=== PATIENT | female | born 1960 | race Caucasian/White ===

== ENCOUNTER 2018-05-02 07:19 | Emergency (ER) | payer OTHER, MEDICARE ==
--- OUTSIDE RECORDS SUMMARY | ~2018-05-02 | XMS | Encounter Summary ---
Demographics + + + | Address | [address] | | | [place] [address] | + + + | Home Phone | | + + + | Preferred Language | Unknown | + + + | Marital Status | | + + + | Gnosticism Affiliation | Unknown | + + + | Race | Unknown | + + + | Ethnic Group | Unknown | + + + Author + + + | Author | [facility] | | | and [place] | + + + | Organization | [facility] | | | and [place] | + + + | Address | Unknown | + + + | Phone | Unavailable | + + + Support + + + + + | Name | Relationship | Address | Phone | + + + + + | Stephen Stubbs | ECON | [address] | | | | | [place] [address] | | + + + + + Care Team Providers + +------+ + | Care Rn Allergy Name | Role | Phone | + +------+ + | Iain Rosales MD | PCP | | + +------+ + Reason for Visit + + + | Reason | Comments | + + + | Emesis | | + + + | Abdominal Pain | | + + + Encounter Details +--------+ + + + + | Date | Type | Department | Care Team | Description | +--------+ + + + + | 04/30/ | Emergency | [facility] | Gordon Will, | Intractable vomiting | | 2018 - | | [facility] | MD [address] | with nausea, | | | | CENTER [address] | [facility] | unspecified vomiting | | 05/01/ | | [place] | [place] [address] | type (Primary Dx) | | 2018 | | [address] | [phone] | | | | | [phone] | | | +--------+ + + + + Social History + + + +--------+ + | Tobacco Use | Types | Packs/Day | Years | Date | | | | | Used | | + + + +--------+ + | Former Smoker | Cigarettes | 1 | 37 | Quit: 01/08/2013 | + + + +--------+ + + +---+---+---+ | Smokeless Tobacco: | | | | | Never Used | | | | + +---+---+---+ + + +---------+ + | Alcohol Use | Drinks/We | oz/Week | Comments | | | ek | | | + + +---------+ + | No | | | | + + +---------+ + + + + | Sex Assigned at | Date Recorded | | | | + + + | Not on file | | + + + as of this encounter Last Filed Vital Signs + + + + | Vital Sign | Reading | Time Taken | + + + + | Blood Pressure | 173/74 | 04/30/20182129 PDT | + + + + | Pulse | 76 | 04/30/20182144 PDT | + + + + | Temperature | 37.8 C (100 F) | 04/30/20181831 PDT | + + + + | Respiratory Rate | 22 | 04/30/20181831 PDT | + + + + | Oxygen Saturation | 92% | 04/30/20182144 PDT | + + + + | Inhaled Oxygen | - | - | | Concentration | | | + + + + | Weight | 81.6 kg (180 lb) | 04/30/20181831 PDT | + + + + | Height | 162.6 cm (5' 4") | 04/30/20181831 PDT | + + + + | Body Mass Index | 30.9 | 04/30/20181831 PDT | + + + + in this encounter Functional Status + + + + | Functional Status | Response | Date of Assessment | + + + + | Are you deaf or do you have serious | No | 11/17/2017 | | difficulty hearing? | | | + + + + | Are you blind or do you have serious | No | 11/17/2017 | | difficulty seeing, even when wearing | | | | glasses? | | | + + + + | Do you have serious difficulty walking or | No | 11/17/2017 | | climbing stairs? (5 years old or older) | | | + + + + | Do you have difficulty dressing or bathing? | No | 11/17/2017 | | (5 years old or older) | | | + + + + | Because of a physical, mental, or emotional | No | 11/17/2017 | | condition, do you have difficulty doing | | | | errands alone such as visiting a doctor's | | | | office or shopping? [15 years old or | | | | older)] | | | + + + + + + + + | Cognitive Status | Response | Date of Assessment | + + + + | Because of a physical, mental, or emotional | No | 11/17/2017 | | condition, do you have serious difficulty | | | | concentrating, remembering, or making | | | | decisions? (5 years old or older) | | | + + + + as of this encounter Discharge Instructions Gordon Will MD - 04/30/2018Resume your usual medication Follow-up with primary care The following attachments cannot be sent through Care Everywhere.Vomiting (Adult) (Cymraes) in this encounter Medications at Time of Discharge + + + +---------+ + + | Medication | Sig. | Disp. | Refills | Start | End Date | | | | | | Date | | + + + +---------+ + + | Albuterol Sulfate | Inhale 1 puff into | | | | | | (PROAIR HFA IN) | the lungs as needed | | | | | | | (for shortness of | | | | | | | breath). | | | | | + + + +---------+ + + | atorvaSTATin | Take 1 tablet by | 90 | 3 | 03/11/20 | | | (LIPITOR) 40 mg | mouth nightly. | tablet | | 18 | | | tablet | | | | | | + + + +---------+ + + | buPROPion | Take 150 mg by mouth | | | | | | (WELLBUTRIN SR) 150 | Daily. | | | | | | mg 12 hr tablet | | | | | | + + + +---------+ + + | DULoxetine | Take 30 mg by mouth | | | | | | (CYMBALTA) [address] | Daily. | | | | | | capsule | | | | | | + + + +---------+ + + | insulin degludec | Inject 33 Units | | | | | | (TRESIBA FLEXTOUCH) | under the skin every | | | | | | 100 units/mL | morning. | | | | | | injection | | | | | | + + + +---------+ + + | insulin lispro | Inject 1 Units under | | | | | | (HUMALOG) 100 | the skin See Admin | | | | | | units/mL injection | Instructions. Inject | | | | | | (vial) | 1 units under the | | | | | | | skin for every 40 | | | | | | | above 180 blood | | | | | | | glucose 2 hours post | | | | | | | meals | | | | | + + + +---------+ + + | lidocaine | Take 15 mLs by mouth | 150 mL | 0 | 11/11/19 | | | (XYLOCAINE) 2% | every 4 hours as | | | 18 | | | solution | needed for Pain. | | | | | + + + +---------+ + + | lisinopril | Take 10 mg by mouth | | | | | | (PRINIVIL, ZESTRIL) | Daily. | | | | | | 10 mg tablet | | | | | | + + + +---------+ + + | metoclopramide | Take 1 tablet by | 20 | 1 | 11/18/19 | | | (REGLAN) 10 mg | mouth every 6 hours | tablet | | 18 | | | tablet | as needed for | | | | | | | Nausea. | | | | | + + + +---------+ + + | metoprolol | Take 50 mg by mouth | | | | | | succinate | Daily. | | | | | | (TOPROL-XL) 50 mg 24 | | | | | | | hr tablet | | | | | | + + + +---------+ + + | nitroglycerin | Place 0.4 mg under | | | | | | (NITROSTAT) 0.4 mg | the tongue every 5 | | | | | | SL tablet | minutes as needed | | | | | | | for Chest pain. | | | | | + + + +---------+ + + | omeprazole | Take 40 mg by mouth | | | | | | (PRILOSEC) 40 MG | every morning | | | | | | capsule | (before breakfast). | | | | | + + + +---------+ + + | ondansetron | Take 4 mg by mouth | | | | | | (ZOFRAN ODT) 4 mg | every 8 hours as | | | | | | disintegrating | needed for Nausea. | | | | | | tablet | | | | | | + + + +---------+ + + | ondansetron | Take 1 tablet by | 12 | 0 | 02/03/20 | | | (ZOFRAN ODT) 4 mg | mouth every 6 hours | tablet | | 18 | | | disintegrating | as needed for Nausea | | | | | | tablet | or Vomiting. | | | | | + + + +---------+ + + | ONETOUCH VERIO | USE 1 STRIP 5 TIMES | | 1 | 01/16/20 | | | strip | DAILY | | | 18 | | + + + +---------+ + + | polyethylene | Take 17 g by mouth | | | | | | glycol (MIRALAX) | Daily as needed for | | | | | | powder | Constipation. | | | | | + + + +---------+ + + | promethazine | Place 1 suppository | 12 | 0 | 04/30/20 | | | (PHENERGAN) 25 mg | rectally every 4 | supposito | | 18 | | | suppository | hours as needed for | ry | | | | | | Nausea or Vomiting. | | | | | | | Unwrap and insert 1 | | | | | | | suppository rectally | | | | | | | every four hours as | | | | | | | needed | | | | | + + + +---------+ + + | semaglutide | Inject 0.5 mg under | | | | | | (OZEMPIC) 0.25 or | the skin Once a | | | | | | 0.5 mg/dose | week. | | | | | | injection | | | | | | + + + +---------+ + + | senna (SENOKOT) | Take 1 tablet by | | | | | | 8.6 MG TABS | mouth Daily as | | | | | | | needed for | | | | | | | Constipation. | | | | | + + + +---------+ + + | traZODone | Take 150 mg by mouth | | | | | | (DESYREL) 50 mg | nightly. | | | | | | tablet | | | | | | + + + +---------+ + + as of this encounter Plan of Treatment +--------+---------+ + + + | Date | Type | Specialty | Care Team | Description | +--------+---------+ + + + | 08/27/ | Office | Urology | Davon Perry, | | | 2018 | Visit | | MD Jose De Jesus MIKE, | | | | | | [place] | | | | | | [place] [address] | | | | | | [phone] | | | | | | | | +--------+---------+ + + + | 09/11/ | Office | Cardiology | Karthik Cobb, | | | 2018 | Visit | | MD Michelle Milan | | | | | | . [place], | | | | | | [place] [address] | | | | | | [phone] | | | | | | | | +--------+---------+ + + + as of this encounter Procedures + +--------+ + + + | Procedure Name | Priori | Date/Time | Associated Diagnosis | Comments | | | ty | | | | + +--------+ + + + | URINALYSIS WITH | STAT | 04/30/2018 | | Results for this | | MICROSCOPIC WITH | | 1920 PDT | | procedure are in the | | CULTURE IF INDICATED | | | | results section. | + +--------+ + + + | EXTRA LAVENDER TOP | Routin | 04/30/2018 | | Results for this | | TUBE | e | 1920 PDT | | procedure are in the | | | | | | results section. | + +--------+ + + + | EXTRA GREEN TOP TUBE | STAT | 04/30/2018 | | Results for this | | | | 1920 PDT | | procedure are in the | | | | | | results section. | + +--------+ + + + | EXTRA GOLD TOP TUBE | Routin | 04/30/2018 | | Results for this | | | e | 1920 PDT | | procedure are in the | | | | | | results section. | + +--------+ + + + | EXTRA BLUE TOP TUBE | Routin | 04/30/2018 | | Results for this | | | e | 1920 PDT | | procedure are in the | | | | | | results section. | + +--------+ + + + | SLIDE REVIEW, | Routin | 04/30/2018 | | Results for this | | PERIPHERAL SMEAR | e | 1919 PDT | | procedure are in the | | | | | | results section. | + +--------+ + + + | CBC WITH | STAT | 04/30/2018 | | Results for this | | DIFFERENTIAL | | 191 PDT | | procedure are in the | | | | | | results section. | + +--------+ + + + | MAGNESIUM | STAT | 04/30/2018 | | Results for this | | | | 1918 PDT | | procedure are in the | | | | | | results section. | + +--------+ + + + | LIPASE | STAT | 04/30/2018 | | Results for this | | | | 1919 PDT | | procedure are in the | | | | | | results section. | + +--------+ + + + | COMPREHENSIVE | STAT | 04/30/2018 | | Results for this | | METABOLIC PANEL | | 1919 PDT | | procedure are in the | | | | | | results section. | + +--------+ + + + in this encounter Results Extra Gold Top Tube (04/30/20181919) + +-------+ + + | Component | Value | Ref Range | Performed At | + +-------+ + + | EGDT | Done | | [facility] | | | | | [facility] | | | | | [facility] - | | | | | LABORATORY | + +-------+ + + + + | Specimen | + + | Blood | + + + + + + + | Performing | Address | City/State/Zipcode | Phone Number | | Organization | | | | + + + + + | [facility] | [address] | [place] | [phone] | | [facility] | | [address] | | | - LABORATORY | | | | + + + + + | [facility] | [address] | [place], [place] | | | [facility] | | [address] | | | - LABORATORY | | | | + + + + + Extra Blue Top Tube (04/30/20181919) + +-------+ + + | Component | Value | Ref Range | Performed At | + +-------+ + + | Extra Blue Top Tube | Done | | [facility] | | | | | [facility] | | | | | [facility] - | | | | | LABORATORY | + +-------+ + + + + | Specimen | + + | Blood | + + + + + + + | Performing | Address | City/State/Zipcode | Phone Number | | Organization | | | | + + + + + | [facility] | [address] | [place], [place] | [phone] | | [facility] | | [address] | | | - LABORATORY | | | | + + + + + | [facility] | [address] | [place] | | | [facility] | | [address] | | | - LABORATORY | | | | + + + + + Extra Green Top Tube (04/30/20181919) + +-------+ + + | Component | Value | Ref Range | Performed At | + +-------+ + + | Extra Green Top Tube | Done | | [facility] | | | | | [facility] | | | | | [facility] - | | | | | LABORATORY | + +-------+ + + + + | Specimen | + + | Blood | + + + + + + + | Performing | Address | City/State/Zipcode | Phone Number | | Organization | | | | + + + + + | [facility] | [address] | [place] | [phone] | | [facility] | | [address] | | | - LABORATORY | | | | + + + + + | [facility] | [address] | [place] | | | [facility] | | [address] | | | - LABORATORY | | | | + + + + + Extra Lavender Top Tube (04/30/20181919) + +-------+ + + | Component | Value | Ref Range | Performed At | + +-------+ + + | Extra Lavender Top | Done | | [facility] | | Tube | | | [facility] | | | | | [facility] - | | | | | LABORATORY | + +-------+ + + + + | Specimen | + + | Blood | + + + + + + + | Performing | Address | City/State/Zipcode | Phone Number | | Organization | | | | + + + + + | [facility] | [address] | [place], [place] | [phone] | | [facility] | | [address] | | | - LABORATORY | | | | + + + + + | [facility] | [address] | [place], [place] | | | [facility] | | [address] | | | - LABORATORY | | | | + + + + + Urinalysis with Microscopic with Culture if Indicated (04/30/2018 1920) + + + + + | Component | Value | Ref Range | Performed At | + + + + + | COLOR | Yellow | Light Yellow, | [facility] | | | | Yellow, Straw | [facility] | | | | | C[facility] - | | | | | LABORATORY | + + + + + | CLARITY | Hazy (A) | Clear | [facility] | | | | | [facility] | | | | | [facility] - | | | | | LABORATORY | + + + + + | PH UA | 6.0 | 5.0 - 8.0 | [facility] | | | | | [facility] | | | | | [facility] - | | | | | LABORATORY | + + + + + | Specific Virgie | 1.036 (H) | 1.001 - 1.030 | [facility] | | | | | [facility] | | | | | C[facility] - | | | | | LABORATORY | + + + + + | PROTEIN UA | >=500 mg/dL (A) | Negative | [facility] | | | | | [facility] | | | | | C[facility] - | | | | | LABORATORY | + + + + + | BLOOD UA | Negative | Negative | [facility] | | | | | [facility] | | | | | [facility] - | | | | | LABORATORY | + + + + + | GLUCOSE UA | >=500 mg/dL (A) | Negative | [facility] | | | | | [facility] | | | | | [facility] - | | | | | LABORATORY | + + + + + | KETONES UA | 80 mg/dL (A) | Negative | [facility] | | | | | [facility] | | | | | C[facility] - | | | | | LABORATORY | + + + + + | BILIRUBIN UA | Negative | Negative | [facility] | | | | | [facility] | | | | | [facility] - | | | | | LABORATORY | + + + + + | NITRITE UA | Negative | Negative | [facility] | | | | | [facility] | | | | | [facility] - | | | | | LABORATORY | + + + + + | LEUKOCYTES ESTERASE | Negative | Negative | [facility] | | UA | | | [facility] | | [facility] | | [facility] - | | | | | LABORATORY | + + + + + | UROBILINOGEN UA | Negative | 0.2 mg/dL, 1.0 | [facility] | | | | mg/dL, Negative | [facility] | | | | | C[facility] - | | | | | LABORATORY | + + + + + | WBC UA | 0-2 | 0 - 2 /HPF | [facility] | | | | | [facility] | | | | | CENTER - | | | | | LABORATORY | + + + + + | RBC UA | 5-10 (A) | 0 - 2 /HPF | [facility] | | | | | [facility] | | | | | [facility] - | | | | | LABORATORY | + + + + + | SQUAMOUS EPITHELIAL | >100 (A) | 0 - 2 /LPF | [facility] | | UA | | | [facility] | | | | | CENTER - | | | | | LABORATORY | + + + + + | BACTERIA UA | Negative | Negative /HPF | [facility] | | | | | [facility] | | | | | [facility] - | | | | | LABORATORY | + + + + + | MUCUS UA | Present (A) | Negative /LPF | [facility] | | | | | [facility] | | | | | CENTER - | | | | | LABORATORY | + + + + + | URINE COMMENT | Urine Culture Not | | [facility] | | | Indicated | | [facility] | | | | | CENTER - | | | | | LABORATORY | + + + + + + + | Specimen | + + | Urine - Urine, Clean | | Catch | + + + + + + + | Performing | Address | City/State/Zipcode | Phone Number | | Organization | | | | + + + + + | [facility] | [address] | [place], [place] | [phone] | | [facility] | | [address] | | | - LABORATORY | | | | + + + + + | [facility] | [address] | [place], [place] | | | [facility] | | [address] | | | - LABORATORY | | | | + + + + + Slide Review, Peripheral Smear (04/30/20181918) + + + + + | Component | Value | Ref Range | Performed At | + + + + + | RBC MORPHOLOGY | Normal | | [facility] | | | | | [facility] | | | | | C[facility] - | | | | | LABORATORY | + + + + + | WBC MORPHOLOGY | Normal | | [facility] | | | | | [facility] | | | | | C[facility] - | | | | | LABORATORY | + + + + + | Platelet Estimate | Adequate | Adequate | [facility] | | | | | [facility] | | | | | [facility] - | | | | | LABORATORY | + + + + + + + | Specimen | + + | Blood | + + + + + | Narrative | Performed At | + + + | <10% bands seen on smear review; | [facility] | | [facility] | | | - [facility] | + + + + + + + + | Performing | Address | City/State/Zipcode | Phone Number | | Organization | | | | + + + + + | [facility] | [address] | [place], [place] | [phone] | | [facility] | | [address] | | | - LABORATORY | | | | + + + + + | [facility] | [address] | [place], [place] | | | [facility] | | [address] | | | - LABORATORY | | | | + + + + + Magnesium (04/30/20181918) + +---------+ + + | Component | Value | Ref Range | Performed At | + +---------+ + + | MG | 1.6 (L) | 1.8 - 2.5 mg/dL | [facility] | | | | | [facility] | | | | | [facility] - | | | | | LABORATORY | + +---------+ + + + + | Specimen | + + | Blood | + + + + + + + | Performing | Address | City/State/Zipcode | Phone Number | | Organization | | | | + + + + + | [facility] | [address] | [place] | [phone] | | [facility] | | [address] | | | - LABORATORY | | | | + + + + + | [facility] | [address] | [place] | | | [facility] | | [address] | | | - LABORATORY | | | | + + + + + Lipase (04/30/20181918) + +-------+ + + | Component | Value | Ref Range | Performed At | + +-------+ + + | LIPASE | 18 | 0 - 60 U/L | [facility] | | | | | [facility] | | | | | [facility] - | | | | | LABORATORY | + +-------+ + + + + | Specimen | + + | Blood | + + + + + + + | Performing | Address | City/State/Zipcode | Phone Number | | Organization | | | | + + + + + | [facility] | [address] | [place], [place] | [phone] | | [facility] | | [address] | | | - LABORATORY | | | | + + + + + | [facility] | [address] | [place], [place] | | | [facility] | | [address] | | | - LABORATORY | | | | + + + + + Comprehensive Metabolic Panel (04/30/20181918) + + + + + | Component | Value | Ref Range | Performed At | + + + + + | NA | 140 | 136 - 149 mmol/L | [facility] | | | | | [facility] | | | | | [facility] - | | | | | LABORATORY | + + + + + | K | 3.7 | 3.5 - 5.1 mmol/L | [facility] | | | | | [facility] | | | | | [facility] - | | | | | LABORATORY | + + + + + | CL | 102 | 98 - 109 mmol/L | [facility] | | | | | [facility] | | | | | C[facility] - | | | | | LABORATORY | + + + + + | CO2 | 24 | 24 - 31 mmol/L | [facility] | | | | | [facility] | | | | | C[facility] - | | | | | LABORATORY | + + + + + | ANION GAP | 14 | 3 - 16 mmol/L | [facility] | | | | | [facility] | | | | | C[facility] - | | | | | LABORATORY | + + + + + | GLUCOSE | 298 (H) | 70 - 109 mg/dL | [facility] | | | | | [facility] | | | | | [facility] - | | | | | LABORATORY | + + + + + | BUN | 8 | 7 - 18 mg/dL | [facility] | | | | | [facility] | | | | | [facility] - | | | | | LABORATORY | + + + + + | Creatinine, | 0.64 | 0.60 - 1.30 mg/dL | [facility] | | Serum/Plasma | | | [facility] | | | | | CENTER - | | | | | LABORATORY | + + + + + | eGFR if not | >60Comment: GLOMERULAR | >=60 mL/min/1.73m2 | [facility] | | [place] | FILTRATION | | [facility] | | | RATE,ESTIMATED mL/min | | CENTER - | | | /1.94w4Swby than 60 | | LABORATORY | | | Chronic kidney | | | | | disease,if found over a | | | | | 3-month period.Less than | | | | | 15 Kidney | | | | | failureFor | | | | | Americans,multiply the | | | | | calculated GFR by 1.21. | | | | | | | | + + + + + | CALCIUM | 9.2 | 8.3 - 10.5 mg/dL | [facility] | | | | | [facility] | | | | | CENTER - | | | | | LABORATORY | + + + + + | ALBUMIN | 4.3 | 3.2 - 5.0 g/dL | [facility] | | | | | [facility] | | | | | C[facility] - | | | | | LABORATORY | + + + + + | Bilirubin Total | 1.0Comment: This is an | 0.1 - 1.5 mg/dL | [facility] | | | appended report. These | | [facility] | | | results have been | | CENTER - | | | appended to a previously | | LABORATORY | | | preliminary verified | | | | | report. | | | + + + + + | Total protein | 8.1 (H) | 6.0 - 7.8 g/dL | [facility] | | | | | [facility] | | | | | C[facility] - | | | | | LABORATORY | + + + + + | AST | 24Comment: This is an | 10 - 42 U/L | [facility] | | | appended report. These | | [facility] | | | results have been | | CENTER - | | | appended to a previously | | LABORATORY | | | preliminary verified | | | | | report. | | | + + + + + | ALT | 34Comment: This is an | 6 - 45 U/L | [facility] | | | appended report. These | | [facility] | | | results have been | | CENTER - | | | appended to a previously | | LABORATORY | | | preliminary verified | | | | | report. | | | + + + + + | ALK PHOS | 118 (H)Comment: This is | 40 - 110 U/L | [facility] | | | an appended report. | | [facility] | | | These results have been | | CENTER - | | | appended to a previously | | LABORATORY | | | preliminary verified | | | | | report. | | | + + + + + | GLOBULIN | 3.8 | 2.1 - 3.8 g/dL | [facility] | | | | | [facility] | | | | | CENTER - | | | | | LABORATORY | + + + + + | Albumin/Globulin | 1.1 | 0.8 - 2.0 | [facility] | | ratio | | | [facility] | | | | | CENTER - | | | | | LABORATORY | + + + + + | BUN/CREA | 12.5 | | [facility] | | | | | [facility] | | | | | CENTER - | | | | | LABORATORY | + + + + + + + | Specimen | + + | Blood | + + + + + + + | Performing | Address | City/State/Zipcode | Phone Number | | Organization | | | | + + + + + | [facility] | [address] | [place] | [phone] | | [facility] | | [address] | | | - LABORATORY | | | | + + + + + | [facility] | [address] | [place] | | | [facility] | | [address] | | | - LABORATORY | | | | + + + + + CBC with Differential (04/30/20181918) + + + + + | Component | Value | Ref Range | Performed At | + + + + + | WBC | 11.2 (H) | 4.0 - 11.0 K/uL | [facility] | | | | | [facility] - | | | | | [facility]ATORY | + + + + + | RBC | 5.47 (H) | 3.70 - 5.20 M/uL | [facility] | [facility] - | | | | | LAB[facility]ATORY | + + + + + | Hgb | 17.5 (H) | 11.5 - 16.0 g/dL | [facility] - | | | | | LAB[facility]ATORY | + + + + + | Hct | 50.8 (H) | 34.0 - 47.0 % | [facility] | [facility] - | | | | | [facility]ATORY | + + + + + | MCV | 92.8 | 83.0 - 101.0 fL | [facility] | [facility] - | | | | | [facility]ORY | + + + + + | MCH | 32.0 | 28.0 - 35.0 pg | [facility] - | | | | | [facility]ATORY | + + + + + | MCHC | 34.5 | 32.0 - 36.0 g/dL | [facility] - | | | | | [facility]ATORY | + + + + + | RDW-CV | 14.0 | <15.0 % | [facility] | [facility] - | | | | | [facility]ORY | + + + + + | Platelet Count | 168 | 140 - 440 K/uL | [facility] | [facility] - | | | | | [facility] | + + + + + | MPV | 10.2 | fL | [facility] - | | | | | [facility] | + + + + + | % Neutrophils | 89.0 (H) | 45.0 - 82.0 % | [facility] - | | | | | [facility]ORY | + + + + + | % Lymphocytes | 6.1 (L) | 20.0 - 45.0 % | [facility] - | | | | | [facility]ORY | + + + + + | % Monocytes | 2.2 (L) | 4.0 - 12.0 % | [facility] - | | | | | [facility]ATORY | + + + + + | % Eosinophils | 0.4 | 0.0 - 5.0 % | [facility] [facility] | [facility] - | | | | | [facility]ATORY | + + + + + | % Basophils | 2.3 (H) | 0.0 - 1.0 % | [facility] - | | | | | LAB[facility]ATORY | + + + + + | Absolute Neutrophils | 10.00 (H) | 1.80 - 8.50 K/uL | [facility] | [facility] - | | | | | LAB[facility]ATORY | + + + + + | Absolute Lymphocytes | 0.70 | 0.60 - 3.20 K/uL | [facility] - | | | | | LAB[facility]ATORY | + + + + + | Absolute Monocytes | 0.20 | 0.00 - 1.00 K/uL | [facility] - | | | | | [facility]ATORY | + + + + + | Absolute Eosinophils | 0.00 | 0.00 - 0.40 K/uL | [facility] - | | | | | LAB[facility]ATORY | + + + + + | Absolute Basophils | 0.30 (H) | 0.00 - 0.10 K/uL | [facility] | [facility] - | | | | | LAB[facility]ATORY | + + + + + + + | Specimen | + + | Blood | + + + + + + + | Performing | Address | City/State/Zipcode | Phone Number | | Organization | | | | + + + + + | [facility] | [address] | [place], [place] | [phone] | | [facility] | | [address] | | | - LABORATORY | | | | + + + + + | [facility] | [address] | [place] | | | [facility] | | [address] | | | - LABORATORY | | | | + + + + + in this encounter Visit Diagnoses + + | Diagnosis | + + | Intractable vomiting with nausea, unspecified vomiting type - Primary | + + Administered Medications + +--------+ +------+------+------+ | Medication Order | MAR | Action | Dose | Rate | Site | | | Action | Date | | | | + +--------+ +------+------+------+ | LORazepam (ATIVAN) injection 1 | Given | | 1 mg | | | | mg 1 mg, Intravenous, ONCE, Wed | | 8 19:26 | | | | | 04/30/18 at 1910, For 1 dose | | PDT | | | | + +--------+ +------+------+------+ +---+---+ | | | +---+---+ + +---------+ +-----+ +---+ | magnesium sulfate 2 g/50 mL | New Bag | | 2 g | 25 mL/hr | | | IVPB 2 g 2 g, Intravenous, | | 8 20:15 | | | | | Administer over 120 Minutes, | | PDT | | | | | ONCE, Sat04/30/18 at 2000, For 1 | | | | | | | dose, Maximum recommended | | | | | | | infusion rate = 1 gram/hour. | | | | | | + +---------+ +-----+ +---+ +---+---+ | | | +---+---+ + +-------+ +-------+---+---+ | metoclopramide (REGLAN) 5 mg/mL | Given | | 10 mg | | | | injection 10 mg 10 mg, | | 8 19:26 | | | | | Intravenous, ONCE, Sat04/30/18 at | | PDT | | | | | 1910, For 1 dose, Protect from | | | | | | | light. | | | | | | + +-------+ +-------+---+---+ +---+---+ | | | +---+---+ + +---------+ +---------+-------+---+ | promethazine (PHENERGAN) 12.5 | New Bag | | 12.5 mg | 202 | | | mg in sodium chloride 0.9% 50 mL | | 8 22:12 | | mL/hr | | | IVPB 12.5 mg, Intravenous, | | PDT | | | | | Administer over 15 Minutes, ONCE, | | | | | | | 04/30/18 at 2205, For 1 dose | | | | | | + +---------+ +---------+-------+---+ +---+---+ | | | +---+---+ + +---------+ +--------+-------+---+ | sodium chloride 0.9% (NS) bolus | New Bag | | 1,000 | 1000 | | | 1,000 mL 1,000 mL, Intravenous, | | 8 19:17 | mLs | mL/hr | | | Administer over 1 Hours, ONCE, | | PDT | | | | | 04/30/18 at 1910, For 1 dose | | | | | | + +---------+ +--------+-------+---+ +---+---+ | | | +---+---+ + +---------+ +--------+-------+---+ | sodium chloride 0.9% (NS) bolus | New Bag | | 1,000 | 1000 | | | 1,000 mL 1,000 mL, Intravenous, | | 8 20:55 | mLs | mL/hr | | | Administer over 1 Hours, ONCE, | | PDT | | | | | 04/30/18 at 2055, For 1 dose | | | | | | + +---------+ +--------+-------+---+ +---+---+ | | | +---+---+ in this encounter
--- OUTSIDE RECORDS SUMMARY | ~2018-05-02 | XMS | Encounter Summary ---
Demographics + + + | Address | [address] | | | [place] [address] | + + + | Home Phone | | + + + | Preferred Language | Unknown | + + + | Marital Status | | + + + | Religion Affiliation | Unknown | + + + | Race | Unknown | + + + | Ethnic Group | Unknown | + + + Author + + + | Author | [facility] | | | and [place] | + + + | Organization | [facility] | | | and [...] | | | | | [place] [address] | | + + + + + Care Team Providers + +------+ + | Care Writer Name | Role | Phone | + +------+ + | Iain Rosales MD | PCP | | + +------+ + Reason for Visit +--------+ + | Reason | Comments | +--------+ + | Other | kidney lesion, [place], left | +--------+ + Encounter Details +--------+---------+ + + + | Date | Type | Department | Care Team | Description | +--------+---------+ + + + | 02/06/ | Office | [facility] | Davon Perry, | Renal cell carcinoma | | 2018 | Visit | [address] | MD [address], | of left kidney | | | | [address] [place] | [address] [place] | (HCC) (Primary Dx); | | | | [place] [address] | [place] [address] | Microhematuria | | | | [phone] | [phone] | | | | | | | | +--------+---------+ + + + Social History + + [...] + + + | Blood Pressure | 132/80 | 02/06/2018 1051 PDT | + + + + | Pulse | 87 | 02/06/20181050 PDT | + + + + | Temperature | - | - | + + + + | Respiratory Rate | - | - | + + + + | Oxygen Saturation | - | - | + + + + | Inhaled Oxygen | - | - | | Concentration | | | + + + + | Weight | 79.7 kg (175 lb 11.3 | 02/06/20181050 PDT | | | oz) | | + + + + | Height | 162.6 cm (5' 4") | 02/06/20181050 PDT | + + + + | Body Mass Index | 30.16 | 02/06/20181050 PDT | + + + + in [...] + + + as of this encounter Instructions Patient Instructions - Davon Perry MD - 02/06/2018 1437 PDT What Is Kidney (Renal) Cancer? Cancer occurs when cells in the body mutate or change and start multiplying out of control. These cells can form lumps of tissue called tumors. Cancer that starts in the cells that ma ke up the kidney is called kidney or renal cancer. Understanding the kidneys The kidneys are gomez-shaped organs about the size of a bar of soap. They are found in the l ow back area, one on each side of the spine. The kidneys help keep the body alive by filteri ng waste and excess fluid from the blood. The kidneys send this liquid and waste (urine) to the bladder through the ureters. Urine then leaves the body through the urethra. When kidney cancer forms Kidney cancer forms when cells in the kidney change and multiply abnormally. The cancer can interfere with the working of the kidneys. Kidney cancer may spread beyond the kidneys to o ther parts of the body. This spread is called metastasis. The more cancer spreads, the harde r it is to treat. Treatment choices for kidney cancer You and your healthcare provider will discuss a treatment plan that's best for your needs. Treatment choices may include the following. Surgery Surgery is the most common treatment for kidney cancer. Your healthcare provider may advise surgery to treat your kidney cancer if any of these apply to you: You are healthy enough to have surgery. Your healthcare provider will only advise surger y if he or she expects you to be able to recover from it. The tumor is small. In this case, your healthcare provider may do a partial nephrectomy. This surgery allows you to keep some kidney function. Only the part of the kidney that cont ains the tumor is taken out. In some cases, your provider may advise this surgery if the jose angel or is larger but you have cancer in both kidneys or if you have only one kidney. The benefit is that you keep part of the kidney. The risk is that there is a chance some cancer cells w ill be left behind. The tumor is larger, but is only in your kidney. Your healthcare provider will advise th e type of surgery you need based on the size of the tumor and where it is. Your provider may advise a simple nephrectomy. This is surgery to take out the entire kidney. Or your provide r may advise a radical nephrectomy. This is surgery to take out the whole kidney and the adr enal gland. The adrenal gland is attached to the top of the kidney. Much of the nearby fatty tissue is also taken out. Nearby lymph nodes will also likely be removed. That's because ca ncer may travel to the nodes first. Taking out the lymph nodes may help prevent the spread o f cancer to other parts of your body. And looking at these lymph nodes helps your provider f igure out the stage of the cancer. This is important in deciding whether you need other jose tments after surgery. You have kidney cancer that has spread to other areas and your doctors believe that genna ving the original kidney tumor will be a useful and effective addition to treatment. Your he althcare provider may suggest a radical nephrectomy and removal of nearby lymph nodes. The t umor or tumors in other parts of the body may also be removed or it may be recommended that you get anti-cancer drug therapy. Even in cases where surgery won t cure the cancer, surge ry can sometimes help ease symptoms such as pressure, pain, or bleeding. You have symptoms. You may have pain, pressure, or bleeding from tumors that have spread . Your healthcare provider may suggest surgery to remove the tumors. This is done to ease sy mptoms. Because it doesn't cure the cancer, it is called palliative therapy. Biologic therapy (immunotherapy) This treatment strengthens your immune system to help fight cancer. It uses medicines that work like the chemicals that your body s immune system makes. They help your immune system fight the cancer. Chemotherapy Chemotherapy uses medicines to kill cancer cells. Regular chemotherapy medicines don't usua lly work well against kidney cancer. Chemotherapy has mostly been replaced by biologic thera py in kidney cancer treatment. But chemotherapy medicines are still sometimes used in rare c ases where biologic therapy has not worked. Radiation therapy Radiation therapy uses directed rays of energy to kill cancer cells. Radiation therapy does n't work as well as other methods for treating kidney cancer. Still, it may be used to treat someone who's not healthy enough to have surgery, or a person with kidney cancer that's not responding to other treatments. It may also be used to treat kidney cancer that has spread to the brain or bones. It may be used to treat pain caused by cancer that has spread to the bone (bone metastasis). It can also help stabilize a bone that has been weakened by metastas is and may be at risk for breaking. Targeted therapies These therapies use medicines to focus on or prevent changes in the cancer cells. The curtis es may be either in the cell's molecules or genes. These medicines help keep the cells from growing out of control and spreading to other parts of the body. Date Last Reviewed: 09/19/201619993282-7972 [employer]. [address] [place] [address], [place] [address]. All righ ts reserved. This information is not intended as a substitute for professional medical care. Always follow your healthcare professional's instructions. in this encounter Progress Notes Davon Perry MD - 02/06/2018 1100 PDTFormatting of this note may be different from the original. Kerry is a 57 y.o. female patient of Iain Rosales MD being seen today for a follow up for left kidney tumor. Kerry has history of diabetes and diabetic gastroparesis with multiple admissions for nause a and vomiting and abdominal pain. During evaluation of her gastroparesis, CT imaging suggested a mass lesion in the left kidn ey. Kerry ultimately underwent a robotic-assisted left partial nephrectomy by Dr. Josep Lamb on 01/31/2018. She was discharged on 02/02/2018. Cecy reports that she has done well since her nephrectomy procedure. She has not requir ed readmission for nausea or vomiting or gastroparesis issues. She reports that she had a bowel movement this morning after taking MiraLAX. She denies an y hematochezia or melena or diarrhea. She denies any fever or chills. She has had occasional nausea, but no emesis. Her appetit e is low. She does feel gassy and bloated at times, but is passing flatus regularly. She denies any difficulties with voiding. She denies any dysuria or hematuria or increased urinary frequency. She does have urinary urgency and urge incontinence, for which she wear s 1 pad per day. She reports her pain is well controlled. She is not taking any pain medication currently o ther than acetaminophen. However, she does note significant pain if she tries to lay on her left side, so she has been sleeping on her right side. She is seen no wound drainage or di scharge or bleeding. She reports that she "wasn't thinking" and lifted a load of laundry at home, which produced incisional/abdominal pain, which has resolved. She denies any cough or chest pain or shortness breath or hemoptysis. She does not smoke. 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 She is . She has 2 children. I spent in excess of 40 minutes with Kerry today, over 50% of this time spent in counseling regarding her left renal cell carcinoma and follow-up recommendations. Past Medical History She has a past medical history of Acid reflux; Adverse effect of anesthesia; Anxiety; Arthr itis; Back pain, chronic; Cancer (HCC); CHF (congestive heart failure) (HCC); Claustrophobia ; Depression; Diabetes mellitus (HCC); Emphysema/COPD (HCC); Fibromyalgia; Gastroparesis (4x in er w/1admission in past 10d); H/O heart artery stent; Hypertension; Kidney problem; SD ( myocardial infarction) (HCC) (10/2016); PONV (postoperative nausea and vomiting); Shortness of breath; and Sleep apnea. Past Surgical History She has a past surgical history that includes orthopedic surgery; Rotator cuff repair (Bila teral); Foot surgery; Upper gastrointestinal endoscopy (N/A, 03/19/2017); Cardiac catheterizat ion (N/A, 11/15/2017); Appendectomy; knee surgery (Right); Coronary angioplasty with stent (0 11/07/2009); knee joint replacement (Right); salpingectomy (Left); and partial nephrectomy (L eft, 01/31/2018). Family History: Her family history includes Arthritis in her mother; COPD in her father; Cancer in her brot her, father, and mother; Depression in her mother; Diabetes in her father and sister; Heart disease in her father; High cholesterol in her mother; Hypertension in her father; Stroke in her maternal grandmother; Vision loss in her sister. Social History: She reports that she quit smoking about 5 years ago. Her smoking use included Cigarettes. S he has a 37.00 pack-year smoking history. She has never used smokeless tobacco. She reports that she does not drink alcohol or use drugs. Allergies Allergen Reactions Canagliflozin Other (See Comments) INVOKANA causes Ketoacidosis Metformin Hospitalized for 1 week, N/V, ABDOMINAL PAIN Milnacipran Nausea And Vomiting Other reaction(s): Diarrhea, Nausea Sulfa Antibiotics Rash Medications: Outpatient Encounter Prescriptions as of 02/06/2018 Medication Sig Dispense Refill Albuterol Sulfate (PROAIR HFA IN) Inhale 1 puff into the lungs as needed (for shortness of breath). aluminum & magnesium hydroxide-simethicone (MAALOX PLUS REGULAR STRENGTH) 200-200-20 mg /5 mL suspension Take 30 mLs by mouth every 6 hours as needed for Indigestion. 480 mL 0 ARIPiprazole (ABILIFY) 5 mg tablet Take 5 mg by mouth Daily. atorvaSTATin (LIPITOR) 20 mg tablet Take 1 tablet by mouth nightly. 30 tablet 5 buPROPion (WELLBUTRIN SR) 150 mg 12 hr tablet Take 150 mg by mouth 2 times daily. DULoxetine (CYMBALTA) [address] capsule Take 60 mg by mouth Daily. insulin degludec (TRESIBA FLEXTOUCH) 100 units/mL injection Inject 33 Units under the s kin every morning. insulin lispro (HUMALOG) 100 units/mL injection (vial) Inject 1 Units under the skin Se e Admin Instructions. Inject 1 units under the skin for every 40 above 180 blood glucose 2 h ours post meals lidocaine (XYLOCAINE) 2% solution Take 15 mLs by mouth every 4 hours as needed for Pain . 150 mL 0 lisinopril (PRINIVIL, ZESTRIL) 10 mg tablet Take 10 mg by mouth Daily. [DISCONTINUED] LORazepam (ATIVAN) 1 mg tablet Take 1 tablet by mouth every 8 hours as n eeded for Anxiety. (Patient not taking: Reported on 02/06/2018) 12 tablet 0 methocarbamol (ROBAXIN) 750 mg tablet Take 2 tablets by mouth every 6 hours as needed f or Muscle spasms. 20 tablet 0 metoclopramide (REGLAN) 10 mg tablet Take 1 tablet by mouth every 6 hours as needed for Nausea. 20 tablet 1 metoprolol succinate (TOPROL-XL) 50 mg 24 hr tablet Take 50 mg by mouth Daily. nitroglycerin (NITROSTAT) 0.[address] 0.4 mg under the tongue every 5 minute s as needed for Chest pain. omeprazole (PRILOSEC) 40 MG capsule Take 40 mg by mouth every morning (before breakfast ). ondansetron (ZOFRAN ODT) 4 mg disintegrating tablet Take 1 tablet by mouth every 6 hour s as needed for Nausea or Vomiting. 12 tablet 0 ondansetron (ZOFRAN ODT) 4 mg disintegrating tablet Take 4 mg by mouth every 8 hours as needed for Nausea. ONETOUCH VERIO strip USE 1 STRIP 5 TIMES DAILY 1 [DISCONTINUED] oxyCODONE-acetaminophen (PERCOCET) 5-325 mg per tablet Take 1-2 tablets by mouth every 6 hours as needed. (Patient not taking: Reported on 02/06/2018) 25 tablet 0 polyethylene glycol (MIRALAX) powder Take 17 g by mouth Daily as needed for Constipatio n. [DISCONTINUED] semaglutide (OZEMPIC) 0.25 or 0.5 mg/dose injection Don't restart this m edicine until you discuss with Dr Joyce 0 senna (SENOKOT) 8.6 MG TABS Take 1 tablet by mouth Daily as needed for Constipation. traZODone (DESYREL) 50 mg tablet Take 150 mg by mouth nightly. No facility-administered encounter medications on file as of 02/06/2018. PHYSICAL EXAM Vitals: BP 132/80 | Pulse 87 | Ht 1.626 m (5' 4") | Wt 79.7 kg (175 lb 11.3 oz) | LMP (LMP Unknown) | BMI 30.16 kg/m General: Awake, alert, in no acute distress. Speech is fluent. Appears to be stated age. HEENT: Normocephalic, atraumatic. Oropharynx is clear without erythema or exudates. Neck: Supple; no lymphadenopathy. No carotid bruits audible. Lungs: Normal respiratory effort, no wheezing, no stridor, no tachypnea. Clear to auscult ation bilaterally. Heart: Regular rate and rhythm without any murmurs rubs or gallops. Chest: No rib or bony tenderness. Back: No CVA tenderness. Abdomen: Soft, mild midepigastric tenderness, nondistended. Bowel tones are present. Lap aroscopy port incisions are healing well without any erythema or purulence or wound dehiscen ce. No incisional hernias. No sign of wound infection. Skin glue is still present on the majority of the incisions. No hepatosplenomegaly. No flank masses or tenderness. Small ar ea of ecchymosis around 3 of the port sites in the left abdomen. Extremities: No ankle edema. Hips and long bones nontender to fist percussion. Neuro: Awake, alert, oriented x3. Normal station and gait. Psychiatric: Mood and affect are normal. Normal judgment. Skin: Warm and dry, no erythematous rash. Groin: No mass. No lymphadenopathy. DIAGNOSTIC DATA: Lab Results Component Value Date COLORUA Yellow 01/24/2018 CLARITYUA Clear 01/24/2018 PHUR 6.0 01/24/2018 SPECIFICGRAV 1.014 01/24/2018 PROTUA Negative 01/24/2018 BLOODU Negative 01/24/2018 GLUCOSEU 150 mg/dL (A) 01/24/2018 KETONES 20 mg/dL (A) 01/24/2018 BILIRUBINUA Negative 01/24/2018 NITRITEUA Negative 01/24/2018 LEUKOESTUA Negative 01/24/2018 UROBILIUA Negative 01/24/2018 WBCUA 0-2 02/06/2018 RBCUA >100 (A) 02/06/2018 SQUAMEPIUA 10-15 (A) 02/06/2018 BACTERIAUA 1+ (A) 02/06/2018 Lab Results Component Value Date COLORPOC Yellow 02/06/2018 CLARITYU Cloudy 02/06/2018 GLUCOSEPOC 500 mg/dL (A) 02/06/2018 BILIPOC Negative 02/06/2018 SG 1.015 02/06/2018 RBCUR Large (A) 02/06/2018 PHUAPOC 5.5 02/06/2018 PROTEINPOC Negative 02/06/2018 UROBILINOGEN 0.2 02/06/2018 NITRITEPOC Negative 02/06/2018 LEUKOCYTESUR Negative 02/06/2018 Lab Results Component Value Date CREA 0.37 (L) 02/01/2018 BUN <5 (L) 02/01/2018 NA 144 02/01/2018 K 3.4 (L) 02/01/2018 CL 110 (H) 02/01/2018 CO2 30 (H) 02/01/2018 Lab Results Component Value Date ALT 57 (H) 01/29/2018 AST 24 01/29/2018 GGT 148 (H) 11/15/2017 ALKPHOS 113 (H) 01/29/2018 BILITOT 1.0 01/29/2018 Lab Results Component Value Date WBC 9.6 02/01/2018 HGB 13.7 02/01/2018 HCT 39.5 02/01/2018 MCV 95.4 02/01/2018 PLT 98 (L) 02/01/2018 SURGICAL PATHOLOGY FINAL REPORT Collected: Received: Responsible Pathologist : 01/31/2018 08:46 PDT 01/31/2018 10:38 PDT MARY LOPEZ FINAL DIAGNOSIS: Kidney, left, partial nephrectomy: Clear cell renal carcinoma with the following features- Tumor focality: Unifocal. Tumor size: 1.6 cm. Histologic type: Clear cell renal carcinoma. Sarcomatoid features: Absent. Rhabdoid features: Absent. Tumor necrosis: Absent. Histologic grade: Grade II. Anatomic extent of tumor: Tumor limited to kidney. Lymphovascular invasion: Not identified. Surgical margins: Renal parenchymal margin negative. Adrenal gland: Not present. Lymph nodes: Not present. Surgical Pathology Stage: pT1a pNX. 0-M (db 02/04/18) Verified By: MARY PRINCE, PhD Verify Date: 02/04/18 17:31 PDT Performing Location: [facility] IMPRESSION: 1. Stage Ta, Nx, Mx, left lower pole renal cell carcinoma, 2.2 cm, Pa[place] grade 2. Doin g well status post left partial nephrectomy 01/31/2018. Margins are negative. 2. 1.2 cm cortical cyst in anterior lower pole of the right kidney. No clinical significa nce. 3. Diabetic gastroparesis. 4. Chronic abdominal pain. 5. Chronic nausea and vomiting. 6. Coronary artery disease. Status post coronary artery stent placement 2009. 7. Fibromyalgia. 8. COPD. 9. Diabetes mellitus. 10. Microhematuria. Secondary to recent partial nephrectomy procedure. PLAN: I offered to have Kerry follow-up in my office in a month for repeat evaluation, but she fe els like she is doing very well, and does not need or want a follow-up visit so soon. I refilled her prescription for Percocet. I cautioned her to use his medicine very sparing ly, and we discussed its addictive potential. We discussed her pathology report. We reviewed kidney cancer/renal cell carcinoma, and we described the follow-up regimen necessary, as it is possible she could develop recurrence of cancer. NCCN guidelines version 4.2018 suggest the following as follow-up after a partial or radica l nephrectomy: (stage I (pT1a and pT1b)) --H&P every 6 months for 2 years, then annually up to 5 years after nephrectomy --Comprehensive metabolic panel and other tests as indicated every 6 months for 2 years, th en annually up to 5 years after nephrectomy --Abdominal imaging: --- Baseline abdominal CT, MRI, or ultrasound within 3-12 months of surgery --- If the initial postoperative scan is negative, abdominal CT, MRI, or ultrasound may be considered annually for 3 years based on individual risk factors. --Chest imaging: --- Chest x-ray or CT annually for 3 years, then as clinically indicated --Pelvic CT or MRI as clinically indicated --CT or MRI of head or MRI of spine, as clinically indicated --Bone scan, as clinically indicated Kerry will follow-up in 6 months with a repeat CT abdomen with contrast, CMP, urinalysis, p rior to her follow-up visit. All of sooner if any difficulties arise in the interim. She is advised that she cannot perform any heavy lifting for 6 weeks postoperatively. Tae tionally, she cannot drive or operate machinery if she is having pain or needing to use oxyc odone. Kerry is instructed to resume her usual and customary care with her primary care provider. I asked Kerry to notify me if there were any difficulties voiding, or UTI symptoms, or flan k pain, or for any questions or concerns whatsoever. This document was generated in part using voice recognition software. Although I have atte mpted to edit the content, I have not thoroughly proofread this note, and wedding florist erro rs may occur. CC: Iain Rosales MD CC: Josep Rodriguez MDin this encounter Plan of Treatment +--------+---------+ + + + | Date | Type | Specialty | Care Team | Description | +--------+---------+ + + + | 08/27/ | Office | Urology | Davon Perry, | | | 2018 | Visit | | MD [address] [address] [place], | | | | | | [address] | | | | | | [place] [address] | | | | | | [phone] | | | | | | | | +--------+---------+ + + + | 09/11/ | Office | Cardiology | Karthik Cobb, | | | 2018 | Visit | | [address] | | | | | | [place], | | | | | | [place] [address] | | | | | | [phone] | | | | | | | | +--------+---------+ + + + as of this encounter Procedures + +--------+ + + + | Procedure Name | Priori | Date/Time | Associated Diagnosis | Comments | | | ty | | | | + +--------+ + + + | POCT URINALYSIS | Routin | 02/06/2018 | Microhematuria | Results for this | | | e | 1051 PDT | | procedure are in the | | | | | | results section. | + +--------+ + + + | URINALYSIS, | Routin | 02/06/2018 | Microhematuria | Results for this | | MICROSCOPIC ONLY, | e | 1050 PDT | | procedure are in the | | WITH CULTURE IF | | | | results section. | | INDICATED | | | | | + +--------+ + + + in this encounter Results POCT Urinalysis Dipstick Automated (02/06/2018 1051) + + + + + | Component | Value | Ref Range | Performed At | + + + + + | Color, UA, POC | Yellow | Yellow, Light Yellow | | + + + + + | Clarity, UA, POC | Cloudy | | | + + + + + | Glucose, UA, POC | 500 mg/dL (A) | Negative | | + + + + + | Bilirubin, UA, POC | Negative | Negative | | + + + + + | Ketones, UA, POC | Negative | Negative, 100 mg/dL | | + + + + + | Specific [place], | 1.015 | 1.001 - 1.030 | | | UA, POC | | | | + + + + + | Blood, UA, POC | Large (A) | Negative | | + + + + + | pH, UA, POC | 5.5 | 5.0, 6.0, 7.0, 8.0, | | | | | 5.5, 6.5, 7.5 | | + + + + + | Protein, UA, POC | Negative | Negative | | + + + + + | Urobilinogen, UA, | 0.2 | 0.2, Negative, | | | POC | | Normal, < 0.2 mg/dL, | | | | | 1 mg/dL, < 0.2 | | | | | E.U./dl, 1.0 | | | | | E.U./dL, 0.2 mg/dL | | + + + + + | Nitrite, UA, POC | Negative | Negative | | + + + + + | Leukocyte Esterase, | Negative | Negative | | | UA, POC | | | | + + + + + | RED SUB UA | | | | + + + + + | ICTOTEST | | Negative | | + + + + + | REMARK | | | | + + + + + + + | Specimen | + + | Urine | + + Urinalysis, Microscopic Only, with Culture if Indicated (02/06/2018 1050) + + + + + | Component [...] + + + | RBC UA | >100 (A) | 0 - 2 /HPF | [facility] | | | | | [facility] | | | [facility] - | | | | | [facility] | + + + + + | SQUAMOUS EPITHELIAL | 10-15 (A) | 0 - 2 /LPF | [facility] | | [facility] | | | [facility] | | | | | [facility] - | | | | | [facility]ATORY | + + + + + | BACTERIA UA | 1+ (A) | Negative /HPF | [facility] | [...] + | [facility] | [address] | [place] | [phone] | | [facility] | | [address] | | | - LABORATORY | | | | + + + + + | [facility] | [address] | [place] | | | [facility] | | [address] | | | - LABORATORY | | | | + + + + + in this encounter Visit Diagnoses + + | Diagnosis | + + | Renal cell carcinoma of left kidney (HCC) - Primary | + + | Microhematuria | + + | Microscopic hematuria | + +
--- OUTSIDE RECORDS SUMMARY | ~2018-05-02 | XMS | Clinical Summary ---
Demographics + + + | Address | [address] | | | [place] [address] | + + + | Home Phone | | + + + | Preferred Language | Unknown | + + + | Marital Status | | + + + | Scientology Affiliation | Unknown | + + + | Race | Unknown | + + + | Ethnic Group | Unknown | + + + Author + + + | Author | [facility] | + + + | Organization | [facility] | + + + | Address | Unknown | + + + | Phone | Unavailable | + + + Support + + + + + | Name | Relationship | Address | Phone | + + + + + | Stephen Stubbs | ECON | [address] | | | | | [place] [address] | | + + + + + Care Team Providers + +------+ + | Care Rug Repairer Name | Role | Phone | + +------+ + | Medicine, [place] | PP | Unavailable | | Family | | | + +------+ + Allergies Not on File Current Medications Not on file Active Problems Not on file Social History + +-------+ +--------+------+ | Tobacco Use | Types | Packs/Day | Years | Date | | | | | Used | | + +-------+ +--------+------+ | Never Assessed | | | | | + +-------+ +--------+------+ + + + | Sex Assigned at | Date Recorded | | | | + + + | Not on file | | + + + Plan of Treatment Not on file Results Not on filefrom Last 3 Months"
--- OUTSIDE RECORDS SUMMARY | ~2018-05-02 | XMS | Clinical Summary ---
Demographics + + + | Address | [address] | | | [place] [address] | + + + | Home Phone | | + + + | Preferred Language | Unknown | + + + | Marital Status | | + + + | Sikhism Affiliation | Unknown | + + + | Race | Unknown | + + + | Ethnic Group | Unknown | + + + Author + + + | Author | [facility] | | | and [place] | + + + | Organization | [facility] | | | and [place] | + + + | Address | Unknown | + + + | Phone | Unavailable | + + + Support + + + + + | Name | Relationship | Address | Phone | + + + + + | Stephen Pitts | ECON | [address] | | | | | [place] [address] | | + + + + + Care Team Providers + +------+ + | Care Dry Chain Worker Name | Role | Phone | + +------+ + | Iain Rosales MD | PP | | + +------+ + Allergies + + + + + + | Active Allergy | Reactions | Severity | Noted | Comments | | | | | Date | | + + + + + + | Canagliflozin | Other (See Comments) | High | 03/16/20 | INVOKANA causes | | | | | 17 | Ketoacidosis | + + + + + + | Metformin | | Medium | 11/12/19 | Hospitalized for 1 | | | | | 18 | week, N/V, | | | | | | ABDOMINAL PAIN | + + + + + + | Milnacipran | Nausea And Vomiting | Medium | | Other reaction(s): | | | | | | Diarrhea, Nausea | + + + + + + | Sulfa Antibiotics | Rash | Low | 03/13/20 | | | | | | 17 | | + + + + + + Current Medications + + + +---------+------+------+-------+ | Prescription | Sig. | Disp. | Refills | Star | End | Statu | | | | | | t | Date | s | | | | | | Date | | | + + + +---------+------+------+-------+ | metoprolol | Take 50 mg by mouth | | | | | Activ | | succinate | Daily. | | | | | e | | (TOPROL-XL) 50 mg 24 | | | | | | | | hr tablet | | | | | | | + + + +---------+------+------+-------+ | Albuterol Sulfate | Inhale 1 puff into | | | | | Activ | | (PROAIR HFA IN) | the lungs as needed | | | | | e | | | (for shortness of | | | | | | | | breath). | | | | | | + + + +---------+------+------+-------+ | DULoxetine | Take 30 mg by mouth | | | | | Activ | | (CYMBALTA) [address] | Daily. | | | | | e | | capsule | | | | | | | + + + +---------+------+------+-------+ | lisinopril | Take 10 mg by mouth | | | | | Activ | | (PRINIVIL, ZESTRIL) | Daily. | | | | | e | | 10 mg tablet | | | | | | | + + + +---------+------+------+-------+ | traZODone | Take 150 mg by mouth | | | | | Activ | | (DESYREL) 50 mg | nightly. | | | | | e | | tablet | | | | | | | + + + +---------+------+------+-------+ | omeprazole | Take 40 mg by mouth | | | | | Activ | | (PRILOSEC) 40 MG | every morning | | | | | e | | capsule | (before breakfast). | | | | | | + + + +---------+------+------+-------+ | lidocaine | Take 15 mLs by mouth | 150 mL | 0 | 03/2 | | Activ | | (XYLOCAINE) 2% | every 4 hours as | | | 5/20 | | e | | solution | needed for Pain. | | | 18 | | | + + + +---------+------+------+-------+ | polyethylene | Take 17 g by mouth | | | | | Activ | | glycol (MIRALAX) | Daily as needed for | | | | | e | | powder | Constipation. | | | | | | + + + +---------+------+------+-------+ | senna (SENOKOT) | Take 1 tablet by | | | | | Activ | | 8.6 MG TABS | mouth Daily as | | | | | e | | | needed for | | | | | | | | Constipation. | | | | | | + + + +---------+------+------+-------+ | insulin degludec | Inject 33 Units | | | | | Activ | | (TRESIBA FLEXTOUCH) | under the skin every | | | | | e | | 100 units/mL | morning. | | | | | | | injection | | | | | | | + + + +---------+------+------+-------+ | insulin lispro | Inject 1 Units under | | | | | Activ | | (HUMALOG) 100 | the skin See Admin | | | | | e | | units/mL injection | Instructions. Inject | | | | | | | (vial) | 1 units under the | | | | | | | | skin for every 40 | | | | | | | | above 180 blood | | | | | | | | glucose 2 hours post | | | | | | | | meals | | | | | | + + + +---------+------+------+-------+ | metoclopramide | Take 1 tablet by | 20 | 1 | 04/0 | | Activ | | (REGLAN) 10 mg | mouth every 6 hours | tablet | | 1/20 | | e | | tablet | as needed for | | | 18 | | | | | Nausea. | | | | | | + + + +---------+------+------+-------+ | nitroglycerin | Place 0.4 mg under | | | | | Activ | | (NITROSTAT) 0.4 mg | the tongue every 5 | | | | | e | | SL tablet | minutes as needed | | | | | | | | for Chest pain. | | | | | | + + + +---------+------+------+-------+ | ondansetron | Take 4 mg by mouth | | | | | Activ | | (ZOFRAN ODT) 4 mg | every 8 hours as | | | | | e | | disintegrating | needed for Nausea. | | | | | | | tablet | | | | | | | + + + +---------+------+------+-------+ | ondansetron | Take 1 tablet by | 12 | 0 | 06/1 | | Activ | | (ZOFRAN ODT) 4 mg | mouth every 6 hours | tablet | | 7/20 | | e | | disintegrating | as needed for Nausea | | | 18 | | | | tablet | or Vomiting. | | | | | | + + + +---------+------+------+-------+ | ONETOUCH VERIO | USE 1 STRIP 5 TIMES | | 1 | 05/3 | | Activ | | strip | DAILY | | | 0/20 | | e | | | | | | 18 | | | + + + +---------+------+------+-------+ | buPROPion | Take 150 mg by mouth | | | | | Activ | | (WELLBUTRIN SR) 150 | Daily. | | | | | e | | mg 12 hr tablet | | | | | | | + + + +---------+------+------+-------+ | atorvaSTATin | Take 1 tablet by | 90 | 3 | 07/2 | | Activ | | (LIPITOR) 40 mg | mouth nightly. | tablet | | 4/20 | | e | | tablet | | | | 18 | | | + + + +---------+------+------+-------+ | semaglutide | Inject 0.5 mg under | | | | | Activ | | (OZEMPIC) 0.25 or | the skin Once a | | | | | e | | 0.5 mg/dose | week. | | | | | | | injection | | | | | | | + + + +---------+------+------+-------+ | promethazine | Place 1 suppository | 12 | 0 | 04/19 | | Activ | | (PHENERGAN) 25 mg | rectally every 4 | supposito | | 2/20 | | e | | suppository | hours as needed for | ry | | 18 | | | | | Nausea or Vomiting. | | | | | | | | Unwrap and insert 1 | | | | | | | | suppository rectally | | | | | | | | every four hours as | | | | | | | | needed | | | | | | + + + +---------+------+------+-------+ Active Problems + + + | Problem | Noted Date | + + + | Renal mass | 01/24/2018 | + + + | History of pulmonary edema | 01/24/2018 | + + + | Intractable nausea and vomiting | 01/24/2018 | + + + | Hypertensive urgency | 01/24/2018 | + + + | Coronary artery disease involving absentee-shawnee coronary artery of | 01/07/2018 | | absentee-shawnee heart without angina pectoris | | + + + + + | Overview: Successful percutaneous coronary intervention with | | stenting of the mid right coronary artery, vision 4 x 15 mm stent | | was deployed at 16 atmospheres and post dilated with a Voyager | | NC 4.5 x 12 mm balloon at 14 atmospheres with excellent | | angiographic result on 11/07/2009 by Glenn Ray, | | .Echocardiogram 11/14/2017 shows mild left atrial dilatation, | | normal left ventricular size, wall thickness and motion, | | preserved left ventricular systolic function. LVEF is 70-75%, | | grade 1 left ventricular diastolic dysfunction, mildly thickened | | and calcified mitral valve with the trace mitral valve | | regurgitation, normal right-sided pressure, normal IVC with | | normal respiratory collapse.Left heart catheterization 11/15/2017 | | shows mild non-obstructive disease in the RCA; otherwise normal | | coronary arteries, low LVEDP, c/w volume depletion. Cherise Castellanos, | | .Stress test 01/23/2018 shows exercise EKG is negative, blood | | pressure response is normal, patient had very shortness of breath | | but no chest pain during the procedure, there is no arrhythmia | | during procedure, exercise tolerance is diminished for age, | | normal exercise sestamibi myocardial perfusion imaging study. | | normal left ventricular size, wall thickness and motion, evidence | | of anterior wall/breast soft tissue attenuation, preserved left | | ventricular systolic function, LVEF by gated SPECT is 72 %. | + + + + + | Preventative health care | 11/21/2017 | + + + + + | Overview: CT Abd/Pelvis w/ 11/10/17 [facility] | | 10/10/17 [facility] | | 09/13/17 [facility] | | 03/13/17 [facility] | + + + + + | Acute pulmonary edema (HCC) | 11/14/2017 | + + + | Elevated troponin | 11/14/2017 | + + + | Hypoxia | 11/14/2017 | + + + | Fibromyalgia | 03/24/2017 | + + + | Major depressive disorder, recurrent episode, in full remission | 03/24/2017 | | (HCC) | | + + + | iglesia Lucio | 03/24/2017 | + + + | Diabetic gastroparesis associated with type 2 diabetes mellitus | 03/23/2017 | | (HCC) | | + + + | Postprandial epigastric pain | 03/22/2017 | + + + | Bilious vomiting with nausea | 03/16/2017 | + + + | Hyperlipidemia | | + + + | Hypertension | | + + + | C O P D | | + + + | DIABETES, TYPE 2 | | + + + Resolved Problems + + + + | Problem | Noted | Resolved | | | Date | Date | + + + + | Type 2 diabetes mellitus with ketoacidosis without coma, with | 03/14/20 | | | long-term current use of insulin (HCC) | 17 | 7 | + + + + Encounters +--------+ + + + + | Date | Type | Specialty | Care Team | Description | +--------+ + + + + | 04/30/ | Emergency | | Gordon Will, | Intractable vomiting | | 2018 - | | | MD | with nausea, | | | | | | unspecified vomiting | | 05/01/ | | | | type (Primary Dx) | | 2017 | | | | | +--------+ + + + + | 03/11/ | Office | | Karthik Cobb, | Coronary artery | | 2017 | Visit | | MD | disease involving | | | | | | absentee-shawnee coronary | | | | | | artery of absentee-shawnee | | | | | | heart without angina | | | | | | pectoris (Primary | | | | | | Dx); Mixed | | | | | | hyperlipidemia | +--------+ + + + + | 03/11/ | Orders Only | | eBlla Rodgers, | | | 2017 | | | RN | | +--------+ + + + + | 02/10/ | Orders Only | | Davon Perry, | Renal mass (Primary | | 2017 | | | MD | Dx) | +--------+ + + + + | 02/06/ | Office | | Davon Perry, | Renal cell carcinoma | | 2017 | Visit | | MD | of left kidney | | | | | | (HCC) (Primary Dx); | | | | | | Microhematuria | +--------+ + + + + | 02/03/ | Telephone | | Josep Rodriguez MD | | | 2017 | | | | | +--------+ + + + + | 02/03/ | Telephone | | Davon Perry, Stephanie Appointment | | 2017 | | | MD | | +--------+ + + + + | 01/31/ | Hospital | | Josep Rodriguez MD | | | 2018 - | Encounter | | | | | | | | | | | 02/02/ | | | | | | 2017 | | | | | +--------+ + + + + +---+ + | | Discharge | | | Summaries | | | - Page, | | | MD Marium - | | | 02/02/2018 | | | 1048 PDT | | | Formatting | | | of this | | | note may be | | | different | | | from the | | | original.WS | | | [facility] | | | DISCHARGE | | | SUMMARYPati | | | ent Name: | | | Kerry Mendes | | | Evelyne | | | Patient | | | : | | | 1960PC | | | P: Iain | | | Nish Mccrary | | | of | | | Admission: | | | 01/31/2018 | | | Date | | | of | | | Discharge: | | | 02/02/2018 | | | Primary | | | Discharge | | | Dx: LEFT | | | RENAL | | | MASSSeconda | | | ry | | | Discharge | | | Dx(s): | | | There are | | | no hospital | | | problems | | | to display | | | for this | | | patient.Pro | | | ceduresRobo | | | tic | | | assisted | | | Lap Left | | | Partial | | | Nephrectomy | | | Hospital | | | Course:Anjum | | | martha from | | | surgery | | | nicelyCondi | | | tion on | | | Discharge: | | | StableDisch | | | arge | | | Medications | | | : Discharge | | | | | | Medications | | | New | | | Medications | | | Details | | | | | | methocarbam | | | ol 750 mg | | | tablet Take | | | 2 tablets | | | by mouth | | | every 6 | | | hours as | | | needed for | | | Muscle | | | spasms.aka: | | | ROBAXIN | | | oxyCODONE-a | | | cetaminophe | | | n 5-325 mg | | | per tablet | | | Take 1-2 | | | tablets by | | | mouth every | | | 6 hours as | | | | | | needed.aka: | | | PERCOCET | | | Changed | | | Medications | | | Details | | | | | | ondansetron | | | 4 mg | | | disintegrat | | | ing tablet | | | Take 4 mg | | | by mouth | | | every 8 | | | hours as | | | needed for | | | Nausea.What | | | changed: | | | Another | | | medication | | | with the | | | same name | | | was added. | | | Make sure | | | you | | | understand | | | how and | | | when to | | | take | | | each.aka: | | | ZOFRAN ODT | | | ondansetron | | | 4 mg | | | disintegrat | | | ing tablet | | | Take 1 | | | tablet by | | | mouth every | | | 6 hours as | | | needed for | | | Nausea or | | | Vomiting.Wh | | | at changed: | | | You were | | | already | | | taking a | | | medication | | | with the | | | same name, | | | and this | | | prescriptio | | | n was | | | added. Make | | | sure you | | | understand | | | how and | | | when to | | | take | | | each.aka: | | | ZOFRAN ODT | | | Unchanged | | | Medications | | | Details | | | aluminum & | | | magnesium | | | hydroxide-s | | | imethicone | | | 200-200-20 | | | mg/5 mL | | | suspension | | | Take 30 mLs | | | by mouth | | | every 6 | | | hours as | | | needed for | | | Indigestion | | | .aka: | | | MAALOX PLUS | | | REGULAR | | | STRENGTH | | | ARIPiprazol | | | e 5 mg | | | tablet Take | | | 5 mg by | | | mouth | | | Daily.aka: | | | ABILIFY | | | atorvaSTATi | | | n 20 mg | | | tablet Take | | | 1 tablet | | | by mouth | | | nightly.aka | | | : LIPITOR | | | buPROPion | | | 150 mg 12 | | | hr tablet | | | Take 150 mg | | | by mouth 2 | | | times | | | daily.aka: | | | WELLBUTRIN | | | SR | | | DULoxetine | | | [address] | | | capsule | | | Take 60 mg | | | by mouth | | | Daily.aka: | | | CYMBALTA | | | insulin | | | lispro 100 | | | units/mL | | | injection | | | (vial) | | | Inject 1 | | | Units under | | | the skin | | | See Admin | | | Instruction | | | s. Inject 1 | | | units | | | under the | | | skin for | | | every 40 | | | above 180 | | | blood | | | glucose 2 | | | hours post | | | mealsaka: | | | humaLOG | | | lidocaine | | | 2% solution | | | Take 15 | | | mLs by | | | mouth every | | | 4 hours as | | | needed for | | | Pain.aka: | | | XYLOCAINE | | | lisinopril | | | 10 mg | | | tablet Take | | | 10 mg by | | | mouth | | | Daily.aka: | | | PRINIVIL, | | | ZESTRIL | | | LORazepam 1 | | | mg tablet | | | Take 1 | | | tablet by | | | mouth every | | | 8 hours as | | | needed for | | | | | | Anxiety.aka | | | : ATIVAN | | | metoclopram | | | maral 10 mg | | | tablet Take | | | 1 tablet | | | by mouth | | | every 6 | | | hours as | | | needed for | | | Nausea.aka: | | | REGLAN | | | metoprolol | | | succinate | | | 50 mg 24 hr | | | tablet | | | Take 50 mg | | | by mouth | | | Daily.aka: | | | TOPROL-XL | | | nitroglycer | | | in 0.4 mg | | | SL tablet | | | Place 0.4 | | | mg under | | | the tongue | | | every 5 | | | minutes as | | | needed for | | | Chest | | | pain.aka: | | | NITROSTAT | | | omeprazole | | | 40 MG | | | capsule | | | Take 40 mg | | | by mouth | | | every | | | morning | | | (before | | | breakfast). | | | aka: | | | priLOSEC | | | OZEMPIC | | | 0.25 or 0.5 | | | mg/dose | | | injectionGe | | | neric drug: | | | | | | semaglutide | | | Don't | | | restart | | | this | | | medicine | | | until you | | | discuss | | | with Dr | | | Linfoot | | | polyethylen | | | e glycol | | | powder Take | | | 17 g by | | | mouth Daily | | | as needed | | | for | | | Constipatio | | | n.aka: | | | MIRALAX | | | PROAIR HFA | | | IN Inhale 1 | | | puff into | | | the lungs | | | as needed | | | (for | | | shortness | | | of breath). | | | senna 8.6 | | | MG Tabs | | | Take 1 | | | tablet by | | | mouth Daily | | | as needed | | | for | | | Constipatio | | | n.aka: | | | SENOKOT | | | traZODone | | | 50 mg | | | tablet Take | | | 150 mg by | | | mouth | | | nightly.aka | | | : DESYREL | | | TRESIBA | | | FLEXTOUCH | | | 100 | | | units/mL | | | injectionGe | | | neric drug: | | | insulin | | | degludec | | | Inject 33 | | | Units under | | | the skin | | | every | | | morning. | | | Discontinue | | | d | | | Medications | | | aspirin | | | 81 MG | | | tablet | | | hold ASA | | | until ok | | | with your | | | surgeonFoll | | | ow-Up: 1. | | | Dr. | | | DetersPleas | | | e call | | | during | | | business | | | hours to | | | set up your | | | urology | | | follow up | | | appointment | | | if not | | | already set | | | | | | up.Electron | | | ically | | | Signed by: | | | Marium Abel, | | | MD, | | | 02/02/2018 | | | [facility] | +---+ + +--------+ +---+ + + | 01/31/ | Procedure | | | | | 2017 | Pass | | | | +--------+ +---+ + + | 01/31/ | Surgery | | Josep Rodriguez MD | ROBOTIC ASSISTED | | 2017 | | | | PARTIAL NEPHRECTOMY, | | | | | | laparoscopic renal | | | | | | ultrasound | +--------+ +---+ + + | 01/30/ | Anesthesia | | Mao Dominguez, | | | 2017 | Event | | | | +--------+ +---+ + + from Last 3 Months Immunizations + + + + | Name | Dates Previously Given | Next Due | + + + + | INFLUENZA, | 07/02/2017 | | | UNSPECIFIED | | | | FORMULATION | | | + + + + Family History + + +---------+ + | Medical History | Relation | Name | Comments | + + +---------+ + | Cancer | Brother | Erickson | Remission | | | | Lopes | | + + +---------+ + | COPD | Father | [place] | | | | | [place]opes | | + + +---------+ + | Cancer | Father | [place] | | | | | Lopes | | + + +---------+ + | Diabetes | Father | [place] | | | | | Lopes | | + + +---------+ + | Heart disease | Father | [place] | | | | | Lopes | | + + +---------+ + | Hypertension | Father | Jace | | | | | [place]opes | | + + +---------+ + | Stroke | Maternal | Cici | | | | Grandmoth | Lacy | | | | er | | | + + +---------+ + | Arthritis | Mother | Oksana | | | | | Lopes | | + + +---------+ + | Cancer | Mother | Oksana | | | | | Lopes | | + + +---------+ + | Depression | Mother | Oksana | | | | | Lopes | | + + +---------+ + | High cholesterol | Mother | Oksana | | | | | Lopes | | + + +---------+ + | Diabetes | Sister | Yina | | | | | Miguel | | + + +---------+ + | Vision loss | Sister | Yina | | | | | Miguel | | + + +---------+ + + +---------+ + + | Relation | Name | Status | Comments | + +---------+ + + | Brother | Erickson | Alive | | | | Lopes | | | + +---------+ + + | Father | Jace | | | | | Lopes | | | + +---------+ + + | Maternal Grandmother | Cici | | | | | Lacy | | | + +---------+ + + | Mother | Oksana | | | | | Lopes | | | + +---------+ + + | Sister | Yina | Alive | | | | Miguel | | | + +---------+ + + Social History + + + [...] on file | | + + + Last Filed Vital Signs + + + + | Vital Sign | Reading | Time Taken | + + + + | Blood Pressure | 173/74 | 04/30/20180 PDT | + + + + | Pulse | 76 | 04/30/20185 PDT | + + + + | [...] | Body Mass Index | 30.9 | 04/30/2018 1832 PDT | + + + + Plan of Treatment +--------+---------+ + + + | Date | Type | Specialty | Care Team | Description | +--------+---------+ + + + | 08/27/ | Office | | Davon Perry, | | | 2018 | Visit | | MD [facility] [place], | | | | | | [place] | | | | | | [place] [address] | | | | | | [phone] | | | | | | | | +--------+---------+ + + + | 09/11/ | Office | | Karthik Cobb, | | | 2018 | Visit | | MD Michelle [place] | | | | | | [address] [place] [place], | | | | | | [place] [address] | | | | | | [phone] | | | | | | | | +--------+---------+ + + + + + + + + | Health Maintenance | Due Date | Last Done | Comments | + + + + + | Diabetic Eye Exam | | | | | (Bi-Annually) | 1 | | | + + + + + | Diabetic Foot Exam | | | | | | 1 | | | + + + + + | Cervical Cancer | | | | | Screening (Pap) | 3 | | | + + + + + | BREAST CANCER | | | | | SCREENING (MAMM Q2 | 3 | | | | YEARS 50-74) | | | | + + + + + | Colorectal Cancer | | | | | Screening | 3 | | | | (Colonoscopy) | | | | + + + + + | Hemoglobin A1c Q3 | | 11/14/2017, 03/15/2017 | | | Months | 8 | | | + + + + + | Vaccine: Influenza | | 07/02/2017, 05/27/2017 | | | (#1) | 8 | | | + + + + + | Lung Cancer | | 11/14/2017 | | | Screening | 9 | | | + + + + + | Vaccine: | | 05/02/2012 | | | Dtap/Tdap/Td (2 - | 2 | | | | Td) | | | | + + + + + | Vaccine: | Completed | 09/25/2011 | | | Pneumococcal 19-64 | | | | | (PPSV23 only) Medium | | | | | Risk | | | | + + + + + | Hepatitis C | Completed | 11/15/2017 | | | Screening | | | | + + + + + Procedures + +--------+ + + + | [...] for this | | DIFFERENTIAL | | 1919 PDT | | procedure [...] | + +--------+ + + + | POC GLUCOSE | Routin | 02/02/2018 | | Results for this | | | e | 632 PDT | | procedure are in the | | | | | | results section. | + +--------+ + + + | POC GLUCOSE | Routin | 02/01/2018 | | Results for this | | | e | 2023 PDT | | procedure are in the | | | | | | results section. | + +--------+ + + + | POC GLUCOSE | Routin | 02/01/2018 | | Results for this | | | e | 1724 PDT | | procedure are in the | | | | | | results section. | + +--------+ + + + | POC GLUCOSE | Routin | 02/01/2018 | | Results for this | | | e | 1138 PDT | | procedure are in the | | | | | | results section. | + +--------+ + + + | POC GLUCOSE | Routin | 02/01/2018 | | Results for this | | | e | 0707 PDT | | procedure are in the | | | | | | results section. | + +--------+ + + + | CBC NO DIFFERENTIAL | Routin | 02/01/2018 | | Results for this | | | e | 0404 PDT | | procedure are in the | | | | | | results section. | + +--------+ + + + | BASIC METABOLIC | Routin | 02/01/2018 | | Results for this | | PANEL | e | 0404 PDT | | procedure are in the | | | | | | results section. | + +--------+ + + + | POC GLUCOSE | Routin | 01/31/2018 | | Results for this | | | e | 2023 PDT | | procedure are in the | | | | | | results section. | + +--------+ + + + | POC GLUCOSE | Routin | 01/31/2018 | | Results for this | | | e | 1841 PDT | | procedure are in the | | | | | | results section. | + +--------+ + + + | CBC NO DIFFERENTIAL | STAT | 01/31/2018 | | Results for this | | | | 1406 PDT | | procedure are in the | | | | | | results section. | + +--------+ + + + | BASIC METABOLIC | STAT | 01/31/2018 | | Results for this | | PANEL | | 1406 PDT | | procedure are in the | | | | | | results section. | + +--------+ + + + | POC GLUCOSE | Routin | 01/31/2018 | | Results for this | | | e | 0946 PDT | | procedure are in the | | | | | | results section. | + +--------+ + + + | POC GLUCOSE | Routin | 01/31/2018 | | Results for this | | | e | 0847 PDT | | procedure are in the | | | | | | results section. | + +--------+ + + + | TISSUE REQUEST FOR | Routin | 01/31/2018 | | Results for this | | PATHOLOGY (NON-ORD) | e | 0846 PDT | | procedure are in the | | | | | | results section. | + +--------+ + + + | ANE AIRWAY NOTE | Routin | 01/31/2018 | | Results for this | | | e | 0807 PDT | | procedure are in the | | | | | | results section. | + +--------+ + + + | ROBOTIC ASSISTED | | 01/31/2018 | Other specified | | | PARTIAL NEPHRECTOMY | | 0730 PDT | disorders of kidney | | | | | | and ureter | | + +--------+ + + + +---+--------+ | | | | | Specia | | | l | | | Needs | | | SI | | | ROBOT, | | | BK | | | ULTRAS | | | OUND/E | | | LARUA | +---+--------+ + +--------+ +---+ + | TYPE AND SCREEN | Routin | 01/31/2018 | | Results for this | | | e | 0656 PDT | | procedure are in the | | | | | | results section. | + +--------+ +---+ + | ABO RH | Routin | 01/31/2018 | | Results for this | | | e | 0650 PDT | | procedure are in the | | | | | | results section. | + +--------+ +---+ + | EXTRA BLOOD BANK | Routin | 01/31/2018 | | | | TUBE | e | 0650 PDT | | | + +--------+ +---+ + | POC GLUCOSE | Routin | 01/31/2018 | | Results for this | | | e | 0650 PDT | | procedure are in the | | | | | | results section. | + +--------+ +---+ + | IMAGING REPORT - | | 01/31/2018 | | Results for this | | EXTERNAL SCAN | | 0000 PDT | | procedure are in the | | | | | | results section. | + +--------+ +---+ + from Last 3 Months Results Urinalysis with Microscopic with Culture if Indicated (04/30/20181919) + + + + + | Component [...] + + + + + | Specific [place] | 1.036 (H) | 1.001 - 1.030 [...] [facility] | | | | | [facility] | | | | | [facility]ENTER [...] | Present (A) | Negative /LPF | [facility] | | | | | [facility] | | | | | CENTER - | | | | | LABORATORY | + + + + + | URINE COMMENT | Urine Culture Not | | [facility] | | | Indicated | | [facility] | | | | | CENTER - [...] + | [facility] | [address] | [place], [place] | [phone] | | [facility] | | [id number] | | | - LABORATORY | | | | + + + + + | [facility] | [address] | [place], [place] | | | [facility] | | [address] | | | - LABORATORY | | | | + + + + + Extra Lavender Top Tube (04/30/20181919) + +-------+ + + | Component | Value | Ref Range | Performed At | + +-------+ + + | Extra Lavender Top | Done | | [facility] | | Tube | | | [facility] | | | | | CENTER - | | | | | LABORATORY | + +-------+ + + + + | Specimen | + + | Blood | + + + + + + + | Performing | Address | City/State/Zipcode | Phone Number | | Organization | | | | + + + + + | [facility] | [address] | [place] | [phone] | | [facility] | | [address] | | | - LABORATORY | | | | + + + + + | [facility] | [address] | [place] | | | [facility] | | [address] | | | - LABORATORY | | [...] + | [facility] | [address] | [place] | [phone] | | [facility] | | [address] | | | - LABORATORY | | | | + + + + + | [facility] | [address] | [place] | | | [facility] | | [address] | | | - LABORATORY | | | | + + + + + Extra Gold Top Tube (04/30/20181919) + +-------+ + + | Component | Value | Ref Range | Performed At | + +-------+ + + | EGDT | Done | | [facility] | | | | | [facility] | | | | | CENTER - | | | | | LABORATORY | + +-------+ + + + + | Specimen | + + | Blood | + + + + + + + | Performing | Address | City/State/Zipcode | Phone Number | | Organization | | | | + + + + + | [facility] | [address] | [place], [place] | [phone] | | [facility] | | [address] | | | - LABORATORY | | | | + + + + + | [facility] | [address] | [place], [place] | | | [facility] | | [address] | | | - LABORATORY | | | | + + + + + Extra Blue Top Tube (04/30/20181919) + +-------+ + + | Component | Value | Ref Range | Performed At | + +-------+ + + | Extra Blue Top Tube | Done | | [facility] | [...] | + + + + + | [facility] | [address] | [place] | [phone] | | [facility] | | [address] | | | - LABORATORY | | | | + + + + + | [facility] | [address] | [place] | | | [facility] | | [address] | | | - LABORATORY | | | | + + + + + Slide Review, Peripheral Smear (04/30/20181918) + + + + + | Component | Value | Ref Range | Performed At | + + + + + | RBC MORPHOLOGY | Normal | | [facility] | | | | | [facility] | | | | | CENTER - | | | | | LABORATORY | + + + + + | WBC MORPHOLOGY | Normal | | [facility] | | | | | [facility] | | | | | CENTER - | | | | | LABORATORY | + + + + + | Platelet Estimate | Adequate | Adequate | [facility] | | | | | [facility] | | | | | CENTER - | | | | | LABORATORY | + + + + + + + | Specimen | + + | Blood | + + + + + | Narrative | Performed At | + + + | <10% bands seen on smear review; | [facility] | | | [facility] | | | - LABORATORY | + + + + + + + + | Performing | Address | City/State/Zipcode | Phone Number | | Organization | | | | + + + + + | [facility] | [address] | [place], [place] | [phone] | | [facility] | | [address] | | | - LABORATORY | | | | + + + + + | [facility] | [address] | [place], [place] | | | [facility] | | [address] | | | - LABORATORY | | [...] + | [facility] | [address] | [place], [place] | [phone] | | [facility] | | [address] | | | - LABORATORY | | | | + + + + + | [facility] | [address] | [place], [place] | | | [facility] | | [address] | | | - LABORATORY | | | | + + + + + Magnesium (04/30/20181918) + +---------+ + + | Component | Value | Ref Range | Performed At | + +---------+ + + | MG | 1.6 (L) | 1.8 - 2.5 mg/dL | [facility] | | | | | [facility] | | | | | CENTER - | | | | | LABORATORY | + +---------+ + + + + | Specimen | + + | Blood | + + + + + + + | Performing | Address | City/State/Zipcode | Phone Number | | Organization | | | | + + + + + | [facility] | [address] | [place] | [phone] | | [facility] | | [address] | | | - LABORATORY | | | | + + + + + | [facility] | [address] | [place] | | | [facility] | | [address] | | | - LABORATORY | | | | + + + + + Lipase (04/30/20181918) + +-------+ + + | Component | Value | Ref Range | Performed At | + +-------+ + + | LIPASE | 18 | 0 - 60 U/L | [facility] | | | | | [facility] [...] + | [facility] | [address] | [place] | [phone] | | [facility] | | [address] | | | - LABORATORY | | | | + + + + + | [facility] | [address] | [place], [place] | | | [facility] | | [address] | | | - LABORATORY | | [...] 0.64 | 0.60 - 1.30 mg/dL | [facility] | | Serum/Plasma | | | [facility] | | | | | CENTER - | | | | | LABORATORY | + + + + + | eGFR if not | >60Comment: GLOMERULAR | >=60 mL/min/1.73m2 | [facility] | | [place] | FILTRATION | | [facility] | | | RATE,ESTIMATED mL/min | | CENTER - | | | /1.38x6Oyxu than 60 | | LABORATORY | | [...] 9.2 | 8.3 - 10.5 mg/dL | [facility] | | | | | [facility] | | | | | CENTER - | | | | | LABORATORY | + + + + + | ALBUMIN | 4.3 | 3.2 - 5.0 g/dL | [facility]. | | | | | [facility] | | | | | CENTER - [...] | | an appended report. | | [facility] | | | These results have [...] + | [facility]UN[facility]CREA | 12.5 | | [facility] | | | | | [facility] | | | | | CENTER - | | | | | LABORATORY | + + + + + + + | Specimen | + + | Blood | + + + + + + + | Performing | Address | City/State/Zipcode | Phone Number | | Organization | | | | + + + + + | [facility] | [address] | [place] | [phone] | | [facility] | | [address] | | | - LABORATORY | | | | + + + + + | [facility] | [address] | [place] | | | [facility] | | [address] | | | - LABORATORY | | | | + + + + + POCT Urinalysis Dipstick Automated (02/06/2018 1051) + [...] + + + + + | Specific [place], | 1.015 | 1.001 - 1.030 | [...] + | [facility] | [address] | [place], [place] | [phone] | | [facility] | | [address] | | | - LABORATORY | | | | + + + + + | [facility] | [address] | [place], [place] | | | [facility] | | [address] | | | - LABORATORY | | | | + + + + + POC Glucose (02/02/2018 0633)Only the most recent of 10 results within the time period is i ncluded. + + + + + | Component | Value | Ref Range | Performed At | + + + + + | Glucose, POC | 142 (H)Comment: | 65 - 99 mg/dL | [facility] | | | Performed by [facility] [address] | | [facility] | | | [address] [place], [place] | | [facility] | | | [address] | | LABORATORY | | | | | [place] | + + + + + + + | Specimen | + + | Blood | + + + + + + + | Performing | Address | City/State/Zipcode | Phone Number | | Organization | | | | + + + + + | [facility] | [address] | [place] [address] | | | [facility] | | | | | LABORATORY [place] | | | | + + + + + CBC no Differential (02/01/2018 0404)Only the most recent of 2 results within the time vipul od is included. + + + +--- + | Component | Value | Ref Range | Pe rformed At | + + + +--- + | WBC | 9.6 | 3.8 - 11.0 K/uL | [facility] | | | | | [facility] | | | | | [facility] | | | | | [facility] | | | | | [facility] | + + + +--- + | RBC | 4.14 | 3.70 - 5.10 M/uL | [facility] | | | | | [facility] | | | | | [facility] | | | | | [facility] | | | | | [facility] | + + + +--- + | Hgb | 13.7 | 11.3 - 15.5 g/dL | [facility] | | | | | [facility] | | | | | [facility] | | | | | [facility] | | | | | [facility] | + + + +--- + | Hct | 39.5 | 34.0 - 46.0 % | [facility] | | | | | [facility] | | | | | [facility] | | | | | [facility] | | | | | [facility] | + + + +--- + | MCV | 95.4 | 80.0 - 100.0 fL | [facility] | | | | | [facility] | | | | | [facility] | | | | | [facility] | | | | | [facility] | + + + +--- + | MCH | 33.1 | 27.0 - 34.0 pg | [facility] | | | | | [facility] | | | | | [facility] | | | | | [facility] | | | | | [facility] | + + + +--- + | MCHC | 34.7 | 32.0 - 35.5 g/dL | [facility] | | | | | [facility] | | | | | [facility] | | | | | [facility] | | | | | [facility] | + + + +--- + | RDW-CV | 13.5 | 11.0 - 15.5 % | [facility] | | | | | [facility] | | | | | [facility] | | | | | [facility] | | | | | [facility] | + + + +--- + | Platelet Count | 98 (L) | 150 - 400 K/uL | [facility] | | | | | [facility] | | | | | [facility] | | | | | [facility] | | | | | [facility] | + + + +--- + | MPV | 10.1Comment: Performed | 7.5 - 11.2 fL | [facility] | | | by [facility] [address], | | [facility] | | | [place] [address] | | [facility] | | |Performed by [facility] [address], [place] [address] | | [facility] | | | | | [facility] | + + + +--- + + + | Specimen | + + | Blood | + + + + + + + | Performing | Address | City/State/Zipcode | Phone Number | | Organization | | | | + + + + + | [facility] | [address] | [place] [address] | | | [facility] | | | | | [place] | | | | + + + + + Basic Metabolic Panel (02/01/2018 0404)Only the most recent of 2 results within the time clara fry is included. + + + + + | Component | Value | Ref Range | Performed At | + + + + + | NA | 144 | 135 - 145 mmol/L | [facility] | | | | | [facility] | | [facility] | | | | | LABORATORY | | | | | [place] | + + + + + | K | 3.4 (L) | 3.5 - 5.0 mmol/L | [facility] | | | | | [facility] | | | | | [facility] | | | | | LABORATORY | | | | | [place] | + + + + + | CL | 110 (H) | 99 - 109 mmol/L | [facility] | | | | | [facility] | | | | | [facility] | | | | | LABORATORY | | | | | [place] | + + + + + | CO2 | 30 (H) | 21 - 28 mmol/L | [facility] | | | | | [facility] | | | | | [facility] | | | | | LABORATORY | | | | | [place] | + + + + + | ANION GAP | 4 (L) | 5 - 16 mmol/L | [facility] | | | | | [facility] | | | | [facility] | | | | | LABORATORY | | | | | [place] | + + + + + | CALCIUM | 7.9 (L) | 8.5 - 10.2 mg/dL | [facility] | | | | | [facility] | | | [facility] | | | | | LABORATORY | | | | | [place] | + + + + + | BUN | <5 (L) | 8 - 25 mg/dL | [facility] | | | | | [facility] | | | | [facility] | | | | | LABORATORY | | | | | [place] | + + + + + | Creatinine, | 0.37 (L) | 0.50 - 1.00 mg/dL | [facility] | | Serum/Plasma | | | [facility] | | | | | [facility] | | | | | LABORATORY | | | | | [place] | + + + + + | GLUCOSE | 98 | 65 - 99 mg/dL | [facility] | | | | | [facility] | | | | | [facility] | | | | | LABORATORY | | | | | [place] | + + + + + | Estimated GFR | 121Comment: eGFR<60 | >=90 mL/min/1.73m2 | [facility] | | | consistent with impaired | | [facility] | | | kidney | | [facility]ENTER | | | function.Performed by | | LABORATORY | | | [facility] [address], | | [place] | | | [place] [address] | | | + + + + + + + | Specimen | + + | Blood | + + + + + + + | Performing | Address | City/State/Zipcode | Phone Number | | Organization | | | | + + + + + | [facility] | [address] | [place] [address] | | | [facility] | | | | | [place] | | | | + + + + + Tissue Request For Pathology (01/31/2018 0846) + + + | Narrative | Performed At | + + + | | [facility] | | KERRY PITTS | [place] | | [place] : | [facility] | | 1960 AGE: 57 years | LABORATORY | | SEX: Female MRN: | [place] | | [id number] Acct: [id number] | | | [id number] Location: [facility] SURG; [facility]; | | | [facility] Case | | | #: [id number] Ordering: | | | JOSEP RODRIGUEZ MD Client: [facility] | | | [facility] Copy | | | To: Printed: 02/04/2018 17:31 | | | PDT | | | SURGICAL PATHOLOGY FINAL | | | REPORTCollected: Receiv | | | ed: Responsible | | | Pathologist:01/31/2018 08:46 PDT 01/31/2018 | | | 10:38 MARY CARLOS | | | DIAGNOSIS:Kidney, left, partial nephrectomy: | | | Clear cell renal carcinoma with the following | | | features- | | | Tumor focality: Unifocal. | | | Tumor size: 1.6 cm. | | | Histologic type: Clear cell renal carcinoma. | | | | | | Sarcomatoid features: Absent. | | | Rhabdoid | | | features: Absent. | | | Tumor necrosis: Absent. | | | Histologic grade: Grade II. | | | Anatomic extent of tumor: Tumor limited to | | | kidney. | | | Lymphovascular invasion: Not identified. | | | Surgical margins: | | | Renal parenchymal margin negative. | | | Adrenal gland: Not present. | | | Lymph nodes: Not present. | | | Surgical Pathology Stage: pT1a pNX.0-M (db | | | 02/04/18)Verified By: MARY PRINCE, PhDVerify | | | Date: 02/04/18 17:31 PDTPerforming Location: [facility] | | | [facility] [place], [place] [address]ISAEHHC:As | | | part of quality auditor the slides of this case were reviewed at | | | consensus conference on 02/04/2018.GROSS DESCRIPTION:The specimen | | | labeled and designated "Rachor- left renal mass" is received in | | | formalin and consists of a 2.8 x 2.5 x 2.2 cm wedge of renal tissue. | | | Sectioning shows a discrete, 1.6 cm hemorrhagic mass abutting the | | | capsule surface and extending to 0.3 cm of the parenchymal margin. The | | | margins are marked with ink and liability claims representative sections are submitted | | | | | | "[id number]".UT/01/31/18 | | | SURGICAL PATHOLOGY FINAL | | | REPORTCollected: Receiv | | | ed: Responsible | | | Pathologist:01/31/2018 08:46 PDT 01/31/2018 | | | 10:38 PDT MARY LOPEZMICROSCOPIC | | | DESCRIPTION:Histologic sections of all submitted blocks are examined | | | by light microscopy. Immunostains (pancytokeratin and CD31) | | | are performed on block A1; the tumor cells lining the cysts express | | | pancytokeratin and many CD31 expressing blood vessels are noted in the | | | intervening stroma. These findings, together with the gross | | | examination, support the pathologic diagnosis.Ancillary studies were | | | performed on this case with appropriate controls showing appropriate | | | reactivity. These tests may not have been cleared or approved by the | | | U.S. Food and Drug Administration. The FDA has determined that such | | | clearance or approval is not necessary, since such tests were | | | developed and their performance characteristics determined by [facility]. This test is used for clinical | | | purposes. It should not be regarded as investigational or for | | | research. [facility] is certified under the Clinical | | | Laboratory Improvement Amendments of 1988 (CLIA) as qualified to | | | perform high complexity clinical laboratory testing. | | + + + + + + + + | Performing | Address | City/State/Zipcode | Phone Number | | Organization | | | | + + + + + | [facility] | [address] | [place] [address] | | | [facility] | | | | | [place] | | | | + + + + + Anesthesia Airway Note (01/31/201807) + + + | Narrative | Performed At | + + + | Gavi Mcdermott CRNA Student 01/31/2018 8:08 Anesthesia | | | Airway Placement 01/31/2018 7:42 Preprocedure check: patient | | | identified, suction, airway equipment checked, oxygen, airway | | | assessed and patient reassessment prior to induction Rapid Sequence | | | Induction: yes Mask ventilation: N/A External maneuver: cricoid | | | pressure, BURP and ramp position Successful technique: Mac | | | Laryngoscope blade size: 3 Airway grade: 1 (Full view of glottis) | | | Other equipment: stylette Attempts: 1 Airway type: endotracheal | | | Size: 7 Cuffed: cuffed Route, reference point: right side of mouth | | | Tube depth: 22 cm Tube secured with: adhesive tape Trauma: none | | | Tube placement verification: bilateral chest rise, equal bilateral | | | breath sounds, carbon dioxide detection and video laryngoscope | | | Performing provider: GAVI MCDERMOTT Assisted by: Roro NAVAS | | | Electronically Signed by: Gavi Mcdermott CRNA | | | Student ESig | | | date/time: 01/31/2018 8:07 | | + + + + + | Procedure Note | + + | Gavi Mcdermott CRNA Student - 01/31/2018 0807 PDT Anesthesia Airway | | Placement01/31/2018 7:42Preprocedure check: patient identified, suction, airway equipment | | checked, oxygen, airway assessed and patient reassessment prior to inductionRapid | | Sequence Induction: yesMask ventilation: N/AExternal maneuver: cricoid pressure, BURP | | and ramp positionSuccessful technique: MacLaryngoscope blade size: 3 Airway grade: 1 | | (Full view of glottis)Other equipment: styletteAttempts: 1Airway type: endotrachealSize: | | 7Cuffed: cuffedRoute, reference point: right side of mouthTube depth: 22 cmTube secured | | with: adhesive tapeTrauma: noneTube placement verification: bilateral chest rise, equal | | bilateral breath sounds, carbon dioxide detection and video laryngoscopePerforming | | provider: GAVI MCDERMOTT LAssisted by: Roro NAVAS KENTElectronically Signed by: Gavi | | Grady Mcdermott CRNA Student ESig date/time: 01/31/2018 8:07 | | | |Airway type: endotracheal | |Size: 7 | |Cuffed: cuffed | |Route, reference point: right side of mouth | |Tube depth: 22 cm | |Tube secured with: adhesive tape | |Trauma: none | |Tube placement verification: bilateral chest rise, equal bilateral breath sounds, carbon di oxide detection and video laryngoscope | |Performing provider: GAVI MCDERMOTT | |Assisted by: Roro NAVAS | | | | | |Electronically Signed by: Gavi Mcdermott CRNA Student ESig date/ time: 01/31/2018 8:07 | | | + + Type and Screen (01/31/2018 0656) + + + + + | Component | Value | Ref Range | Performed At | + + + + + | ABO | B | | [facility] | | | | | [facility] | | | | | [facility] | | | | [facility] | + + + + + | Rh Type | Positive | | [facility] | | | | | [facility] | | | | | [facility] | | | | [facility] | + + + + + | Antibody Screen | NegativeComment: Patient | | [facility] | | | is remote crossmatch | | [facility] | | | eligible | | [facility] | | | | | [facility] | + + + + + + + | Specimen | + + | Blood | + + + + + | Narrative | Performed At | + + + | Specimen Expiration Date: [id number] | [facility] | | | [facility] | | | [facility] | + + + + + + + + | Performing | Address | City/State/Zipcode | Phone Number | | Organization | | | | + + + + + | [facility] | [address] | [place] [address] | [phone] | | [facility] | | | | | [facility] | | | | [facility] | | | | + + + + + ABO Rh (01/31/201850) + + + + + | Component | Value | Ref Range | Performed At | + + + + + | ABO | B | | [facility] | | | | | [facility] | | | | | [facility] | | | | [facility] | + + + + + | Rh Type | Positive | | [facility] | | | | | [facility] | | | | | [facility] | | | | [facility] | + + + + + + + + | Narrative | Performed At | + + + | Specimen Expiration Date: [id number] | [facility] | | | [facility] | | | [facility] | + + + + + + + + | Performing | Address | City/State/Zipcode | Phone Number | | Organization | | | | + + + + + | [facility] | [address] | [place] [address] | [phone] | | [facility] | | | | | [facility] | | | [facility] | | | | + + + + + IMAGING REPORT - EXTERNAL SCAN (01/31/2018) + + + | Narrative | Performed At | + + + | Ordered by an | | | unspecified provider. | | + + + from Last 3 Months Insurance + +--------+ +--------+ +---------+ | Payer | Benefi | Subscriber | Type | Phone | Address | | | t Plan | ID | | | | | | / | | | | | | | Group | | | | | + +--------+ +--------+ +---------+ | HEALTHCARE [employer] | HMA | [id number] | PPO | +- | | | ADMIN | BCBS | 5 | | [phone] | | | | PPO | | | | | + +--------+ +--------+ +---------+ | MEDICARE | MEDICA | [id number] | Medica | +- | | | | RE | | re | [phone] | | | | PART A | | | | | | | AND B | | | | | + +--------+ +--------+ +---------+ | HEALTHCARE [employer] | HMA | [id number] | PPO | +- | | | ADMIN | BCBS | 5 | | [phone] | | | | PPO | | | | | + +--------+ +--------+ +---------+ | MEDICARE | MEDICA | [id number] | Medica | [phone] | | | RE | | re | [phone] | | | | PART A | | | | | | | AND B | | | | | + +--------+ +--------+ +---------+ + +--------+ +--------+ + + | Guarantor Name | Accoun | Relation to | Date | Phone | Billing Address | | | t Type | Patient | of | | | | | | | | | | + +--------+ +--------+ + + | KERRY PITTS | Person | Self [birth year] | Home: | [address] | | | al/Fam | | 1961 | [phone] | [place] [address] | | | ryan | | | [birth year]87 | | + +--------+ +--------+ + + | KERRY PITTS | Person | Self | [birth year] | Home: | [address] | | | al/Fam | | 1961 | [phone] | [place] [address] | | | ryan | | | [address] | | + +--------+ +--------+ + +
--- OUTSIDE RECORDS SUMMARY | ~2018-05-02 | XMS | Encounter Summary ---
Demographics + + + | Address | [address] | | | [place] [address] | + + + | Home Phone | | + + + | Preferred Language | Unknown | + + + | Marital Status | | + + + | Alevism Affiliation | Unknown | + + + | Race | Unknown | + + + | Ethnic Group | Unknown | + + + Author + + + | Author | [facility] | | | and [place] | + + + | Organization | [facility] | | | and [...] | | | | | [place] [address] | | + + + + + Care Team Providers + +------+ + | Care Opera Singer Name | Role | Phone | + +------+ + | Iain Rosales MD | PCP | | + +------+ + Reason for Visit Auth/Cert +--------+--------+ + + + + | Status | Reason | Specialty | Diagnoses / | Referred By | Referred To | | | | | Procedures | Contact | Contact | +--------+--------+ + + + + | | | | Diagnoses | | Jennifer, | | | | | Other | | MD [address] | | | | | specified | | [address] | | | | | disorders of | | [address] | | | | | kidney and | | [place] | | | | | ureter | | [address] Phone: | | | | | Other | | [phone] | | | | | specified | | Fax: | | | | | disorders of | | [phone] | | | | | kidney and | | | | | | | ureter | | | | | | | [N28.89] | | | | | | | Procedures | | | | | | | NE PARTIAL | | | | | | | REMOVAL OF | | | | | | | KIDNEY NE | | | | | | | LAP,PARTIAL | | | | | | | NEPHRECTOMY | | | +--------+--------+ + + + + Encounter Details +--------+ + + + + | Date | Type | Department | Care Team | Description | +--------+ + + + + | 01/31/ | Anesthesia | [facility] | Mao Dominguez, | | | 2018 | Event | [facility] | [address] | | | | | [facility] | [place] [address] | | | | | [address] | [phone] | | | | | [place] | | | | | | [address] | | | | | | [phone] | | | +--------+ + + + + Anesthesia Record + + + + + | Procedure Name | Responsible | Anesthesia Start | Anesthesia Stop Time | | | Anesthesiologist | Time | | + + + + + | ROBOTIC ASSISTED | Mao Dominguez MD | 01/31/18729 | 01/31/18 09 | | PARTIAL NEPHRECTOMY, | | | | | laparoscopic renal | | | | | ultrasound (Left | | | | | Abdomen) | | | | + + + + + +----+---+ + + | Da | T | Event | Comment | | te | i | | | | | m | | | | | e | | | +----+---+ + + | 06 | 0 | An Checkout | Pre-use anesthesia machine/equipment checkout. | | /1 | 6 | | | | 5/ | 5 | | | | 20 | 1 | | | | 18 | | | | +----+---+ + + | | 0 | An Start | Reassessment prior to anesthesia induction/procedure. | | | 7 | | | | | 3 | | | | | 0 | | | +----+---+ + + | | 0 | Preoxygenat | | | | 7 | ed | | | | 3 | | | | | 4 | | | +----+---+ + + | | 0 | An | | | | 7 | Induction | | | | 3 | | | | | 9 | | | +----+---+ + + | | 0 | An | | | | 7 | Intubation | | | | 4 | | | | | 2 | | | +----+---+ + + | | 0 | Pre-Procedu | | | | 7 | ral Timeout | | | | 5 | Completed | | | | 8 | | | +----+---+ + + | | 0 | First | | | | 8 | Inc/Proc St | | | | 0 | | | | | 1 | | | +----+---+ + + | | 0 | [place] | | | | 8 | 43-degrees | | | | 0 | | | | | 2 | | | +----+---+ + + | | 0 | [place] off | | | | 9 | | | | | 0 | | | | | 1 | | | +----+---+ + + | | 0 | AN No | TOF 4/4 with sustained tetanus. | | | 9 | Residual | | | | 0 | NMB | | | | 5 | | | +----+---+ + + | | 0 | Breathing | | | | 9 | Spontaneous | | | | 0 | ly | | | | 7 | | | +----+---+ + + | | 0 | Oropharynx | | | | 9 | Suctioned | | | | 1 | | | | | 0 | | | +----+---+ + + | | 0 | Extubated | | | | 9 | Awake | | | | 1 | | | | | 2 | | | +----+---+ + + | | 0 | An Stop | VSS on Simple Face Mask. Pain treated at bedside. Patient handed | | | 9 | | off to recovery nurse. | | | 4 | | | +----+---+ + + +------+ | Meds | +------+ + + + | Name | Total | + + + | fentaNYL | 300 mcg | + + + | lidocaine 2% | 80 mg | + + + | propofol | 300 mg | + + + | rocuronium | 60 mg | + + + | succinylcholine | 120 mg | + + + | ondansetron | 4 mg | + + + | dexamethasone | 5 mg | + + + | sugammadex | 360 mg | + + + | ciprofloxacin in dextrose (CIPRO) | 0 mg | | IVPB 400 mg | | + + + | furosemide | 20 mg | + + + | mannitol 25% | 12.5 g | + + + | labetalol | 5 mg | + + + | indocyanine green (ICG) | 25 mg | + + + | lactated ringers (LR) infusion | 1,100 mL | + + + + + | Name | + + | N2O Flow Rate (L/Min) | + + | O2 Flow Rate (L/Min) | + + | Insp O2 | + + | Exp N2O | + + | Exp SEV | + + | Air Flow Rate (L/Min) | + + + + | No blood administrations on file. | + + +--------+ + + + | Type | Details | Placement | Removal | +--------+ + + + | Incisi | 01/31/18; 919; Left; abdomen; 5 | 01/31/18919 by | | | on | sites mid to left abdomen | Ne Suárez RN | | +--------+ + + + | Periph | site symptomatic, catheter/device | 01/31/18 0658 by | 02/02/18 0000 by Ana M | | eral | intact; 02/02/18; 0000 | Tiara Waters RN | Orquidea Iqbal RN | | IV | | | | +--------+ + + + | Periph | 01/31/18; 0648; Left; Forearm; | 01/31/18 0648 by | 02/02/18 1000 by | | eral | [id number] catheter system; | Tiara Waters RN | Camille Novoa RN | | IV | 18 gauge; Blood Bank; 0; | | | | | distraction, intradermal | | | | | injection, tolerated well, | | | | | appears comfortable; 02/02/18; | | | | | 1000 | | | +--------+ + + + | Airway | Placement Date: 01/31/18; | 01/31/18741 by | 01/31/18911 by | | | Placement Time: 741 (created via | aGvi Mcdermott CRNA | Gavi Mcdermott CRNA | | | procedure documentation); Mask | Student | Student | | | Ventilation: N/A; Airway Grade: | | | | | 1; External Maneuvers: CP, BURP; | | | | | Successful Technique: Mac; | | | | | Laryngoscope Blade Size: 3; | | | | | Attempts: 1; Airway Type: | | | | | endotracheal; Size: 7; Airway | | | | | Tube Secured At: 22; Trauma: | | | | | none; Other Equipment: stylette; | | | | | Placement Check: exhaled CO2 | | | | | detection device, video | | | | | laryngoscope, bilateral chest | | | | | rise, breath sounds equal | | | | | bilaterally; Removal Date: | | | | | 01/31/18; Removal Time: 09 | | | +--------+ + + + | Urethr | 01/31/18; 0745; indicated due to | 01/31/18 0745 by | 02/01/18 0544 by Ana M | | al | specific surgical procedure; All | Altagracia Us RN | L GARRET Iqbal | | Cathet | elements; All elements; All | | | | er | elements; indwelling double lumen | | | | | catheter; latex; 16; 5; drainage | | | | | bag to dependent drainage; | | | | | urethral catheter removed; short | | | | | term use; 02/01/18; 0544 | | | +--------+ + + + in this encounter Social History + + + +--------+ + [...] + + + as of this encounter Functional Status + + + [...] + + + as of this encounter Plan [...] [facility] | | | | | | [place] [address] | | | | | | [phone] | | | | | | | | +--------+---------+ + + + | 09/11/ | Office | Cardiology | Karthik Cobb, | | | 2018 | Visit | | MD [place] | | | | | | [place] | | | | | | [place] [address] | | | | | | [phone] | | | | | | | | +--------+---------+ + + + as of this encounter Results Anesthesia Airway Note (01/31/2018 0807) + + + | Narrative | Performed [...] | provider: GAVI MCDERMOTT LAssisted by: Roro NAVASElectronically Signed by: Gavi | | Grady Mcdermott [...] | | | | |Electronically Signed by: MARY Head ESig date/ time: 01/31/2018 8:07 | | | + + in this encounter Visit Diagnoses Not on filein this encounter Administered Medications + +--------+ +------+------+------+ | Medication Order | MAR | Action | Dose | Rate | Site | | | Action | Date | | | | + +--------+ +------+------+------+ | dexamethasone (DECADRON) 10 | Given | | 5 mg | | | | mg/mL injection Intravenous, | | 8 7:45 | | | | | PRN, Starting Sat01/31/18 at | | PDT | | | | | 0745, Anesthesia Intra-op | | | | | | + +--------+ +------+------+------+ +---+---+ | | | +---+---+ + +-------+ +--------+---+---+ | fentaNYL (PF) injection | Given | | 50 mcg | | | | Intravenous, PRN, Pain, Starting | | 8 8:10 | | | | | Sat01/31/18 at 0750, Anesthesia | | PDT | | | | | Intra-op | | | | | | + +-------+ +--------+---+---+ +-------+ +--------+---+---+ | Given | | 50 mcg | | | | | 8 8:13 | | | | | | PDT | | | | +-------+ +--------+---+---+ | Given | | 50 mcg | | | | | 8 9:22 | | | | | | PDT | | | | +-------+ +--------+---+---+ +---+---+ | | | +---+---+ + +-------+ +-------+---+---+ | furosemide (LASIX) injection | Given | | 20 mg | | | | Intravenous, PRN, Edema, Starting | | 8 8:23 | | | | | 01/31/18 at 0823, Anesthesia | | PDT | | | | | Intra-op | | | | | | + +-------+ +-------+---+---+ +---+---+ | | | +---+---+ + +-------+ +-------+---+---+ | indocyanine green (IC-GREEN) | Given | | 25 mg | | | | injection Intravenous, PRN, | | 8 8:33 | | | | | Starting Sat01/31/18 at 0833, | | PDT | | | | | Anesthesia Intra-op | | | | | | + +-------+ +-------+---+---+ +---+---+ | | | +---+---+ + +-------+ +------+---+---+ | labetalol (TRANDATE) 5 mg/mL | Given | | 5 mg | | | | injection Intravenous, PRN, | | 8 8:29 | | | | | Starting Sat01/31/18 at 0829, | | PDT | | | | | Anesthesia Intra-op | | | | | | + +-------+ +------+---+---+ +---+---+ | | | +---+---+ + +---------+ +---+-------+---+ | lactated ringers (LR) infusion | New Bag | | | 100 | | | at 10-100 mL/hr, Intravenous, | | 8 6:48 | | mL/hr | | | CONTINUOUS, Starting Sat01/31/18 | | PDT | | | | | at 0630, TKO. | | | | | | + +---------+ +---+-------+---+ +---------+ +---+---+---+ | New Bag | | | | | | | 8 8:54 | | | | | | PDT | | | | +---------+ +---+---+---+ +---+---+ | | | +---+---+ + +-------+ +-------+---+---+ | lidocaine (PF) 2% injection | Given | | 80 mg | | | | Intravenous, PRN, Starting Fri | | 8 7:39 | | | | | 01/31/18 at 0739, Anesthesia | | PDT | | | | | Intra-op | | | | | | + +-------+ +-------+---+---+ +---+---+ | | | +---+---+ + +-------+ +--------+---+---+ | mannitol 25% injection | Given | | 12.5 g | | | | Intravenous, Administer over 30 | | 8 8:29 | | | | | Minutes, PRN, Starting Fri | | PDT | | | | | 01/31/18 at 0829, Anesthesia | | | | | | | Intra-op | | | | | | + +-------+ +--------+---+---+ +---+---+ | | | +---+---+ + +-------+ +------+---+---+ | ondansetron (ZOFRAN) injection | Given | | 4 mg | | | | Intravenous, PRN, Nausea, | | 8 8:51 | | | | | Vomiting, Starting 01/31/18 at | | PDT | | | | | 0851, Anesthesia Intra-op | | | | | | + +-------+ +------+---+---+ +---+---+ | | | +---+---+ + +-------+ +--------+---+---+ | propofol (DIPRIVAN) injection | Given | | 150 mg | | | | Intravenous, PRN, Starting Fri | | 8 7:39 | | | | | 01/31/18 at 0739, Anesthesia | | PDT | | | | | Intra-op | | | | | | + +-------+ +--------+---+---+ +-------+ +--------+---+---+ | Given | | 50 mg | | | | | 8 8:10 | | | | | | PDT | | | | +-------+ +--------+---+---+ | Given | | 100 mg | | | | | 8 8:14 | | | | | | PDT | | | | +-------+ +--------+---+---+ +---+---+ | | | +---+---+ + +-------+ +-------+---+---+ | rocuronium (ZEMURON) injection | Given | | 50 mg | | | | Intravenous, PRN, Ventilator | | 8 7:50 | | | | | Dyssynchrony, Starting Fri | | PDT | | | | | 01/31/18 at 0750, Anesthesia | | | | | | | Intra-op | | | | | | + +-------+ +-------+---+---+ +-------+ +-------+---+---+ | Given | | 10 mg | | | | | 8 8:30 | | | | | | PDT | | | | +-------+ +-------+---+---+ +---+---+ | | | +---+---+ + +-------+ +--------+---+---+ | succinylcholine (ANECTINE) | Given | | 120 mg | | | | injection Intravenous, PRN, | | 8 7:39 | | | | | Starting 01/31/18 at 0739, | | PDT | | | | | Anesthesia Intra-op | | | | | | + +-------+ +--------+---+---+ +---+---+ | | | +---+---+ + +-------+ +--------+---+---+ | sugammadex (BRIDION) injection | Given | | 360 mg | | | | Intravenous, PRN, Starting Fri | | 8 9:05 | | | | | 01/31/18 at 0905, Anesthesia | | PDT | | | | | Intra-op | | | | | | + +-------+ +--------+---+---+ +---+---+ | | | +---+---+ in this encounter"
--- OUTSIDE RECORDS SUMMARY | ~2018-05-02 | XMS | Encounter Summary ---
Demographics + + + | Address | [address] | | | [place] [address] | + + + | Home Phone | | + + + | Preferred Language | Unknown | + + + | Marital Status | | + + + | Baptism Affiliation | Unknown | + + + | Race | Unknown | + + + | Ethnic Group | Unknown | + + + Author + + + | Author | [facility] | | | and [place] | + + + | Organization | [facility] | | [...] | | | | | [place] [address] | | + + + + + Care Team Providers + +------+ + | Care Release And Technical Records Clerk Name | Role | Phone | + +------+ + | Iain Rosales MD | PCP | | + +------+ + Reason for Visit + + + | Reason | Comments | + + + | Appointment | | + + + Encounter Details +--------+ + + + + | Date | Type | Department | Care Team | Description | +--------+ + + + + | 02/03/ | Telephone | [facility] | Davon Perry, | Appointment | | 2018 | | [address] | MD [address], | | | | | [address] [place] | [address] [place] | | | | | [place] [address] | [place] [address] | | | | | [phone] | [phone] | | | | | | | | +--------+ + [...] | | | | | [place] [address] | | | | | | [phone] | | | | | | | | +--------+---------+ + + + | 09/11/ | Office | Cardiology | Karthik Cobb, | | | 2018 | Visit | | MD [place] | | | | | | [place], | | | | | | [place] [address] | | | | | | [phone] | | | | | | | | +--------+---------+ + + + as of this encounter Visit Diagnoses Not on filein this encounter"
--- OUTSIDE RECORDS SUMMARY | ~2018-05-02 | XMS | Encounter Summary ---
Demographics + + + | Address | [address] | | | [place] [address] | + + + | Home Phone | | + + + | Preferred Language | Unknown | + + + | Marital Status | | + + + | Spiritism Affiliation | Unknown | + + + | Race | Unknown | + + + | Ethnic Group | Unknown | + + + Author + + + | Author | [facility] | | | and [place] | + + + | Organization | [facility] | | [...] | | | | | [place] [address] | | + + + + + Care Team Providers + +------+ + | Care Awning Maker And Installer Name | Role | Phone | + +------+ + | Iain Rosales MD | PCP | | + +------+ + Encounter Details +--------+ + + + + | Date | Type | Department | Care Team | Description | +--------+ + + + + | 02/03/ | Telephone | [facility] | Josep Rodriguez MD | | | 2018 | | [address] | [address] | [address] [place] | | | | | [place] | [place] [address] | | | | | [address] | [phone] | | | | | [phone] | | | +--------+ + + + [...] Urology | Davon Perry, | | | 2019 | Visit | | MD [address], | | | | | | [place] | | | | | | [place] [address] | | | | | | [phone] | | | | | | | | +--------+---------+ + + + | 09/11/ | Office | Cardiology | Karthik Cobb, | | | 2018 | Visit | | MD [place] | | | | | | [place], | | | | | | [place] [address] | | | | | | [phone] | | | | | | | | +--------+---------+ + + + as of this encounter Visit Diagnoses Not on filein this encounter"
--- OUTSIDE RECORDS SUMMARY | ~2018-05-02 | XMS | Encounter Summary ---
Demographics + + + | Address | [address] | | | [place] [address] | + + + | Home Phone | | + + + | Preferred Language | Unknown | + + + | Marital Status | | + + + | Sikh Affiliation | Unknown | + + + | Race | Unknown | + + + | Ethnic Group | Unknown | + + + Author + + + | Author | [facility] | | | and [place]ana | [...] | | | | | [place] [address] | | + + + + + Care Team Providers + +------+ + | Care Miller First Name | Role | Phone | + [...] | | | | ureter | | [address] Phone: | | | | | Other | | [phone] | | | | | specified | | Fax: | | | | | disorders of | | [phone] | | | | | kidney and | | | | | | | ureter | | | | | | | [N28.89] | | | | | | | Procedures | | | | | | | HI PARTIAL | | | | | | | REMOVAL OF | | | | | | | KIDNEY HI | | | | | | | LAP,PARTIAL | | | | | | | NEPHRECTOMY | | | +--------+--------+ + + + + Encounter Details +--------+ + + + + | Date | Type | Department | Care Team | Description | +--------+ + + + + | 01/31/ | Hospital [facility] | Josep Rodriguez MD | | | 2018 - | Encounter | [facility] | [address] | | | | | SURGICAL [address] | [address] [place], | | | 02/02/ | | [place] | [place] [address] | | | 2018 | | [address] | [phone] | | | | | [phone] | | | +--------+ + + + [...] + + + | Blood Pressure | 123/66 | 02/02/2018751 PDT | + + + + | Pulse | 63 | 02/02/20182 PDT | + + + + | Temperature | 36.1 C (96.9 F) | 02/02/2018751 PDT | + + + + | Respiratory Rate | 14 | 02/02/2018751 PDT | + + + + | Oxygen Saturation | 90% | 02/02/2018751 PDT | + + + + | Inhaled Oxygen | - | - | | Concentration | | | + + + + | Weight | 80.6 kg (177 lb 11.1 | 01/31/2018620 PDT | | | oz) | | + + + + | Height | 162.6 cm (5' 4") | 01/31/2018620 PDT | + + + + | Body Mass Index | 30.5 | 01/31/2018 0621 PDT | + + + + in [...] + + as of this encounter Discharge Summaries Marium Abel MD - 02/02/2018 1048 PDTFormatting of this note may be different from the origi nal. [facility] DISCHARGE SUMMARY Patient Name: Kerry Pitts Patient : 1960 PCP: Iain Rosales Date of Admission: 01/31/2018 Date of Discharge: 02/02/2018 Primary Discharge Dx: LEFT RENAL MASS Secondary Discharge Dx(s): There are no hospital problems to display for this patient. Procedures Robotic assisted Lap Left Partial Nephrectomy Hospital Course: Recovered from surgery nicely Condition on Discharge: Stable Discharge Medications: Discharge Medications New Medications Details methocarbamol 750 mg tablet Take 2 tablets by mouth every 6 hours as needed for Muscle spasms. aka: ROBAXIN oxyCODONE-acetaminophen 5-325 mg per tablet Take 1-2 tablets by mouth every 6 hours as needed. aka: PERCOCET Changed Medications Details ondansetron 4 mg disintegrating tablet Take 4 mg by mouth every 8 hours as needed for Nausea. What changed: Another medication with the same name was added. Make sure you understand ho w and when to take each. aka: ZOFRAN ODT ondansetron 4 mg disintegrating tablet Take 1 tablet by mouth every 6 hours as needed for Nausea or Vomiting. What changed: You were already taking a medication with the same name, and this prescripti on was added. Make sure you understand how and when to take each. aka: FRANCISCO JAVIER ODT Unchanged Medications Details aluminum & magnesium hydroxide-simethicone 200-200-20 mg/5 mL suspension Take 30 mLs by mouth every 6 hours as needed for Indigestion. aka: MAALOX PLUS REGULAR STRENGTH ARIPiprazole 5 mg tablet Take 5 mg by mouth Daily. aka: ABILIFY atorvaSTATin 20 mg tablet Take 1 tablet by mouth nightly. aka: LIPITOR buPROPion 150 mg 12 hr tablet Take 150 mg by mouth 2 times daily. aka: WELLBUTRIN SR DULoxetine [address] capsule Take 60 mg by mouth Daily. aka: CYMBALTA insulin lispro 100 units/mL injection (vial) Inject 1 Units under the skin See Admin Instructions. Inject 1 units under the skin for ev amisha 40 above 180 blood glucose 2 hours post meals aka: humaLOG lidocaine 2% solution Take 15 mLs by mouth every 4 hours as needed for Pain. aka: XYLOCAINE lisinopril 10 mg tablet Take 10 mg by mouth Daily. aka: PRINIVIL, ZESTRIL LORazepam 1 mg tablet Take 1 tablet by mouth every 8 hours as needed for Anxiety. aka: ATIVAN metoclopramide 10 mg tablet Take 1 tablet by mouth every 6 hours as needed for Nausea. aka: REGLAN metoprolol succinate 50 mg 24 hr tablet Take 50 mg by mouth Daily. aka: TOPROL-XL nitroglycerin 0.[address] 0.4 mg under the tongue every 5 minutes as needed for Chest pain. aka: NITROSTAT omeprazole 40 MG capsule Take 40 mg by mouth every morning (before breakfast). aka: priLOSEC OZEMPIC 0.25 or 0.5 mg/dose injection Generic drug: semaglutide Don't restart this medicine until you discuss with Dr Joyce polyethylene glycol powder Take 17 g by mouth Daily as needed for Constipation. aka: MIRALAX PROAIR HFA IN Inhale 1 puff into the lungs as needed (for shortness of breath). senna 8.6 MG Tabs Take 1 tablet by mouth Daily as needed for Constipation. aka: SENOKOT traZODone 50 mg tablet Take 150 mg by mouth nightly. aka: DESYREL TRESIBA FLEXTOUCH 100 units/mL injection Generic drug: insulin degludec Inject 33 Units under the skin every morning. Discontinued Medications aspirin 81 MG tablet hold ASA until ok with your surgeon Follow-Up: 1. Dr. Rodriguez Please call during business hours to set up your urology follow up appointment if not loree villatoro set up. Electronically Signed by: Marium Abel MD, 02/02/2018 10:49 [facility] Dis[facility] Instructions Camille Novoa RN - 02/02/2018Formatting of this note may be different from the wilner [facility] DISCHARGE INSTRUCTIONS AFTER YOUR PROCEDURE: - You may shower, no soaking in the tub - Pat your wound dry after showering, you do not need to cover your incision - No heavy lifting X 6 weeks - The pain medications will make your constipated, take the stool softeners Provided - It is important to remain active and walk once you get home CALL YOUR DOCTOR IF: - you have a fever greater than 101.5F - you notice increased abdominal distension/bloating, and stop passing gas or bowel movements. - if you develop nausea, vomiting, and fear you are getting dehydrated - if your pain is not controlled with the prescribed pain medications - if you have increasing redness from your incision or purulent drainage PAIN CONTROL INSTRUCTIONS: - you may take the narcotic pain med prescribed for you as instructed - you can take this medication with scheduled ibuprofen, as per the instructions on the ibuprofen bottle, provided you do not have any issues with gastric ulcers CONTACT INFORMATION: - [facility] Office Number: [facility] Office [place] Office FOLLOWUP INFORMATION: - or Dr. Perry will see you back postoperatively in 1-2 weeks to discuss your p athology Discharge Instructions: After Your Surgery You ve just had surgery. During surgery, you were given medicine called anesthesia to natanael p you relaxed and free of pain. After surgery, you may have some pain or nausea. This is com mon. Here are some tips for feeling better and getting well after surgery. Stay on schedule with your medicine. Going home Your healthcare provider will show you how to take care of yourself when you go home. He or she will also answer your questions. Have an adult family member or friend drive you home. For the first 24 hours after your surgery: Do not drive or use heavy equipment. Do not make important decisions or sign legal papers. Do not drink alcohol. Have someone stay with you, if needed. He or she can watch for problems and help keep yo u safe. Be sure to go to all follow-up visits with your healthcare provider. And rest after your ventura rgery for as long as your healthcare provider tells you to. Coping with pain If you have pain after surgery, pain medicine will help you feel better. Take it as [place] aprdo efore pain becomes severe. Also, ask your healthcare provider or pharmacist about other ways to control pain. This might be with heat, ice, or relaxation. And follow any other instruct ions your surgeon or nurse gives you. Tips for taking pain medicine To get the best relief possible, remember these points: Pain medicines can upset your stomach. Taking them with a little food may help. Most pain relievers taken by mouth need at least 20 to 30 minutes to start to work. Taking medicine on a schedule can help you remember to take it. Try to time your medicin e so that you can take it before starting an activity. This might be before you get dressed, go for a walk, or sit down for dinner. Constipation is a common side effect of pain medicines. Call your healthcare provider be fore taking any medicines such as laxatives or stool softeners to help ease constipation. Al so ask if you should skip any foods. Drinkinglots of fluids andeating foodssuch as fru its and vegetables that are high in fiber can also help. Remember, do not take laxatives unl ess your surgeon has prescribed them. Drinking alcohol and taking pain medicine can cause dizziness and slow your breathing. I t can even be deadly. Do not drink alcohol while taking pain medicine. Pain medicine can make you react more slowly to things. Do not drive or run machinery wh ile taking pain medicine. Your healthcare providermay tell you to take acetaminophen to help ease your pain. Ask hi m or her how much you are supposed to take each day. Acetaminophen or other pain relievers m ay interact with your prescription medicines or other gsoe-uzg-dhozmdj (OTC) medicines. Some prescription medicines have acetaminophen and other ingredients.Using both prescription a nd OTC acetaminophenfor paincan cause you to overdose. Readthe labels on your OTC [facility] care. This will help youto clearly know the list of ingredients, how much to t karma, and anywarnings. It may also help you not take too muchacetaminophen.If you have questions or do not understand the information, ask your pharmacist or healthcare provider t o explain it to you before you take the OTC medicine. Managing nausea Some people have an upset stomach after surgery. This is often because of anesthesia, pain, or pain medicine, or the stress of surgery. These tips will help you handle nausea and eat healthy foods as you get better. If you were on a special food plan before surgery, ask your healthcare provider if you should follow it while you get better. These tips may help: Do not push yourself to eat. Your body will tell you when to eat and how much. Start off with clear liquids and soup. They are easier to digest. Next try semi-solid foods, such as mashed potatoes, applesauce, and gelatin, as you feel ready. Slowly move to solid foods. Don t eat fatty, rich, or spicy foods at first. Do not force yourself to have 3 large meals a day. Instead eat smaller amounts more ofte n. Take pain medicines with a small amount of solid food, such as crackers or toast, to kellee id nausea. Call your surgeon if You still have pain an hour after taking medicine. The medicine may not be strong enough . You feel too sleepy, dizzy, or groggy. The medicine may be too strong. You have side effects like nausea, vomiting, or skin changes, such as rash, itching, or hives. If you have obstructive sleep apnea You were given anesthesia medicine during surgery to keep you comfortable and free of pain. After surgery, you may have more apnea spells because of this medicine and other medicines you were given. The spells may last longer than usual. At home: Keep using the continuous positive airway pressure (CPAP) device when you sleep. Unless your healthcare provider tells you not to, use it when you sleep, day or night. CPAP is a co mmon device used to treat obstructive sleep apnea. Talk with your provider before taking any pain medicine, muscle relaxants, or sedatives. Your provider will tell you about the possible dangers of taking these medicines. Date Last Reviewed: 07/19/201619996338-9990 [employer]. [address] [place] [address], [place] [address]. All righ ts reserved. This information is not intended as a substitute for professional medical care. Always follow your healthcare professional's instructions. 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 | | | | | | REGULAR STRENGTH) | | | | | | | 200-200-20 mg/5 mL | | | | | | | suspension | | | | | | + + + +---------+ + + | ARIPiprazole | Take 5 mg by mouth | | | | | | (ABILIFY) 5 mg | Daily. | | | | 8 | | tablet | | | | | | + + + +---------+ + + | atorvaSTATin | Take 1 tablet by | 30 | 5 | 01/09/20 | | | (LIPITOR) 20 mg | mouth nightly. | tablet | | 18 | 8 | | tablet | | | | | | + + + +---------+ + + | buPROPion | Take 150 mg by mouth | | | | | | (WELLBUTRIN SR) 150 | 2 times daily. | | | | 8 | | mg 12 hr tablet | | | | | | + + + +---------+ + + | LORazepam (ATIVAN) | Take 1 tablet by | 12 | 0 | 01/21/20 | | | 1 mg tablet | mouth every 8 hours | tablet | | 18 | 8 | | | as needed for | | | | | | | Anxiety. | | | | | + + + +---------+ + + | methocarbamol | Take 2 tablets by | 20 | 0 | 02/03/20 | | | (ROBAXIN) 750 mg | mouth every 6 hours | tablet | | 18 | 8 | | tablet | as needed for Muscle | | | | | | | spasms. | | | | | + + + +---------+ + + | | Take 1-2 tablets by | 25 | 0 | 02/01/20 | | | oxyCODONE-acetaminop | mouth every 6 hours | tablet | | 18 | 8 | | hen (PERCOCET) 5-325 | as needed. | | | | | | mg per tablet | | | | | | + + + +---------+ + + | semaglutide | Don't restart this | | 0 | 01/26/20 | | | (OZEMPIC) 0.25 or | medicine until you | | | 18 | 8 | | 0.5 mg/dose | discuss with | | | | | | injection | Linneelam | | | | | + + + +---------+ + + as of this encounter Progress Notes Marium Abel MD - 02/02/2018 1041 PDTFormatting of this note may be different from the origi nal. [facility] Urology Progress Note Kerry Pitts is a 57 y.o. female ASSESSMENT and PLAN: Patient Active Hospital Problem List: POD 2 Left PartialNx Doing much better - tolerating diet and oral pain meds - HOME today Resolved/stable issues: Recovering from surgery HPI 57 y/o female - POD 2 Left RAPN doing well. Has had a BM, has pain related to insuffl ation. Tolerating regular diet and oral pain meds. No new complaints and wants to go home Review of Systems - Negative except normal post op pain Temp: [35.6 C (96 F)-37.3 C (99.2 F)] 36.1 C (96.9 F) Pulse: [63-98] 63 Resp: [14-16] 14 BP: (118-133)/(62-76) 123/66 Physical Examination: Physical Examination: General appearance - alert, well appearing, and in no distress Abdomen soft and appropriately tender EXT - no CCE Lab Results Component Value Date WBC 9.6 02/01/2018 HGB 13.7 02/01/2018 HCT 39.5 02/01/2018 MCV 95.4 02/01/2018 PLT 98 (L) 02/01/2018 Lab Results Component Value Date CREA 0.37 (L) 02/01/2018 BUN <5 (L) 02/01/2018 NA 144 02/01/2018 K 3.4 (L) 02/01/2018 CL 110 (H) 02/01/2018 CO2 30 (H) 02/01/2018 Glucose, POC Date/Time Value Ref Range Status 02/02/2018 06:33 142 (H) 65 - 99 mg/dL Final Comment: Performed by [facility] [address] [place] [address] 02/01/2018 20:24 191 (H) 65 - 99 mg/dL Final Comment: Performed by [facility] [address] [place] [address] 02/01/2018 17:25 158 (H) 65 - 99 mg/dL Final Comment: Performed by [facility] [address] [place] [address] 01/25/2018 12:09 171 (H) 70 - 109 mg/dL Final 01/25/2018 06:22 153 (H) 70 - 109 mg/dL Final 01/24/2018 23:38 187 (H) 70 - 109 mg/dL Final Intake/Output Summary (Last 24 hours) at 02/02/18 1041 Last data filed at 02/01/18 1900 Gross per 24 hour Intake 1205 ml Output 1500 ml Net -295 ml Marium Abel MD 02/02/2018 10:41 Portions of this chart may have been created with [employer] voice recognition software. Occasi onal wrong-word or sound-alike substitutions may have occurred due to the inherent jon itations of voice recognition software. Please read the chart carefully and recognize, using context, where these substitutions have occurred Marium Abel MD - 02/01/2018 0904 PDTFormatting of this note may be different from the origi nal. [facility] Urology Progress Note Kerry Pitts is a 57 y.o. female ASSESSMENT and PLAN: Patient Active Hospital Problem List: POD 1 Left PNx Advance diet today Wean fluids Likely discharge tomorrow Resolved/stable issues: Recovering from surgery HPI 57 y/o female - POD 1 Left RAPN doing well. Has had a BM, has pain related to insuffl ation, wants more to eat - has no nausea, has been ambulating Review of Systems - Negative except normal post op pain Temp: [35.8 C (96.5 F)-36.8 C (98.2 F)] 36.8 C (98.2 F) Pulse: [53-90] 70 Resp: [16-23] 16 BP: (107-183)/(56-90) 125/72 Physical Examination: Physical Examination: General appearance - alert, well appearing, and in no distress Abdomen soft and appropriately tender EXT - no CCE Lab Results Component Value Date WBC 9.6 02/01/2018 HGB 13.7 02/01/2018 HCT 39.5 02/01/2018 MCV 95.4 02/01/2018 PLT 98 (L) 02/01/2018 Lab Results Component Value Date CREA 0.37 (L) 02/01/2018 BUN <5 (L) 02/01/2018 NA 144 02/01/2018 K 3.4 (L) 02/01/2018 CL 110 (H) 02/01/2018 CO2 30 (H) 02/01/2018 Glucose, POC Date/Time Value Ref Range Status 01/31/2018 20:24 132 (H) 65 - 99 mg/dL Final Comment: Performed by [facility] [address] [place] [address] 01/31/2018 18:41 130 (H) 65 - 99 mg/dL Final Comment: Performed by [facility] [address] [place] [address] 01/31/2018 09:46 169 (H) 65 - 99 mg/dL Final Comment: Performed by [facility] [address] [facility] [place] [address] 01/25/2018 12:09 171 (H) 70 - 109 mg/dL Final 01/25/2018 06:22 153 (H) 70 - 109 mg/dL Final 01/24/2018 23:38 187 (H) 70 - 109 mg/dL Final Intake/Output Summary (Last 24 hours) at 02/01/18 0917 Last data filed at 02/01/18 0726 Gross per 24 hour Intake 709 ml Output 3375 ml Net -2666 ml Marium Abel MD 02/01/2018 9:05 Portions of this chart may have been created with [employer] voice recognition software. Occasi onal wrong-word or sound-alike substitutions may have occurred due to the inherent jon itations of voice recognition software. Please read the chart carefully and recognize, using context, where these substitutions have occurred in this encounter Plan of Treatment +--------+---------+ + + + | Date | Type | Specialty | Care Team | Description | +--------+---------+ + + + | 08/27/ | Office | Urology | Davon Perry, | | | 2018 | Visit | | [address], | | | | | | [address] | | | | | | [place] [address] | | | | | | [phone] | | | | | | | | +--------+---------+ + + + | 09/11/ | Office | Cardiology | Karthik Cobb, | | | 2018 | Visit | | [address] | | | | | | [place], | | | | | | [place] [address] | | | | | | [phone] | | | | | | | | +--------+---------+ + + + + +--------+ + + | Name | Priori | Associated Diagnoses | Date/Time | | | ty | | | + +--------+ + + | Extra Blood Bank Tube | Routin | | 01/31/2018 0650 PDT | | | e | | | + +--------+ + + as of this encounter Procedures + +--------+ + + + | Procedure Name | Priori | Date/Time | Associated Diagnosis | Comments | | | ty | | | | + +--------+ + + + | POC GLUCOSE | Routin | 02/02/2018 | | Results for this | | | e | 0633 PDT | | procedure are in the [...] for this | | | e | 1725 PDT | | procedure are in the [...] for this | | | e | 1840 PDT | | procedure are in the [...] | | | OUND/E | | | LAURA | +---+--------+ + +--------+ +---+ + | [...] section. | + +--------+ +---+ + | POC [...] | | + +--------+ +---+ + | IMAGING REPORT - | | 01/31/2018 | | Results for this | | EXTERNAL SCAN | | 0000 PDT | | procedure are in the | | | | | | results section. | + +--------+ +---+ + in this encounter Results POC Glucose (02/02/2018 0633) + + + + + | Component | Value | Ref Range | Performed At | + + + + + | Glucose, POC | 142 (H)Comment: | 65 - 99 mg/dL | [facility] | | | Performed by [facility] [address] | | [facility] | | | [place] | | [facility] | | | [address] | | LABORATORY | | | | | [place] | + + + + + + + | Specimen | + + | Blood | + + + + + + + | Performing | Address | City/State/Zipcode | Phone Number | | Organization | | | | + + + + + | [facility] | [address] | [place] [address] | | | [facility] | | | | | LABORATORY [place] | | | | + + + + + POC Glucose (02/01/20182023) + + + + + | Component | Value | Ref Range | Performed At | + + + + + | Glucose, POC | 191 (H)Comment: | 65 - 99 mg/dL | [facility] | | | Performed by [facility] [address] | | [facility] | | | [address] [place] | | [facility] | | | [address] | | LABORATORY | | | | | [place] | + + + + + + + | Specimen | + + | Blood | + + + + + + + | Performing | Address | City/State/Zipcode | Phone Number | | Organization | | | | + + + + + | [facility] | [address] [facility] [address] | [place] [address] | | | [facility] | | | | | LABORATORY [place] | | | | + + + + + POC Glucose (02/01/2018 1725) + + + + + | Component | Value | Ref Range | Performed At | + + + + + | Glucose, POC | 158 (H)Comment: | 65 - 99 mg/dL | [facility] | | | Performed by [facility] [address] | | [facility] | | | [address], [place], [place] | | MEDICAL CENTER | | | [address] | | LABORATORY | | | | | [place] | + + + + + + + | Specimen | + + | Blood | + + + + + + + | Performing | Address | City/State/Zipcode | Phone Number | | Organization | | | | + + + + + | [facility] | [address] | [place] [address] | | | [facility] | | | | | LABORATORY [place] | | | | + + + + + POC Glucose (02/01/2018 1138) + + + + + | Component | Value | Ref Range | Performed At | + + + + + | Glucose, POC | 148 (H)Comment: | 65 - 99 mg/dL | [facility] | | | Performed by [facility] [address] | | [facility] | | | [address] [place], [place] | | [facility] | | | [address] | | LABORATORY | | | | | C[place] | + + + + + + + | Specimen | + + | Blood | + + + + + + + | Performing | Address | City/State/Zipcode | Phone Number | | Organization | | | | + + + + + | [facility] | [address] | [place] [address] | | | [facility] | | | | | LABORATORY [place] | | | | + + + + + POC Glucose (02/01/201807) + + + + + | Component | Value | Ref Range | Performed At | + + + + + | Glucose, POC | 107 (H)Comment: | 65 - 99 mg/dL | [facility] | | | Performed by [facility] [address] | | [facility] | | | [address] [place], [place] | | [facility] | | | [address] | | LABORATORY | | | | | CERNER | + + + + + + + | Specimen | + + | Blood | + + + + + + + | Performing | Address | City/State/Zipcode | Phone Number | | Organization | | | | + + + + + | ANANDA MYERS | [address] | [place] [address] | | | [facility] | | | | | LAB[facility]AT[facility] [place] | | | | + + + + + CBC no Differential (02/01/2018 0404) + + + +--- + | Component | Value | Ref Range | Pe rformed At | + + + +--- + | WBC | 9.6 | 3.8 - 11.0 K/uL | [facility] | | | | | [facility] | | | | | [facility] | | | | | [facility] | | | | | [facility] | + + + +--- + | RBC | 4.14 | 3.70 - 5.10 M/uL | [facility] | | | | | [facility] | | | | | [facility] | | | | | [facility] | | | | | [facility] | + + + +--- + | Hgb | 13.7 | 11.3 - 15.5 g/dL | [facility] | | | | | [facility] | | | | | [facility] | | | | | [facility] | | | | | [facility] | + + + +--- + | Hct | 39.5 | 34.0 - 46.0 % | [facility] | | | | | [facility] | | [facility] | | [facility] | | | | | [facility] | | | | | [facility] | + + + +--- + | MCV | 95.4 | 80.0 - 100.0 fL | [facility] | | | | | [facility] | | | | | [facility] | | | | | [facility] | | | | | [facility] | + + + +--- + | MCH | 33.1 | 27.0 - 34.0 pg | [facility] | | | | | [facility] | | | | | [facility] | | | | | [facility] | | | | | [facility] | + + + +--- + | MCHC | 34.7 | 32.0 - 35.5 g/dL | [facility] | | | | | [facility] | | | | | [facility] | | | | | [facility] | | | | | [facility] | + + + +--- + | RDW-CV | 13.5 | 11.0 - 15.5 % | [facility] | | | | | [facility] | | | | | [facility] | | | | | [facility] | | | | | [facility] | + + + +--- + | Platelet Count | 98 (L) | 150 - 400 K/uL | [facility] | | | | | [facility] | | | | | [facility] | | | | | [facility] | | | | | [facility] | + + + +--- + | MPV | 10.1Comment: Performed | 7.5 - 11.2 fL | [facility] | | | by [facility] [address], | | [facility] | | | [place] | | [facility] | | |Performed by [facility] [address], [place] | | [facility] | | | | | [facility] | + + + +--- + + + | Specimen | + + | Blood | + + + + + + + | Performing | Address | City/State/Zipcode | Phone Number | | Organization | | | | + + + + + | ANANDA MYERS | [address] | [place] | | | [facility] | | | | | LABORATORY [place] | | | | + + + + + Basic Metabolic Panel (02/01/2018 0404) + + + + + | Component [...] by | | LABORATORY | | | [facility] [address], | | [place] | | | [place] [address] | | | + + + + + + + | Specimen | + + | Blood | + + + + + + + | Performing | Address | City/State/Zipcode | Phone Number | | Organization | | | | + + + + + | [facility] | [address] | [place] [address] | | | [facility] | | | | | [place] | | | | + + + + + POC Glucose (01/31/20182023) + + + + + | Component | Value | Ref Range | Performed At | + + + + + | Glucose, POC | 132 (H)Comment: | 65 - 99 mg/dL | [facility] | | | Performed by [facility] [address] | | [facility] | | | [place] | | [facility] | | | [address] | | LABORATORY | | | | | [place] | + + + + + + + | Specimen | + + | Blood | + + + + + + + | Performing | Address | City/State/Zipcode | Phone Number | | Organization | | | | + + + + + | ANANDA GUTIERREZ | [address] | [place] [address] | | | [facility] | | | | | LABORAT[facility] [place] | | | | + + + + + POC Glucose (01/31/20181) + + + + + | Component | Value | Ref Range | Performed At | + + + + + | Glucose, POC | 130 (H)Comment: | 65 - 99 mg/dL | [facility] | | | Performed by [facility] [address] | | [facility] | | | [place], [place] | | [facility] | | | [address] | | LABORATORY | | | | | [place] | + + + + + + + | Specimen | + + | Blood | + + + + + + + | Performing | Address | City/State/Zipcode | Phone Number | | Organization | | | | + + + + + | ANANDA MYERS | [address] | [place] [address] | | | [facility] | | | | | LAB[facility]AT[facility] [place] | | | | + + + + + CBC no Differential (01/31/2018 1406) + + + +--- + | Component | Value | Ref Range | Pe rformed At | + + + +--- + | WBC | 12.5 (H) | 3.8 - 11.0 K/uL | [facility] | | | | | [facility] | | | | | [facility] | | | | | [facility] | | | | | [facility] | + + + +--- + | RBC | 4.61 | 3.70 - 5.10 M/uL | [facility] | | | | | [facility] | | | | | [facility] | | | | | [facility] | | | | | [facility] | + + + +--- + | Hgb | 15.0 | 11.3 - 15.5 g/dL | [facility] | | | | | [facility] | | | | | [facility] | | | | | [facility] | | | | | [facility] | + + + +--- + | Hct | 43.5 | 34.0 - 46.0 % | [facility] | | | | | [facility] | | | | | [facility] | | | | | [facility] | | | | | [facility] | + + + +--- + | MCV | 94.3 | 80.0 - 100.0 fL | [facility] | | | | | [facility] | | | | | [facility] | | | | | [facility] | | | | | [facility] | + + + +--- + | MCH | 32.7 | 27.0 - 34.0 pg | [facility] | | | | | [facility] | | | | | [facility] | | | | | [facility] | | | | | [facility] | + + + +--- + | MCHC | 34.6 | 32.0 - 35.5 g/dL | [facility] | | | | | [facility] | | | | | [facility] | | | | | [facility] | | | | | [facility] | + + + +--- + | RDW-CV | 13.7 | 11.0 - 15.5 % | [facility] | | | | | [facility] | | | | | [facility] | | | | | [facility] | | | | | [facility] | + + + +--- + | Platelet Count | 122 (L) | 150 - 400 K/uL | [facility] | | | | | [facility] | | | | | [facility] | | | | | [facility] | | | | | [facility] | + + + +--- + | MPV | 9.5Comment: Performed | 7.5 - 11.2 fL | [facility] | | | by [facility] [address], | | [facility] | | | [place] | | [facility] | | |Performed by [facility] [address], [place] | | [facility] | | | | | [place] [facility] | + + + +--- + + + | Specimen | + + | Blood | + + + + + + + | Performing | Address | City/State/Zipcode | Phone Number | | Organization | | | | + + + + + | ANANDA SACRHEMANTH | [address] | [place] | | | [facility] | | | | | LABORAT[facility] [place] | | | | + + + + + Basic Metabolic Panel (01/31/2018 140) + + + + + | Component | Value | Ref Range | Performed At | + + + + + | NA | 143 | 135 - 145 mmol/L | [facility] | | | | | [facility] | | | [facility] | | | | | LAB[facility]ATORY | | | | | [facility] | + + + + + | K | 3.6 | 3.5 - 5.0 mmol/L | [facility] | | | | | [facility] | | | | | [facility] | | | | | LAB[facility]ATORY | | | | | [place] | + + + + + | CL | 106 | 99 - 109 mmol/L | [facility] | | | | | [facility] | | | | | [facility] | | | | | LABORATORY | | | | | [place] | + + + + + | CO2 | 28 | 21 - 28 mmol/L | [facility] | | | | | [facility] | | | | | [facility] | | | | | LAB[facility]ATORY | | | | | [place] | + + + + + | ANION GAP | 9 | 5 - 16 mmol/L | [facility] | | | | | [facility] | | | | | [facility] | | | | | LABORATORY | | | | | [place] | + + + + + | CALCIUM | 8.2 (L) | 8.5 - 10.2 mg/dL | [...] + + + + | Creatinine, | 0.47 (L) | 0.50 - 1.00 mg/dL | [facility] | | Serum/Plasma | | | [facility] | | | | | [facility] | | | | | LABORATORY | | | | | [place] | + + + + + | GLUCOSE | 173 (H) | 65 - 99 mg/dL | [facility] | | | | | [facility] | | | | | [facility] | | | | | LABORATORY | | | | | [place] | + + + + + | Estimated GFR | 112Comment: eGFR<60 | >=90 mL/min/1.73m2 | [facility] | | | consistent with impaired | | [facility] | | | kidney | | [facility]ENTER | | | function.Performed by | | LABORATORY | | | [facility] [address], | | [place] | | | [place] [address] | | | + + + + + + + | Specimen | + + | Blood | + + + + + + + | Performing | Address | City/State/Zipcode | Phone Number | | Organization | | | | + + + + + | ANANDA MYERS | [address] | [place] [address] | | | [facility] | | | | | [place] | | | | + + + + + POC Glucose (01/31/2018 0946) + + + + + | Component | Value | Ref Range | Performed At | + + + + + | Glucose, POC | 169 (H)Comment: | 65 - 99 mg/dL | [facility] | | | Performed by [facility] [address] | | [facility] | | | [place] | | [facility] | | | [address] | | LABORATORY | | | | | [facility] | + + + + + + + | Specimen | + + | Blood | + + + + + + + | Performing | Address | City/State/Zipcode | Phone Number | | Organization | | | | + + + + + | [facility] | [address] | [place] [address] | | | [facility] | | | | | LABORAT[facility] [place] | | | | + + + + + POC Glucose (01/31/201847) + + + + + | Component | Value | Ref Range | Performed At | + + + + + | Glucose, POC | 169 (H)Comment: | 65 - 99 mg/dL | [facility] | | | Performed by [facility] [address] | | [facility] | | | [address], [place] | | MEDICAL [facility]ENTER | | | [address] | | LABORATORY | | | | | [place] | + + + + + + + | Specimen | + + | Blood | + + + + + + + | Performing | Address | City/State/Zipcode | Phone Number | | Organization | | | | + + + + + | ANANDA MYERS | [address] | [place] [address] | | | [facility] | | | | | LABORAT[facility] [place] | | | | + + + + + Tissue Request For Pathology (01/31/2018 0846) + + + | Narrative | Performed At | + + + | | [facility] | | [facility] | [place] | | [place] : | [facility] | | 1960 AGE: 57 years | LABORATORY | | SEX: Female MRN: | [place] | | [id number] Acct: [id number] | | | [id number] Location: [facility] SURG; 556; | | | 556-01 Case | | | #: [id number] Ordering: | | | JOSEP RODRIGUEZ MD Client: [facility] | | | [facility] Copy | | | To: Printed: 02/04/2018 17:31 | | | PDT | | | SURGICAL PATHOLOGY FINAL | | | REPORTCollected: Receiv | | | ed: Responsible | | | Pathologist:01/31/2018 08:46 PDT 01/31/2018 | | | 10:38 PDT MARY LOPEZ | | | DIAGNOSIS:Kidney, left, partial nephrectomy: [...] | | Date: 02/04/18 17:31 PDTPerforming Location: [place] | | | [facility] [place], [place] [address]ENRFDKV:As | | | part of quality associate the slides of this case were reviewed [...] | margins are marked with ink and telecommunications sales representative sections are submitted | | | | | | "A1-A3".MS/SH06 | | | SURGICAL PATHOLOGY FINAL | | | REPORTCollected: Receiv | | | ed: Responsible | | | Pathologist:01/31/2018 08:46 PDT 01/31/2018 | | | 10:38 PDT MARY LOPEZ JOSEPHMICROSCOPIC | | | DESCRIPTION:Histologic sections of all [...] developed and their performance characteristics determined by [facility]. This test is used for clinical | | | purposes. It should not be regarded as investigational or for | | | research. [facility] is certified under the Clinical | | | Laboratory Improvement Amendments of 1988 (CLIA) as qualified to | | | perform high complexity clinical laboratory testing. | | + + + + + + + + | Performing | Address | City/State/Zipcode | Phone Number | | Organization | | | | + + + + + | ANANDA MYERS | [address] | [place] [address] | | | [facility] | | | | | LABORATORY [place] | | | | + + + + + Type and Screen (01/31/2018 0656) + + + + + | Component | Value | Ref Range | Performed At | + + + + + | ABO | B | | [facility] | | | | | [place] [facility] | | | | | [facility] | | | | | [facility] | + + + + + | Rh Type | Positive | | [facility] | | | | | [facility] | | | | | [facility] | | | | | [facility] | + + + + + | Antibody Screen | NegativeComment: Patient | | [facility] | | | is remote crossmatch | | [facility] | | | eligible | | [facility] | | | | | [facility] | + + + + + + + | Specimen | + + | Blood | + + + + + | Narrative | Performed At | + + + | Specimen Expiration Date: [id number] | [facility] | | | [facility] | | | [facility] | + + + + + + + + | Performing | Address | City/State/Zipcode | Phone Number | | Organization | | | | + + + + + | [facility] | [address] | [place] [address] | [phone] | | [facility] | | | | | [facility] | | | | | [facility] | | | | + + + + + ABO Rh (01/31/2018 0650) + + + + + | Component | Value | Ref Range | Performed At | + + + + + | ABO | B | | [facility] | | | | | [facility] | | | | | [facility] | | | | | [facility] | + + + + + | Rh Type | Positive | | [facility] | | | | | [facility] | | | | | [facility] | | | | | [facility] | + + + + + + + + | Narrative | Performed At | + + + | Specimen Expiration Date: [id number] | [facility] | | | [facility] | | | [facility] | + + + + + + + + | Performing | Address | City/State/Zipcode | Phone Number | | Organization | | | | + + + + + | [facility] | [address] | [place] [address] | [phone] | | [facility] | | | | | [facility] | | | | | [facility] | | | | + + + + + POC Glucose (01/31/2018 0650) + + + + + | Component | Value | Ref Range | Performed At | + + + + + | Glucose, POC | 154 (H)Comment: | 65 - 99 mg/dL | [facility] | | | Performed by [facility] [address] | | [facility] | | | [address], [place] | | MEDICAL [facility]ENTER | | | [address] | | LABORATORY | | | | | [place] | + + + + + + + | Specimen | + + | Blood | + + + + + + + | Performing | Address | City/State/Zipcode | Phone Number | | Organization | | | | + + + + + | ANANDA MYERS | [address] | [place] [address] | | | [facility] | | | | | [place] | | | | + + + + + IMAGING REPORT - EXTERNAL SCAN (01/31/2018) + + + | Narrative | Performed At | + + + | Ordered by an | | | unspecified provider. | | + + + in this encounter Visit Diagnoses Not on filein this encounter Admitting Diagnoses + + | Diagnosis | + + | Other specified disorders of kidney and ureter - Other specified disorders of kidney and | | ureter [N28.89] | + + Administered Medications + +--------+ + +------+------+ | Medication Order | MAR | Action | Dose | Rate | Site | | | Action | Date | | | | + +--------+ + +------+------+ | acetaminophen (TYLENOL) tablet | Given | | 1,000 mg | | | | 1,000 mg 1,000 mg, Oral, EVERY 8 | | 8 14:30 | | | | | HOURS (3 times per day), First | | PDT | | | | | dose on Sat01/31/18 at 1415, For | | | | | | | 3 days, Post-op/Phase II | | | | | | + +--------+ + +------+------+ +-------+ + +---+---+ | Given | | 1,000 mg | | | | | 8 20:30 | | | | | | PDT | | | | +-------+ + +---+---+ | Given | | 1,000 mg | | | | | 8 6:25 | | | | | | PDT | | | | +-------+ + +---+---+ +---+---+ | | | +---+---+ + +-------+ +---------+---+---+ | albuterol 90 mcg/puff inhaler | Given | | 2 puffs | | | | 2-4 puff 2-4 puff, Inhalation, | | 8 5:29 | | | | | RT EVERY 2 HOURS PRN, for | | PDT | | | | | shortness of breath, Starting Fri | | | | | | | 01/31/18 at 1358, Post-op/Phase | | | | | | | II | | | | | | + +-------+ +---------+---+---+ +-------+ +---------+---+---+ | Given | | 2 puffs | | | | | 8 17:29 | | | | | | PDT | | | | +-------+ +---------+---+---+ +---+---+ | | | +---+---+ + +-------+ +--------+---+---+ | aluminum & magnesium | Given | | 30 mLs | | | | hydroxide-simethicone (MAALOX | | 8 4:35 | | | | | PLUS REGULAR STRENGTH) 200-200-20 | | PDT | | | | | mg/5 mL suspension 30 mL 30 mL, | | | | | | | Oral, EVERY 6 HOURS PRN, | | | | | | | Indigestion, Starting 01/31/18 | | | | | | | at 1358, Shake well. | | | | | | + +-------+ +--------+---+---+ +-------+ +--------+---+---+ | Given | | 30 mLs | | | | | 8 0:03 | | | | | | PDT | | | | +-------+ +--------+---+---+ +---+---+ | | | +---+---+ + +-------+ +------+---+---+ | ARIPiprazole (ABILIFY) tablet 5 | Given | | 5 mg | | | | mg 5 mg, Oral, DAILY, First | | 8 10:00 | | | | | dose on Sat01/31/18 at 1415, | | PDT | | | | | Post-op/Phase II | | | | | | + +-------+ +------+---+---+ +-------+ +------+---+---+ | Given | | 5 mg | | | | | 8 9:42 | | | | | | PDT | | | | +-------+ +------+---+---+ +---+---+ | | | +---+---+ + +-------+ +-------+---+---+ | atorvaSTATin (LIPITOR) tablet | Given | | 20 mg | | | | 20 mg 20 mg, Oral, NIGHTLY, | | 8 20:25 | | | | | First dose on Sat01/31/18 at | | PDT | | | | | 2100, Post-op/Phase II | | | | | | + +-------+ +-------+---+---+ +-------+ +-------+---+---+ | Given | | 20 mg | | | | | 8 20:25 | | | | | | PDT | | | | +-------+ +-------+---+---+ +---+---+ | | | +---+---+ + +-------+ +--------+---+---+ | buPROPion (WELLBUTRIN SR) 12 hr | Given | | 150 mg | | | | tablet 150 mg 150 mg, Oral, 2 | | 8 10:00 | | | | | TIMES DAILY, First dose on Fri | | PDT | | | | | 01/31/18 at 1415, Do not cut or | | | | | | | crush. | | | | | | + +-------+ +--------+---+---+ +-------+ +--------+---+---+ | Given | | 150 mg | | | | | 8 20:25 | | | | | | PDT | | | | +-------+ +--------+---+---+ | Given | | 150 mg | | | | | 8 9:42 | | | | | | PDT | | | | +-------+ +--------+---+---+ +---+---+ | | | +---+---+ + +---------+ +--------+-------+---+ | ciprofloxacin in dextrose | New Bag | | 400 mg | 200 | | | (CIPRO) IVPB 400 mg 400 mg, | | 8 6:51 | | mL/hr | | | Intravenous, Administer over 1 | | PDT | | | | | Hours, Prior to Incision, | | | | | | | Starting Sat01/31/18 at 0611, For | | | | | | | 1 dose, Administer in OR, within | | | | | | | 2 hours of surgical incision. | | | | | | | Adjust administration schedule to | | | | | | | match OR schedule. | | | | | | + +---------+ +--------+-------+---+ + +---+ | | | + +---+ | dextrose 50% injection 12.5 g | | | 12.5 g, Intravenous, PRN, Low | | | Blood Sugar, Starting Sat01/31/18 | | | at 1358, Post-op/Phase II | | + +---+ | | | + +---+ | diphenhydrAMINE (BENADRYL) 12.5 | | | mg/5 mL liquid 25 mg 25 mg, | | | Oral, EVERY 4 HOURS PRN, Itching, | | | Starting Sat01/31/18 at 1358, | | | Oral route is preferred. | | + +---+ | | | + +---+ | diphenhydrAMINE (BENADRYL) | | | injection 12.5 mg 12.5 mg, | | | Intravenous, EVERY 4 HOURS PRN, | | | Itching, Starting Sat01/31/18 at | | | 1358, Oral route is preferred. | | + +---+ | | | + +---+ | diphenhydrAMINE (BENADRYL) | | | tablet 25 mg 25 mg, Oral, EVERY | | | 4 HOURS PRN, Itching, Starting | | | 01/31/18 at 1358, Oral route | | | is preferred. | | + +---+ | | | + +---+ + +-------+ +-------+---+---+ | DULoxetine (CYMBALTA) DR | Given | | 60 mg | | | | capsule 60 mg 60 mg, Oral, | | 8 10:00 | | | | | DAILY, First dose on Sat01/31/18 | | PDT | | | | | at 1415, Do not open capsule. | | | | | | + +-------+ +-------+---+---+ +-------+ +-------+---+---+ | Given | | 60 mg | | | | | 8 9:42 | | | | | | PDT | | | | +-------+ +-------+---+---+ +---+---+ | | | +---+---+ + +-------+ +--------+---+---+ | fentaNYL (PF) injection 25-50 | Given | | 50 mcg | | | | mcg 25-50 mcg, Intravenous, | | 8 9:37 | | | | | EVERY 5 MIN PRN, Pain, Starting | | PDT | | | | | Sat01/31/18 at 0923, Maximum | | | | | | | total dose 250 mcg. PACU IV | | | | | | | Narcotic Priority: Only use | | | | | | | fentanyl for immediate post-op | | | | | | | pain (one dose) or breakthrough | | | | | | | pain when any other IV narcotics | | | | | | | ordered have been ineffective (if | | | | | | | ordered). If both morphine and | | | | | | | hydromorphone are ordered, use | | | | | | | morphine first, and use | | | | | | | hydromorphone if morphine | | | | | | | ineffective. | | | | | | + +-------+ +--------+---+---+ +-------+ +--------+---+---+ | Given | | 50 mcg | | | | | 8 9:57 | | | | | | PDT | | | | +-------+ +--------+---+---+ +---+---+ | | | +---+---+ + +-------+ +--------+---+---+ | gabapentin (NEURONTIN) capsule | Given | | 100 mg | | | | 100 mg 100 mg, Oral, EVERY 8 | | 8 14:30 | | | | | HOURS (3 times per day), First | | PDT | | | | | dose on Sat01/31/18 at 1415, For | | | | | | | 3 days, Hold for over-sedation, | | | | | | | dizziness or visual disturbance | | | | | | | and contact MD. | | | | | | + +-------+ +--------+---+---+ +-------+ +--------+---+---+ | Given | | 100 mg | | | | | 8 20:30 | | | | | | PDT | | | | +-------+ +--------+---+---+ | Given | | 100 mg | | | | | 8 6:25 | | | | | | PDT | | | | +-------+ +--------+---+---+ +---+---+ | | | +---+---+ + +-------+ +---------+---+ + | insulin lispro (humaLOG) 100 | Given | | 2 Units | | Abdomen- | | units/mL injection (vial) 0-12 | | 8 17:29 | | | LLQ | | Units 0-12 Units, Subcutaneous, | | PDT | | | | | 4 TIMES DAILY WITH MEALS & | | | | | | | NIGHTLY, First dose on Fri | | | | | | | 01/31/18 at 1700, CORRECTION | | | | | | | SCALE: Blood Glucose (BG) < | | | | | | | 150: None BG | | | | | | | 150-200: DAY: 2 units. NIGHT: | | | | | | | 0 units BG 201-250: DAY: 4 | | | | | | | units. NIGHT: 2 units BG | | | | | | | 251-300: DAY: 6 units. NIGHT: | | | | | | | 4 units BG 301-350: DAY: 8 | | | | | | | units. NIGHT: 6 units BG | | | | | | | 351-400: DAY: 10 units. NIGHT: 8 | | | | | | | units BG > 400 : DAY: 12 | | | | | | | units. NIGHT: 10 units | | | | | | | AND CALL PROVIDER | | | | | | | | | | | | | + +-------+ +---------+---+ + +---+---+ | | | +---+---+ + +---------+ +---+-------+---+ | lactated ringers (LR) infusion | New Bag | | | 100 | | | at 10-100 mL/hr, Intravenous, | | 8 6:48 | | mL/hr | | | CONTINUOUS, Starting 01/31/18 | | PDT | | | | | at 0630, TKO. | | | | | | + +---------+ +---+-------+---+ +---------+ +---+---+---+ | New Bag | | | | | | | 8 8:54 | | | | | | PDT | | | | +---------+ +---+---+---+ +---+---+ | | | +---+---+ + +-------+ + +---+---+ | methocarbamol (ROBAXIN) tablet | Given | | 1,500 mg | | | | 1,500 mg 1,500 mg, Oral, EVERY 6 | | 8 8:08 | | | | | HOURS PRN, Muscle spasms, | | PDT | | | | | Starting 01/31/18 at 1358, | | | | | | | Post-op/Phase II | | | | | | + +-------+ + +---+---+ +-------+ + +---+---+ | Given | | 1,500 mg | | | | | 8 6:25 | | | | | | PDT | | | | +-------+ + +---+---+ +---+---+ | | | +---+---+ + +-------+ +-------+---+---+ | metoclopramide (REGLAN) 5 mg/mL | Given | | 10 mg | | | | injection 10 mg 10 mg, | | 8 11:22 | | | | | Intravenous, EVERY 4 HOURS PRN, | | PDT | | | | | Nausea, Vomiting, Starting Fri | | | | | | | 01/31/18 at 1107, Use if | | | | | | | ondansetron and prochlorperazine | | | | | | | ineffective after 30 minutes or | | | | | | | not ordered Use PO option unless | | | | | | | NPO status or unable to tolerate | | | | | | | Protect from light. | | | | | | + +-------+ +-------+---+---+ +---+---+ | | | +---+---+ + +-------+ +-------+---+---+ | metoclopramide (REGLAN) 5 mg/mL | Given | | 10 mg | | | | injection 10 mg 10 mg, | | 8 9:57 | | | | | Intravenous, EVERY 4 HOURS PRN, | | PDT | | | | | Nausea, Vomiting, Starting Fri | | | | | | | 01/31/18 at 1408, Protect from | | | | | | | light. | | | | | | + +-------+ +-------+---+---+ +---+---+ | | | +---+---+ + +-------+ +-------+---+---+ | metoprolol succinate | Given | | 50 mg | | | | (TOPROL-XL) ER tablet 50 mg 50 | | 8 10:00 | | | | | mg, Oral, DAILY, First dose on | | PDT | | | | | 01/31/18 at 1415, Tablet may | | | | | | | be cut where scored but do not | | | | | | | crush. | | | | | | + +-------+ +-------+---+---+ +-------+ +-------+---+---+ | Given | | 50 mg | | | | | 8 9:42 | | | | | | PDT | | | | +-------+ +-------+---+---+ +---+---+ | | | +---+---+ + +-------+ +------+---+---+ | ondansetron (ZOFRAN) injection | Given | | 4 mg | | | | 4 mg 4 mg, Intravenous, ONCE | | 8 10:17 | | | | | PRN, Nausea, Starting 01/31/18 | | PDT | | | | | at 0923, For 1 dose, | | | | | | | Recovery/Phase I | | | | | | + +-------+ +------+---+---+ +---+---+ | | | +---+---+ + +-------+ +-------+---+---+ | oxyCODONE (ROXICODONE) tablet | Given | | 10 mg | | | | 2.5-10 mg 2.5-10 mg, Oral, EVERY | | 8 3:33 | | | | | 3 HOURS PRN, Pain, Starting Fri | | PDT | | | | | 01/31/18 at 1005, First dose must | | | | | | | be the lowest dose, can titrate | | | | | | | to effective dose by repeat of | | | | | | | lowest dose every 60 minutes prn | | | | | | | pain, may not exceed maximum dose | | | | | | | ordered per interval. Use Pasero | | | | | | | Sedation Scale. | | | | | | + +-------+ +-------+---+---+ +-------+ +-------+---+---+ | Given | | 10 mg | | | | | 8 6:26 | | | | | | PDT | | | | +-------+ +-------+---+---+ | Given | | 10 mg | | | | | 8 9:42 | | | | | | PDT | | | | +-------+ +-------+---+---+ +---+---+ | | | +---+---+ + +-------+ +-------+---+---+ | pantoprazole (PROTONIX) DR | Given | | 40 mg | | | | tablet 40 mg 40 mg, Oral, DAILY | | 8 5:20 | | | | | BEFORE BREAKFAST, First dose on | | PDT | | | | | 01/31/18 at 1415, | | | | | | | Post-op/Phase II | | | | | | + +-------+ +-------+---+---+ +-------+ +-------+---+---+ | Given | | 40 mg | | | | | 8 6:28 | | | | | | PDT | | | | +-------+ +-------+---+---+ + +---+ | | | + +---+ | polyethylene glycol (MIRALAX) | | | powder 17 g 17 g, Oral, DAILY | | | PRN, Constipation, Starting Fri | | | 01/31/18 at 1407, Mix with 8 oz. | | | water. | | + +---+ | | | + +---+ + +---------+ +---------+---+ + | scopolamine (TRANSDERM-SCOP) 1 | Patch | | 1 patch | | Ear-Left | | mg/3 days Starting 01/31/18 | Applied | 8 6:56 | | | | | at 0647, For 1 dose, | | PDT | | | | | Paco Sandra : indira | | | | | | | override | | | | | | + +---------+ +---------+---+ + +---+---+ | | | +---+---+ + +---------+ +---+ +---+ | sodium chloride 0.9% (NS) | New Bag | | | 50 mL/hr | | | infusion at 50 mL/hr, | | 8 14:11 | | | | | Intravenous, CONTINUOUS, Starting | | PDT | | | | | 01/31/18 at 1415, Wean to | | | | | | | anyalock as pt advances diet | | | | | | | please | | | | | | + +---------+ +---+ +---+ +---------+ +---+ +---+ | New Bag | | | 50 mL/hr | | | | 8 10:18 | | | | | | PDT | | | | +---------+ +---+ +---+ +---+---+ | | | +---+---+ + +-------+ +--------+---+---+ | traZODone (DESYREL) tablet 150 | Given | | 150 mg | | | | mg 150 mg, Oral, NIGHTLY, First | | 8 20:24 | | | | | dose on Sat01/31/18 at 2100, | | PDT | | | | | Post-op/Phase II | | | | | | + +-------+ +--------+---+---+ +-------+ +--------+---+---+ | Given | | 150 mg | | | | | 8 20:25 | | | | | | PDT | | | | +-------+ +--------+---+---+ +---+---+ | | | +---+---+ in this encounter
--- OUTSIDE RECORDS SUMMARY | ~2018-05-02 | XMS | Encounter Summary ---
Demographics + + + | Address | [address] | | | [place] [address] | + + + | Home Phone | | + + + | Preferred Language | Unknown | + + + | Marital Status | | + + + | Rastafari Affiliation | Unknown | + + + | Race | Unknown | + + + | Ethnic Group | Unknown | + + + Author + + + | Author | [facility] | | | and [place] | + + + | Organization | [facility] | | | and [...] | | | | | [place] [address] | | + + + + + Care Team Providers + +------+ + | Care Car Filler Name | Role | Phone | + [...] | 02/03/ | Telephone | [facility] | Davon Perry, | Appointment | | 2018 | | [address] | MD [address], | | | | | [address] [place] | [address] [place] | | | | | [place] [address] | [place] [address] | | | | | [phone] | [phone] | | | | | | | [...] | | | | | [place] [address] | | | | | | [phone] | | | | | | | | +--------+---------+ + + + | 09/11/ | Office | Cardiology | Karthik Cobb, | | | 2018 | Visit | | MD Michelle Milan | | | | | | [place], | | | | | | [place] [address] | | | | | | [phone] | | | | | | | | +--------+---------+ + + + as of this encounter Visit Diagnoses Not on filein this encounter"
--- OUTSIDE RECORDS SUMMARY | ~2018-05-02 | XMS | Encounter Summary ---
Demographics + + + | Address | [address] | | | [place] [address] | + + + | Home Phone | | + + + | Preferred Language | Unknown | + + + | Marital Status | | + + + | Yazidism Affiliation | Unknown | + + + | Race | Unknown | + + + | Ethnic Group | Unknown | + + + Author + + + | Author | [facility] | | | and [place] | + + + | Organization | [facility] | | | [...] | | | | | [place] [address] | | + + + + + Care Team Providers + +------+ + | Care Wholesale Manager Name | Role | Phone | + [...] | | | [place] | [place] [address] | | | | | [address] | [phone] | | | | | [phone] | | | +--------+ + + + [...] | | | | | | [place] [address] | | | | | | [phone] | | | | | | | | +--------+---------+ + + + | 09/11/ | Office | Cardiology | Karthik Cobb, | | | 2018 | Visit | | MD Michelle Milan | | | | | | [place], | | | | | | [place] [address] | | | | | | [phone] | | | | | | | | +--------+---------+ + + + as of this encounter Visit Diagnoses Not on filein this encounter"
--- OUTSIDE RECORDS SUMMARY | ~2018-05-02 | XMS | Encounter Summary ---
Demographics + + + | Address | [address] | | | [place] [address] | + + + | Home Phone | | + + + | Preferred Language | Unknown | + + + | Marital Status | | + + + | Scientologist Affiliation | Unknown | + + + | Race | Unknown | + + + | Ethnic Group | Unknown | + + + Author + + + | Author | [facility] | | | and [place] | + + + | Organization | [facility] | | | [...] | | | | | [place] [address] | | + + + + + Care Team Providers + +------+ + | Care Retail Sales Associate Name | Role | Phone | + +------+ + | Iain Rosales MD | PCP | | + +------+ + Encounter Details +--------+ + + + + | Date | Type | Department | Care Team | Description | +--------+ + + + + | 03/11/ | Orders Only | [facility] [place] | Bella Rodgers, | | | 2017 | | CARDIOLOGY [address] | RN | | | | | [place], | | | | | | [place] [address] | | | | | | [phone] | | | +--------+ + + + [...] | | 2019 | Visit | | [address] [facility], | | | | | | [place] | | | | | | [place] [address] | | | | | | [phone] | | | | | | | | +--------+---------+ + + + | 09/11/ | Office | Cardiology | Karthik Cobb, | | | 2018 | Visit | | MD Michelle Milan | | | | | | [place], | | | | | | [place] [address] | | | | | | [phone] | | | | | | | | +--------+---------+ + + + as of this encounter Visit Diagnoses Not on filein this encounter"
--- OUTSIDE RECORDS SUMMARY | ~2018-05-02 | XMS | Encounter Summary ---
Demographics + + + | Address | [address] | | | [place] [address] | + + + | Home Phone | | + + + | Preferred Language | Unknown | + + + | Marital Status | | + + + | Restorationist Affiliation | Unknown | + + + | Race | Unknown | + + + | Ethnic Group | Unknown | + + + Author + + + | Author | [facility] | | | and Patrickana | + + + | Organization | [facility] | | | and [...] | | | | | [place] [address] | | + + + + + Care Team Providers + +------+ + | Care Environmental Issues Instructor Name | Role | Phone | + [...] | | | | ureter | | [address] Phone: | | | | | Other | | [phone] | | | | | specified | | Fax: | | | | | disorders of | | [phone] | | | | | kidney and | | | | | | | ureter | | | | | | | [N28.89] | | | | | | | Procedures | | | | | | | PA PARTIAL | | | | | | | REMOVAL OF | | | | | | | KIDNEY PA | | | | | | | LAP,PARTIAL | | | | | | | NEPHRECTOMY | | | +--------+--------+ + + + + Encounter Details +--------+---------+ + + + | Date | Type | Department | Care Team | Description | +--------+---------+ + + + | 01/31/ | Surgery | [facility] | Josep Rodriguez MD | [facility] | | 2018 | | [facility] | [address] | PARTIAL NEPHRECTOMY, | | | | [facility] | [address] [place], | laparoscopic renal | | | | [address] | [place] [address] | ultrasound | | | | [place] | [phone] | | | | | [address] | | | | | | [phone] | | | +--------+---------+ + + + [...] | Body Mass Index | 30.5 | 01/31/2018620 PDT | + + + + in [...] may be different from the origi nal. [facility] DISCHARGE SUMMARY Patient Name: Kerry Pitts Patient [...] w and when to take each. aka: FRANCISCO JAVIER RAMOST ondansetron 4 mg disintegrating tablet Take 1 [...] Signed by: Marium Abel MD, 02/02/2018 10:49 [facility] Discharge Instructions Camille Novoa RN [...] issues with gastric ulcers CONTACT INFORMATION: - [facility] Office Number: [facility] Office [place] Office FOLLOWUP INFORMATION: - or Dr. Perry [...] help you feel better. Take it as told, [place] efore pain becomes severe. Also, ask your [...] interact with your prescription medicines or other ezgs-gsf-qznzuzo (OTC) medicines. Some prescription medicines have acetaminophen and other ingredients.Using both prescription a nd OTC acetaminophenfor paincan cause you to overdose. Readthe labels on your OTC medi cineswith care. This will help youto clearly know [...] of taking these medicines. Date Last Reviewed: 07/19/201619998464-3334 [employer]. [address] [place] [address], [place] [address]. All righ ts reserved. This information is not intended as a substitute for professional medical care. Always follow your healthcare professional's instructions. 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 [...] | | | | | injection | [place] | | | | | + + + +---------+ + + as of this encounter Progress Notes Marium Abel MD - 02/02/2018 1041 PDTFormatting of this note may be different from the origi nal. [facility] Urology Progress Note Kerry Pitts is a [...] - 99 mg/dL Final Comment: Performed by [facility] [address] [place] [address] 02/01/2018 20:24 191 (H) 65 - 99 mg/dL Final Comment: Performed by [facility] [address] [place] [address] 02/01/2018 17:25 158 (H) 65 - 99 mg/dL Final Comment: Performed by [facility] [address] [place] [address] 01/25/2018 12:09 171 (H) 70 - 109 [...] this chart may have been created with [employer] voice recognition software. Occasi onal wrong-word or sound-alike substitutions may have occurred due to the inherent jon itations of voice recognition software. Please read the chart carefully and recognize, using context, where these substitutions have occurred Marium Abel MD - 02/01/2018 0904 PDTFormatting of this note may be different from the origi nal. [facility] Urology Progress Note Kerry Pitts is a [...] - 99 mg/dL Final Comment: Performed by [facility] [address] [place] [address] 01/31/2018 18:41 130 (H) 65 - 99 mg/dL Final Comment: Performed by [facility] [address] [place] [address] 01/31/2018 09:46 169 (H) 65 - 99 mg/dL Final Comment: Performed by [facility] [address] [facility] [place] [address] 01/25/2018 12:09 171 (H) 70 - 109 [...] this chart may have been created with [employer] voice recognition software. Occasi onal wrong-word or [...] | | | | | | [place] [address] | | | | | | [phone] | | | | | | | | +--------+---------+ + + + | 09/11/ | Office | Cardiology | Karthik Cobb, | | | 2018 | Visit | | [address] | | | | | | [place], | | | | | | [place] [address] | | | | | | [phone] | | | | | | | [...] for this | | | e | 4 PDT | | procedure are in the | | | | | | results section. | + +--------+ + + + | BASIC METABOLIC | Routin | 02/01/2018 | | Results for this | | PANEL | e | 403 PDT | | procedure are in the [...] + in this encounter Results POC Glucose (02/02/2018632) + + + + + | Component | Value | Ref Range | Performed At | + + + + + | Glucose, POC | 142 (H)Comment: | 65 - 99 mg/dL | [facility] | | | Performed by [facility] [address] | | [facility] | | | [address] [place], [place] | | [facility] | | | [address] | | LABORATORY | | | | | [place] | + + + + + + + | Specimen | + + | Blood | + + + + + + + | Performing | Address | City/State/Zipcode | Phone Number | | Organization | | | | + + + + + | [facility] | [address] | [place] [address] | | | [facility] | | | | | LABORATORY [place] | | | | + + + + + POC Glucose (02/01/20182023) + + + + + | Component | Value | Ref Range | Performed At | + + + + + | Glucose, POC | 191 (H)Comment: | 65 - 99 mg/dL | [facility] | | | Performed by [facility] [address] | | [facility] | | | [address], [place] | | [facility] | | | [address] | | LABORATORY | | | | | [place] | + + + + + + + | Specimen | + + | Blood | + + + + + + + | Performing | Address | City/State/Zipcode | Phone Number | | Organization | | | | + + + + + | [facility] | [address] | [place] [address] | | | [facility] | | | | | LABORATORY [place] | | | | + + + + + POC Glucose (02/01/2018 1725) + + + + + | Component | Value | Ref Range | Performed At | + + + + + | Glucose, POC | 158 (H)Comment: | 65 - 99 mg/dL | [facility] | | | Performed by [facility] [address] | | [facility] | | | [place] | | MEDICAL CENTER | | | [address] | | LABORATORY | | | | | [place] | + + + + + + + | Specimen | + + | Blood | + + + + + + + | Performing | Address | City/State/Zipcode | Phone Number | | Organization | | | | + + + + + | [facility] | [address] | [place] [address] | | | [facility] | | | | | LAB[facility]ATORY [place] | | | | + + + + + POC Glucose (02/01/20188) + + + + + | Component | Value | Ref Range | Performed At | + + + + + | Glucose, POC | 148 (H)Comment: | 65 - 99 mg/dL | [facility] | | | Performed by [facility] [address] | | [facility] | | | [address] [place], [place] | | [facility] | | | [address] | | LABORATORY | | | | | [place] | + + + + + + + | Specimen | + + | Blood | + + + + + + + | Performing | Address | City/State/Zipcode | Phone Number | | Organization | | | | + + + + + | [facility] | [address] | [place] [address] | | | [facility] | | | | | LABORATORY [place] | | | | + + + + + POC Glucose (02/01/2018706) + + + + + | Component | Value | Ref Range | Performed At | + + + + + | Glucose, POC | 107 (H)Comment: | 65 - 99 mg/dL | [facility] | | | Performed by [facility] [address] | | [facility] | | | [address], [place] | | [facility] | | | [address] | | LABORATORY | | | | | [place] | + + + + + + + | Specimen | + + | Blood | + + + + + + + | Performing | Address | City/State/Zipcode | Phone Number | | Organization | | | | + + + + + | [facility] | [address] | [place] [address] | | | [facility] | | | | | [place] | | | | + + + + + CBC no Differential (02/01/2018 0404) + + + +--- + | Component | Value | Ref Range | Pe rformed At | + + + +--- + | WBC | 9.6 | 3.8 - 11.0 K/uL | [facility] | | | | | [facility] | | | | | [facility] | | | | | [facility] | | | | | [facility] | + + + +--- + | RBC | 4.14 | 3.70 - 5.10 M/uL | [facility] | | | | | [facility] | | | | | [facility] | | | | | [facility] | | | | | [facility] | + + + +--- + | Hgb | 13.7 | 11.3 - 15.5 g/dL | [facility] | | | | | [facility] | | | | | [facility] | | | | | [facility] | | | | | [facility] | + + + +--- + | Hct | 39.5 | 34.0 - 46.0 % | [facility] | | | | | [facility] | | | | | [facility] | | | | | [facility] | | | | | [facility] | + + + +--- + | MCV | 95.4 | 80.0 - 100.0 fL | [facility] | | | | | [facility] | | | | | [facility] | | | | | [facility] | | | | | [facility] | + + + +--- + | MCH | 33.1 | 27.0 - 34.0 pg | [facility] | | | | | [facility] | | | | | [facility] | | | | | [facility] | | | | | [facility] | + + + +--- + | MCHC | 34.7 | 32.0 - 35.5 g/dL | [facility] | | | | | [facility] | | | | | [facility] | | | | | [facility] | | | | | [facility] | + + + +--- + | RDW-CV | 13.5 | 11.0 - 15.5 % | [facility] | | | | | [facility] | | | | | [facility] | | | | | [facility] | | | | | [place] [facility] | + + + +--- + | Platelet Count | 98 (L) | 150 - 400 K/uL | [facility] | | | | | [facility] | | | | | [facility] | | | | | [facility] | | | | | [place] [facility] | + + + +--- + | MPV | 10.1Comment: Performed | 7.5 - 11.2 fL | [facility] | | | by [facility] [address], | | [facility] | | | [place] [address] | | [facility] | | |Performed by [facility] [address], [place] [address] | | [facility] | | | | | [facility] | + + + +--- + + + | Specimen | + + | Blood | + + + + + + + | Performing | Address | City/State/Zipcode | Phone Number | | Organization | | | | + + + + + | [facility] | [address] | [place] [address] | | | [facility] | | | | | LABORATORY [place] | | | | + + + + + Basic Metabolic Panel (02/01/2018 0404) + + + + + | Component | Value | Ref Range | Performed At | + + + + + | NA | 144 | 135 - 145 mmol/L | [facility] | | | | | [facility] | | | | | [facility] | | | | | LABORATORY | | | | | [place] | + + + + + | K | 3.4 (L) | 3.5 - 5.0 mmol/L | [facility] | | | | | [facility] [...] | 121Comment: eGFR<60 | >=90 mL/min/1.73m2 | [facility] | | | consistent with impaired | | [facility] | | | kidney | | [facility]ICAL [facility]ENTER | | | function.Performed by | | LABORATORY | | | [facility] [address], | | [place] | | | [place] [address] | | | + + + + + + + | Specimen | + + | Blood | + + + + + + + | Performing | Address | City/State/Zipcode | Phone Number | | Organization | | | | + + + + + | [facility] | [address] | [place] [address] | | | [facility] | | | | | [place] | | | | + + + + + POC Glucose (01/31/20182023) + + + + + | Component | Value | Ref Range | Performed At | + + + + + | Glucose, POC | 132 (H)Comment: | 65 - 99 mg/dL | [facility] | | | Performed by [facility] [address] | | [facility] | | | [address] [place], [place] | | [facility] | | | [address] | | LABORATORY | | | | | [place] | + + + + + + + | Specimen | + + | Blood | + + + + + + + | Performing | Address | City/State/Zipcode | Phone Number | | Organization | | | | + + + + + | [facility] | [address] | [place] [address] | | | [facility] | | | | | LAB[facility]AT[facility] [place] | | | | + + + + + POC Glucose (01/31/20181840) + + + + + | Component | Value | Ref Range | Performed At | + + + + + | Glucose, POC | 130 (H)Comment: | 65 - 99 mg/dL | [facility] | | | Performed by [facility] [address] | | [facility] | | | [place], [place] | | [facility] | | | [address] | | LABORATORY | | | | | [place] | + + + + + + + | Specimen | + + | Blood | + + + + + + + | Performing | Address | City/State/Zipcode | Phone Number | | Organization | | | | + + + + + | [facility] | [address] | [place] [address] | | | [facility] | | | | | [place] | | | | + + + + + CBC no Differential (01/31/2018 1406) + + + +--- + | Component | Value | Ref Range | Pe rformed At | + + + +--- + | WBC | 12.5 (H) | 3.8 - 11.0 K/uL | [facility] | | | | | [facility] | | | | | [facility] | | | | | [facility] | | | | | [place] [facility] | + + + +--- + | RBC | 4.61 | 3.70 - 5.10 M/uL | [facility] | | | | | [facility] | | | | | [facility] | | | | | [facility] | | | | | [facility] | + + + +--- + | Hgb | 15.0 | 11.3 - 15.5 g/dL | [facility] | | | | | [facility] | | | | | [facility] | | | | | [facility] | | | | | [place] | + + + +--- + | Hct | 43.5 | 34.0 - 46.0 % | [facility] | | | | | [facility] | | | | | [facility] | | | | | [facility] | | | | | [place] [facility] | + + + +--- + | MCV | 94.3 | 80.0 - 100.0 fL | [facility] | | | | | [facility] | | | | | [facility] | | | | | [facility] | | | | | [place] [facility] | + + + +--- + | MCH | 32.7 | 27.0 - 34.0 pg | [facility] | | | | | [facility] | | | | | [facility] | | | | | [facility] | | | | | [place] | + + + +--- + | MCHC | 34.6 | 32.0 - 35.5 g/dL | [facility] | | | | | [facility] | | | | | [facility] | | | | | [facility] | | | | | [place] | + + + +--- + | RDW-CV | 13.7 | 11.0 - 15.5 % | [facility] | | | | | [facility] | | | | | [facility] | | | | | [facility] | | | | | [place] | + + + +--- + | Platelet Count | 122 (L) | 150 - 400 K/uL | [facility] | | | | | [facility] | | | | | [facility] | | | | | [facility] | | | | | [place] | + + + +--- + | MPV | 9.5Comment: Performed | 7.5 - 11.2 fL | [facility] | | | by [place] [address] [facility] [address], | | [facility] | | | [place] [address] | | [facility] | | |Performed by [facility] [address] [facility] [address], [place] [address] | | [facility] | | | | | [place] | + + + +--- + + + | Specimen | + + | Blood | + + + + + + + | Performing | Address | City/State/Zipcode | Phone Number | | Organization | | | | + + + + + | [facility] | [address] | [place] [address] | | | [facility] | | | | | LAB[facility]AT[facility] [place] | | | | + + + + + Basic Metabolic Panel (01/31/2018 1406) + + + + + | Component | Value | Ref Range | Performed At | + + + + + | NA | 143 | 135 - 145 mmol/L | [facility] | | | | | [facility] | | | | | [facility]ENTER | | | | | LABORATORY | | | | | [place] | + + + + + | K | 3.6 | 3.5 - 5.0 mmol/L | [facility] | | | | | [facility] | | | | | [facility]ENTER | | | | | LABORATORY | | | | | [place] | + + + + + | [...] by | | LABORATORY | | | [facility] [address], | | [place] | | | [place] [address] | | | + + + + + + + | Specimen | + + | Blood | + + + + + + + | Performing | Address | City/State/Zipcode | Phone Number | | Organization | | | | + + + + + | [facility] | [address] | [place] [address] | | | HE[facility] | | | | | [place] | | | | + + + + + POC Glucose (01/31/2018 0946) + + + + + | Component | Value | Ref Range | Performed At | + + + + + | Glucose, POC | 169 (H)Comment: | 65 - 99 mg/dL | [facility] | | | Performed by [facility] [address] | | [facility] | | | [place] | | [facility] | | | [address] | | LABORATORY | | | | | [place] | + + + + + + + | Specimen | + + | Blood | + + + + + + + | Performing | Address | City/State/Zipcode | Phone Number | | Organization | | | | + + + + + | [facility] | [address] [facility] | [place] [address] | | | [facility] | | | | | LABORATORY [place] | | | | + + + + + POC Glucose (01/31/201847) + + + + + | Component | Value | Ref Range | Performed At | + + + + + | Glucose, POC | 169 (H)Comment: | 65 - 99 mg/dL | [facility] | | | Performed by [facility] [address] | | [facility] | | | [address] [place], [place] | | MEDICAL CENTER | | | [address] | | LABORATORY | | | | | [place] | + + + + + + + | Specimen | + + | Blood | + + + + + + + | Performing | Address | City/State/Zipcode | Phone Number | | Organization | | | | + + + + + | [facility] | [address] | [place] [address] | | | [facility] | | | | | LAB[facility]AT[facility] [place] | | | | + + + + + Tissue Request For Pathology (01/31/201846) + + + | Narrative | Performed At | + + + | | [facility] | | KERRY PITTS | [facility] | | PETER : | [facility] | | 1960 AGE: 57 years | LABORATORY | | SEX: Female MRN: | [place] | | [id number] Acct: [id number] | | | [id number] Location: [facility] SURG; 556; | | | 556-01 Case | | | #: [id number] Ordering: | | | JOSEP RODRIGUEZ MD Client: [facility] | | | [facility] Copy | | | To: Printed: 02/04/2018 [...] | | Date: 02/04/18 17:31 PDTPerforming Location: [place] | | | [facility] [place], [place] [address]JDCPMCS:As | | | part of supervisor quality control the slides of this case were reviewed [...] | margins are marked with ink and disability representative sections are submitted | | | | | | "A1-A3".MS/SH01/31/18 | | | SURGICAL PATHOLOGY FINAL | [...] developed and their performance characteristics determined by [facility] | | [facility]. This test is used for clinical | | | purposes. It should not be regarded as investigational or for | | | research. [facility] is certified under the Clinical | | | Laboratory Improvement Amendments of 1988 (CLIA) as qualified to | | | perform high complexity clinical laboratory testing. | | + + + + + + + + | Performing | Address | City/State/Zipcode | Phone Number | | Organization | | | | + + + + + | [facility] | [address] | [place] [address] | | | [facility] | | | | | LAB[facility] [place] | | | | + + + + + Type and Screen (01/31/2018 0656) + + + + + | Component | Value | Ref Range | Performed At | + + + + + | ABO | B | | [facility] | | | | | [place] | | | | | [facility] | | | | [facility] | + + + + + | Rh Type | Positive | | [facility] | | | | | [place] | | | | | [facility] | | | | | [facility] | + + + + + | Antibody Screen | NegativeComment: Patient | | [facility] | | | is remote crossmatch | | [place] | | | eligible | | [facility] | | | | | [facility] | + + + + + + + | Specimen | + + | Blood | + + + + + | Narrative | Performed At | + + + | Specimen Expiration Date: [id number] | [facility] | | | [place] | | | [facility] | | [facility] | + + + + + + + + | Performing | Address | City/State/Zipcode | Phone Number | | Organization | | | | + + + + + | [facility] | [address] | [place] [address] | [phone] | | [place] | | | | | [facility] | | | | | [facility] | | | | + + + + + ABO Rh (01/31/2018649) + + + + + | Component | Value | Ref Range | Performed At | + + + + + | ABO | B | | [facility] | | | | | [place] | | | | | [facility] | | | | [facility] | + + + + + | Rh Type | Positive | | [facility] | | | | | [place] | | | | | [facility] | | | | | [facility] | + + + + + + + + | Narrative | Performed At | + + + | Specimen Expiration Date: [id number] | [facility] | | | [place] | | | [facility] | | [facility] | + + + + + + + + | Performing | Address | City/State/Zipcode | Phone Number | | Organization | | | | + + + + + | [facility] | [address] | [place] [address] | [phone] | | [place] | | | | | [facility] [...] | [facility] | | | Performed by [facility] [address] | | [facility] | | | [address], [place], [place] | | [facility] | | | [address] | | LABORATORY | | | | | [place] | + + + + + + + | Specimen | + + | Blood | + + + + + + + | Performing | Address | City/State/Zipcode | Phone Number | | Organization | | | | + + + + + | [facility] | [address] [place] [address]. | [place] [address] | | | [facility] | | | | | LABORATORY [place] [...] Other specified disorders of kidney and ureter | + + Admitting Diagnoses + + | Diagnosis | [...] | +---+---+ + +-------+ +------+---+---+ | ARIPiprazole (ABILIFBucky) tablet 5 | Given | | 5 [...] +---+---+ | | | +---+---+ + +-------+ +--------+---+ + | bupivacaine 0.5%-EPINEPHrine | Given | | 15 mLs | | Surgical | | 1:200,000 (PF) injection PRN, | | 8 8:39 | | | Site | | Starting Sat01/31/18 at 0839, | | PDT | | | | | Intra-op | | | | | | + +-------+ +--------+---+ + +---+---+ | | | +---+---+ + +-------+ [...] PDT | | | | +-------+ +--------+---+---+ + +---+ | | | + +---+ [...] HOURS PRN, Itching, Starting | | | 6/15/18 at 1358, Oral route | | | [...] + +---+---+ | | | +---+---+ + +-------+ [...] | | | + +---+ + +---------+ +---+ +---+ | sodium chloride 0.9% (NS) | New Bag | | | 50 mL/hr | | | infusion at 50 mL/hr, | | 8 14:11 | | | | | Intravenous, CONTINUOUS, Starting | | PDT | | | | | Sat01/31/18 at 1415, Wean to | | | | | | | cristopher as pt advances diet | | | [...] +-------+ +--------+---+---+ +-------+ +--------+---+---+ | Given | 02/01/201 | 150 mg | | | | | 8 20:25 | | | | | | PDT | | | | +-------+ +--------+---+---+ +---+---+ | | | +---+---+ in this encounter
--- OUTSIDE RECORDS SUMMARY | ~2018-05-02 | XMS | Encounter Summary ---
Demographics + + + | Address | [address] | | | [place] [address] | + + + | Home Phone | | + + + | Preferred Language | Unknown | + + + | Marital Status | | + + + | Anabaptist Affiliation | Unknown | + + + | Race | Unknown | + + + | Ethnic Group | Unknown | + + + Author + + + | Author | [facility] | | | and [place] | + + + | Organization | [facility] | | [...] | | | | | [place] [address] | | + + + + + Care Team Providers + +------+ + | Care Plate Mill Mill Hand Name | Role | Phone | + [...] + + | 04/30/ | Emergency | [facility] | Gordon Will, | Intractable vomiting | | 2018 - | | [facility] | MD [address] | with nausea, | | | | CENTER [address] | [facility] | unspecified vomiting | | 05/01/ | | [place] | [place] [address] | type (Primary Dx) | | 2018 | | [address] | [phone] | | | | | [phone] | | | +--------+ + + + [...] cannot be sent through Care Everywhere.Vomiting (Adult) (Guamanian) in this encounter Medications at Time of [...] | | | | | [place] [address] | | | | | | [phone] | | | | | | | | +--------+---------+ + + + | 09/11/ | Office | Cardiology | Karthik Cobb, | | | 2018 | Visit | | MD Michelle Milan | | | | | | . [place], | | | | | | [place] [address] | | | | | | [phone] | | | | | | | [...] + | [facility] | [address] | [place] | [phone] | | [facility] | | [address] | | | - LABORATORY | | | | + + + + + | [facility] | [address] | [place], [place] | | | [facility] | | [address] | | | - LABORATORY | | | | + + + + + Extra Blue Top Tube (04/30/20181919) + +-------+ + + | Component | Value | Ref Range | Performed At | + +-------+ + + | Extra Blue Top Tube | Done | | [facility] | | | | | [facility] | | | | | CENTER - | | | | | LABORATORY | + +-------+ + + + + | Specimen | + + | Blood | + + + + + + + | Performing | Address | City/State/Zipcode | Phone Number | | Organization | | | | + + + + + | [facility] | [address] | [place], [place] | [phone] | | [facility] | | [address] | | | - LABORATORY | | | | + + + + + | [facility] | [address] | [place] | | | [facility] | | [address] | | | - LABORATORY | | [...] + | [facility] | [address] | [place] | [phone] | | [facility] | | [address] | | | - LABORATORY | | | | + + + + + | [facility] | [address] | [place] | | | [facility] | | [address] | | | - LABORATORY | | | | + + + + + Extra Lavender Top Tube (04/30/20181919) + +-------+ + + | Component | Value | Ref Range | Performed At | + +-------+ + + | Extra Lavender Top | Done | | [facility] | | Tube | | | [facility] | | | | | CENTER - | | | | | LABORATORY | + +-------+ + + + + | Specimen | + + | Blood | + + + + + + + | Performing | Address | City/State/Zipcode | Phone Number | | Organization | | | | + + + + + | [facility] | [address] | [place], [place] | [phone] | | [facility] | | [address] | | | - LABORATORY | | | | + + + + + | [facility] | [address] | [place], [place] | | | [facility] | | [address] | | | - LABORATORY | | [...] + + + + + | Specific [place] | 1.036 (H) | 1.001 - 1.030 [...] [facility] | | | | | [facility] | | | | | CENTER [...] [facility] | | | | | [facility] | | | | | CENTER - | | | | | LABORATORY | + + + + + | MUCUS UA | Present (A) | Negative /LPF | [facility] | | | | | [facility] | | | | | CENTER - | | | | | LABORATORY | + + + + + | URINE COMMENT | Urine Culture Not | | [facility] | | | Indicated | | [facility] | | | | | CENTER - [...] + | [facility] | [address] | [place], [place] | [phone] | | [facility] | | [address] | | | - LABORATORY | | | | + + + + + | [facility] | [address] | [place], [place] | | | [facility] | | [address] | | | - LABORATORY | | [...] + | [facility] | [address] | [place], [place] | [phone] | | [facility] | | [address] | | | - LABORATORY | | | | + + + + + | [facility] | [address] | [place], [place] | | | [facility] | | [address] | | | - LABORATORY | | | | + + + + + Magnesium (04/30/20181918) + +---------+ + + | Component | Value | Ref Range | Performed At | + +---------+ + + | MG | 1.6 (L) | 1.8 - 2.5 mg/dL | [facility] | | | | | [facility] | | | | | CENTER - [...] [address] | [place] | [phone] | | [facility] | | [address] | | | - LABORATORY | | | | + + + + + | [facility] | [address] | [place] | | | [facility] | | [address] | | | - LABORATORY | | | | + + + + + Lipase (04/30/20181918) + +-------+ + + | Component | Value | Ref Range | Performed At | + +-------+ + + | LIPASE | 18 | 0 - 60 U/L | [facility] | | | | | [facility] | | | | | CENTER - | | | | | LABORATORY | + +-------+ + + + + | Specimen | + + | Blood | + + + + + + + | Performing | Address | City/State/Zipcode | Phone Number | | Organization | | | | + + + + + | [facility] | [address] | [place], [place] | [phone] | | [facility] | | [address] | | | - LABORATORY | | | | + + + + + | [facility] | [address] | [place], [place] | | | [facility] | | [address] | | | - LABORATORY | | [...] 0.60 - 1.30 mg/dL | [facility] | | Serum/Plasma | | | [facility] | | | | | CENTER - | | | | | LABORATORY | + + + + + | eGFR if not | >60Comment: GLOMERULAR | >=60 mL/min/1.73m2 | [facility] | | FAROESE | FILTRATION | | [facility] | | | RATE,ESTIMATED mL/min | | CENTER - | | | /[id number] than 60 | | LABORATORY | | [...] 9.2 | 8.3 - 10.5 mg/dL | [facility] | | | | | [facility] | | | | | CENTER - [...] | | appended report. These | | [facility] | | | results have been [...] | | appended report. These | | [facility] | | | results have been [...] + | [facility] | [address] | [place] | [phone] | | [facility] | | [address] | | | - LABORATORY | | | | + + + + + | [facility] | [address] | [place] | | | [facility] | | [address] | | | - LABORATORY | | [...] + | [facility] | [address] | [place], [place] | [phone] | | [facility] | | [address] | | | - LABORATORY | | | | + + + + + | [facility] | [address] | [place] | | | [facility] | | [address] | | | - LABORATORY | | [...]
--- OUTSIDE RECORDS SUMMARY | ~2018-05-02 | XMS | Encounter Summary ---
Demographics + + + | Address | [address] | | | [place] [address] | + + + | Home Phone | | + + + | Preferred Language | Unknown | + + + | Marital Status | | + + + | Hindu Affiliation | Unknown | + + + | Race | Unknown | + + + | Ethnic Group | Unknown | + + + Author + + + | Author | [facility] | | | and Patrickana | + + + | Organization | [facility] | | [...] | | | | | [place] [address] | | + + + + + Care Team Providers + +------+ + | Care Umbrella Repairer Name | Role | Phone | + +------+ + | Iain Rosales MD | PCP | | + +------+ + Reason for Visit + + + | Reason | Comments | + + + | Follow-up | | + + + | Coronary Artery | | | Disease | | + + + Encounter Details +--------+---------+ + + + | Date | Type | Department | Care Team | Description | +--------+---------+ + + + | 03/11/ | Office | [facility] | Karthik Cobb, | Coronary artery | | 2018 | Visit | CARDIOLOGY [address] | disease involving | | | | [place], | [place], | [place] coronary | | | | [place] [address] | [place] [address] | artery of [place] | | | | [phone] | [phone] | heart without angina | | | | | | pectoris (Primary | | | | | | Dx); Mixed | | | | | | hyperlipidemia | +--------+---------+ + + + Social History [...] + + + | Blood Pressure | 104/58 | 03/11/2018755 PDT | + + + + | Pulse | 66 | 03/11/2018755 PDT | + + + + | Temperature | - | - | + + + + | Respiratory Rate | 16 | 03/11/2018755 PDT | + + + + | Oxygen Saturation | - | - | + + + + | Inhaled Oxygen | - | - | | Concentration | | | + + + + | Weight | 85.3 kg (188 lb 0.8 | 03/11/2018755 PDT | | | oz) | | + + + + | Height | 162.6 cm (5' 4") | 03/11/2018755 PDT | + + + + | Body Mass Index | 32.28 | 03/11/2018755 PDT | + + + + in [...] of this encounter Instructions Patient Instructions - Saida Diaz RN - 03/11/2018 0800 PDT Increase atorvastatin (lipitor) 40 mg daily Blood test: Fasting- 12 hours prior to test, no food, no caffiene, water is ok Date Due: 3 months end may Where to go for labs: [facility]- [address] [place] [address] Follow up appointment: 6 months Provider: Karthik Cobb MD Date: Check-In Time: in this encounter Progress Notes Karthik Cobb MD - 03/11/2018 0800 PDTFormatting of this note may be different from th e original. PATIENT NAME: Kerry Stubbs : 1960: AGE: 57 y.o. PRIMARY CARE: Iain Rosales MD OUTPATIENT FOLLOW UP VISIT Date of Service: 03/11/2018 HISTORY OF PRESENT ILLNESS: Kerry Stubbs is a 57 y.o. female with a history of coronary artery disease, hypertensio n, hyperlipidemia, type II diabetes, overweight and inactivity. She is being seen today for coronary artery disease. She was last seen 01/08/2018 at which time she was switched from simvastatin to atorvastatin 20 mg once a day. Since that time, patient underwent successful partial left laparoscopic nephrectomy on 01/31/2018 by Josep Rodriguez MD. Today, she complains of occasional right sided muscle pain across her chest. She also complains of feeling fatigue. Patient is physically a ctive walking. Patient denies breathlessness. There is no palpitation dizziness or lighthead edness. There is no ankle or leg swelling. Patient can sleep on one pillow at night without difficulty breathing. MEDICAL, SURGICAL, AND PERSONAL HISTORY Past Medical, Surgical, Family, and Social History are reviewed in EPIC. CURRENT PROBLEMS Patient Active Problem List Diagnosis Hyperlipidemia Hypertension C O P D DIABETES, TYPE 2 Bilious vomiting with nausea Postprandial epigastric pain Diabetic gastroparesis associated with type 2 diabetes mellitus Fibromyalgia Major depressive disorder, recurrent episode, in full remission Rosacea, acne Acute pulmonary edema Elevated troponin Hypoxia Preventative health care Coronary artery disease involving [place] coronary artery of [place] heart without angina pectoris Renal mass History of pulmonary edema Intractable nausea and vomiting Hypertensive urgency CURRENT MEDICATIONS Current Outpatient Prescriptions Medication Sig Dispense Refill Albuterol Sulfate (PROAIR HFA IN) Inhale 1 puff into the lungs as needed (for shortness of breath). atorvaSTATin (LIPITOR) 20 mg tablet Take 1 tablet by mouth nightly. 30 tablet 5 buPROPion (WELLBUTRIN SR) 150 mg 12 hr tablet Take 150 mg by mouth Daily. DULoxetine (CYMBALTA) [address] capsule Take 30 mg by mouth Daily. insulin degludec (TRESIBA [...] tablet Take 10 mg by mouth Daily. metoclopramide (REGLAN) 10 mg tablet Take 1 [...] USE 1 STRIP 5 TIMES DAILY 1 polyethylene glycol (MIRALAX) powder Take 17 g by mouth Daily as needed for Constipatio n. senna (SENOKOT) 8.6 MG TABS Take 1 tablet by mouth Daily as needed for Constipation. traZODone (DESYREL) 50 mg tablet Take 150 mg by mouth nightly. No current facility-administered medications for this visit. ALLERGIES Allergies Allergen Reactions Canagliflozin Other (See Comments) INVOKANA causes Ketoacidosis Metformin Hospitalized for 1 week, N/V, ABDOMINAL PAIN Milnacipran Nausea And Vomiting Other reaction(s): Diarrhea, Nausea Sulfa Antibiotics Rash ROS Review of Systems Constitutional: Positive for malaise/fatigue. Respiratory: Positive for shortness of breath. Cardiovascular: Negative for chest pain, palpitations and leg swelling. Neurological: Negative for dizziness and weakness. Lightheaded = No OBJECTIVE: PHYSICAL EXAM BP 104/58 | Pulse 66 | Resp 16 | Ht 1.626 m (5' 4") | Wt 85.3 kg (188 lb 0.8 oz) | LMP (LMP Unknown) | BMI 32.28 kg/m Physical Exam Constitutional: She is oriented to person, place, and time. She appears well-developed and well-nourished. Female individual arrives alone, no acute distress. Neck: Normal carotid pulses and no JVD present. Carotid bruit is not present. Cardiovascular: Normal rate, regular rhythm, S1 normal, S2 normal, normal heart sounds and intact distal pulses. PMI is not displaced. Exam reveals no gallop and no friction rub. No murmur heard. Pulses: Carotid pulses are 2+ on the right side, and 2+ on the left side. Posterior tibial pulses are 2+ on the right side, and 2+ on the left side. Pulmonary/Chest: Effort normal and breath sounds normal. No accessory muscle usage. No resp iratory distress. She has no wheezes. She has no rhonchi. She has no rales. Bilateral ronchi Abdominal: Soft. Normal appearance and normal aorta. She exhibits no abdominal bruit. There is no hepatosplenomegaly. There is no tenderness. Musculoskeletal: She exhibits no edema. Neurological: She is alert and oriented to person, place, and time. Gait normal. Skin: Skin is warm and dry. No cyanosis. Nails show no clubbing. Psychiatric: She has a normal mood and affect. Her mood appears not anxious. She does not e xhibit a depressed mood. LAB RESULTS reviewed during visit today primarily from [facility]: LIPID Lab Results Component Value Date CHOL 168 11/15/2017 TRIG 308 (H) 11/15/2017 HDL 35 11/15/2017 LDL 71 11/15/2017 CHOLHDL 4.8 11/15/2017 CHEMISTRY Lab Results Component Value Date GLU 98 02/01/2018 GLUEX 227 (A) 05/06/2017 NA 144 02/01/2018 NAEX 136 05/06/2017 K 3.4 (L) 02/01/2018 KEX 4.0 05/06/2017 CL 110 (H) 02/01/2018 CLEX 100 05/06/2017 CO2 30 (H) 02/01/2018 CO2EX 28 05/06/2017 CALCIUM 7.9 (L) 02/01/2018 ALKPHOS 113 (H) 01/29/2018 AST 24 01/29/2018 ASTEX 16 05/06/2017 ALT 57 (H) 01/29/2018 ALTEX 31 05/06/2017 BILITOT 1.0 01/29/2018 CREA 0.37 (L) 02/01/2018 BUN <5 (L) 02/01/2018 EGFR 121 02/01/2018 EGFREX >120 05/06/2017 CREEX 0.46 (A) 05/06/2017 HEMATOLOGY Lab Results Component Value Date WBC 9.6 02/01/2018 WBCEX 7.9 05/06/2017 HGB 13.7 02/01/2018 HGBEX 14.8 05/06/2017 HCT 39.5 02/01/2018 HCTEX 43.9 05/06/2017 PLT 98 (L) 02/01/2018 PLTEX 136 (A) 05/06/2017 I reviewed records from Iain Rosales MD for office visit on 02/10/2018. Above data and testing is reviewed this visit; testing below is historical data unless othe rwise specified. ASSESSMENT: 1. Coronary artery disease A. Successful percutaneous coronary intervention with stenting of the mid right coronary a rtery, vision 4 x 15 mm stent was deployed at 16 atmospheres and post dilated with a Voyager NC 4.5 x 12 mm balloon at 14 atmospheres with excellent angiographic result on 11/07/2009 by Glenn Ray MD. B. Echocardiogram 11/14/2017 shows mild left atrial dilatation, normal left ventricular siz e, wall thickness and motion, preserved left ventricular systolic function. LVEF is 70-75%, grade 1 left ventricular diastolic dysfunction, mildly thickened and calcified mitral valve with the trace mitral valve regurgitation, normal right-sided pressure, normal IVC with norm al respiratory collapse. C. Left heart catheterization 11/15/2017 shows mild non-obstructive disease in the RCA; oth erwise normal coronary arteries, low LVEDP, c/w volume depletion. Cherise Castellanos MD. D. Stress test 01/23/2018 shows exercise EKG is negative, blood pressure response is normal, patient had very shortness of breath but no chest pain during the procedure, there is no ar rhythmia during procedure, exercise tolerance is diminished for age, normal exercise sestami bi myocardial perfusion imaging study. normal left ventricular size, wall thickness and mot ion, evidence of anterior wall/breast soft tissue attenuation, preserved left ventricular sy stolic function, LVEF by gated SPECT is 72 %. E. Today, she complains of occasional right sided muscle pain across her chest. She also complains of feeling fatigue. Patient is physically active walking. There is no signs and sy mptoms of overt congestive heart failure. She is in a class I of [place] [employer] functional class. There is no fluid retention on physical examination. 2. Hypertension A. Her blood pressure is well controlled. 3. Hyperlipidemia A. She is now on atorvastatin 20 mg. 4. Type II diabetes mellitus A. Patient takes a combination of insulin degludec and lispro. B. Hemoglobin A1c is 8.4 from 11/14/2017. 5. Obstructive sleep apnea A. She does not wear CPAP machine due to being claustrophobic. B. Patient reports sleeping up to 8 hours a night. 6. Inactivity 7. Obesity 8. Left renal mass A. Patient underwent partial left laparoscopic nephrectomy on 01/31/2018 by Josep Rodriguez MD . 9 History of smoking/not addressed today A. Patient quit smoking in 12/2012. PLAN: 1. Increase atorvastatin to 40 mg once a day. Patient has history of CAD. Guidelines recom mend high-intensity statin. 2. Check LFT and lipid in three months. 3. I recommend a therapeutic lifestyle change including walking 30 minutes a day, choosing healthy choices of diet , including DASH diet and weight reduction. 4. Follow-up in 6 months or sooner with concerns. I, Ember Santos, am acting as a scribe on behalf of, and in the presence of Karthik wayne MD. I have reviewed and edited this note. Ember Santos Chess Instructor 03/11/2018 I, Karthik Cobb MD, personally performed the services described in this documentation, as scribed in my presence and it is both accurate and complete. Ember Santos Med Ass t 03/11/2018 7:59 Electronically signed by: Karthik Cobb MD [facility] 03/11/2018 Portions of this chart may have been created with [employer] voice recognition software. Occasi onal wrong-word or [...] | | | | | | [place] [address] | | | | | | [phone] | | | | | | | | +--------+---------+ + + + | 09/11/ | Office | Cardiology | Karthik Cobb, | | | 2018 | Visit | | MD Michelle [address] | | | | | | [place], | | | | | | [place] [address] | | | | | | [phone] | | | | | | | | +--------+---------+ + + + + +--------+ + + | Name | Priori | Associated Diagnoses | Order Schedule | | | ty | | | + +--------+ + + | Lipid Panel | Routin | Coronary artery | Expected: | | | e | disease involving | 03/11/2018, Expires: | | | | [place] coronary | 03/11/2019 | | | | artery of [place] | | | | | heart without angina | | | | | pectoris Mixed | | | | | hyperlipidemia | | + +--------+ + + | Hepatic Function Panel | Routin | Coronary artery | Expected: | | | e | disease involving | 03/11/2018, Expires: | | | | [place] coronary | 03/11/2019 | | | | artery of [place] | | | | | heart without angina | | | | | pectoris Mixed | | | | | hyperlipidemia | | + +--------+ + + as of this encounter Visit Diagnoses + + | Diagnosis | + + | Coronary artery disease involving [place] coronary artery of [place] heart without angina | | pectoris - Primary | + + | Mixed hyperlipidemia | + +
--- OUTSIDE RECORDS SUMMARY | ~2018-05-02 | XMS | Encounter Summary ---
Demographics + + + | Address | [address] | | | [place] [address] | + + + | Home Phone | | + + + | Preferred Language | Unknown | + + + | Marital Status | | + + + | Jehovah'S Witness Affiliation | Unknown | + + + | Race | Unknown | + + + | Ethnic Group | Unknown | + + + Author + + + | Author | [facility] | | | and [place] | + + + | Organization | [facility] | | | and [place] | + + + | Address | Unknown | + + + | Phone | Unavailable | + + + Support + + + + + | Name | Relationship | Address | Phone | + + + + + | Stephen Ptits | ECON | [address] | | | | | [place] [address] | | + + + + + Care Team Providers + +------+ + | Care Business Account Leader Name | Role | Phone | + [...] | | | | ureter | | [address] Phone: | | | | | Other | | [phone] | | | | | specified | | Fax: | | | | | disorders of | | [phone] | | | | | kidney and | | | | | | | ureter | | | | | | | [N28.89] | | | | | | | Procedures | | | | | | | [place] PARTIAL | | | | | | | REMOVAL OF | | | | | | | KIDNEY [place] | | | | | | | LAP,PARTIAL | | | | | | | NEPHRECTOMY | | | +--------+--------+ + + + + Encounter Details +--------+ + + + + | Date | Type | Department | Care Team | Description | +--------+ + + + + | 01/31/ | Hospital | [facility] | Josep Rodriguez MD | | | 2018 - | Encounter | [facility] | [address] | | | | | SURGICAL [address] | [address] [place], | | | 02/02/ | | [place] | [place] [address] | | | 2018 | | [address] | [phone] | | | | | [phone] | | | +--------+ + + + [...] may be different from the origi nal. [facility] DISCHARGE SUMMARY Patient Name: Kerry Pitts [...] by: Marium Abel MD, 02/02/2018 10:49 [facility] Instructions Camille Novoa [...] issues with gastric ulcers CONTACT INFORMATION: - [facility] Office Number: [facility] Office [place] Office FOLLOWUP INFORMATION: - or Dr. Perry [...] help you feel better. Take it as washintgon pardo efore pain becomes severe. Also, ask your [...] interact with your prescription medicines or other vrkx-cen-ynbbgxm (OTC) medicines. Some prescription medicines have acetaminophen and other ingredients.Using both prescription a nd OTC acetaminophenfor paincan cause you to overdose. Readthe labels on your OTC [facility]. This will help youto clearly know [...] of taking these medicines. Date Last Reviewed: 07/19/201619996229-0546 [employer]. [address] [place] [address], [place] [address]. All righ ts reserved. This information is not intended as a substitute for professional medical care. Always follow your healthcare professional's instructions. [facility] Patient Belongings Kerry Pitts 1960 Valuables Dentures: Uppers, Lowers, With Patient Vision - Corrective Lenses: None Hearing Aid: None Jewelry: None Clothing: Secured on Unit, Other (Comment) Other Valuables: None Other Valuables: Purse, Cell phone, Secured on Unit Provide Name(s) of Who Valuable(s) Were Given To: given to GENERAL FOREMAN at end of case Responsible person(s) in the waiting room?: [facility] Patient Signature: Clinician/Color Paste Mixer Signature: in this encounter Medications at Time [...] may be different from the origi nal. [facility] Urology Progress Note Kerry Pitts is [...] - 99 mg/dL Final Comment: Performed by [facility] [address] [place] [address] 02/01/2018 20:24 191 (H) 65 - 99 mg/dL Final Comment: Performed by [facility] [address] [place] [address] 02/01/2018 17:25 158 (H) 65 - 99 mg/dL Final Comment: Performed by [facility] [address] [place] [address] 01/25/2018 12:09 171 (H) 70 - 109 [...] this chart may have been created with [employer] voice recognition software. Occasi onal wrong-word or sound-alike substitutions may have occurred due to the inherent jon itations of voice recognition software. Please read the chart carefully and recognize, using context, where these substitutions have occurred Marium Abel MD - 02/01/2018 0904 PDTFormatting of this note may be different from the origi nal. [facility] Urology Progress Note Kerry Pitts is [...] - 99 mg/dL Final Comment: Performed by [facility] [address] [place] [address] 01/31/2018 18:41 130 (H) 65 - 99 mg/dL Final Comment: Performed by [facility] [address] [place] [address] 01/31/2018 09:46 169 (H) 65 - 99 mg/dL Final Comment: Performed by [facility] [address] [facility] [place] [address] 01/25/2018 12:09 171 (H) 70 - 109 [...] this chart may have been created with [employer] voice recognition software. Occasi onal wrong-word or [...] | | | | | | [place] [address] | | | | | | [phone] | | | | | | | | +--------+---------+ + + + | 09/11/ | Office | Cardiology | Karthik Cobb, | | | 2018 | Visit | | [address] | | | | | | [place], | | | | | | [place] [address] | | | | | | [phone] | | | | | | | [...] | [facility] | | | Performed by [facility] [address] | | [facility] | | | [place] | | [facility] | | | [address] | | LABORATORY | | | | | [place] | + + + + + + + | Specimen | + + | Blood | + + + + + + + | Performing | Address | City/State/Zipcode | Phone Number | | Organization | | | | + + + + + | [facility] | [address] | [place] [address] | | | [facility] | | | | | LABORATORY [place] | | | | + + + + + POC Glucose (02/01/20182023) + + + + + | Component | Value | Ref Range | Performed At | + + + + + | Glucose, POC | 191 (H)Comment: | 65 - 99 mg/dL | [facility] | | | Performed by [facility] [address] | | [facility] | | | [address], [place] | | [facility] | | | [address] | | LABORATORY | | | | | CERNER | + + + + + + + | Specimen | + + | Blood | + + + + + + + | Performing | Address | City/State/Zipcode | Phone Number | | Organization | | | | + + + + + | [facility] | [address] | [place] [address] | | | [facility] | | | | | LABORATORY [place] | | | | + + + + + POC Glucose (02/01/2018 1725) + + + + + | Component | Value | Ref Range | Performed At | + + + + + | Glucose, POC | 158 (H)Comment: | 65 - 99 mg/dL | [facility] | | | Performed by [facility] [address] | | [facility] | | | [address], [place] | | [facility]ENTER | | | [address] | | LABORATORY | | | | | [place] | + + + + + + + | Specimen | + + | Blood | + + + + + + + | Performing | Address | City/State/Zipcode | Phone Number | | Organization | | | | + + + + + | [facility] | [address] | [place] [address] | | | [facility] | | | | | LABORATORY [place] | | | | + + + + + POC Glucose (02/01/2018 1138) + + + + + | Component | Value | Ref Range | Performed At | + + + + + | Glucose, POC | 148 (H)Comment: | 65 - 99 mg/dL | [facility] | | | Performed by [facility] [address] | | [facility] | | | [address] [place], [place] | | [facility] | | | [address] | | LABORATORY | | | | [...] [address] | [place] [address] | | | [facility] | | | | | LABORATORY [place] | | | | + + + + + POC Glucose (02/01/201807) + + + + + | Component | Value | Ref Range | Performed At | + + + + + | Glucose, POC | 107 (H)Comment: | 65 - 99 mg/dL | [place] | | | Performed by [facility] [address] | | [facility] | | | [address] [place], [place] | | [facility] | | | [address] | | LABORATORY | | | | | CERNER | + + + + + + + | Specimen | + + | Blood | + + + + + + + | Performing | Address | City/State/Zipcode | Phone Number | | Organization | | | | + + + + + | [facility] | [address] | [place] [address] | | | [facility] | | | | | LABORATORY [place] | | | | + + + + + CBC no Differential (02/01/2018 0404) + + + +--- + | Component | Value | Ref Range | Pe rformed At | + + + +--- + | WBC | 9.6 | 3.8 - 11.0 K/uL | [facility] | | | | | [facility] | | | | | [facility] | | | | | [facility] | | | | | [place] | + + + +--- + | RBC | 4.14 | 3.70 - 5.10 M/uL | [facility] | | | | | [facility] | | | | | [facility] | | | | | [facility] | | | | | [facility] | + + + +--- + | Hgb | 13.7 | 11.3 - 15.5 g/dL | [facility] | | | | | [facility] | | | | | [facility] | | | | | [facility] | | | | | [place] | + + + +--- + | Hct | 39.5 | 34.0 - 46.0 % | [facility] | | | | | [facility] | | | | | [facility] | | | | | [facility] | | | | | [place] | + + + +--- + | MCV | 95.4 | 80.0 - 100.0 fL | [facility] | | | | | [facility] | | | | | [facility] | | | | | [facility] | | | | | [place] | + + + +--- + | MCH | 33.1 | 27.0 - 34.0 pg | [facility] | | | | | [facility] | | | | | [facility] | | | | | [facility] | | | | | [place] | + + + +--- + | MCHC | 34.7 | 32.0 - 35.5 g/dL | [facility] | | | | | [facility] | | | | | [facility] | | | | | [facility] | | | | | [place] | + + + +--- + | RDW-CV | 13.5 | 11.0 - 15.5 % | [facility] | | | | | [facility] | | | | | [facility] | | | | | [facility] | | | | | [place] | + + + +--- + | Platelet Count | 98 (L) | 150 - 400 K/uL | [facility] | | | | | [facility] | [facility] | | | [facility] | | | | | [facility] | | | | | [place] | + + + +--- + | MPV | 10.1Comment: Performed | 7.5 - 11.2 fL | [facility] | | | by [facility] [address], | | [facility] | | | [place] | | [facility] | | |Performed by [facility] [address], [place] | | [place] [facility] [...] | [place] | | | HEART [facility] | | | | | [...] by | | LABORATORY | | | [facility] [address], | | [place] | | | [place] [address] | | | + + + + + + + | Specimen | + + | Blood | + + + + + + + | Performing | Address | City/State/Zipcode | Phone Number | | Organization | | | | + + + + + | [facility] | [address] | [place] [address] | | | HEART [facility] | | | | | [place] | | | | + + + + + POC Glucose (01/31/20182023) + + + + + | Component | Value | Ref Range | Performed At | + + + + + | Glucose, POC | 132 (H)Comment: | 65 - 99 mg/dL | [facility] | | | Performed by [facility] [address] | | [facility] | | | [place] | | [facility] | | | [address] | | LABORATORY | | | | | [place] | + + + + + + + | Specimen | + + | Blood | + + + + + + + | Performing | Address | City/State/Zipcode | Phone Number | | Organization | | | | + + + + + | [facility] | [address] | [place] [address] | | | [facility] | | | | | LABORATORY [place] | | | | + + + + + POC Glucose (01/31/20181) + + + + + | Component | Value | Ref Range | Performed At | + + + + + | Glucose, POC | 130 (H)Comment: | 65 - 99 mg/dL | [facility] | | | Performed by [facility] [address] | | [facility] | | | [place], [place] | | [facility] | | | [address] | | LABORATORY | | | | | [place] | + + + + + + + | Specimen | + + | Blood | + + + + + + + | Performing | Address | City/State/Zipcode | Phone Number | | Organization | | | | + + + + + | A[facility] MY[facility] | [address] | [place] [address] | | | [facility] | | | | | LAB[facility]AT[facility] [place] | | | | + + + + + CBC no Differential (01/31/2018 1406) + + + +--- + | Component | Value | Ref Range | Pe rformed At | + + + +--- + | WBC | 12.5 (H) | 3.8 - 11.0 K/uL | [facility] | | | | | [facility] | | | | | [facility] | | | | | [facility] | | | | | [place] | + + + +--- + | RBC | 4.61 | 3.70 - 5.10 M/uL | [facility] | | | | | [facility] | | | | | [facility] | | | | | [facility] | | | | | [place] | + + + +--- + | Hgb | 15.0 | 11.3 - 15.5 g/dL | [facility] | | | | | [facility] | | | | | [facility] | | | | | [facility] | | | | | [place] | + + + +--- + | Hct | 43.5 | 34.0 - 46.0 % | [facility] | | | | | [facility] | | | | | [facility] | | | | | [facility] | | | | | [place] | + + + +--- + | MCV | 94.3 | 80.0 - 100.0 fL | [facility] | | | | | [facility] | | | | | [facility] | | | | | [facility] | | | | | [place] | + + + +--- + | MCH | 32.7 | 27.0 - 34.0 pg | [facility] | | | | | [facility] | | | | | [facility] | | | | | [facility] | | | | | [place] | + + + +--- + | MCHC | 34.6 | 32.0 - 35.5 g/dL | [facility] | | | | | [facility] | | | | | [facility] | | | | | [facility] | | | | | [place] | + + + +--- + | RDW-CV | 13.7 | 11.0 - 15.5 % | [facility] | | | | | [facility] | | | | | [facility] | | | | | [facility] | | | | | [place] | + + + +--- + | Platelet Count | 122 (L) | 150 - 400 K/uL | [facility] | | | | | [facility] | | | | | [facility] | | | | | [facility] | | | | | [place] | + + + +--- + | MPV | 9.5Comment: Performed | 7.5 - 11.2 fL | [facility] | | | by [facility] [address], | | [facility] | | | [place] [address] | | [facility] | | |Performed by [facility] [address], [place] | | [place] [facility] | | [...] | [address] | [place] | | | [facility] | | | | | LABORATORY [place] [...] by | | LABORATORY | | | [facility] [address], | | [place] | | | [place] [address] | | | + + + + + + + | Specimen | + + | Blood | + + + + + + + | Performing | Address | City/State/Zipcode | Phone Number | | Organization | | | | + + + + + | [facility] | [address] | [place] [address] | | | [facility] | | | | | [place] | | | | + + + + + POC Glucose (01/31/2018 0946) + + + + + | Component | Value | Ref Range | Performed At | + + + + + | Glucose, POC | 169 (H)Comment: | 65 - 99 mg/dL | [facility] | | | Performed by [facility] [address] | | [facility] | | | [place] | | [facility] | | | [address] | | LABORATORY | | | | | [place] | + + + + + + + | Specimen | + + | Blood | + + + + + + + | Performing | Address | City/State/Zipcode | Phone Number | | Organization | | | | + + + + + | [facility] | [address] | [place] [address] | | | [facility] | | | | | LABORAT[facility] [place] | | | | + + + + + POC Glucose (01/31/201847) + + + + + | Component | Value | Ref Range | Performed At | + + + + + | Glucose, POC | 169 (H)Comment: | 65 - 99 mg/dL | [facility] | | | Performed by [facility] [address] | | [facility] | | | [address], [place] | | MEDICAL CENTER | | | [address] | | LABORATORY | | | | | [place] | + + + + + + + | Specimen | + + | Blood | + + + + + + + | Performing | Address | City/State/Zipcode | Phone Number | | Organization | | | | + + + + + | A[facility]NDA MYERS | [address] | [place] [address] | | | [facility] | | | | | [facility]AT[facility] [place] | | | | + + + + + Tissue Request For Pathology (01/31/2018 0846) + + + | Narrative | Performed At | + + + | | [facility] | | [facility]ERRY [facility] | [place] | | [place] : | [facility] | | 1960 AGE: 57 years | LABORATORY | | SEX: Female MRN: | [place] | | [id number] Acct: [id number] | | | [id number] Location: [facility] SURG; 556; | | | 556-01 Case | | | #: [id number] Ordering: | | | JOSEP RODRIGUEZ MD Client: [facility] | | | [facility] Copy | | | To: [...] | | Date: 02/04/18 17:31 PDTPerforming Location: [facility] | | | [facility] [place], [place] [address]MECQCZC:As | | | part of inspector quality assurance the slides of this case were reviewed [...] | margins are marked with ink and inside sales representative sections are submitted | | [...] developed and their performance characteristics determined by [facility]. This test is used for clinical | | | purposes. It should not be regarded as investigational or for | | | research. [facility] is certified under the Clinical [...] + | ANANDA MYERS | [address] | [place] [address] | | | [facility] | | | | | LABORATORY [place] [...] REFERENCE LAB | | | | | [place] | | | | | [facility] | | | | | [facility] | + + + + + | Antibody Screen | NegativeComment: Patient | | REFERENCE LAB | | | is remote crossmatch | | [place] | | | eligible | | [facility] | | | | | [facility] | + + + + + + + | Specimen | + + | Blood | + + + + + | Narrative | Performed At | + + + | Specimen Expiration Date: [id number] | REFERENCE LAB | | | [place] | | | [facility] | | [facility] | + + + + + + + + | Performing | Address | City/State/Zipcode | Phone Number | | Organization | | | | + + + + + | [facility] | [address] | [place] [address] | [phone] | | [place] | | | | | [facility] | | | | | [facility] | | | | + + + + + ABO Rh (01/31/2018 0650) + + + + + | Component | Value | Ref Range | Performed At | + + + + + | ABO | B | | REFERENCE LAB | | | | | [place] | | | | | [facility] | | | | | [facility] | + + + + + | Rh Type | Positive | | REFERENCE LAB | | | | | [place] | | | | | [facility] | | | | | [facility] | + + + + + + + + | Narrative | Performed At | + + + | Specimen Expiration Date: [id number] | REFERENCE LAB | | | [place] | | | [facility] | | [facility] | + + + + + + + + | Performing | Address | City/State/Zipcode | Phone Number | | Organization | | | | + + + + + | [facility] | [address] | [place] [address] | [phone] | | [place] | | | | | [facility] [...] | [facility] | | | Performed by [facility] [address] | | [facility] | | | [address], [place] | | MEDICAL CENTER | | | [address] | | LABORATORY | | | | | [place] | + + + + + + + | Specimen | + + | Blood | + + + + + + + | Performing | Address | City/State/Zipcode | Phone Number | | Organization | | | | + + + + + | ANANDA MYERS | [address] | [place] [address] | | | [facility] | | | | | [place] [...]
--- OUTSIDE RECORDS SUMMARY | ~2018-05-02 | XMS | Encounter Summary ---
Demographics + + + | Address | [address] | | | [place] [address] | + + + | Home Phone | | + + + | Preferred Language | Unknown | + + + | Marital Status | | + + + | Yazidi Affiliation | Unknown | + + + | Race | Unknown | + + + | Ethnic Group | Unknown | + + + Author + + + | Author | [facility] | | | and [place] | + + + | Organization | [facility] | | | [...] | | | | | [place] [address] | | + + + + + Care Team Providers + +------+ + | Care Organisational Psychologist Name | Role | Phone | + [...] RN | | | | | Kayli [place], | | | | | | [place] [address] | | | | | | [phone] | | | +--------+ + + + [...] 2019 | Visit | | [address] [facility] | | | | | | [place] | | | | | | [place] [address] | | | | | | [phone] | | | | | | | | +--------+---------+ + + + | 09/11/ | Office | Cardiology | Karthik Cobb, | | | 2018 | Visit | | MD Michelle Milan | | | | | | [place], | | | | | | [place] [address] | | | | | | [phone] | | | | | | | | +--------+---------+ + + + as of this encounter Visit Diagnoses Not on filein this encounter"
--- OUTSIDE RECORDS SUMMARY | ~2018-05-02 | XMS | Clinical Summary ---
Demographics + + + | Address | [address] | | | [place] [address] | + + + | Home Phone | | + + + | Preferred Language | Unknown | + + + | Marital Status | | + + + | Hinduism Affiliation | Unknown | + + + | Race | Unknown | + + + | Ethnic Group | Unknown | + + + Author + + + | Author | [facility] | + + + | Organization | [facility] | + + + | Address | Unknown | + + + | Phone | Unavailable | + + + Support + + + + + | Name | Relationship | Address | Phone | + + + + + | Stephen Stubbs | ECON | [address] | | | | | [place] [address] | | + + + + + Care Team Providers + +------+ + | Care Rheologist Name | Role | Phone | + +------+ + | Medicine, Alleene | PP | Unavailable | | Family [...]
--- OUTSIDE RECORDS SUMMARY | ~2018-05-02 | XMS | Clinical Summary ---
Demographics + + + | Address | [address] | | | [place] [address] | + + + | Home Phone | | + + + | Preferred Language | Unknown | + + + | Marital Status | | + + + | Jain Affiliation | Unknown | + + + | Race | Unknown | + + + | Ethnic Group | Unknown | + + + Author + + + | Author | [facility] | | | and Patrickana | + + + | Organization | [facility] | | | [...] | | | | | [place] [address] | | + + + + + Care Team Providers + +------+ + | Care Consulting Group Analyst Name | Role | Phone | + [...] + + | Coronary artery disease involving [place] coronary artery of | 01/07/2018 | | [place] heart without angina pectoris | | + [...] + | Overview: CT Abd/Pelvis w/ 11/10/17 [facility] | | 10/10/17 [facility] | | 09/13/17 [...] involving | | | | | | [place] coronary | | | | | | artery of [place] | | | | | | heart without angina | | | | | | pectoris (Primary | | | | | | Dx); Mixed | | | | | | hyperlipidemia | +--------+ + + + + | 03/11/ | Orders Only | | Bella Rodgers, | | | 2017 [...] +---------+ + | COPD | Father | [place]erson | | | | | [place] | | + + +---------+ + | Cancer | Father | Paterson | | | | | [place] | | + + +---------+ + | Diabetes | Father | Paterson | | | | | [place] | | + + +---------+ + | Heart disease | Father | Paterson | | | | | [place] | [...] | | | | | [place] [address] | | | | | | [phone] | | | | | | | | +--------+---------+ + + + | 09/11/ | Office | | Karthik Cobb, | | | 2018 | Visit | | MD Michelle Milan | | | | | | [place], | | | | | | [place] [address] | | | | | | [phone] | | | | | | | [...] + + + + + | Specific Morgan | 1.036 (H) | 1.001 - 1.030 [...] [facility] | | | | | [facility] | | | | | [...] | Present (A) | Negative /LPF | [facility] | | | | | [facility] | | | | | CENTER - | | | | | LABORATORY | + + + + + | URINE COMMENT | Urine Culture Not | | [facility] | | | Indicated | | [facility] | | | | | CENTER [...] + | [facility] | [address] | [place], [place] | [phone] | | [facility] | | [address] | | | - LABORATORY | | | | + + + + + | [facility] | [address] | [place], [place] | | | [facility] | | [address] | | | - LABORATORY | | | | + + + + + Extra Lavender Top Tube (04/30/20181919) + +-------+ + + | Component | Value | Ref Range | Performed At | + +-------+ + + | Extra Lavender Top | Done | | [facility] | | Tube | | | [facility] | | | | | [...] + | [facility] | [address] | [place] | [phone] | | [facility] | | [address] | | | - LABORATORY | | | | + + + + + | [facility] | [address] | [place] | | | [facility] | | [address] | | | - LABORATORY | | [...] + | [facility] | [address] | [place] | [phone] | | [facility] | | [address] | | | - LABORATORY | | | | + + + + + | [facility] | [address] | [place] | | | [facility] | | [address] | | | - LABORATORY | | | | + + + + + Extra Gold Top Tube (04/30/20181919) + +-------+ + + | Component | Value | Ref Range | Performed At | + +-------+ + + | EGDT | Done | | [facility] | | | | | [facility] | | | | | CENTER - | | | | | LABORATORY | + +-------+ + + + + | Specimen | + + | Blood | + + + + + + + | Performing | Address | City/State/Zipcode | Phone Number | | Organization | | | | + + + + + | [facility] | [address] | [place], [place] | [phone] | | [facility] | | [address] | | | - LABORATORY | | | | + + + + + | [facility] | [address] | [place], [place] | | | [facility] | | [address] | | | - LABORATORY | | [address] | [place] | [phone] | | [facility] | | [address] | | | - LABORATORY | | | | + + + + + | [facility] | [address] | [place] | | | [facility] | | [address] | | | - LABORATORY | | | | + + + + + Slide Review, Peripheral Smear (04/30/20181918) + + + + + | Component | Value | Ref Range | Performed At | + + + + + | RBC MORPHOLOGY | Normal | | [facility] | | | | | [facility] | | | | | CENTER - | | | | | LABORATORY | + + + + + | WBC MORPHOLOGY | Normal | | [facility] | | | | | [facility] | | | | | [...] + | [facility] | [address] | [place], [place] | [phone] | | [facility] | | [address] | | | - LABORATORY | | | | + + + + + | [facility] | [address] | [place], [place] | | | [facility] | | [address] | | | - LABORATORY | | [...] + | [facility] | [address] | [place], [place] | [phone] | | [facility] | | [address] | | | - LABORATORY | | | | + + + + + | [facility] | [address] | [place], [place] | | | [facility] | | [address] | | | - LABORATORY | | | | + + + + + Magnesium (04/30/20181918) + +---------+ + + | Component | Value | Ref Range | Performed At | + +---------+ + + | MG | 1.6 (L) | 1.8 - 2.5 mg/dL | [facility] | | | | | [facility] | | | | | CENTER - | | | | | LABORATORY | + +---------+ + + + + | Specimen | + + | Blood | + + + + + + + | Performing | Address | City/State/Zipcode | Phone Number | | Organization | | | | + + + + + | [facility] | [address] | [place] | [phone] | | [facility] | | [address] | | | - LABORATORY | | | | + + + + + | [facility] | [address] | [place] | | | [facility] | | [address] | | | - LABORATORY | | [...] + | [facility] | [address] | [place] | [phone] | | [facility] | | [address] | | | - LABORATORY | | | | + + + + + | [facility] | [address] | [place], [place] | | | [facility] | | [address] | | | - LABORATORY | | [...] >=60 mL/min/1.73m2 | [facility]. | | ARMENIAN | FILTRATION | | [facility] | | | RATE,ESTIMATED mL/min | | CENTER - | | | /1.93y8Kako than 60 | | LABORATORY | | [...] [facility]. | | | | | [facility] | | | | | CENTER - | | | | | LABORATORY | + + + + + | ALBUMIN | 4.3 | 3.2 - 5.0 g/dL | [facility]. | | | | | [facility] | | | | | CENTER [...] | | an appended report. | | [facility] | | | These results [...] | BUN/CREA | 12.5 | | [facility] | | | | | [facility] | | | | | CENTER [...] + | [facility] | [address] | [place] | [phone] | | [facility] | | [address] | | | - LABORATORY | | | | + + + + + | [facility] | [address] | [place] | | | [facility] | | [address] | | | - LABORATORY | | [...] + + + + + | Specific Morgan, | 1.015 | 1.001 - 1.030 | [...] + | [facility] | [address] | [place], [place] | [phone] | | [facility] | | [address] | | | - LABORATORY | | | | + + + + + | [facility] | [address] | [place], [place] | | | [facility] | | [address] | | | - LABORATORY | | [...] | [facility] | | | Performed by [facility] [address] | | [facility] | | | [address] [place], [place] | | [facility] | | | [address] | | LABORATORY | | | | | [place] | + + + + + + + | Specimen | + + | Blood | + + + + + + + | Performing | Address | City/State/Zipcode | Phone Number | | Organization | | | | + + + + + | [facility] | [address] | [place] [address] | | | [facility] | | | | | [...] 9.6 | 3.8 - 11.0 K/uL | [facility] | | | | | [facility] | | | | | [facility] | | | | | [facility] | | | | | [facility] | + + + +--- + | RBC | 4.14 | 3.70 - 5.10 M/uL | [facility] | | | | | [facility] | | | | | [facility] | | | | | [facility] | | | | | [facility] | + + + +--- + | Hgb | 13.7 | 11.3 - 15.5 g/dL | [facility] | | | | | [facility] | | | | | [facility] | | | | | [facility] | | | | | [facility] | + + + +--- + | Hct | 39.5 | 34.0 - 46.0 % | [facility] | | | | | [facility] | | | | | [facility] | | | | | [facility] | | | | | [facility] | + + + +--- + | MCV | 95.4 | 80.0 - 100.0 fL | [facility] | | | | | [facility] | | | | | [facility] | | | | | [facility] | | | | | [facility] | + + + +--- + | MCH | 33.1 | 27.0 - 34.0 pg | [facility] | | | | | [facility] | | | | | [facility] | | | | | [facility] | | | | | [facility] | + + + +--- + | MCHC | 34.7 | 32.0 - 35.5 g/dL | [facility] | | | | | [facility] | | | | | [facility] | | | | | [facility] | | | | | [facility] | + + + +--- + | RDW-CV | 13.5 | 11.0 - 15.5 % | [facility] | | | | | [facility] | | | | | [facility] | | | | | [facility] | | | | | [facility] | + + + +--- + | Platelet Count | 98 (L) | 150 - 400 K/uL | [facility] | | | | | [facility] | | | | | [facility] | | | | | [facility] | | | | | [facility] | + + + +--- + | MPV | 10.1Comment: Performed | 7.5 - 11.2 fL | [facility] | | | by [facility] [address], | | [facility] | | | [place] [address] | | [facility] | | |Performed by [facility] [address], [place] [address] | | [facility] | | | | | [facility] | + + + +--- + + + | Specimen | + + | Blood | + + + + + + + | Performing | Address | City/State/Zipcode | Phone Number | | Organization | | | | + + + + + | [facility] | [address] | [place] [address] | | | [facility] | | | | | [place] [...] by | | LABORATORY | | | [facility] [address], | | [place] | | | [place] [address] | | | + + + + + + + | Specimen | + + | Blood | + + + + + + + | Performing | Address | City/State/Zipcode | Phone Number | | Organization | | | | + + + + + | [facility] | [address] | [place] [address] | | | [facility] | | | | | [place] | | | | + + + + + Tissue Request For Pathology (01/31/2018 0846) + + + | Narrative | Performed At | + + + | | [facility] | | KERRY PITTS | [place] | | PETER : | [facility] | | 1960 AGE: 57 years | LABORATORY | | SEX: Female MRN: | [place] | | [id number] Acct: [id number] | | | [id number] Location: [facility] SURG; [facility]; | | | [facility] Case | | | #: [id number] Ordering: | | | JOSEP RODRIGUEZ MD Client: [facility] | | | [facility] Copy | | | To: Printed: 02/04/2018 [...] | | Date: 02/04/18 17:31 PDTPerforming Location: [place] | | | [facility] [place], [place] [address]OZSZURR:As | | | part of supplier quality the slides of this case were reviewed [...] | margins are marked with ink and traveling sales representative sections are submitted | | | | | | "A1-A3".[place]/01/31/18 | | | SURGICAL PATHOLOGY FINAL | [...] developed and their performance characteristics determined by [facility]. This test is used for clinical | | | purposes. It should not be regarded as investigational or for | | | research. [facility] is certified under the Clinical | | | Laboratory Improvement Amendments of 1988 (CLIA) as qualified to | | | perform high complexity clinical laboratory testing. | | + + + + + + + + | Performing | Address | City/State/Zipcode | Phone Number | | Organization | | | | + + + + + | [facility] | [address] | [place] [address] | | | [facility] | | | | | [...] REFERENCE LAB | | | | | [place] | | | | | [facility] | | | | [facility] | + + + + + | Rh Type | Positive | | REFERENCE LAB | | | | | [place] | | | | | [facility] | | | | | [facility] | + + + + + | Antibody Screen | NegativeComment: Patient | | REFERENCE LAB | | | is remote crossmatch | | [place] | | | eligible | | [facility] | | | | | [facility] | + + + + + + + | Specimen | + + | Blood | + + + + + | Narrative | Performed At | + + + | Specimen Expiration Date: [id number] | REFERENCE [facility] | | | [place] | | | [facility] | + + + + + + + + | Performing | Address | City/State/Zipcode | Phone Number | | Organization | | | | + + + + + | REFERENCE LAB | [address] | [place] [address] | [phone] | | [facility] | | | | | [facility] | | | | | [facility] | | | | + + + + + ABO Rh (01/31/201850) + + + + + | Component | Value | Ref Range | Performed At | + + + + + | ABO | B | | REFERENCE [facility] | | | | | [place] | | | | | [facility] | | | | | [facility] | + + + + + | Rh Type | Positive | | REFERENCE [facility] | | | | | [place] | | | | | [facility] | | | | | [facility] | + + + + + + + + | Narrative | Performed At | + + + | Specimen Expiration Date: [id number] | REFERENCE [facility] | | | [place] | | | [facility] | + + + + + + + + | Performing | Address | City/State/Zipcode | Phone Number | | Organization | | | | + + + + + | REFERENCE LAB | [address] | [place] [address] | [phone] | | [place] | | | | | [facility] [...] +---------+ | HEALTHCARE MGNT | HMA | [id number] | PPO | +- | | | ADMIN | BCBS | 5 | | [phone] | | | | PPO | | | | | + +--------+ +--------+ +---------+ | MEDICARE | MEDICA | [id number] | Medica | +- | | | | RE | | re | [phone] | | | | PART A | | | | | | | AND B | | | | | + +--------+ +--------+ +---------+ | HEALTHCARE MGNT | HMA | [id number] | PPO | +- | | | ADMIN | BCBS | 5 | | [phone] | | | | PPO | | | | | + +--------+ +--------+ +---------+ | MEDICARE | MEDICA | [id number] | Medica | [phone] | | [...] | | al/Fam | | 1961 | [phone] | [place] [address] | | | ryan | | | [phone] | | + +--------+ +--------+ + + | KERRY PITTS | Person | Self | [birth year] | Home: | [address] | | | al/Fam | | 1961 | [phone] | [place] [address] | | | ryan | | | [phone] | | + +--------+ +--------+ + +
--- OUTSIDE RECORDS SUMMARY | ~2018-05-02 | XMS | Encounter Summary ---
Demographics + + + | Address | [address] | | | [place] [address] | + + + | Home Phone | | + + + | Preferred Language | Unknown | + + + | Marital Status | | + + + | Jain Affiliation | Unknown | + + + | Race | Unknown | + + + | Ethnic Group | Unknown | + + + Author + + + | Author | [facility] | | | and Patrickana | + + + | Organization | [facility] | | | [...] | | | | | [place] [address] | | + + + + + Care Team Providers + +------+ + | Care Communication Engineer Name | Role | Phone | + [...] | | | | ureter | | [address] Phone: | | | | | Other | | [phone] | | | | | specified | | Fax: | | | | | disorders of | | [phone] | | | | | kidney and | | | | | | | ureter | | | | | | | [N28.89] | | | | | | | Procedures | | | | | | | [place] PARTIAL | | | | | | | REMOVAL OF | | | | | | | KIDNEY [place] | | | | | | | [...] | [facility] | [place] [address] | | | | | [address] | [phone] | | | | | [place] | | | | | | [address] | | | | | | [phone] | | | +--------+ + + + [...] +----+---+ + + | | 0 | [place] | | | | 8 | 43-degrees | | | | 0 | | | | | 2 | | | +----+---+ + + | | 0 | [place] off | | | | 9 | [...] 02/02/18 1000 by | | eral | [id number] catheter system; | Tiara Waters RN | Camille Nvooa RN | | IV | 18 gauge; [...] | Placement Time: 741 (created via | Gavi Mcdermott CRNA | Gavi Mcdermott CRNA | [...] | | | | | | [place] [address] | | | | | | [phone] | | | | | | | | +--------+---------+ + + + | 09/11/ | Office | Cardiology | Karthik Cobb, | | | 2018 | Visit | | MD Michelle [address] | | | | | | [place] | | | | | | [place] [address] | | | | | | [phone] | | | | | | | [...]
--- OUTSIDE RECORDS SUMMARY | ~2018-05-02 | XMS | Encounter Summary ---
Demographics + + + | Address | [address] | | | [place] [address] | + + + | Home Phone | | + + + | Preferred Language | Unknown | + + + | Marital Status | | + + + | Latter-Day Affiliation | Unknown | + + + | Race | Unknown | + + + | Ethnic Group | Unknown | + + + Author + + + | Author | [facility] | | | and [place] | + + + | Organization | [facility] | | | and [...] | | | | | [place] [address] | | + + + + + Care Team Providers + +------+ + | Care Head Of Commission Department Name | Role | Phone | + [...] + + | 03/11/ | Office | [facility] | Karthik Cobb, | Coronary artery | | 2018 | Visit | CARDIOLOGY [address] [place] | disease involving | | | | [place], | [place], | [place] coronary | | | | [place] [address] | [place] [address] | artery of [place] | | | | [phone] | [phone] | heart without angina | | | [...] end may Where to go for labs: [facility]- [address] [place] [address] Follow up appointment: 6 months Provider: Karthik [...] Preventative health care Coronary artery disease involving [place] coronary artery of [place] heart without angina pectoris Renal mass History [...] RESULTS reviewed during visit today primarily from [facility]: LIPID Lab Results Component Value Date [...] She is in a class I of [place] [employer] functional class. There is no [...] reviewed and edited this note. Ember Santos Welder Apprentice 03/11/2018 I, Karthik Cobb MD, personally performed the services described in this documentation, as scribed in my presence and it is both accurate and complete. Ember Santos Med Ass t 03/11/2018 7:59 Electronically signed by: Karthik Cobb MD [facility] 03/11/2018 Portions of this chart may have been created with [employer] ([employer]) voice recognition software. Occasi onal wrong-word or [...] | | | | | | [place] [address] | | | | | | [phone] | | | | | | | | +--------+---------+ + + + | 09/11/ | Office | Cardiology | Karthik Cobb, | | | 2018 | Visit | | MD Michelle [address] | | | | | | [place], | | | | | | [place] [address] | | | | | | [phone] | | | | | | | | +--------+---------+ + + + + +--------+ + + | Name | Priori | Associated Diagnoses | Order Schedule | | | ty | | | + +--------+ + + | Lipid Panel | Routin | Coronary artery | Expected: | | | e | disease involving | 03/11/2018, Expires: | | | | [place] coronary | 03/11/2019 | | | | artery of [place] | | | | | heart without angina | | | | | pectoris Mixed | | | | | hyperlipidemia | | + +--------+ + + | Hepatic Function Panel | Routin | Coronary artery | Expected: | | | e | disease involving | 03/11/2018, Expires: | | | | [place] coronary | 03/11/2019 | | | | artery of [place] | | | | | heart without angina | | | | | pectoris Mixed | | | | | hyperlipidemia | | + +--------+ + + as of this encounter Visit Diagnoses + + | Diagnosis | + + | Coronary artery disease involving [place] coronary artery of [place] heart without angina | | pectoris - Primary | + + | Mixed hyperlipidemia | + +
--- OUTSIDE RECORDS SUMMARY | ~2018-05-02 | XMS | Encounter Summary ---
Demographics + + + | Address | [address] | | | [place] [address] | + + + | Home Phone | | + + + | Preferred Language | Unknown | + + + | Marital Status | | + + + | Evangelical Affiliation | Unknown | + + + | Race | Unknown | + + + | Ethnic Group | Unknown | + + + Author + + + | Author | [facility] | | | and [...] | | | | | [place] [address] | | + + + + + Care Team Providers + +------+ + | Care Soil Fertility Extension Specialist Name | Role | Phone | + [...] | | | | ureter | | [address] Phone: | | | | | Other | | [phone] | | | | | specified | | Fax: | | | | | disorders of | | [phone] | | | | | kidney and | | | | | | | ureter | | | | | | | [N28.89] | | | | | | | Procedures | | | | | | | [place] PARTIAL | | | | | | | REMOVAL OF | | | | | | | KIDNEY [place] | | | | | | | [...] | [facility] | [address] [place], | laparoscopic renal | | | | [address] | [place] [address] | ultrasound | | | | [place] | [phone] | | | | | [address] | | | | | | [phone] | | | +--------+---------+ + + + [...] may be different from the origi nal. [facility] DISCHARGE SUMMARY Patient Name: Kerry Pitts Patient : 1960 PCP: Iian Rosales Date of Admission: 01/31/2018 Date of [...] Signed by: Marium Abel MD, 02/02/2018 10:49 [facility]charge Instructions Camille Novoa RN [...] issues with gastric ulcers CONTACT INFORMATION: - [place] [facility] Office Number: [facility] Office [phone] [place] Office FOLLOWUP INFORMATION: - or Dr. Perry [...] interact with your prescription medicines or other ldzq-fsf-dcucxzg (OTC) medicines. Some prescription medicines have acetaminophen [...] of taking these medicines. Date Last Reviewed: 07/19/201619992133-4266 [employer]. [address] [place] [address], [place] [address]. All righ ts reserved. This information is not intended as a substitute for professional medical care. Always follow your healthcare professional's instructions. 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 [facility] Urology Progress Note Kerry Pitts is a [...] - 99 mg/dL Final Comment: Performed by [facility] [address] [place] [address] 02/01/2018 20:24 191 (H) 65 - 99 mg/dL Final Comment: Performed by [facility] [address] [place] [address] 02/01/2018 17:25 158 (H) 65 - 99 mg/dL Final Comment: Performed by [facility] [address] [place] [address] 01/25/2018 12:09 171 (H) 70 - 109 [...] this chart may have been created with Tier 3 voice recognition software. Occasi onal wrong-word or sound-alike substitutions may have occurred due to the inherent jon itations of voice recognition software. Please read the chart carefully and recognize, using context, where these substitutions have occurred Marium Abel MD - 02/01/2018 0904 PDTFormatting of this note may be different from the origi nal. [facility] Urology Progress Note Kerry Pitts is a [...] - 99 mg/dL Final Comment: Performed by [facility] [address] [place] [address] 01/31/2018 18:41 130 (H) 65 - 99 mg/dL Final Comment: Performed by [facility] [address] [place] [address] 01/31/2018 09:46 169 (H) 65 - 99 mg/dL Final Comment: Performed by [facility] [address] [facility] [place] [address] 01/25/2018 12:09 171 (H) 70 - 109 [...] this chart may have been created with Tier 3 voice recognition software. Occasi onal wrong-word or [...] | | | | | | [place] [address] | | | | | | [phone] | | | | | | | | +--------+---------+ + + + | 09/11/ | Office | Cardiology | Karthik Cobb, | | | 2018 | Visit | | [address] | | | | | | [place], | | | | | | [place] [address] | | | | | | [phone] | | | | | | | [...] | [facility] | | | Performed by [facility] [address] | | [facility] | | | [address] [place], [place] | | [facility] | | | [address] | | LABORATORY | | | | | [place] | + + + + + + + | Specimen | + + | Blood | + + + + + + + | Performing | Address | City/State/Zipcode | Phone Number | | Organization | | | | + + + + + | [facility] | [address] | [place] [address] | | | [facility] | | | | | LABORATORY [place] | | | | + + + + + POC Glucose (02/01/20182023) + + + + + | Component | Value | Ref Range | Performed At | + + + + + | Glucose, POC | 191 (H)Comment: | 65 - 99 mg/dL | [facility] | | | Performed by [facility] [address] | | [facility] | | | [address], [place] | | [facility] | | | [address] | | LABORATORY | | | | | [place] | + + + + + + + | Specimen | + + | Blood | + + + + + + + | Performing | Address | City/State/Zipcode | Phone Number | | Organization | | | | + + + + + | [facility] | [address] | [place] [address] | | | [facility] | | | | | LABORATORY [place] | | | | + + + + + POC Glucose (02/01/2018 1725) + + + + + | Component | Value | Ref Range | Performed At | + + + + + | Glucose, POC | 158 (H)Comment: | 65 - 99 mg/dL | [facility] | | | Performed by [facility] [address] | | [facility] | | | [place] | | MEDICAL CENTER | | | [address] | | LABORATORY | | | | | [place] | + + + + + + + | Specimen | + + | Blood | + + + + + + + | Performing | Address | City/State/Zipcode | Phone Number | | Organization | | | | + + + + + | [facility] | [address] | [place] [address] | | | [facility] | [...] | [facility] | | | Performed by [facility] [address] | | [facility] | | | [address] [place], [place] | | [facility] | | | [address] | | LABORATORY | | | | | [place] | + + + + + + + | Specimen | + + | Blood | + + + + + + + | Performing | Address | City/State/Zipcode | Phone Number | | Organization | | | | + + + + + | [facility] | [address] | [place] [address] | | | [facility] | | | | | LABORATORY [place] | | | | + + + + + POC Glucose (02/01/2018706) + + + + + | Component | Value | Ref Range | Performed At | + + + + + | Glucose, POC | 107 (H)Comment: | 65 - 99 mg/dL | [facility] | | | Performed by [facility] [address] | | [facility] | | | [address], [place] | | [facility] | | | [address] | | LABORATORY | | | | | [place] | + + + + + + + | Specimen | + + | Blood | + + + + + + + | Performing | Address | City/State/Zipcode | Phone Number | | Organization | | | | + + + + + | [facility] | [address] | [place] [address] | | | [facility] | | | | | [place] | | | | + + + + + CBC no Differential (02/01/2018 0404) + + + +--- + | Component | Value | Ref Range | Pe rformed At | + + + +--- + | WBC | 9.6 | 3.8 - 11.0 K/uL | [facility] | | | | | [facility] | | | | | [facility] | | | | | [facility] | | | | | [place] | + + + +--- + | RBC | 4.14 | 3.70 - 5.10 M/uL | [facility] | | | | | [facility] | | | | | [facility] | | | | | [facility] | | | | | [place] | + + + +--- + | Hgb | 13.7 | 11.3 - 15.5 g/dL | [facility] | | | | | [facility] | | | | | [facility] | | | | | [facility] | | | | | [place] | + + + +--- + | Hct | 39.5 | 34.0 - 46.0 % | [facility] | | | | | [facility] | | | | | [facility] | | | | | [facility] | | | | | [place] | + + + +--- + | MCV | 95.4 | 80.0 - 100.0 fL | [facility] | | | | | [facility] | | | | | [facility] | | | | | [facility] | | | | | [place] | + + + +--- + | MCH | 33.1 | 27.0 - 34.0 pg | [facility] | | | | | [facility] | | | | | [facility] | | | | | [facility] | | | | | [place] | + + + +--- + | MCHC | 34.7 | 32.0 - 35.5 g/dL | [facility] | | | | | [facility] | | | | | [facility] | | | | | [facility] | | | | | [place] | + + + +--- + | RDW-CV | 13.5 | 11.0 - 15.5 % | [facility] | | | | | [facility] | | | | | [facility] | | | | | [facility] | | | | | [place] | + + + +--- + | Platelet Count | 98 (L) | 150 - 400 K/uL | [facility] | | | | | [facility] | | | | | [facility] | | | | | [facility] | | | | | [place] | + + + +--- + | MPV | 10.1Comment: Performed | 7.5 - 11.2 fL | [facility] | | | by [facility] [address], | | [facility] | | | [place] [address] | | [facility] | | |Performed by [facility] [address], [place] [address] | | [facility] | | | | | [place] | + + + +--- + + + | Specimen | + + | Blood | + + + + + + + | Performing | Address | City/State/Zipcode | Phone Number | | Organization | | | | + + + + + | [facility] | [address] | [place] [address] | | | [facility] | [...] by | | LABORATORY | | | [facility] [address], | | [place] | | | [place] [address] | | | + + + + + + + | Specimen | + + | Blood | + + + + + + + | Performing | Address | City/State/Zipcode | Phone Number | | Organization | | | | + + + + + | [facility] | [address] | [place] [address] | | | [facility] | [...] | [facility] | | | Performed by [facility] [address] | | [facility] | | | [address] [place], [place] | | [facility] | | | [address] | | LABORATORY | | | | [...] [address] | [place] [address] | | | [facility] | | | | | LABORATORY [place] | | | | + + + + + POC Glucose (01/31/20181840) + + + + + | Component | Value | Ref Range | Performed At | + + + + + | Glucose, POC | 130 (H)Comment: | 65 - 99 mg/dL | [place] | | | Performed by [facility] [address] | | [facility] | | | [place], [place] | | [facility] | | | [address] | | LABORATORY | | | | | [place] | + + + + + + + | Specimen | + + | Blood | + + + + + + + | Performing | Address | City/State/Zipcode | Phone Number | | Organization | | | | + + + + + | A[facility]NDA [facility] | [address] | [place] [address] | | | [facility] | | | | | [place] | | | | + + + + + CBC no Differential (01/31/2018 1406) + + + +--- + | Component | Value | Ref Range | Pe rformed At | + + + +--- + | WBC | 12.5 (H) | 3.8 - 11.0 K/uL | [facility] | | | | | [facility] | | | | | [facility] | | | | | [facility] | | | | | [place] | + + + +--- + | RBC | 4.61 | 3.70 - 5.10 M/uL | [facility] | | | | | [facility] | | | | | [facility] | | | | | [facility] | | | | | [place] | + + + +--- + | Hgb | 15.0 | 11.3 - 15.5 g/dL | [facility] | | | | | [facility] | | | | | [facility] | | | | | [facility] | | | | | [place] | + + + +--- + | Hct | 43.5 | 34.0 - 46.0 % | [facility] | | | | | [facility] | | | | | [facility] | | | | | [facility] | | | | | [place] | + + + +--- + | MCV | 94.3 | 80.0 - 100.0 fL | [facility] | | | | | [facility] | | | | | [facility] | | | | | [facility] | | | | | [place] | + + + +--- + | MCH | 32.7 | 27.0 - 34.0 pg | [facility] | | | | | [facility] | | | | | [facility] | | | | | [facility] | | | | | [place] | + + + +--- + | MCHC | 34.6 | 32.0 - 35.5 g/dL | [facility] | | | | | [facility] | | | | | [facility] | | | | | [facility] | | | | | [place] | + + + +--- + | RDW-CV | 13.7 | 11.0 - 15.5 % | [facility] | | | | | [facility] | | | | | [facility] | | | | | [facility] | | | | | [place] | + + + +--- + | Platelet Count | 122 (L) | 150 - 400 K/uL | [facility] | | | | | [facility] | | | | | [facility] | | | | | [facility] | | | | | [place] | + + + +--- + | MPV | 9.5Comment: Performed | 7.5 - 11.2 fL | [facility] | | | by [place] [address] [facility] [address], | | [facility] | | | [place] [address] | | [facility] | | |Performed by [facility] [address] [facility] [address], [place] [address] | | [facility] | | | | | [place] | + + + +--- + + + | Specimen | + + | Blood | + + + + + + + | Performing | Address | City/State/Zipcode | Phone Number | | Organization | | | | + + + + + | [facility] MYERS | [address] | [place] [address] | | | [facility] | [...] by | | LABORATORY | | | [facility] [address], | | [place] | | | [place] [address] | | | + + + + + + + | Specimen | + + | Blood | + + + + + + + | Performing | Address | City/State/Zipcode | Phone Number | | Organization | | | | + + + + + | [facility] | [address] | [place] [address] | | | [facility] | | | | | [place] | | | | + + + + + POC Glucose (01/31/2018 0946) + + + + + | Component | Value | Ref Range | Performed At | + + + + + | Glucose, POC | 169 (H)Comment: | 65 - 99 mg/dL | [facility] | | | Performed by [facility] [address] | | [facility] | | | [place] | | [facility] | | | [address] | | LABORATORY | | | | | [place] | + + + + + + + | Specimen | + + | Blood | + + + + + + + | Performing | Address | City/State/Zipcode | Phone Number | | Organization | | | | + + + + + | ANANDA MYERS | [address] [facility] [address] [facility] | [place] [address] | | | [facility] | | | | | LABORATORY [place] | | | | + + + + + POC Glucose (01/31/201847) + + + + + | Component | Value | Ref Range | Performed At | + + + + + | Glucose, POC | 169 (H)Comment: | 65 - 99 mg/dL | [facility] | | | Performed by [facility] [address] | | [facility] | | | [address] [place], [place] | | MEDICAL CENTER | | | [address] | | LABORATORY | | | | | [place] | + + + + + + + | Specimen | + + | Blood | + + + + + + + | Performing | Address | City/State/Zipcode | Phone Number | | Organization | | | | + + + + + | ANANDA MYERS | [address] | [place] [address] | | | [facility] | | | | | LABORATORY [place] | | | | + + + + + Tissue Request For Pathology (01/31/201846) + + + | Narrative | Performed At | + + + | | [facility] | | KERRY PITTS | [facility] | | PETER : | [facility] | | 1960 AGE: 57 years | LABORATORY | | SEX: Female MRN: | [place] | | [id number] Acct: [id number] | | | [id number] Location: [facility] SURG; 556; | | | 556-01 Case | | | #: [id number] Ordering: | | | JOSEP RODRIGUEZ MD Client: [facility] | | | [facility] Copy | | | To: Printed: 02/04/2018 [...] | | Date: 02/04/18 17:31 PDTPerforming Location: [place] | | | [facility] [place], [place] [address]HCMUXDU:As | | | part of quality assurance consultant the slides of this case were reviewed [...] | margins are marked with ink and circulation sales representative sections are submitted | | [...] developed and their performance characteristics determined by [facility] | | [facility]. This test is used for clinical | | | purposes. It should not be regarded as investigational or for | | | research. [facility] is certified under the Clinical | | | Laboratory Improvement Amendments of 1988 (CLIA) as qualified to | | | perform high complexity clinical laboratory testing. | | + + + + + + + + | Performing | Address | City/State/Zipcode | Phone Number | | Organization | | | | + + + + + | ANANDA MYERS | [address] | [place] [address] | | | [facility] | | | | | LABORATORY [place] | | | | + + + + + Type and Screen (01/31/2018 0656) + + + + + | Component | Value | Ref Range | Performed At | + + + + + | ABO | B | | [facility] | | | | | [place] | | | | | [facility] | | | | | [facility] | + + + + + | Rh Type | Positive | | [facility] | | | | | [place] | | | | | [facility] | | | | | [facility] | + + + + + | Antibody Screen | NegativeComment: Patient | | [facility] | | | is remote crossmatch | | [place] | | | eligible | | [facility] | | | | | [facility] | + + + + + + + | Specimen | + + | Blood | + + + + + | Narrative | Performed At | + + + | Specimen Expiration Date: [id number] | [facility] | | | [place] | | | [facility] | | | [facility] | + + + + + + + + | Performing | Address | City/State/Zipcode | Phone Number | | Organization | | | | + + + + + | [facility] | [address] | [place] [address] | [phone] | | [place] | | | | | [facility] | | | | | [facility] | | | | + + + + + ABO Rh (01/31/2018649) + + + + + | Component | Value | Ref Range | Performed At | + + + + + | ABO | B | | [facility] | | | | | [place] | | | | | [facility] | | | | | [facility] | + + + + + | Rh Type | Positive | | [facility] | | | | | [place] | | | | | [facility] | | | | | [facility] | + + + + + + + + | Narrative | Performed At | + + + | Specimen Expiration Date: [id number] | [facility] | | | [place] | | | [facility] | | | [facility] | + + + + + + + + | Performing | Address | City/State/Zipcode | Phone Number | | Organization | | | | + + + + + | [facility] | [address] | [place] [address] | [phone] | | [place] | | | | | [facility] [...] | [facility] | | | Performed by [facility] [address] | | [facility] | | | [address], [place], [place] | | [facility] | | | [address] | | LABORATORY | | | | | [place] | + + + + + + + | Specimen | + + | Blood | + + + + + + + | Performing | Address | City/State/Zipcode | Phone Number | | Organization | | | | + + + + + | ANANDA MYERS | [address] [place] [address]. | [place] [address] | | | [facility] | [...]
--- OUTSIDE RECORDS SUMMARY | ~2018-05-02 | XMS | Encounter Summary ---
Demographics + + + | Address | [address] | | | [place] [address] | + + + | Home Phone | | + + + | Preferred Language | Unknown | + + + | Marital Status | | + + + | Zoroastrian Affiliation | Unknown | + + + | Race | Unknown | + + + | Ethnic Group | Unknown | + + + Author + + + | Author | [facility] | | | and [place] | + + + | Organization | [facility] | | [...] | | | | | [place] [address] | | + + + + + Care Team Providers + +------+ + | Care Rigging Worker Name | Role | Phone | + +------+ + | Iain Rosales MD | PCP | | + +------+ + Reason for Visit +--------+ + | Reason | Comments | +--------+ + | Other | kidney lesion, chickaloon, left | +--------+ + Encounter Details +--------+---------+ + + + | Date | Type | Department | Care Team | Description | +--------+---------+ + + + | 02/06/ | Office | [facility] | Davon Perry, | Renal cell carcinoma | | 2018 | Visit | [address] | MD [address], | of left kidney | | | | [address] [place] | [address] [place] | (HCC) (Primary Dx); | | | | [place] [address] | [place] [address] | Microhematuria | | | | [phone] | [phone] | | | | | | | [...] parts of the body. Date Last Reviewed: 09/19/201619995125-4997 [employer]. [address] [place] [address], [place] [address]. All righ ts reserved. This information is [...] H/O heart artery stent; Hypertension; Kidney problem; [place] ( myocardial infarction) (HCC) (10/2016); PONV (postoperative [...] pT1a pNX. 0-M (db 02/04/18) Verified By: MAYR PRINCE, PhD Verify Date: 02/04/18 17:31 PDT Performing Location: [facility] IMPRESSION: 1. Stage Ta, Nx, Mx, [...] have not thoroughly proofread this note, and transcription typist erro rs may occur. CC: Iain Rosales [...] | | | | | [place] [address] | | | | | | [phone] | | | | | | | | +--------+---------+ + + + | 09/11/ | Office | Cardiology | Karthik Cobb, | | | 2018 | Visit | | [address] | | | | | | [place], | | | | | | [place] [address] | | | | | | [phone] | | | | | | | [...] + + + + + | Specific [place], | 1.015 | 1.001 - 1.030 | [...] + | [facility] | [address] | [place] | [phone] | | [facility] | | [address] | | | - LABORATORY | | | | + + + + + | [facility] | [address] | [place] | | | [facility] | | [address] | | | - LABORATORY | | | | + + + + + in this encounter Visit Diagnoses + + | Diagnosis | + + | Renal cell carcinoma of left kidney (HCC) - Primary | + + | Microhematuria | + + | Microscopic hematuria | + +
--- OUTSIDE RECORDS SUMMARY | ~2018-05-02 | XMS | Encounter Summary ---
Demographics + + + | Address | [address] | | | [place] [address] | + + + | Home Phone | | + + + | Preferred Language | Unknown | + + + | Marital Status | | + + + | Yarsani Affiliation | Unknown | + + + | Race | Unknown | + + + | Ethnic Group | Unknown | + + + Author + + + | Author | [facility] | | | and [place] | + + + | Organization | [facility] | | [...] | | | | | [place] [address] | | + + + + + Care Team Providers + +------+ + | Care Mulcher Operator Name | Role | Phone | + +------+ + | Iain Rosales MD | PCP | | + +------+ + Encounter Details +--------+ + + + + | Date | Type | Department | Care Team | Description | +--------+ + + + + | 01/31/ | Procedure | [facility] | | | | 2017 | Pass | [facility] | | | | | | [facility] | | | | | | [address] | | | | | | [place] | | | | | | [address] | | | | | | [phone] | | | +--------+ + + + [...] 2019 | Visit | | [address] , | | | | | | [place] | | | | | | [place] [address] | | | | | | [phone] | | | | | | | | +--------+---------+ + + + | 09/11/ | Office | Cardiology | Karthik Cobb, | | | 2018 | Visit | | MD [address] | | | | | | [address], | | | | | | [place] [address] | | | | | | [phone] | | | | | | | | +--------+---------+ + + + as of this encounter Visit Diagnoses Not on filein this encounter"
--- OUTSIDE RECORDS SUMMARY | ~2018-05-02 | XMS | Encounter Summary ---
Demographics + + + | Address | [address] | | | [place] [address] | + + + | Home Phone | | + + + | Preferred Language | Unknown | + + + | Marital Status | | + + + | Jew Affiliation | Unknown | + + + | Race | Unknown | + + + | Ethnic Group | Unknown | + + + Author + + + | Author | [facility] | | | and Patrickana | + + + | Organization | [facility] | | [...] | | | | | [place] [address] | | + + + + + Care Team Providers + +------+ + | Care Cpr Ambulance Driver Name | Role | Phone | + +------+ + | Iain Rosales MD | PCP | | + +------+ + Reason for Referral Diagnostic/Screening (Routine) + +--------+ + + + + | Status | Reason | Specialty | Diagnoses / | Referred By | Referred To | | | | | Procedures | Contact | Contact | + +--------+ + + + + | Pending | | Radiology | Diagnoses | Vicky | ADAN | | Review | | | Renal mass | Davon Valerio MD | ANANDA | | | | | Procedures | [address] [facility] | | | | | CT Abdomen | ZAIN [place]KE, | MEDICAL | | | | | w Contrast | [address] | [address] | | | | | | [place], | [place] | | | | | | [place] [address] | [place], | | | | | | Phone: | [place] [address] | | | | | | [phone] | Phone: | | | | | | Fax: | [phone] | | | | | | [phone] | Fax: | | | | | | | [phone] | + +--------+ + + + + Encounter Details +--------+ + + + + | Date | Type | Department | Care Team | Description | +--------+ + + + + | 02/10/ | Orders Only | [facility] | Davon Perry, | Renal mass (Primary | | 2018 | | [address] | MD [address], | Dx) | | | | [address] [place] | [address] [place] | | | | | [place] [address] | [place] [address] | | | | | [phone] | [phone] | | | | | | | [...] 2019 | Visit | | [address], | | | | | | [address] [place] | | | | | | [place] [address] | | | | | | [phone] | | | | | | | | +--------+---------+ + + + | 09/11/ | Office | Cardiology | Karthik Cobb, | | | 2018 | Visit | | [address] [place] | | | | | | [place], | | | | | | [place] [address] | | | | | | [phone] | | | | | | | | +--------+---------+ + + + + +--------+ + + | Name | Priori | Associated Diagnoses | Order Schedule | | | ty | | | + +--------+ + + | CT Abdomen w Contrast | Routin | Renal mass | Expected: 07/27/2018 | | | e | | (Approximate), | | | | | Expires: 02/11/2019 | + +--------+ + + | Comprehensive Metabolic Panel | Routin | Renal mass | Expected: 07/27/2018 | | | e | | (Approximate), | | | | | Expires: 02/10/2019 | + +--------+ + + as of this encounter Visit Diagnoses + + | Diagnosis | + + | Renal mass - Primary | + + | Unspecified disorder of kidney and ureter | + +"
--- OUTSIDE RECORDS SUMMARY | ~2018-05-02 | XMS | Encounter Summary ---
Demographics + + + | Address | [address] | | | [place] [address] | + + + | Home Phone | | + + + | Preferred Language | Unknown | + + + | Marital Status | | + + + | Restoration Affiliation | Unknown | + + + | Race | Unknown | + + + | Ethnic Group | Unknown | + + + Author + + + | Author | [facility] | | | and Patrickana [...] | | | | | [place] [address] | | + + + + + Care Team Providers + +------+ + | Care Patient Ombudsperson Name | Role | Phone | + [...] [place] | | | | | | [address] | | | | | | [phone] | | | +--------+ + + + [...] | | | | | | [place] [address] | | | | | | [phone] | | | | | | | | +--------+---------+ + + + | 09/11/ | Office | Cardiology | Karthik Cobb, | | | 2018 | Visit | | MD [address] | | | | | | [place], | | | | | | [place] [address] | | | | | | [phone] | | | | | | | | +--------+---------+ + + + as of this encounter Visit Diagnoses Not on filein this encounter"
--- OUTSIDE RECORDS SUMMARY | ~2018-05-02 | XMS | Encounter Summary ---
Demographics + + + | Address | [address] | | | [place] [address] | + + + | Home Phone | | + + + | Preferred Language | Unknown | + + + | Marital Status | | + + + | Yarsani Affiliation | Unknown | + + + | Race | Unknown | + + + | Ethnic Group | Unknown | + + + Author + + + | Author | [facility] | | | and Patrickana | + + + | Organization | [facility] | | [...] | | | | | [place] [address] | | + + + + + Care Team Providers + +------+ + | Care Test Tech Name | Role | Phone | + [...] | | | | [place], | [place] | | | | | | [place] [address] | [place], | | | | | | Phone: | [place] [address] | | | | | | [phone] | Phone: | | | | | | Fax: | [phone] | | | | | | [phone] | Fax: | | | | | | | [phone] | + +--------+ + + + + [...] [place] | | | | | [place] [address] | [place] [address] | | | | | [phone] | [phone] | | | | | | | [...] | | | | | | [place] [address] | | | | | | [phone] | | | | | | | | +--------+---------+ + + + | 09/11/ | Office | Cardiology | Karthik Cobb, | | | 2018 | Visit | | [address] [place] | | | | | | [place], | | | | | | [place] [address] | | | | | | [phone] | | | | | | | [...]
[~2018-05-02 07:19] MED LIST: ARIPIPRAZOLE15 MG PO; BUPROPION HCL150 MG PO; DOXYCYCLINE HY100 M3 PO; DULOXETINE HCL60 MG PO; GLIPIZIDE ER5 MG PO; HYDROCHLOROTHIA25 MG PO; INVOKANA300 MG PO; JANUMET XR 50-1 EAC1 PO; JANUVIA100 MG PO; LISINOPRIL10 MG PO; LISINOPRIL20 MG PO; METFORMIN HCL500 M1 PO; METOPROLOL SUCC50 MG PO; SIMVASTATIN20 MG PO; TRAZODONE HCL50 MG PO
--- OUTSIDE RECORDS SUMMARY | 2018-05-02 07:24 | XMS ---
PreManage Notification: [facility] [employer] Nurse Events No recent Security Events currently on file CRITERIA MET - 6 ED Visits in 6 Months - [facility] - 2 Visits in 30 Days CARE PROVIDERS Laurent Solis MD Primary Care Current PHONE: [phone] or_addie Case or Basic Sciences Dean Current PHONE: Unknown Homero has no Care Guidelines for this patient. EAnthony VISIT COUNT (12 MO.) [address] [place] [address] TOTAL 14 NOTE: Visits indicate total known visits. ED/UCC VISIT TRACKING (12 MO.) [facility]2018 [facility] COMPLAINT: - ABD PAIN,NAUSEA,VOMITING [facility]2018 [facility] DIAGNOSES: - ABD Pain - Nausea with vomiting, unspecified - Emesis - Abdominal Pain [facility]2018 [facility] DIAGNOSES: - Abdominal Pain - Cyclical vomiting, not intractable - Emesis - abd pain/V 01/24/2018 07:47 [facility] DIAGNOSES: - Abdominal Pain - Emesis - Hypertensive urgency - Malignant neoplasm of unspecified kidney, except renal pelvis - Nausea - Cannabis abuse, uncomplicated - Vomiting, unspecified - Nausea, vomiting 01/22/2018 07[facility]26 [facility] DIAGNOSES: - Upper abdominal pain, unspecified - Emesis - abd pain/vomiting 01/20/2018 09:15 [facility] DIAGNOSES: - N/V/ABDOMINAL PAIN - Unspecified abdominal pain - Emesis - Gastroparesis - Abdominal Pain 11/13/2017 22:45 [facility] DIAGNOSES: - Acute pulmonary edema - Abnormal levels of other serum enzymes - Abdominal Pain - Stomach pain,N,V - Non-ST elevation (NSTEMI) myocardial infarction - Nausea - Gastroparesis - Epigastric pain - Vomiting, unspecified - Acute respiratory failure with hypoxia 11/11/2017 07:41 [facility] DIAGNOSES: - Nausea - Generalized abdominal pain - Gastroparesis - Abdominal Pain - abd pain 11/10/2017 09:02 [facility]: [facility] DIAGNOSES: - Other chronic pain - Emesis - Abdominal Pain - Unspecified abdominal pain - vomiting - Gastritis, unspecified, without bleeding 2017 08:45 [facility]: [facility] DIAGNOSES: - Emesis - Vomiting and diarrhea - Epigastric pain - Nausea with vomiting, unspecified 10/10/2017 20:31 [facility] [place] TYPE: Emergency DIAGNOSES: - Nausea, Emesis - Vomiting, unspecified - Gastroparesis - Fever, unspecified - Vomiting (Severe) - Unspecified abdominal pain 10/10/2017 08:20 [facility] [place] TYPE: Emergency DIAGNOSES: - Vomiting (Severe) - Unspecified abdominal pain - Diarrhea (Adult) - Abdominal Pain - Abd pain, Vomiting - Vomiting, unspecified 09/13/2017 06:25 [facility] [place] TYPE: Emergency DIAGNOSES: - Vomiting/Stomach Ache - Emesis - Unspecified abdominal pain - Abdominal Pain 07/25/2017 08:[facility] DIAGNOSES: - Emesis - Abdominal Pain - Vomiting - Hyperglycemia, unspecified - Noninfective gastroenteritis and colitis, unspecified - Nausea with vomiting, unspecified - Diarrhea (Adult) INPATIENT VISIT TRACKING (12 MO.) 01/31/2018 05:53 [facility] TYPE: Surgical Services DIAGNOSES: - Other specified disorders of kidney and ureter 01/24/2018 07:47 [facility] DIAGNOSES: - Hypertensive urgency - Gastroparesis - Type 2 diabetes mellitus with ketoacidosis without coma ([facility]) - Cannabis abuse, uncomplicated - Vomiting, unspecified - Cyclical vomiting, intractable - Malignant neoplasm of unspecified kidney, except renal pelvis - Personal history of other diseases of the respiratory system - Type 2 diabetes mellitus with diabetic autonomic (poly)neuropathy - Other specified disorders of kidney and ureter 11/13/2017 22:45 [facility] TYPE: Surgical Services DIAGNOSES: - Vomiting, unspecified - Non-ST elevation (NSTEMI) myocardial infarction - Essential (primary) hypertension - Abnormal levels of other serum enzymes - Gastroparesis - Acute pulmonary edema - Acute respiratory failure with hypoxia - Epigastric pain - Hypoxemia - Bilious vomiting - 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
[2018-05-02] MEDS ORDERED: HUMALOG100 UNIT/2 SUB-Q (07:40)
[2018-05-02] MEDS ORDERED: TRESIBA FL100 UNIT/1 (07:41)
[2018-05-02] MEDS ORDERED: SYMBICORT 16010.2 GM INH (07:59)
[2018-05-02] MEDS ORDERED: ARIPIPRAZOLE10 MG PO (07:59)
[2018-05-02] MEDS ORDERED: OMEPRAZOLE40 MG PO (07:59)
[2018-05-02] MEDS ORDERED: ATORVASTATIN CA40 MG PO (08:00)
[2018-05-02] MEDS ORDERED: OZEMPIC0.25 MG/0. SQ (08:00)
[2018-05-02] MEDS ORDERED: HALOPERIDOL2 MG PO (12:03)
[2018-05-02] MEDS ORDERED: PERCOCET 5-3251 EACH PO (12:03)
[2018-05-02] MEDS ORDERED: ONDANSETRON ODT8 MG PO (12:03)
== END 2018-05-02 12:17 | disposition home or self-care (01) ==
LOC: ED 07:19
DX: R10.10 Upper abdominal pain, unspecified (principal); I10 Essential (primary) hypertension; E11.9 Type 2 diabetes mellitus without complications; Z88.2 Allergy status to sulfonamides; Z88.8 Allergy status to other drugs, medicaments and biological substances; Z79.899 Other long term (current) drug therapy
CPT/HCPCS: 80053; 81001; 83690; 85025; 96361; 96374; 96375; 99284; J1170; J1630; J2405; J7030

== ENCOUNTER 2022-01-26 09:13 | Emergency (ER) | payer OTHER, MEDICARE ==
[~2022-01-26] VITALS: Ht 162.6 cm; Wt 97.4 kg
[~2022-01-26 09:13] MED LIST changes: +ARIPIPRAZOLE10 MG PO; +ATORVASTATIN CA40 MG PO; +CEFDINIR300 MG PO; +HALOPERIDOL2 MG PO; +HUMALOG100 UNIT/2 SUB-Q; +OMEPRAZOLE40 MG PO; +ONDANSETRON ODT8 MG PO; +OZEMPIC0.25 MG/0. SQ; +PERCOCET 5-3251 EACH PO; +SYMBICORT 16010.2 GM INH; +TRESIBA FL100 UNIT/1; +VENTOLIN HFA18 GM INH
--- OUTSIDE RECORDS SUMMARY | 2022-01-26 09:16 | XMS ---
PreManage Notification: AMBAR PITTS Security Dance Hall Hostess Events No recent Security Events currently on file CRITERIA MET - [facility] - [facility] - 2 Visits in 30 Days - 6 ED Visits in 6 Months CARE PROVIDERS ASHER Thompson [facility] 05/05/2018-Current PHONE: Unknown Homero has no Care Guidelines for this patient. Fabi VISIT COUNT (12 MO.) [address] [place] [address] Nicole Jordan [address] [place] [address] TOTAL 9 NOTE: Visits indicate total known visits. ED/UCC VISIT TRACKING (12 MO.) 01/26/2022 09:13 DONNA Vincent TYPE: Emergency COMPLAINT: - ABD PAIN 01/24/2022 21:10 DONNA Vincent TYPE: Emergency COMPLAINT: - VOMITING DIAGNOSES: - Epigastric pain - Fibromyalgia - Essential (primary) hypertension - Other fdc (current) drug therapy - intermediate frame tender (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 of insulin - Allergy status to other drugs, medicaments and biological substances - Tubulo-interstitial nephritis, not specified as acute or chronic - Allergy status to sulfonamides - Presence of coronary angioplasty implant and graft - Type 2 diabetes mellitus without complications 01/24/2022 14:42 [facility] Nicole NELSON TYPE: Emergency DIAGNOSES: - vomiting, abd pain - Emesis [facility]/05/2022 10[facility] DIAGNOSES: - Headache (Adult - New Onset Or New Symptoms) - Headache, unspecified 12/27/2021 20:45 [facility] DIAGNOSES: - Cough, unspecified - Extreme SOB - Generalized Body Aches - Cough - Other muscle spasm - Pain, unspecified 12/10/2021 14:23 [facility] DIAGNOSES: - Unspecified injury of right hip, initial encounter - Hip Pain 08/22/2021 13:45 [facility] DIAGNOSES: - Acute right heart failure - Acute respiratory failure with hypoxia - Leg Swelling - Chronic obstructive pulmonary disease, unspecified - swollen legs 07/19/2021 09:44 [facility] [place] TYPE: Emergency DIAGNOSES: - Acute on chronic diastolic (congestive) heart failure - Chronic obstructive pulmonary disease, unspecified - Heart failure, unspecified - Obstructive sleep apnea (adult) (pediatric) - Chest Pain - Pure hypercholesterolemia, unspecified - Gastro-esophageal reflux disease without esophagitis - Essential (primary) hypertension - Respiratory failure, unspecified, unspecified whether with hypoxia or hypercapnia - leg swelling, cardiac pt - Morbid (severe) obesity due to excess calories - Acute and chronic respiratory failure with hypoxia 07/13/2021 15:39 [facility] [place] TYPE: Emergency DIAGNOSES: - Heart failure, unspecified - SOB, legs swollen, feeling dizzy - Leg Swelling - Shortness of Breath INPATIENT VISIT TRACKING (12 MO.) 08[facility]21 [facility] DIAGNOSES: - Acute on chronic diastolic (congestive) heart failure - Acute right heart failure - Obstructive sleep apnea (adult) (pediatric) - Acute respiratory failure with hypercapnia - Acute respiratory failure with hypoxia - Chronic obstructive pulmonary disease, unspecified 07/19/2021 09:44 [facility] [place] TYPE: Medical Surgical DIAGNOSES: - Morbid (severe) obesity due to excess calories - Acute on chronic diastolic (congestive) heart failure - Heart failure, unspecified - Respiratory failure, unspecified, unspecified whether with hypoxia or hypercapnia - Chronic obstructive pulmonary disease, unspecified - Other dysphagia - Opioid dependence, uncomplicated - Obstructive sleep apnea (adult) (pediatric) - Acute and chronic respiratory failure with hypoxia - Gastro-esophageal reflux disease without esophagitis - Dysphagia, unspecified - Pure hypercholesterolemia, unspecified - Essential (primary) hypertension [email or web address]
[2022-01-26] MEDS ORDERED: PREDNISONE20 MG PO (14:10)
== END 2022-01-26 14:10 | disposition short-term general hospital (02) ==
LOC: ED 09:13
DX: U07.1 COVID-19 (principal); T50.Z15A Adverse effect of immunoglobulin, initial encounter; E11.9 Type 2 diabetes mellitus without complications; I10 Essential (primary) hypertension; J44.9 Chronic obstructive pulmonary disease, unspecified; M19.90 Unspecified osteoarthritis, unspecified site; Z88.2 Allergy status to sulfonamides; Z88.8 Allergy status to other drugs, medicaments and biological substances; Z23 Encounter for immunization; Z79.899 Other long term (current) drug therapy; Z79.4 Long term (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 of insulin
CPT/HCPCS: 36415; 80053; 81001; 83690; 85025; 87502; 94640; 96374; 96375; 99285-25; 99406; A9270; J1200; J1885; J2405; J2930; U0003

== ENCOUNTER 2022-01-29 07:27 | Emergency (ER) | payer OTHER, MEDICARE ==
[~2022-01-29] VITALS: Ht 162.6 cm; Wt 97.4 kg
[~2022-01-29 07:27] MED LIST changes: +PREDNISONE20 MG PO
--- OUTSIDE RECORDS SUMMARY | 2022-01-29 07:32 | XMS ---
PreManage Notification: AMBAR PITTS Security Supervisor Spring Up Events No recent Security Events currently on file CRITERIA MET - [facility] - 2 Visits in 30 Days - PDMP - 6 ED Visits in 6 Months CARE PROVIDERS АННА Internal Medicine [facility] ANIKET PHONE: [phone] ASHER Thompson [facility] 05/05/2018-Current PHONE: Unknown Homero has no Care Guidelines for this patient. Fabi VISIT COUNT (12 MO.) [address] [place], [place] [address] TOTAL 10 NOTE: Visits indicate total known visits. ED/UCC VISIT TRACKING (12 MO.) 01/29/2022 07:28 DONNA José [place] TYPE: Emergency COMPLAINT: - ABD PAIN, HEADEACHEDONNELL/Pavan 01/26/2022 09:13 DONNA José [place] TYPE: Emergency COMPLAINT: - ABD PAIN 01/24/2022 21:[address] [facility] [place] TYPE: Emergency COMPLAINT: - VOMITING DIAGNOSES: - Epigastric pain - Fibromyalgia - Essential (primary) hypertension - Other long-term (current) drug therapy - long term care administrator (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 of insulin - Allergy status to other drugs, medicaments and biological substances - Tubulo-interstitial nephritis, not specified as acute or chronic - Allergy status to sulfonamides - Presence of coronary angioplasty implant and graft - Type 2 diabetes mellitus without complications 01/24/2022 14:42 [facility] [place] TYPE: Emergency DIAGNOSES: - vomiting, abd pain - Emesis 01/05/2022 10:19 [facility] [place] TYPE: Emergency DIAGNOSES: - Headache (Adult - New Onset Or New Symptoms) - Headache, unspecified 12/27/2021 20:45 [facility] [place] TYPE: Emergency DIAGNOSES: - Cough, unspecified - Extreme SOB - Generalized Body Aches - Cough - Other muscle spasm - Pain, unspecified 12[facility]10/2021 [facility] DIAGNOSES: - Unspecified injury of right hip, initial encounter - Hip Pain 08/22/2021 13:[facility] DIAGNOSES: - Acute right heart failure - Acute respiratory failure with hypoxia - Leg Swelling - Chronic obstructive pulmonary disease, unspecified - swollen legs 07/19/2021 09:44 [facility] DIAGNOSES: - Acute on [...] chronic respiratory failure with hypoxia 07/13/2021 15:39 [facility] DIAGNOSES: - Heart failure, unspecified - SOB, legs swollen, feeling dizzy - Leg Swelling - Shortness of Breath INPATIENT VISIT TRACKING (12 MO.) 08/22/2021 13:[facility] DIAGNOSES: - Acute on chronic diastolic (congestive) heart failure - Acute right heart failure - Obstructive sleep apnea (adult) (pediatric) - Acute respiratory failure with hypercapnia - Acute respiratory failure with hypoxia - Chronic obstructive pulmonary disease, unspecified 07/19/2021 09:44 [facility] DIAGNOSES: - Morbid [...] Pure hypercholesterolemia, unspecified - Essential (primary) hypertension [email or web address]
[2022-01-29] MEDS ORDERED: PROMETHEGAN25 MG PR (11:13)
[2022-01-29] MEDS ORDERED: PRILOSEC OTC20 MG PO (11:13)
[2022-01-29] MEDS ORDERED: ACETAMINOPHEN-1 EAC1 PO (11:13)
[2022-01-29] MEDS ORDERED: REGLAN10 MG PO (11:13)
== END 2022-01-29 11:40 | disposition home or self-care (01) ==
LOC: ED 07:27
DX: U07.1 COVID-19 (principal); R10.13 Epigastric pain; E11.9 Type 2 diabetes mellitus without complications; J44.9 Chronic obstructive pulmonary disease, unspecified; I11.0 Hypertensive heart disease with heart failure; I50.9 Heart failure, unspecified; M19.90 Unspecified osteoarthritis, unspecified site; G47.30 Sleep apnea, unspecified; Z88.2 Allergy status to sulfonamides; Z88.8 Allergy status to other drugs, medicaments and biological substances; Z79.52 Long term (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 of systemic steroids; Z79.899 Other long term (current) drug therapy; Z79.4 Long term (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 of insulin
CPT/HCPCS: 36415; 74018; 80053; 81001; 83690; 83735; 85025; 96361; 96374; 96375; 99284-25; J1170; J1885; J2765; J7030

== ENCOUNTER 2024-02-27 13:48 | Emergency (ER) | payer OTHER, MEDICARE ==
[~2024-02-27] VITALS: Ht 162.6 cm; Wt 108.5 kg
--- OUTSIDE RECORDS SUMMARY | ~2024-02-27 | XMS | Continuity of Care Document ---
Demographics + + + | Address | [address] | | | [place] [address] | + + + | Preferred Language | Unknown | + + + | Marital Status | | + + + | Sabianism Affiliation | Unknown | + + + | Race | White | + + + | Ethnic Group | Not or | + + + Author + + + | Author | [facility] | + + + | Organization | [facility] | + + + | Address | [address] | | | [place] [address] | + + + | Phone | | + + + Care Team Providers + + + + | Care Resource Teacher Name | Role | Phone | [...]
[~2024-02-27 13:48] MED LIST changes: +ACETAMINOPHEN-1 EAC1 PO; +PRILOSEC OTC20 MG PO; +PROMETHEGAN25 MG PR; +REGLAN10 MG PO
--- OUTSIDE RECORDS SUMMARY | 2024-02-27 13:49 | XMS ---
PreManage Notification: AMBAR PITTS Security Trust Manager Assistant Events No recent Security Events currently on file CRITERIA MET - 6 ED Visits in 6 Months - [facility] - 2 Visits in 30 Days CARE PROVIDERS ASHER Thompson [facility] 05/05/2018-Current PHONE: Unknown EL GALILEA Internal [facility] Current PHONE: [phone] Homero has no Care Guidelines for this patient. E.D. VISIT COUNT (12 MO.) 6 [facility] Nicole Jordan ([place]) [address] [place] [address] TOTAL 7 NOTE: Visits indicate total known visits. ED/[facility] VISIT TRACKING (12 MO.) 02/27/2024 13:48 DONNA José [place] TYPE: Emergency COMPLAINT: - DIFFICULTY BREATHING 02/23/2024 11:49 [facility] Nikki NELSON ([place]) TYPE: Emergency DIAGNOSES: - Fracture of unspecified phalanx of unspecified finger, initial encounter for closed fracture - Strain of muscle, fascia and tendon at neck level, initial encounter - Unspecified injury of head, initial encounter - Fall - fall [facility]24 [facility] DIAGNOSES: - Pain in left hip - Pain in right hip - Strain of muscle and tendon of unspecified wall of thorax, initial encounter - Rib Pain - Shortness of Breath - sob, back pain, poss cracked rib 02/13/2024 04:06 [facility] [place] ([place]) TYPE: Emergency DIAGNOSES: - Dysuria - Unspecified abdominal pain - back pain 12/19/2023 16[facility]43 [facility] Emergency DIAGNOSES: - Cervicalgia - Chronic pain syndrome - Dizziness and giddiness - Other peripheral vertigo, unspecified ear - Dizziness - Neck Pain 12/10/2023 10:25 [facility] [place]SON ([place]) TYPE: Emergency DIAGNOSES: - Acute on chronic diastolic (congestive) heart failure - Chronic obstructive pulmonary disease with (acute) exacerbation - Hypoxemia - Pneumonia, unspecified organism - Tension-type headache, unspecified, not intractable - Dizziness - Headache (Adult - New Onset Or New Symptoms) - Shortness of Breath - sob 03/08/2023 05:[facility] Emergency DIAGNOSES: - Acute cystitis without hematuria - Other symptoms and signs involving the genitourinary system - poss bladder infection - Urinary Frequency - Urinary Pain INPATIENT VISIT TRACKING (12 MO.) 12/10/2023 10:25 [facility] [place]ELSON ([place]) TYPE: Medical Surgical DIAGNOSES: - Acute and chronic respiratory failure with hypoxia - Acute on chronic diastolic (congestive) heart failure - Body mass index [BMI] 40.0-44.9, adult - Chronic obstructive pulmonary disease with (acute) exacerbation - Chronic pain syndrome - Headache, unspecified - Hypoxemia - terminal block assembler (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 of insulin - Morbid (severe) obesity due to excess calories - Pneumonia, unspecified organism - Tension-type headache, unspecified, not intractable - Type 2 diabetes mellitus with hyperglycemia [email or web address]
[2024-02-27] MEDS ORDERED: KETOROLAC TROMETHAMINE 30 MG/ML VIAL IM ONE (14:45)
[2024-02-27] MEDS ORDERED: METHYLPREDNISOLO4 M1 PO (17:25)
[2024-02-27 17:40] VITALS: BP 122/68
== END 2024-02-27 17:36 | disposition home or self-care (01) ==
LOC: ED 13:48
DX: M54.50 Low back pain, unspecified (principal); E11.9 Type 2 diabetes mellitus without complications; I11.9 Hypertensive heart disease without heart failure; I50.9 Heart failure, unspecified; J44.9 Chronic obstructive pulmonary disease, unspecified; G47.30 Sleep apnea, unspecified; Z79.4 Long term (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 of insulin; Z79.51 Long term (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 of inhaled steroids; Z79.52 Long term (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 of systemic steroids; Z79.899 Other long term (current) drug therapy; Z88.2 Allergy status to sulfonamides; Z88.8 Allergy status to other drugs, medicaments and biological substances
CPT/HCPCS: 71045; 96372; 99283-25; J1885

== ENCOUNTER 2024-03-29 15:30 | Emergency (ER) | payer OTHER, MEDICARE ==
[~2024-03-29] VITALS: Ht 162.6 cm; Wt 113.9 kg
--- OUTSIDE RECORDS SUMMARY | ~2024-03-29 | XMS | Continuity of Care Document ---
Demographics + + + | Address | [address] | | | [place] [address] | + + + | Preferred Language | Unknown | + + + | Marital Status | | + + + | Caodaism Affiliation | Unknown | + + + | Race | White | + + + | Ethnic Group | Not or | + + + Author + + + | Author | [facility] | + + + | Organization | [facility] | + + + | Address | [address] | | | [place] [address] | + + + | Phone | | + + + Care Team Providers + + + + | Care Chemistry Teacher Name | Role | Phone | + + + + Unavailable | Unavailable | + + + + Allergies No information. Encounters No information. Functional Status No information. Immunizations No information. Medications No information. Problems + + + + | date | description | facility | + + + + | 2023-12-30 21:09:06 | Post-traumatic stress | [facility] | | | disorder, unspecified | | + + + + | 2023-12-30 21:09:06 | Chronic pain syndrome | [facility] | + + + + Procedures No information. Results/Labs No information. Social History +--------+ + + | date | description | facility | +--------+ + + Vital Signs No information."
[~2024-03-29 15:30] MED LIST changes: +METHYLPREDNISOLO4 M1 PO
[2024-03-29] MEDS ORDERED: HYDROMORPHONE HC2 MG PO (15:44)
[2024-03-29] MEDS ORDERED: GABAPENTIN800 MG PO (15:45)
[2024-03-29] MEDS ORDERED: TOPIRAMATE50 MG PO (15:45)
[2024-03-29] MEDS ORDERED: TOLTERODINE TART4 MG PO (15:45)
--- OUTSIDE RECORDS SUMMARY | 2024-03-29 15:57 | XMS ---
PreManage Notification: AMBAR PITTS Security Bridge Instructor Events No recent Security Events currently on file CRITERIA MET - 6 ED Visits in 6 Months - [facility] - 2 Visits in 30 Days CARE PROVIDERS ASHER Thompson [facility] 05/05/2018-Current PHONE: Unknown EL GALILEA Internal [facility] Current PHONE: [phone] Homero has no Care Guidelines for this patient. E.D. VISIT COUNT (12 MO.) [address] [place] [address] Nicole Jordan ([place]) [address] [place] [address] TOTAL 9 NOTE: Visits indicate total known visits. ED/UCC VISIT TRACKING (12 MO.) 03/29/2024 15:30 [facility] [place] [facility]: Emergency COMPLAINT: - ARM PAIN 03/22/2024 11:19 [facility] Nikki NELSON ([place]) TYPE: Emergency DIAGNOSES: - Postconcussional syndrome - fall - Shoulder Pain 03/12/2024 15:21 [facility] [place]ELSON ([place]) TYPE: Emergency DIAGNOSES: - Dizziness and giddiness - Postconcussional syndrome - Followup Medical Problem - head injury follow up? 02/27/2024 13:[address] [facility] [place] TYPE: Emergency COMPLAINT: - DIFFICULTY BREATHING DIAGNOSES: - Allergy status to other drugs, medicaments and biological substances - Allergy status to sulfonamides - Chronic obstructive pulmonary disease, unspecified - Heart failure, unspecified - Hypertensive heart disease without heart failure - shell assembler (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 of inhaled steroids - jail (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 of insulin - jail (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 of systemic steroids - Low back pain, unspecified - Other long-term (current) drug therapy - Sleep apnea, unspecified - Type 2 diabetes mellitus without complications 02/23/2024 11:49 [facility] [place]SON ([place]) TYPE: Emergency DIAGNOSES: - Fracture of unspecified phalanx of unspecified finger, initial encounter for closed fracture - Strain of muscle, fascia and tendon at neck level, initial encounter - Unspecified injury of head, initial encounter - Fall - fall from 02/21/2024 07:58 [facility] [place]ELSON ([place]) TYPE: Emergency DIAGNOSES: - Pain in left hip - Pain in right hip - Strain of muscle and tendon of unspecified wall of thorax, initial encounter - Rib Pain - Shortness of Breath - sob, back pain, poss cracked rib [facility]24 [facility]: [facility] DIAGNOSES: - Dysuria - Unspecified abdominal pain - back pain 12/19/2023 16[facility]43 [facility]: Emergency DIAGNOSES: - Cervicalgia - Chronic pain syndrome - Dizziness and giddiness - Other peripheral vertigo, unspecified ear - Dizziness - Neck Pain 12/10/2023 10:25 [facility] [place]SON ([place]) TYPE: Emergency DIAGNOSES: - Acute on chronic diastolic (congestive) heart failure - Chronic obstructive pulmonary disease with (acute) exacerbation - Hypoxemia - Pneumonia, unspecified organism - Tension-type headache, unspecified, not intractable - Dizziness - Headache (Adult - New Onset Or New Symptoms) - Shortness of Breath - sob INPATIENT VISIT TRACKING (12 MO.) 12/10/2023 10:25 [facility] [place] NELSON ([place]) TYPE: Medical Surgical DIAGNOSES: - Acute and chronic respiratory failure with hypoxia - Acute on chronic diastolic (congestive) heart failure - Body mass index [BMI] 40.0-44.9, adult - Chronic obstructive pulmonary disease with (acute) exacerbation - Chronic pain syndrome - Headache, unspecified - Hypoxemia - shell assembler (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
[2024-03-29] MEDS ORDERED: CYCLOBENZAPRINE HCL 10 MG TAB PO ONE (16:00)
[2024-03-29] MEDS ORDERED: KETOROLAC TROMETHAMINE 30 MG/ML VIAL IM ONE (16:00)
[2024-03-29 16:38] VITALS: BP 135/70
== END 2024-03-29 16:38 | disposition home or self-care (01) ==
LOC: ED 15:30
DX: M25.512 Pain in left shoulder (principal); I11.0 Hypertensive heart disease with heart failure; I50.9 Heart failure, unspecified; J44.9 Chronic obstructive pulmonary disease, unspecified; E11.9 Type 2 diabetes mellitus without complications; Z88.2 Allergy status to sulfonamides; Z88.8 Allergy status to other drugs, medicaments and biological substances; Z79.899 Other long term (current) drug therapy
CPT/HCPCS: 73030; J1885

== ENCOUNTER 2024-07-13 19:35 | Emergency (ER) | payer OTHER, MEDICARE ==
[~2024-07-13] VITALS: Ht 162.6 cm; Wt 118.9 kg
[~2024-07-13 19:35] MED LIST changes: +GABAPENTIN800 MG PO; +HYDROMORPHONE HC2 MG PO; +TOLTERODINE TART4 MG PO; +TOPIRAMATE50 MG PO
--- OUTSIDE RECORDS SUMMARY | 2024-07-13 19:42 | XMS ---
PreManage Notification: AMBAR PITTS Security Inspector Clip On Sunglasses Events No recent Security Events currently on file CRITERIA MET - 6 ED Visits in 6 Months - [facility] - 2 Visits in 30 Days CARE PROVIDERS ASHER Thompson [facility] 05/05/2018-Current PHONE: Unknown EL GALILEA Internal [facility] Current PHONE: [phone] Homero has no Care Guidelines for this patient. EAnthony VISIT COUNT (12 MO.) [address] [place] [address] Nicole Jordan (Flaquita Sams[address] TOTAL 13 NOTE: Visits indicate total known visits. ED/UCC VISIT TRACKING (12 MO.) 07/13/2024 19:36 DONNA Vincent TYPE: Emergency COMPLAINT: - WEAKNESS [facility]Fla[facility]ita Sams[facility]: Emergency DIAGNOSES: - Acute bronchitis, unspecified - Chronic obstructive pulmonary disease with (acute) lower respiratory infection - Fall on same level from slipping, tripping and stumbling without subsequent striking against object, initial encounter - Low back pain, unspecified - HBP, fall, back pain - Shortness of Breath 04/17/2024 16:[address] [facility] Flaquita Sams O[place] (Flaquita Sams) TYPE: Emergency DIAGNOSES: - Concussion without loss of consciousness, initial encounter - Postconcussional syndrome - head pain - Headache (Adult - Re-evaluation) 04/01/2024 20:[address] [facility] [place] TYPE: Emergency DIAGNOSES: - Postconcussional syndrome - Headache (Adult - Re-evaluation) - Shortness of Breath - sob, dizzy 03/29/2024 15:30 DONNA José [place] TYPE: Emergency COMPLAINT: - ARM PAIN DIAGNOSES: - Allergy status to other drugs, medicaments and biological substances - Allergy status to sulfonamides - Chronic obstructive pulmonary disease, unspecified - Heart failure, unspecified - Hypertensive heart disease with heart failure - Other senior care (current) drug therapy - Pain in left shoulder - Type 2 diabetes mellitus without complications 03/22/2024 11:[address] [facility] Flaquita Sams [place] (Flaquita Sams) TYPE: Emergency DIAGNOSES: - Postconcussional syndrome - fall - Shoulder Pain 03/12/2024 15:[address] [facility] [place] (Flaquita Sams) TYPE: Emergency DIAGNOSES: - Dizziness and giddiness - Postconcussional syndrome - Followup Medical Problem - head injury follow up? 02/27/2024 13:48 DONNA José [place] TYPE: Emergency COMPLAINT: - DIFFICULTY BREATHING DIAGNOSES: - Allergy status to other drugs, medicaments and biological substances - Allergy status to sulfonamides - Chronic obstructive pulmonary disease, unspecified - Heart failure, unspecified - Hypertensive heart disease without heart failure - halfway (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 of inhaled steroids - termite inspector (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 of insulin - termite inspector (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 of systemic steroids - Low back pain, unspecified - Other moth exterminator (current) drug therapy - Sleep apnea, unspecified - Type 2 diabetes mellitus without complications 02/23/2024 11:[address] [facility] [place]ita NELSON ([place]) TYPE: Emergency DIAGNOSES: - Fracture of unspecified phalanx of unspecified finger, initial encounter for closed fracture - Strain of muscle, fascia and tendon at neck level, initial encounter - Unspecified injury of head, initial encounter - Fall - fall from 02/21[facility]2024 07[facility] TYPE: Emergency DIAGNOSES: - Pain in left hip - Pain in right hip - Strain of muscle and tendon of unspecified wall of thorax, initial encounter - Rib Pain - Shortness of Breath - sob, back pain, poss cracked rib 02/13/2024 04:06 [facility] TYPE: Emergency DIAGNOSES: - Dysuria - Unspecified abdominal pain - back pain 12/19/2023 16:[address] [facility] Flaquita NELSON ([place]) TYPE: Emergency DIAGNOSES: - Cervicalgia - Chronic pain syndrome - Dizziness and giddiness - Other peripheral vertigo, unspecified ear - Dizziness - Neck Pain 12/10/2023 10:[address] [facility] [place] NELSON (Flaquita Sams) TYPE: Emergency DIAGNOSES: - Acute on chronic diastolic (congestive) heart failure - Chronic obstructive pulmonary disease with (acute) exacerbation - Hypoxemia - Pneumonia, unspecified organism - Tension-type headache, unspecified, not intractable - Dizziness - Headache (Adult - New Onset Or New Symptoms) - Shortness of Breath - sob INPATIENT VISIT TRACKING (12 MO.) 12/10/2023 10:[address] 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
[2024-07-13] MEDS ORDERED: HYDROXYCHLOROQ200 MG (19:57)
[2024-07-13] MEDS ORDERED: LISINOPRIL-HCT1 EAC2 (19:57)
[2024-07-13 20:18] LABS: BASOPHILS 0.9 % (0-2); EOSINOPHILS 1.4 % (0-6); HEMATOCRIT 42.2 % (35.0-50.0); HEMOGLOBIN 14.3 g/dL (12.0-18.0); LYMPHOCYTES 39.9 % (24-44); MCV 100.1 fl (81-99); NEUTROPHILS 50.8 % (39-80); PLATELET COUNT 108 K/uL (140-440); RBC 4.21 M/ul (4.3-5.7); RDW 14.6 (10.5-15.0)
[2024-07-13 20:39] LABS: ALBUMIN 3.3 g/dL (3.4-5.0); ALBUMIN/GLOBULIN RATIO 0.94 (1.1-2.4); ALCOHOL, MEDICAL <3 ng/dL (<3); ALKALINE PHOSPHATASE 116 U/L (46-116); ALT (SGPT) 73 U/L (14-59); ANION GAP 15.1 (7-21); AST (SGOT) 37 U/L (15-37); BILIRUBIN, TOTAL 0.4 ng/dL (0.2-1.0); BUN/CREATININE RATIO 13.33 (6.0-28.6); CALCIUM 8.7 mg/dL (8.5-10.1); CARBON DIOXIDE 28 mmol/L (21-32); CHLORIDE 102 mmol/L (98-107); GLOMERULAR FILTRATION RATE,EST 73 mL/min (>60); MAGNESIUM 1.6 mg/dL (1.8-2.4); PHOSPHORUS, INORGANIC 4.3 mg/dL (2.5-4.9); POTASSIUM 4.1 mmol/L (3.5-5.1); PROTEIN, TOTAL 6.8 g/dL (6.4-8.2); UREA NITROGEN 12 mg/dL (7-18)
[2024-07-13 20:50] LABS: BILIRUBIN, URINE NEGATIVE (negative); BLOOD/HGB, URINE NEGATIVE (Negative); KETONE, URINE NEGATIVE (Negative); LEUK ESTERASE, URINE NEGATIVE (negative); NITRITE, URINE NEGATIVE (negative); PH, URINE 6.5 (5-7)
[2024-07-13 21:10] LABS: INFLUENZA B NAA NEGATIVE (NEGATIVE); RESPIRATORY SYNCYTIAL VIR NAA NEGATIVE (NEGATIVE)
[2024-07-13] MEDS ORDERED: MAGNESIUM OXID400 M1 PO (21:22)
[2024-07-13] MEDS ORDERED: MAGNESIUM OXIDE 400 MG TABLET PO ONE (21:30)
[2024-07-13 21:41] LABS: AMPHETAMINES, UR NEGATIVE (NEGATIVE); BARBITURATES, UR NEGATIVE (NEGATIVE); BENZODIAZEPINES, UR NEGATIVE (NEGATIVE); BUPRENORPHINE,UR NEGATIVE (NEGATIVE); COCAINE, UR NEGATIVE (NEGATIVE); MARIJUANA (THC), UR POSITIVE (NEGATIVE); MDMA, UR NEGATIVE (NEGATIVE); OXYCODONE, UR NEGATIVE (NEGATIVE); PHENCYCLIDINE, UR NEGATIVE (NEGATIVE); TRICYCLIC ANTIDEPRESSANT, UR NEGATIVE (NEGATIVE)
[2024-07-13 21:42] LABS: METHADONE, UR NEGATIVE (NEGATIVE); METHAMPHETAMINE, UR NEGATIVE (NEGATIVE); OPIATES, UR NEGATIVE (NEGATIVE)
[2024-07-13 21:57] VITALS: BP 144/80
--- NOTE | 2024-07-14 22:54 | EKG ---
[facility] [address] [place] [address] Signed Normal sinus rhythm Normal ECG No previous ECGs available Confirmed by Dustin Rueda MD () on 07/14/2024 10:54:05 PM Electronically Signed By: DUSTIN RUEDA MD 07/14/24 2254 PATIENT NAME: AMBAR PITTS PETER Electrocardiogram DATE OF : 64 PHYSICIAN: DUSTIN RUEDA MD REPORT #: [id number] REPORT IS CONFIDENTIAL AND NOT TO BE RELEASED WITHOUT AUTHORIZATION
== END 2024-07-13 22:03 | disposition home or self-care (01) ==
LOC: ED 19:35
PROVIDERS: Internal Medicine
DX: E83.42 Hypomagnesemia (principal); I11.0 Hypertensive heart disease with heart failure; I50.9 Heart failure, unspecified; I25.2 Old myocardial infarction; E11.9 Type 2 diabetes mellitus without complications; J44.9 Chronic obstructive pulmonary disease, unspecified; M79.7 Fibromyalgia; G47.30 Sleep apnea, unspecified; Z95.5 Presence of coronary angioplasty implant and graft; Z88.3 Allergy status to other anti-infective agents; Z88.2 Allergy status to sulfonamides; Z88.8 Allergy status to other drugs, medicaments and biological substances; Z79.51 Long term (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 of inhaled steroids; Z79.4 Long term (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 of insulin; Z79.899 Other long term (current) drug therapy
CPT/HCPCS: 36415; 71045; 80053; 80307; 81003; 83735; 83880; 84100; 84484; 85025; 85379; 87502; 93005; 93010; 99285-25; G0480; U0002

== ENCOUNTER 2024-10-16 10:11 | Emergency (ER) | payer OTHER, MEDICARE ==
[~2024-10-16] VITALS: Ht 162.6 cm; Wt 113.9 kg
[~2024-10-16 10:11] MED LIST changes: +HYDROXYCHLOROQ200 MG; +LISINOPRIL-HCT1 EAC2; +MAGNESIUM OXID400 M1 PO
--- OUTSIDE RECORDS SUMMARY | 2024-10-16 10:16 | XMS ---
PreManage Notification: AMBAR PITTS Security Derrick Operator Events No recent Security Events currently on file CRITERIA MET - 6 ED Visits in 6 Months CARE PROVIDERS ASHER Thompson [facility] 05/05/2018-Current PHONE: Unknown GALILEA GALLEGOS Internal Medicine Current PHONE: [phone] Homero has no Care Guidelines for this patient. Fabi VISIT COUNT (12 MO.) 14 [facility] Nicole Jordan (Flaquita Sams) [facility] TOTAL 18 NOTE: Visits indicate total known visits. ED/UCC VISIT TRACKING (12 MO.) 10/16/2024 10:11 [facility] [place] [facility]: [facility] COMPLAINT: - BACK PAIN 08/31/[facility]24 [facility]Fla[facility]ita [facility] TYPE: Emergency DIAGNOSES: - Acute respiratory failure with hypoxia - Chronic obstructive pulmonary disease with (acute) exacerbation - Influenza due to other identified influenza virus with other respiratory manifestations - Pneumonia, unspecified organism - cough, SOB, dizzy - Flu Like Symptoms 08/16/2024 09[facility] [place] (Flaquita Sams) TYPE: Emergency DIAGNOSES: - Chronic obstructive pulmonary disease, unspecified - Dependence on supplemental oxygen - Gastro-esophageal reflux disease with esophagitis, without bleeding - Parkinson's disease without dyskinesia, without mention of fluctuations - Unspecified abdominal pain - abd pain, vomiting - Abdominal Pain 08/14/2024 07:11 [facility] [place] (Flaquita Sams) TYPE: Emergency DIAGNOSES: - Epigastric pain - Nausea with vomiting, unspecified - Nausea with vomiting, unspecified - Pure hypercholesterolemia, unspecified - abd pain, N/V - Chest Pain - Emesis 07/29/2024 18:[facility] [place] (Flaquita Sams) TYPE: Emergency DIAGNOSES: - Cervicalgia - Chest pain, unspecified - Dizziness and giddiness - Other complicated headache syndrome - Chest Pain - Weakness 07/13/2024 19:[address] [facility] [place] TYPE: Emergency COMPLAINT: - WEAKNESS DIAGNOSES: - Allergy status to other anti-infective agents - Allergy status to other drugs, medicaments and biological substances - Allergy status to sulfonamides - Chronic obstructive pulmonary disease, unspecified - Fibromyalgia - Heart failure, unspecified - Hypertensive heart disease with heart failure - Hypomagnesemia - mark up designer (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 of inhaled steroids - mark up designer (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 of insulin - Old myocardial infarction - Other cloth stock sorter (current) drug therapy - Presence of coronary angioplasty implant and graft - Sleep apnea, unspecified - Type 2 diabetes mellitus without complications - Weakness 06/17/2024 08:00 [facility] Flaquita NELSON ([place]) TYPE: Emergency DIAGNOSES: - Acute bronchitis, unspecified - Chronic obstructive pulmonary disease with (acute) lower respiratory infection - Fall on same level from slipping, tripping and stumbling without subsequent striking against object, initial encounter - Low back pain, unspecified - HBP, fall, back pain - Shortness of Breath 04/17/2024 16:[facility] TYPE: Emergency DIAGNOSES: - Concussion without loss of consciousness, initial encounter - Postconcussional syndrome - head pain - Headache (Adult - Re-evaluation) 04/01/2024 20:24 [facility] [place] NELSON (Flaquita Sams) TYPE: Emergency DIAGNOSES: - Postconcussional syndrome - Headache (Adult - Re-evaluation) - Shortness of Breath - sob, dizzy 03/29/2024 15:30 [facility] [place] TYPE: Emergency COMPLAINT: - ARM PAIN DIAGNOSES: - Allergy status to other drugs, medicaments and biological substances - Allergy status to sulfonamides - Chronic obstructive pulmonary disease, unspecified - Heart failure, unspecified - Hypertensive heart disease with heart failure - Other senior care (current) drug therapy - Pain in left shoulder - Type 2 diabetes mellitus without complications 03/22/2024 11:19 [facility] Flaquita NELSON ([place]) TYPE: Emergency DIAGNOSES: - Postconcussional syndrome - fall - Shoulder Pain 03/12/2024 15:21 [facility] Flaquita NELSON ([place]) TYPE: Emergency DIAGNOSES: - Dizziness and giddiness - Postconcussional syndrome - Followup Medical Problem - head injury follow up? 02/27/2024 13:48 [facility] [place] TYPE: Emergency COMPLAINT: - DIFFICULTY BREATHING DIAGNOSES: - Allergy status to other drugs, medicaments and biological substances - Allergy status to sulfonamides - Chronic obstructive pulmonary disease, unspecified - Heart failure, unspecified - Hypertensive heart disease without heart failure - mark up designer (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 of inhaled steroids - correction (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 of insulin - correction (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 of systemic steroids - Low back pain, unspecified - Other senior care (current) drug therapy - Sleep apnea, unspecified - Type 2 diabetes mellitus without complications 02/23/2024 11:49 [facility] Flaquita NELSON ([place]) TYPE: Emergency DIAGNOSES: - Fracture of unspecified phalanx of unspecified finger, initial encounter for closed fracture - Strain of muscle, fascia and tendon at neck level, initial encounter - Unspecified injury of head, initial encounter - Fall - fall from 02/21/2024 07:58 [facility] Flaquita NELSON (Flaquita Sams) TYPE: Emergency DIAGNOSES: - Pain in left hip - Pain in right hip - Strain of muscle and tendon of unspecified wall of thorax, initial encounter - Rib Pain - Shortness of Breath - sob, back pain, poss cracked rib 02/13/2024 04:06 [facility] TYPE: Emergency DIAGNOSES: - Dysuria - Unspecified abdominal pain - back pain 12/19/2023 16:[facility] TYPE: Emergency DIAGNOSES: - Cervicalgia - Chronic pain syndrome - Dizziness and giddiness - Other peripheral vertigo, unspecified ear - Dizziness - Neck Pain 12/10/2023 10:25 [facility] Flaquita NELSON ([place]) TYPE: Emergency DIAGNOSES: - Acute on chronic diastolic (congestive) heart failure - Chronic obstructive pulmonary disease with (acute) exacerbation - Hypoxemia - Pneumonia, unspecified organism - Tension-type headache, unspecified, not intractable - Dizziness - Headache (Adult - New Onset Or New Symptoms) - Shortness of Breath - sob INPATIENT VISIT TRACKING (12 MO.) 08/31/2024 10:11 [facility] Flaquita NELSON ([place]) TYPE: Medical Surgical DIAGNOSES: - Acute respiratory failure with hypoxia - Chronic obstructive pulmonary disease with (acute) exacerbation - Chronic pain syndrome - Essential (primary) hypertension - Influenza due to identified novel influenza A virus with pneumonia - Influenza due to other identified influenza virus with other respiratory manifestations - mark up designer (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 of insulin - Pneumonia, unspecified organism - Spinal stenosis, lumbar region with neurogenic claudication - Type 2 diabetes mellitus without complications 12/10/2023 10:25 [facility] Flaquita NELSON (Flaquita Sams) TYPE: Medical Surgical DIAGNOSES: - Acute and chronic respiratory failure with hypoxia - Acute on chronic diastolic (congestive) heart failure - Body mass index [BMI] 40.0-44.9, adult - Chronic obstructive pulmonary disease with (acute) exacerbation - Chronic pain syndrome - Headache, unspecified - Hypoxemia - mark up designer (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 of insulin - Morbid (severe) obesity due to excess calories - Pneumonia, unspecified organism - Tension-type headache, unspecified, not intractable - Type 2 diabetes mellitus with hyperglycemia [email or web address]
[2024-10-16] MEDS ORDERED: HUMULIN R500 UNIT/2 SUB-Q (10:24)
[2024-10-16] MEDS ORDERED: PANTOPRAZOLE SO40 MG PO (10:24)
[2024-10-16] MEDS ORDERED: SPIRONOLACTONE25 MG PO (10:25)
[2024-10-16] MEDS ORDERED: ENBREL50 MG/1 M1 SUB-Q (10:25)
[2024-10-16] MEDS ORDERED: IPRAT-ALBUT 0.5-3 ML INH (10:26)
[2024-10-16] MEDS ORDERED: FOLIC ACID1 MG PO (10:26)
[2024-10-16] MEDS ORDERED: METHOCARBAMOL500 MG PO (10:39)
[2024-10-16 10:48] VITALS: BP 135/70
== END 2024-10-16 10:48 | disposition home or self-care (01) ==
LOC: ED 10:11
DX: M54.50 Low back pain, unspecified (principal); G89.29 Other chronic pain; E11.9 Type 2 diabetes mellitus without complications; J44.9 Chronic obstructive pulmonary disease, unspecified; I11.0 Hypertensive heart disease with heart failure; I50.9 Heart failure, unspecified; G47.30 Sleep apnea, unspecified; Z88.3 Allergy status to other anti-infective agents; Z88.2 Allergy status to sulfonamides; Z88.8 Allergy status to other drugs, medicaments and biological substances; Z79.4 Long term (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 of insulin; Z79.899 Other long term (current) drug therapy
CPT/HCPCS: 99283

== ENCOUNTER 2024-12-05 07:52 | Emergency (ER) | payer OTHER, MEDICARE ==
[~2024-12-05] VITALS: Ht 162.6 cm; Wt 114.8 kg
[~2024-12-05 07:52] MED LIST changes: +ENBREL50 MG/1 M1 SUB-Q; +FOLIC ACID1 MG PO; +HUMULIN R500 UNIT/2 SUB-Q; +IPRAT-ALBUT 0.5-3 ML INH; +METHOCARBAMOL500 MG PO; +PANTOPRAZOLE SO40 MG PO; +SPIRONOLACTONE25 MG PO
--- OUTSIDE RECORDS SUMMARY | 2024-12-05 07:56 | XMS ---
PreManage Notification: AMBAR PITTS Security Rn Advice Events No recent Security Events currently on file CRITERIA MET - 6 ED Visits in 6 Months CARE PROVIDERS ASHER Thompson [facility] 05/05/2018-Current PHONE: Unknown GALILEA GALLEGOS Internal Medicine Current PHONE: [phone] Homero has no Care Guidelines for this patient. Fabi VISIT COUNT (12 MO.) 14 [facility] Nicole Jordan [facility]Flaquita Sams) [facility] TOTAL 19 NOTE: Visits indicate total known visits. ED/UCC VISIT TRACKING (12 MO.) 12/05/2024 07:52 DONNA José [place] TYPE: Emergency COMPLAINT: - URINARY PROBLEM 10/16/2024 10:11 DONNA José [place] TYPE: Emergency COMPLAINT: - BACK PAIN DIAGNOSES: - Allergy status to other anti-infective agents - Allergy status to other drugs, medicaments and biological substances - Allergy status to sulfonamides - Chronic obstructive pulmonary disease, unspecified - Dorsalgia, unspecified - Heart failure, unspecified - Hypertensive heart disease with heart failure - snf (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 of insulin - Low back pain, unspecified - Other chronic pain - Other rodent exterminator (current) drug therapy - Sleep apnea, unspecified - Type 2 diabetes mellitus without complications 08/31/2024 10:11 [facility] Flaquita Sams O[place] (Flaquita Sams) TYPE: Emergency DIAGNOSES: - Acute respiratory failure with hypoxia - Chronic obstructive pulmonary disease with (acute) exacerbation - Influenza due to other identified influenza virus with other respiratory manifestations - Pneumonia, unspecified organism - cough, SOB, dizzy - Flu Like Symptoms 08/16/2024 09:12 [facility] Flaquita Sams [place] (Flaquita Sams) TYPE: Emergency DIAGNOSES: - Chronic obstructive pulmonary disease, unspecified - Dependence on supplemental oxygen - Gastro-esophageal reflux disease with esophagitis, without bleeding - Parkinson's disease without dyskinesia, without mention of fluctuations - Unspecified abdominal pain - abd pain, vomiting - Abdominal Pain 08/14/2024 07:11 [facility] Flaquita Sams O[place] (Flaquita Sams) TYPE: Emergency DIAGNOSES: - Epigastric pain - Nausea with vomiting, unspecified - Nausea with vomiting, unspecified - Pure hypercholesterolemia, unspecified - abd pain, N/V - Chest Pain - Emesis 07/29/2024 18:10 [facility] [place] (Flaquita Sams) TYPE: Emergency DIAGNOSES: - Cervicalgia - Chest pain, unspecified - Dizziness and giddiness - Other complicated headache syndrome - Chest Pain - Weakness 07/13/2024 19:36 DONNA Vincent TYPE: Emergency COMPLAINT: - WEAKNESS DIAGNOSES: - Allergy status to other anti-infective agents - Allergy status to other drugs, medicaments and biological substances - Allergy status to sulfonamides - Chronic obstructive pulmonary disease, unspecified - Fibromyalgia - Heart failure, unspecified - Hypertensive heart disease with heart failure - Hypomagnesemia - superintendent terminal (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 of inhaled steroids - snf (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 of insulin - Old myocardial infarction - Other rodent exterminator (current) drug therapy - Presence of coronary angioplasty implant and graft - Sleep apnea, unspecified - Type 2 diabetes mellitus without complications - Weakness 06/17/2024 08:00 [facility] [place] (Flaquita Sams) TYPE: Emergency DIAGNOSES: - Acute bronchitis, unspecified - Chronic obstructive pulmonary disease with (acute) lower respiratory infection - Fall on same level from slipping, tripping and stumbling without subsequent striking against object, initial encounter - Low back pain, unspecified - HBP, fall, back pain - Shortness of Breath 04/17/2024 16:36 [facility] [place] ([place]) TYPE: Emergency DIAGNOSES: - Concussion without loss of consciousness, initial encounter - Postconcussional syndrome - head pain - Headache (Adult - Re-evaluation) 04/01/2024 20:24 [facility] [place] ([place]) TYPE: Emergency DIAGNOSES: - Postconcussional syndrome - [...] heart disease with heart failure - Other rodent exterminator (current) drug therapy - Pain in left shoulder - Type 2 diabetes mellitus without complications 03/22/2024 11:19 [facility] Flaquita NELSON ([place]) TYPE: Emergency DIAGNOSES: - Postconcussional syndrome - fall - Shoulder Pain 03/12/2024 15:21 [facility] Flaquita NELSON ([place]) TYPE: Emergency DIAGNOSES: - Dizziness and giddiness [...] Hypertensive heart disease without heart failure - snf (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 of inhaled steroids - snf (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 of insulin - superintendent terminal (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 of systemic steroids - Low back pain, unspecified - Other rodent exterminator (current) drug therapy - Sleep apnea, unspecified - Type 2 diabetes mellitus without complications 02/23/2024 11[facility]Fla[facility] TYPE: Emergency DIAGNOSES: - Fracture of unspecified phalanx of unspecified finger, initial encounter for closed fracture - Strain of muscle, fascia and tendon at neck level, initial encounter - Unspecified injury of head, initial encounter - Fall - fall from 02/21/2024 07:58 [facility] TYPE: Emergency DIAGNOSES: - Pain in left hip - Pain in right hip - Strain of muscle and tendon of unspecified wall of thorax, initial encounter - Rib Pain - Shortness of Breath - sob, back pain, poss cracked rib 02/13/2024 04:06 [facility] TYPE: Emergency DIAGNOSES: - Dysuria - Unspecified abdominal pain - back pain 12/19/2023 16:43 [facility] Flaquita Sams O[place] (Flaquita Sams) TYPE: Emergency DIAGNOSES: - Cervicalgia - Chronic pain syndrome - Dizziness and giddiness - Other peripheral vertigo, unspecified ear - Dizziness - Neck Pain 12/10/2023 10:25 [facility] Flaquita Sams [place] (Flaquita Sams) TYPE: Emergency DIAGNOSES: - Acute on chronic diastolic (congestive) heart failure - Chronic obstructive pulmonary disease with (acute) exacerbation - Hypoxemia - Pneumonia, unspecified organism - Tension-type headache, unspecified, not intractable - Dizziness - Headache (Adult - New Onset Or New Symptoms) - Shortness of Breath - sob INPATIENT VISIT TRACKING (12 MO.) 08/31/2024 10:11 [facility] Flaquita Sams [place] (Flaquita Sams) TYPE: Medical Surgical DIAGNOSES: - Acute respiratory failure with hypoxia - Chronic obstructive pulmonary disease with (acute) exacerbation - Chronic pain syndrome - Essential (primary) hypertension - Influenza due to identified novel influenza A virus with pneumonia - Influenza due to other identified influenza virus with other respiratory manifestations - snf (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 of insulin - Pneumonia, unspecified organism - Spinal stenosis, lumbar region with neurogenic claudication - Type 2 diabetes mellitus without complications 12/10/2023 10:25 [facility] Flaquita NELSON (Flaquita Sams) TYPE: Medical Surgical DIAGNOSES: - Acute and chronic respiratory failure with hypoxia - Acute on chronic diastolic (congestive) heart failure - Body mass index [BMI] 40.0-44.9, adult - Chronic obstructive pulmonary disease with (acute) exacerbation - Chronic pain syndrome - Headache, unspecified - Hypoxemia - snf (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 of insulin - Morbid (severe) obesity due to excess calories - Pneumonia, unspecified organism - Tension-type headache, unspecified, not intractable - Type 2 diabetes mellitus with hyperglycemia [email or web address]
[2024-12-05] MEDS ORDERED: METHOCARBAMOL750 MG PO ×2 (08:07→10:46)
[2024-12-05] MEDS ORDERED: TELMISARTAN-HC1 EAC1 PO (08:08)
[2024-12-05] MEDS ORDERED: TRAZODONE HCL150 MG PO (08:08)
[2024-12-05] MEDS ORDERED: ondansetron HCL 4 MG/2 ML VIAL IV ONE (08:15)
[2024-12-05] MEDS ORDERED: SODIUM CHLORIDE 0.9% 500 ML IV PRN (08:15)
[2024-12-05] MEDS ORDERED: HYDROmorphone HCL 1 MG/ML SYR IV PRN (08:15)
[2024-12-05 08:22] LABS: BASOPHILS 0.5 % (0-2); EOSINOPHILS 0.8 % (0-6); HEMATOCRIT 42.9 % (35.0-50.0); MCH 33.6 (27-36); MCHC 34.9 g/dl (30-36); MCV 96.2 fl (81-99); NEUTROPHILS 54.7 % (39-80); PLATELET COUNT 109 K/uL (140-440); RBC 4.46 M/ul (4.3-5.7); RDW 14.3 (10.5-15.0)
[2024-12-05 08:36] LABS: ALBUMIN 3.4 g/dL (3.4-5.0); ALBUMIN/GLOBULIN RATIO 0.89 (1.1-2.4); ANION GAP 11.9 (7-21); BILIRUBIN, TOTAL 0.5 mg/dL (0.2-1.0); BUN/CREATININE RATIO 17.91 (6.0-28.6); CALCIUM 8.4 mg/dL (8.5-10.1); CREATININE, SERUM 0.67 mg/dL (0.55-1.02); POTASSIUM 3.9 mmol/L (3.5-5.1); PROTEIN, TOTAL 7.2 g/dL (6.4-8.2)
[2024-12-05 10:10] LABS: BILIRUBIN, URINE NEGATIVE (negative); BLOOD/HGB, URINE NEGATIVE (Negative); KETONE, URINE NEGATIVE (Negative); LEUK ESTERASE, URINE NEGATIVE (negative); NITRITE, URINE NEGATIVE (negative)
[2024-12-05 10:53] VITALS: BP 138/71
== END 2024-12-05 10:53 | disposition home or self-care (01) ==
LOC: ED 07:52
PROVIDERS: Emergency Medicine
DX: R10.11 Right upper quadrant pain (principal); I11.0 Hypertensive heart disease with heart failure; I50.9 Heart failure, unspecified; G47.30 Sleep apnea, unspecified; E11.9 Type 2 diabetes mellitus without complications; J44.9 Chronic obstructive pulmonary disease, unspecified; Z79.4 Long term (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 of insulin; Z79.899 Other long term (current) drug therapy; Z88.8 Allergy status to other drugs, medicaments and biological substances; Z88.2 Allergy status to sulfonamides
CPT/HCPCS: 36415; 74177; 80053; 81003; 83690; 85025; 96375; 99284-25; J1171; J2405; J7040; Q9967

== ENCOUNTER 2024-12-12 14:49 | Emergency (ER) | payer OTHER, MEDICARE ==
[~2024-12-12] VITALS: Ht 162.6 cm; Wt 113.9 kg
[~2024-12-12 14:49] MED LIST changes: +METHOCARBAMOL750 MG PO; +TELMISARTAN-HC1 EAC1 PO; +TRAZODONE HCL150 MG PO
--- OUTSIDE RECORDS SUMMARY | 2024-12-12 14:55 | XMS ---
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 E.DSerene VISIT COUNT (12 MO.) 14 [facility] Nicole Jordan (Flaquita Sams[address] TOTAL 20 NOTE: Visits indicate total known visits. ED/UCC VISIT TRACKING (12 MO.) 12/12/2024 14[facility] [place] [facility] COMPLAINT: - FLANK PAIN 12/08/2024 10:[facility]ita [facility] TYPE: Emergency DIAGNOSES: - Dorsalgia, unspecified - Right upper quadrant pain - back pain 12/05/2024 07:52 DONNA José [place] TYPE: Emergency COMPLAINT: - URINARY PROBLEM DIAGNOSES: - Allergy status to other drugs, medicaments and biological substances - Allergy status to sulfonamides - Chronic obstructive pulmonary disease, unspecified - Heart failure, unspecified - Hypertensive heart disease with heart failure - penitentiary (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 of insulin - Other termination clerk (current) drug therapy - Right upper quadrant pain - Sleep apnea, unspecified - Type 2 diabetes mellitus without complications - Unspecified abdominal pain 10/16/2024 10:11 DONNA José [place] TYPE: Emergency COMPLAINT: - BACK PAIN DIAGNOSES: - Allergy status to other anti-infective agents - Allergy status to other drugs, medicaments and biological substances - Allergy status to sulfonamides - Chronic obstructive pulmonary disease, unspecified - Dorsalgia, unspecified - Heart failure, unspecified - Hypertensive heart disease with heart failure - terminologist (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 of insulin - Low back pain, unspecified - Other chronic pain - Other termination clerk (current) drug therapy - Sleep apnea, unspecified - Type 2 diabetes mellitus without complications 08/31/2024 10:11 [facility] Nikki NELSON (Flaquita Sams) TYPE: Emergency DIAGNOSES: - Acute respiratory failure with hypoxia - Chronic obstructive pulmonary disease with (acute) exacerbation - Influenza due to other identified influenza virus with other respiratory manifestations - Pneumonia, unspecified organism - cough, SOB, dizzy - Flu Like Symptoms 08/16/2024 09:12 [facility] Flaquita Sams [place] (Flaquita Sams) TYPE: Emergency DIAGNOSES: - Chronic obstructive pulmonary disease, unspecified - Dependence on supplemental oxygen - Gastro-esophageal reflux disease with esophagitis, without bleeding - Parkinson's disease without dyskinesia, without mention of fluctuations - Unspecified abdominal pain - abd pain, vomiting - Abdominal Pain 08/14/2024 07:11 [facility] Flaquita Sams [place] (Flaquita Sams) TYPE: Emergency DIAGNOSES: - Epigastric pain - Nausea with vomiting, unspecified - Nausea with vomiting, unspecified - Pure hypercholesterolemia, unspecified - abd pain, N/V - Chest Pain - Emesis 07/29/2024 18:10 [facility] Flaquita Sams [place] (Flaquita Sams) TYPE: Emergency DIAGNOSES: - Cervicalgia - Chest pain, unspecified - Dizziness and giddiness - Other complicated headache syndrome - Chest Pain - Weakness 07/13/2024 19:36 [facility] [place] TYPE: Emergency COMPLAINT: - WEAKNESS DIAGNOSES: - Allergy status to other anti-infective agents - Allergy status to other drugs, medicaments and biological substances - Allergy status to sulfonamides - Chronic obstructive pulmonary disease, unspecified - Fibromyalgia - Heart failure, unspecified - Hypertensive heart disease with heart failure - Hypomagnesemia - penitentiary (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 of inhaled steroids - penitentiary (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 of insulin - Old myocardial infarction - Other [facility] (current) drug therapy - Presence of coronary angioplasty implant and graft - Sleep apnea, unspecified - Type 2 diabetes mellitus without complications - Weakness 06/17/2024 08:00 [facility] Flaquita NELSON ([place]) TYPE: Emergency DIAGNOSES: - Acute bronchitis, unspecified - Chronic obstructive pulmonary disease with (acute) lower respiratory infection - Fall on same level from slipping, tripping and stumbling without subsequent striking against object, initial encounter - Low back pain, unspecified - HBP, fall, back pain - Shortness of Breath 04[facility]17[facility]2024 16[facility] DIAGNOSES: - Concussion without loss of consciousness, initial encounter - Postconcussional syndrome - head pain - Headache (Adult - Re-evaluation) 04/01/2024 20:24 [facility] Flaquita NELSON (Flaquita Sams) TYPE: Emergency DIAGNOSES: - Postconcussional syndrome - Headache (Adult - Re-evaluation) - Shortness of Breath - sob, dizzy 03/29/2024 15:30 [facility] [place] TYPE: Emergency COMPLAINT: - ARM PAIN DIAGNOSES: - Allergy status to other drugs, medicaments and biological substances - Allergy status to sulfonamides - Chronic obstructive pulmonary disease, unspecified - Heart failure, unspecified - Hypertensive heart disease with heart failure - Other [facility] (current) drug therapy - Pain in left shoulder - Type 2 diabetes mellitus without complications 03/22/2024 11:19 [facility] Flaquita NELSON (Flaquita Sams) TYPE: Emergency DIAGNOSES: - Postconcussional syndrome - fall - Shoulder Pain 03/12/2024 15:21 [facility]Fla[place]ita Sams[facility] TYPE: Emergency DIAGNOSES: - Dizziness and giddiness - Postconcussional syndrome - Followup Medical Problem - head injury follow up? 02/27/2024 13:48 DONNA Vincent TYPE: Emergency COMPLAINT: - DIFFICULTY BREATHING DIAGNOSES: - Allergy status to other drugs, medicaments and biological substances - Allergy status to sulfonamides - Chronic obstructive pulmonary disease, unspecified - Heart failure, unspecified - Hypertensive heart disease without heart failure - terminologist (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 of inhaled steroids - penitentiary (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 of insulin - penitentiary (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 of systemic steroids - Low back pain, unspecified - Other termination clerk (current) drug therapy - Sleep apnea, unspecified - Type 2 diabetes mellitus without complications 02/23/2024 11:49 [facility]ita [facility] TYPE: Emergency DIAGNOSES: - Fracture of unspecified phalanx of unspecified finger, initial encounter for closed fracture - Strain of muscle, fascia and tendon at neck level, initial encounter - Unspecified injury of head, initial encounter - Fall - fall from 02/21/2024 07:58 [facility] Flaquita NELSON (Flaquita Sams) TYPE: Emergency DIAGNOSES: - Pain in left hip - Pain in right hip - Strain of muscle and tendon of unspecified wall of thorax, initial encounter - Rib Pain - Shortness of Breath - sob, back pain, poss cracked rib 02/13/2024 04:06 [facility] Flaquita NELSON ([place]) TYPE: Emergency DIAGNOSES: - Dysuria - Unspecified abdominal pain - back pain 12/19/2023 16:43 [facility] Flaquita NELSON ([place]) TYPE: Emergency DIAGNOSES: - Cervicalgia - Chronic pain syndrome - Dizziness and giddiness - Other peripheral vertigo, unspecified ear - Dizziness - Neck Pain INPATIENT VISIT TRACKING (12 MO.) 08/31/2024 10:11 [facility] Flaquita NELSON (Flaquita Sams) TYPE: Medical Surgical DIAGNOSES: - Acute respiratory failure with hypoxia - Chronic obstructive pulmonary disease with (acute) exacerbation - Chronic pain syndrome - Essential (primary) hypertension - Influenza due to identified novel influenza A virus with pneumonia - Influenza due to other identified influenza virus with other respiratory manifestations - terminologist (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 of insulin - Pneumonia, unspecified organism - Spinal stenosis, lumbar region with neurogenic claudication - Type 2 diabetes mellitus without complications [email or web address]
[2024-12-12 15:15] LABS: BILIRUBIN, URINE NEGATIVE (negative); BLOOD/HGB, URINE NEGATIVE (Negative); KETONE, URINE NEGATIVE (Negative); LEUK ESTERASE, URINE NEGATIVE (negative); NITRITE, URINE NEGATIVE (negative)
[2024-12-12 15:21] LABS: BACTERIA, URINE NONE SEEN /hpf (negative); CASTS, URINE NONE SEEN \\lpf; COLLECTION TYPE, URINE CLEAN CATCH; CRYSTALS, URINE NONE SEEN (0-1+); EPITHELIAL CELLS, URINE SQUAMOUS 2+ /lpf (0-1+); RED BLOOD CELLS, URINE 0-1 /hpf (0-5); REFLEX CULTURE, URINE No (No); WHITE BLOOD CELLS, URINE 0-1 /HPF (0-5)
[2024-12-12 15:37] LABS: BASOPHILS 0.8 % (0-2); EOSINOPHILS 0.7 % (0-6); HEMATOCRIT 48.7 % (35.0-50.0); HEMOGLOBIN 17.2 g/dL (12.0-18.0); LYMPHOCYTES 29.8 % (24-44); MCH 33.6 (27-36); MCHC 35.3 g/dl (30-36); MCV 95.3 fl (81-99); MONOCYTES 6.6 % (0-12); NEUTROPHILS 62.1 % (39-80); PLATELET COUNT 125 K/uL (140-440); RBC 5.11 M/ul (4.3-5.7); RDW 14.5 (10.5-15.0)
[2024-12-12 15:57] LABS: ALBUMIN 3.9 g/dL (3.4-5.0); ALBUMIN/GLOBULIN RATIO 0.98 (1.1-2.4); ANION GAP 12.8 (7-21); BILIRUBIN, TOTAL 0.6 mg/dL (0.2-1.0); BUN/CREATININE RATIO 18.47 (6.0-28.6); CALCIUM 9.5 mg/dL (8.5-10.1); CREATININE, SERUM 0.92 mg/dL (0.55-1.02); POTASSIUM 3.8 mmol/L (3.5-5.1); PROTEIN, TOTAL 7.9 g/dL (6.4-8.2)
[2024-12-12 16:36] VITALS: BP 107/77
== END 2024-12-12 16:41 | disposition home or self-care (01) ==
LOC: ED 14:49
PROVIDERS: Emergency Medicine
DX: R10.9 Unspecified abdominal pain (principal); M54.50 Low back pain, unspecified; I11.0 Hypertensive heart disease with heart failure; E11.9 Type 2 diabetes mellitus without complications; J44.9 Chronic obstructive pulmonary disease, unspecified; M19.90 Unspecified osteoarthritis, unspecified site; I50.9 Heart failure, unspecified; G47.30 Sleep apnea, unspecified; Z88.2 Allergy status to sulfonamides; Z88.8 Allergy status to other drugs, medicaments and biological substances; Z79.899 Other long term (current) drug therapy
CPT/HCPCS: 36415; 80053; 81001; 83690; 85025; 99284

== ENCOUNTER 2024-12-22 17:05 | Inpatient (IN) | payer OTHER, MEDICARE ==
[~2024-12-22] VITALS: Ht 162.6 cm; Wt 112.7 kg
[~2024-12-22 17:05] MED LIST changes: -HYDROXYCHLOROQ200 MG; +HYDROXYCHLOROQ200 MG PO; -TRAZODONE HCL150 MG PO; +TRAZODONE HCL300 MG PO
--- OUTSIDE RECORDS SUMMARY | 2024-12-22 17:11 | XMS ---
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 E.DSerene VISIT COUNT (12 MO.) [address] [place] [address] Nicole Jordan (Flaquita Sams[address] TOTAL 20 NOTE: Visits indicate total known visits. ED/UCC VISIT TRACKING (12 MO.) 12/22/2024 17:05 DONNA José [place] TYPE: Emergency COMPLAINT: - DIFFICULTY BREATHING 12/12/2024 14:50 DONNA José [place] TYPE: Emergency COMPLAINT: - FLANK PAIN DIAGNOSES: - Allergy status to other drugs, medicaments and biological substances - Allergy status to sulfonamides - Chronic obstructive pulmonary disease, unspecified - Heart failure, unspecified - Hypertensive heart disease with heart failure - Low back pain, unspecified - Other fpc (current) drug therapy - Sleep apnea, unspecified - Type 2 diabetes mellitus without complications - Unspecified abdominal pain - Unspecified osteoarthritis, unspecified site 12/08/2024 10:42 [facility] Nicole Jordan [place] TYPE: Emergency DIAGNOSES: - Dorsalgia, unspecified - Right upper quadrant pain - back pain 12/05/2024 07:52 DONNA Vincent TYPE: Emergency COMPLAINT: - URINARY PROBLEM DIAGNOSES: - Allergy status to other drugs, medicaments and biological substances - Allergy status to sulfonamides - Chronic obstructive pulmonary disease, unspecified - Heart failure, unspecified - Hypertensive heart disease with heart failure - termite technician (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 of insulin - Other long term care phlebotomist (current) drug therapy - Right upper quadrant [...] Hypertensive heart disease with heart failure - termite technician (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 of insulin - Low back pain, unspecified - Other chronic pain - Other fpc (current) drug therapy - Sleep apnea, unspecified - Type 2 diabetes mellitus without complications 08/31/2024 10:11 [facility] Flaquita Sams [place] (Flaquita Sams) TYPE: Emergency DIAGNOSES: - Acute respiratory failure with hypoxia - Chronic obstructive pulmonary disease with (acute) exacerbation - Influenza due to other identified influenza virus with other respiratory manifestations - Pneumonia, unspecified organism - cough, SOB, dizzy - Flu Like Symptoms 08/16/2024 09:12 [facility] Flaquita Sams [place] (Flaquita Sams) TYPE: Emergency DIAGNOSES: - Chronic obstructive pulmonary disease, unspecified - Dependence on supplemental oxygen - Gastro-esophageal reflux disease with esophagitis, without bleeding - Parkinson's disease without dyskinesia, without mention of fluctuations - Unspecified abdominal pain - abd pain, vomiting - Abdominal Pain 08/14/2024 07:11 [facility] Flaquita Sams [place] (Flaquita Sams) TYPE: Emergency DIAGNOSES: - Epigastric pain - Nausea with vomiting, unspecified - Nausea with vomiting, unspecified - Pure hypercholesterolemia, unspecified - abd pain, N/V - Chest Pain - Emesis 07/29/2024 18:10 [facility] Flaquita NELSON ([place]) TYPE: Emergency DIAGNOSES: - Cervicalgia - Chest pain, unspecified - Dizziness and giddiness - Other complicated headache syndrome - Chest Pain - Weakness 07/13/2024 19:[address] [facility] [address] [facility] [place] TYPE: Emergency COMPLAINT: - WEAKNESS DIAGNOSES: - Allergy status to other anti-infective agents - Allergy status to other drugs, medicaments and biological substances - Allergy status to sulfonamides - Chronic obstructive pulmonary disease, unspecified - Fibromyalgia - Heart failure, unspecified - Hypertensive heart disease with heart failure - Hypomagnesemia - [facility]DC (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 of inhaled steroids - termite technician (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 of insulin - Old myocardial infarction - Other fpc (current) drug therapy - Presence of coronary angioplasty implant and graft - Sleep apnea, unspecified - Type 2 diabetes mellitus without complications - Weakness 06/17/2024 08:00 [facility] Flaquita NELSON ([place]) TYPE: Emergency DIAGNOSES: - Acute bronchitis, unspecified - Chronic obstructive pulmonary disease with (acute) lower respiratory infection - Fall on same level from slipping, tripping and stumbling without subsequent striking against object, initial encounter - Low back pain, unspecified - HBP, fall, back pain - Shortness of Breath 04/17/2024 16:36 [facility] Flaquita NELSON ([place]) TYPE: Emergency DIAGNOSES: - Concussion without loss of consciousness, initial encounter - Postconcussional syndrome - head pain - Headache (Adult - Re-evaluation) 04/01/2024 20:24 [facility] Flaquita NELSON ([place]) TYPE: Emergency DIAGNOSES: - Postconcussional syndrome - [...] heart disease with heart failure - Other long term care phlebotomist (current) drug therapy - Pain in left shoulder - Type 2 diabetes mellitus without complications 03/22/2024 11:19 [facility] [place] ([place] TYPE: Emergency DIAGNOSES: - Postconcussional syndrome - fall - Shoulder Pain 03/12/2024 15:21 [facility] [place] ([place] TYPE: Emergency DIAGNOSES: - Dizziness and giddiness [...] Hypertensive heart disease without heart failure - FDC (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 of inhaled steroids - termite technician (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 of insulin - termite technician (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 of systemic steroids - Low back pain, unspecified - Other long term care phlebotomist (current) drug therapy - Sleep apnea, unspecified - Type 2 diabetes mellitus without complications 02/23/2024 11:49 [facility] Flaquita NELSON (Flaquita Sams) TYPE: Emergency DIAGNOSES: - Fracture of unspecified phalanx of unspecified finger, initial encounter for closed fracture - Strain of muscle, fascia and tendon at neck level, initial encounter - Unspecified injury of head, initial encounter - Fall - fall [facility]2024 07[facility] TYPE: Emergency DIAGNOSES: - Pain in left hip - Pain in right hip - Strain of muscle and tendon of unspecified wall of thorax, initial encounter - Rib Pain - Shortness of Breath - sob, back pain, poss cracked rib 02/13/2024 04:06 [facility] TYPE: Emergency DIAGNOSES: - Dysuria - Unspecified abdominal pain - back pain INPATIENT VISIT TRACKING (12 MO.) 08/31/2024 10:11 [facility]Flaquita Sams[facility] TYPE: Medical Surgical DIAGNOSES: - Acute respiratory failure with hypoxia - Chronic obstructive pulmonary disease with (acute) exacerbation - Chronic pain syndrome - Essential (primary) hypertension - Influenza due to identified novel influenza A virus with pneumonia - Influenza due to other identified influenza virus with other respiratory manifestations - FDC (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 of insulin - Pneumonia, unspecified organism - Spinal stenosis, lumbar region with neurogenic claudication - Type 2 diabetes mellitus without complications [email or web address]
[2024-12-22] MEDS ORDERED: ALBUTEROL/IPRATROPIUM 3 ML NEB INH PRN (17:15)
[2024-12-22 17:24] LABS: BASOPHILS 0.5 % (0-2); EOSINOPHILS 0.8 % (0-6); HEMATOCRIT 41.7 % (35.0-50.0); HEMOGLOBIN 14.7 g/dL (12.0-18.0); LYMPHOCYTES 32.3 % (24-44); MCH 33.7 (27-36); MCHC 35.2 g/dl (30-36); MCV 95.8 fl (81-99); NEUTROPHILS 57.4 % (39-80); PLATELET COUNT 124 K/uL (140-440); RBC 4.35 M/ul (4.3-5.7); RDW 14.7 (10.5-15.0)
[2024-12-22] MEDS ORDERED: methylPREDNISolone SOD SUCC 125 MG/2 ML VIAL IV ONE (17:30)
[2024-12-22 17:43] LABS: ALBUMIN 3.3 g/dL (3.4-5.0); ALBUMIN/GLOBULIN RATIO 0.79 (1.1-2.4); ANION GAP 15.2 (7-21); BILIRUBIN, TOTAL 0.7 mg/dL (0.2-1.0); BUN/CREATININE RATIO 14.66 (6.0-28.6); CALCIUM 9.1 mg/dL (8.5-10.1); CREATININE, SERUM 0.75 mg/dL (0.55-1.02); MAGNESIUM 1.8 mg/dL (1.8-2.4); POTASSIUM 4.2 mmol/L (3.5-5.1); PROTEIN, TOTAL 7.5 g/dL (6.4-8.2)
[2024-12-22] MEDS ORDERED: ALBUTEROL SULFATE 0.5% 2.5 MG/0.5 ML VIAL INH ONE (18:15)
[2024-12-22] MEDS ORDERED: HYDROmorphone HCL 1 MG/ML SYR IV PRN ×2 (19:00→20:15)
[2024-12-22 19:29] LABS: BASE EXCESS, BLOOD GAS 0.6 mmol/L (-2-2); HCO3, BLOOD GAS 19.8 mmol/L (22-26); O2 SATURATION, BLOOD GAS 94.7 % (95.0-100.0); OXYGEN RECEIVED, BLOOD GAS 2L; PCO2, BLOOD GAS 19.7 mmHg (35-45); PH, BLOOD GAS 7.61 (7.35-7.45); PO2, BLOOD GAS 70 mmHg (80-100); TOTAL CO2, BLOOD GAS 20.4
[2024-12-22] MEDS ORDERED: LORazepam 2 MG/ML VIAL IV PRN (20:15)
[2024-12-22] MEDS ORDERED: IBLOOD GLUCOSE TEST STRIP 1 EA TEST XX PRN (20:45)
[2024-12-22] MEDS ORDERED: DEXTROSE 50% 50 ML SYR IV PRN ×2 (20:45)
[2024-12-22] MEDS ORDERED: DEXTROSE 5% 1,000 ML IV PRN (20:45)
[2024-12-22] MEDS ORDERED: GLUCAGON,HUMAN RECOMBINANT 1 MG/ML VIAL SUB-Q PRN (20:45)
[2024-12-22] MEDS ORDERED: ENOXAPARIN SODIUM 40 MG/0.4 ML SYR SUB-Q SCH (21:00)
[2024-12-22] MEDS ORDERED: methylPREDNISolone SOD SUCC 40 MG/ML VIAL IV SCH (21:00)
[2024-12-22] MEDS ORDERED: INSULIN LISPRO 100 UNIT/ML ML SUB-Q SCH (21:00)
[2024-12-22] MEDS ORDERED: TRAZODONE HCL 100 MG TAB PO SCH (21:00)
[2024-12-22] MEDS ORDERED: IBLOOD GLUCOSE TEST STRIP 1 EA TEST XX SCH (21:00)
[2024-12-22] MEDS ORDERED: buPROPion HCL 150 MG TABCR PO SCH (21:00)
[2024-12-22] MEDS ORDERED: SODIUM CHLORIDE 0.9% 1,000 ML IV SCH (21:00)
[2024-12-22 22:12] VITALS: BP 148/62
[2024-12-22 22:15] VITALS: BP 148/62
[2024-12-22] MEDS ORDERED: ondansetron HCL 4 MG/2 ML VIAL IV PRN (22:15)
[2024-12-22] MEDS ORDERED: ACETAMINOPHEN 325 MG TAB PO PRN (22:15)
[2024-12-22 22:47] LABS: CORONAVIRUS COVID-19 AG NEGATIVE (NEGATIVE); INFLUENZA A AG NEGATIVE (NEGATIVE); INFLUENZA B AG NEGATIVE (NEGATIVE)
[2024-12-23] VITALS (13 sets, daily range): BP systolic 106–140; BP diastolic 46–88
[2024-12-23] MEDS ORDERED: DEXTROSE 50% 50 ML SYR IV PRN ×2 (02:45)
[2024-12-23] MEDS ORDERED: DEXTROSE 5% 1,000 ML IV PRN (02:45)
[2024-12-23] MEDS ORDERED: Insulin Regular 100 Unit/100 Ml Bag IV SCH (02:45)
[2024-12-23] MEDS ORDERED: IBLOOD GLUCOSE TEST STRIP 1 EA TEST XX PRN (02:45)
[2024-12-23] MEDS ORDERED: GLUCAGON,HUMAN RECOMBINANT 1 MG/ML VIAL SUB-Q PRN (02:45)
[2024-12-23] MEDS ORDERED: DEXTROSE 5% - NACL 0.45% 1,000 ML IV SCH (02:45)
[2024-12-23] MEDS ORDERED: IBLOOD GLUCOSE TEST STRIP 1 EA TEST VI SCH ×2 (03:00→17:00)
[2024-12-23 05:28] LABS: BASOPHILS 0.2 % (0-2); HEMATOCRIT 40.3 % (35.0-50.0); HEMOGLOBIN 13.9 g/dL (12.0-18.0); LYMPHOCYTES 14.5 % (24-44); MCH 33.6 (27-36); MCHC 34.6 g/dl (30-36); MONOCYTES 2.2 % (0-12); NEUTROPHILS 83.1 % (39-80); PLATELET COUNT 122 K/uL (140-440); RBC 4.15 M/ul (4.3-5.7); RDW 14.4 (10.5-15.0)
[2024-12-23 05:42] LABS: ANION GAP 12.4 (7-21); BUN/CREATININE RATIO 13.48 (6.0-28.6); CALCIUM 8.4 mg/dL (8.5-10.1); CREATININE, SERUM 0.89 mg/dL (0.55-1.02); MAGNESIUM 1.9 mg/dL (1.8-2.4); POTASSIUM 4.4 mmol/L (3.5-5.1)
--- NOTE | 2024-12-23 07:39 | EKG ---
[facility] [address] [place], [place] [address] Signed Normal sinus rhythm Normal ECG When compared with ECG of 13-JUL-2024 19:50, No significant change was found Confirmed by Hector Conteh MD ([id number]) on 12/23/2024 7:39:27 AM Electronically Signed By: HECTOR CONTEH MD 12/23/24 0739 PATIENT NAME: AMBAR PITTS PETER Electrocardiogram DATE OF : 64 PHYSICIAN: HECTOR CONTEH MD REPORT #: [id number] REPORT IS CONFIDENTIAL AND NOT TO BE RELEASED WITHOUT AUTHORIZATION
[2024-12-23] MEDS ORDERED: CEFTRIAXONE SODIUM 1 GM in SODIUM CHLORIDE 0.9% 100 ML IV SCH (07:45)
[2024-12-23] MEDS ORDERED: ALBUTEROL/IPRATROPIUM 3 ML NEB INH SCH (08:00)
[2024-12-23] MEDS ORDERED: PANTOPRAZOLE SODIUM 40 MG TABEC PO SCH (09:00)
[2024-12-23] MEDS ORDERED: METOPROLOL SUCCINATE 50 MG TABCR PO SCH (09:00)
[2024-12-23] MEDS ORDERED: DULOXETINE HCL 60 MG CAP PO SCH (09:00)
[2024-12-23] MEDS ORDERED: HYDROmorphone HCL 2 MG TAB PO PRN (10:15)
[2024-12-23] MEDS ORDERED: LORazepam 0.5 MG TAB PO PRN (10:15)
[2024-12-23 10:16] LABS: ANION GAP 11.8 (7-21); BUN/CREATININE RATIO 17.85 (6.0-28.6); CALCIUM 8.4 mg/dL (8.5-10.1); CREATININE, SERUM 0.56 mg/dL (0.55-1.02); POTASSIUM 3.8 mmol/L (3.5-5.1)
[2024-12-23] MEDS ORDERED: PHARMACY RENAL DOSE ADJUSTMENT 1 DOSE MISC PO SCH (12:00)
[2024-12-23] MEDS ORDERED: INSULIN GLARGINE-YFGN 100 UNIT/ML ML SUB-Q ONE (16:45)
[2024-12-23] MEDS ORDERED: INSULIN LISPRO 100 UNIT/ML ML SUB-Q SCH (17:00)
[2024-12-23] MEDS ORDERED: BUDESONIDE 0.5 MG/2 ML VIAL INH SCH (20:00)
[2024-12-23 21:46] LABS: BILIRUBIN, URINE POSITIVE (negative); BLOOD/HGB, URINE MODERATE (Negative); KETONE, URINE NEGATIVE (Negative); LEUK ESTERASE, URINE NEGATIVE (negative); NITRITE, URINE NEGATIVE (negative); PH, URINE 5.5 (5-7)
[2024-12-23 21:51] LABS: EPITHELIAL CELLS, URINE SQUAMOUS 4+ /lpf (0-1+)
[2024-12-23 21:52] LABS: BACTERIA, URINE RARE /hpf (negative); CASTS, URINE NONE SEEN \\lpf; CRYSTALS, URINE NONE SEEN (0-1+); RED BLOOD CELLS, URINE 21-40 /hpf (0-5)
[2024-12-23 21:53] LABS: COLLECTION TYPE, URINE CLEAN CATCH; REFLEX CULTURE, URINE No (No)
[2024-12-24] VITALS (10 sets, daily range): BP systolic 101–157; BP diastolic 68–82
[2024-12-24] MEDS ORDERED: ALBUTEROL SULFATE 0.083% 3 ML VIAL INH PRN (03:15)
[2024-12-24 05:26] LABS: BASOPHILS 0.1 % (0-2); HEMATOCRIT 40.9 % (35.0-50.0); HEMOGLOBIN 14.2 g/dL (12.0-18.0); LYMPHOCYTES 22.4 % (24-44); MCH 33.9 (27-36); MCHC 34.7 g/dl (30-36); MCV 97.9 fl (81-99); MONOCYTES 4.8 % (0-12); NEUTROPHILS 72.7 % (39-80); PLATELET COUNT 144 K/uL (140-440); RBC 4.18 M/ul (4.3-5.7); RDW 14.7 (10.5-15.0)
[2024-12-24 05:28] LABS: ANION GAP 10.8 (7-21); BUN/CREATININE RATIO 11.25 (6.0-28.6); CALCIUM 7.8 mg/dL (8.5-10.1); CREATININE, SERUM 0.8 mg/dL (0.55-1.02); MAGNESIUM 2.1 mg/dL (1.8-2.4); POTASSIUM 3.8 mmol/L (3.5-5.1)
[2024-12-24] MEDS ORDERED: INSULIN GLARGINE-YFGN 100 UNIT/ML ML SUB-Q SCH (09:00)
[2024-12-24] MEDS ORDERED: AZITHROMYCIN 500 MG in DEXTROSE 5% 250 ML IV SCH (09:38)
[2024-12-24] MEDS ORDERED: CEFTRIAXONE SODIUM 1 GM in SODIUM CHLORIDE 0.9% 100 ML IV ONE (09:45)
[2024-12-24] MEDS ORDERED: DOXYCYCLINE HY100 MG PO (09:47)
[2024-12-24] MEDS ORDERED: METHYLPREDNISOLO4 M1 PO (09:48)
[2024-12-24] MEDS ORDERED: BENZONATATE100 MG PO (09:49)
[2024-12-24] MEDS ORDERED: FLUTICASONE PRO16 GM NAS (09:49)
[2024-12-24] MEDS ORDERED: HUMULIN R500 UNIT/1 SUB-Q (09:50)
[2024-12-24] MEDS ORDERED: METHOCARBAMOL750 MG PO (09:51)
[2024-12-24] MEDS ORDERED: LIDOCAINE1 EACH TOP (09:52)
[2024-12-24] MEDS ORDERED: TRELEGY ELLIPT1 EAC1 INH (09:53)
[2024-12-24] MEDS ORDERED: METOPROLOL SUCC50 MG PO (09:55)
[2024-12-24] MEDS ORDERED: PILOCARPINE HCL5 MG PO (09:58)
[2024-12-24] MEDS ORDERED: SPIRONOLACTONE25 MG PO (09:59)
[2024-12-24] MEDS ORDERED: NITROGLYCERIN0.4 MG SL (11:49)
[2024-12-24] MEDS ORDERED: GERI-KOT8.6 MG PO (11:49)
[2024-12-24] MEDS ORDERED: WOMEN'S 50 PLU1 EACH PO (11:51)
[2024-12-24] MEDS ORDERED: COSENTYX P150 MG/11 SUB-Q (11:51)
[2024-12-24] MEDS ORDERED: VITAMIN D325 MCG PO (11:51)
[2024-12-24] MEDS ORDERED: POLYETHYLENE GLYCOL 3350 1 PACKET PO SCH (16:30)
[2024-12-25 05:10] LABS: BASOPHILS 0.8 % (0-2); EOSINOPHILS 1.1 % (0-6); HEMATOCRIT 40.1 % (35.0-50.0); HEMOGLOBIN 13.9 g/dL (12.0-18.0); LYMPHOCYTES 45.1 % (24-44); MCH 33.4 (27-36); MCHC 34.5 g/dl (30-36); MCV 96.8 fl (81-99); MONOCYTES 8.6 % (0-12); NEUTROPHILS 44.4 % (39-80); PLATELET COUNT 134 K/uL (140-440); RBC 4.15 M/ul (4.3-5.7); RDW 14.4 (10.5-15.0)
[2024-12-25 05:20] LABS: ANION GAP 10.7 (7-21); BUN/CREATININE RATIO 15.06 (6.0-28.6); CALCIUM 8.7 mg/dL (8.5-10.1); CREATININE, SERUM 0.73 mg/dL (0.55-1.02); MAGNESIUM 1.9 mg/dL (1.8-2.4); POTASSIUM 3.7 mmol/L (3.5-5.1)
[2024-12-25 06:15] VITALS: BP 133/79
[2024-12-25] MEDS ORDERED: predniSONE 20 MG TAB PO SCH (09:00)
[2024-12-25] MEDS ORDERED: INSULIN GLARGINE-YFGN 100 UNIT/ML ML SUB-Q SCH (09:00)
[2024-12-25] MEDS ORDERED: CEFTRIAXONE SODIUM 2 GM in SODIUM CHLORIDE 0.9% 100 ML IV SCH (09:00)
[2024-12-25 09:38] VITALS: BP 149/66
[2024-12-25] MEDS ORDERED: PREDNISONE20 MG PO (10:57)
[2024-12-25] MEDS ORDERED: AZITHROMYCIN250 MG PO (10:59)
[2024-12-25] MEDS ORDERED: CEFDINIR300 MG PO (10:59)
[2024-12-25 12:19] VITALS: BP 140/70
== END 2024-12-25 12:50 | disposition home or self-care (01) | DRG 189 ==
LOC: ED 17:05 → MS 20:06 → CCU 20:06 → MS 12-24 13:22
PROVIDERS: Emergency Medicine; Family Medicine; ADMIT Student in an Organized Health Care Education/Training Program; ATTEND Student in an Organized Health Care Education/Training Program
DX: J96.21 Acute and chronic respiratory failure with hypoxia (principal); J44.1 Chronic obstructive pulmonary disease with (acute) exacerbation; J84.9 Interstitial pulmonary disease, unspecified; J21.9 Acute bronchiolitis, unspecified; Z68.41 Body mass index [BMI] 40.0-44.9, adult; E87.3 Alkalosis; E11.65 Type 2 diabetes mellitus with hyperglycemia; F41.9 Anxiety disorder, unspecified; M54.9 Dorsalgia, unspecified; M79.7 Fibromyalgia; M19.90 Unspecified osteoarthritis, unspecified site; E66.813 Obesity, class 3; I11.0 Hypertensive heart disease with heart failure; I50.9 Heart failure, unspecified; G47.33 Obstructive sleep apnea (adult) (pediatric); K21.9 Gastro-esophageal reflux disease without esophagitis; M06.9 Rheumatoid arthritis, unspecified; E78.5 Hyperlipidemia, unspecified; F39 Unspecified mood [affective] disorder; K52.9 Noninfective gastroenteritis and colitis, unspecified; Z88.8 Allergy status to other drugs, medicaments and biological substances; Z88.2 Allergy status to sulfonamides; Z88.5 Allergy status to narcotic agent; Z95.5 Presence of coronary angioplasty implant and graft; Z98.890 Other specified postprocedural states; Z90.49 Acquired absence of other specified parts of digestive tract; Z98.1 Arthrodesis status; Z79.899 Other long term (current) drug therapy; Z79.4 Long term (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 of insulin; Z90.721 Acquired absence of ovaries, unilateral; Z98.51 Tubal ligation status; Z87.891 Personal history of nicotine dependence
CPT/HCPCS: 36415; 36600; 70450; 71045; 71260; 80048; 80053; 81001; 82803; 83036; 83605; 83735; 83880; 84484; 85025; 85379; 93005; 93010; 94640; 94667; 94668; 94760; 94799; 97162; 97166; 97530; 97535; A9270; J0456; J0696; J1171; J1650; J1815; J2060; J2405; J2919; J7030; J7060; J7512; Q9967

== ENCOUNTER 2024-12-31 19:09 | Emergency (ER) | payer OTHER, MEDICARE ==
[~2024-12-31] VITALS: Ht 162.6 cm; Wt 112.7 kg
[~2024-12-31 19:09] MED LIST changes: +AZITHROMYCIN250 MG PO; +BENZONATATE100 MG PO; +COSENTYX P150 MG/11 SUB-Q; +DOXYCYCLINE HY100 MG PO; +FLUTICASONE PRO16 GM NAS; +GERI-KOT8.6 MG PO; +HUMULIN R500 UNIT/1 SUB-Q; +LIDOCAINE1 EACH TOP; +NITROGLYCERIN0.4 MG SL; +PILOCARPINE HCL5 MG PO; +TRELEGY ELLIPT1 EAC1 INH; +VITAMIN D325 MCG PO; +WOMEN'S 50 PLU1 EACH PO
--- OUTSIDE RECORDS SUMMARY | 2024-12-31 19:16 | XMS ---
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 E.DSerene VISIT COUNT (12 MO.) 15 [facility] Nicole Jordan (Flaquita Sams[address] TOTAL 23 NOTE: Visits indicate total known visits. ED/UCC VISIT TRACKING (12 MO.) 12/31[facility]2024 19:09 [facility] [place] [facility] COMPLAINT: - FLANK/ABDOMINAL PAIN 12/28/2024 10:20 [facility] Nikki NELSON (Flaquita Sams) TYPE: Emergency DIAGNOSES: - Chronic obstructive pulmonary disease with (acute) exacerbation - Dorsalgia, unspecified - allergic reaction 12/25/2024 17:14 [facility] Flaquita NELSON (Flaquita Sams) TYPE: Emergency DIAGNOSES: - Adverse effect of insulin and oral hypoglycemic [antidiabetic] drugs, initial encounter - Allergy, unspecified, initial encounter - Allergy, unspecified, initial encounter - Drug-induced hypoglycemia without coma - Allergic Reaction - allergic reaction medication - poss allergic reaction medication 12/22/2024 17:05 DONNA Vincent TYPE: Emergency COMPLAINT: - DIFFICULTY BREATHING 12/12/2024 14:50 DONNA José [place] TYPE: Emergency COMPLAINT: - FLANK PAIN DIAGNOSES: - Allergy status to other drugs, medicaments and biological substances - Allergy status to sulfonamides - Chronic obstructive pulmonary disease, unspecified - Heart failure, unspecified - Hypertensive heart disease with heart failure - Low back pain, unspecified - Other meterman (current) drug therapy - Sleep apnea, unspecified - Type 2 diabetes mellitus without complications - Unspecified abdominal pain - Unspecified osteoarthritis, unspecified site 12/08/2024 10:42 [facility] [place] (Flaquita Sams) TYPE: Emergency DIAGNOSES: - Dorsalgia, unspecified - Right upper quadrant pain - back pain 12/05/2024 07:52 [facility] [place] TYPE: Emergency COMPLAINT: - URINARY PROBLEM DIAGNOSES: - Allergy status to other drugs, medicaments and biological substances - Allergy status to sulfonamides - Chronic obstructive pulmonary disease, unspecified - Heart failure, unspecified - Hypertensive heart disease with heart failure - continuous churn buttermaker (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 of insulin - Other meterman (current) drug therapy - Right upper quadrant [...] Hypertensive heart disease with heart failure - continuous churn buttermaker (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 of insulin - Low back pain, unspecified - Other chronic pain - Other meterman (current) drug therapy - Sleep apnea, unspecified - Type 2 diabetes mellitus without complications 08/31/2024 10:11 [facility] Flaquita Sams [place] (Flaquita Sams) TYPE: Emergency DIAGNOSES: - Acute respiratory failure with hypoxia - Chronic obstructive pulmonary disease with (acute) exacerbation - Influenza due to other identified influenza virus with other respiratory manifestations - Pneumonia, unspecified organism - cough, SOB, dizzy - Flu Like Symptoms 08/16/2024 09:12 [facility] Flaquita Sams [place] (Flaquita Sams) TYPE: Emergency DIAGNOSES: - Chronic obstructive pulmonary disease, unspecified - Dependence on supplemental oxygen - Gastro-esophageal reflux disease with esophagitis, without bleeding - Parkinson's disease without dyskinesia, without mention of fluctuations - Unspecified abdominal pain - abd pain, vomiting - Abdominal Pain 08/14/2024 07:11 [facility] Fla[facility]ita Sasm [place] (Flaquita Sams) TYPE: Emergency DIAGNOSES: - Epigastric pain - Nausea with vomiting, unspecified - Nausea with vomiting, unspecified - Pure hypercholesterolemia, unspecified - abd pain, N/V - Chest Pain - Emesis 07/29/2024 18:10 [facility] Flaquita NELSON ([place]) TYPE: Emergency DIAGNOSES: - Cervicalgia - Chest pain, unspecified - Dizziness and giddiness - Other complicated headache syndrome - Chest Pain - Weakness 07/13/2024 19:36 [facility] TYPE: Emergency COMPLAINT: - WEAKNESS DIAGNOSES: - Allergy status to other anti-infective agents - Allergy status to other drugs, medicaments and biological substances - Allergy status to sulfonamides - Chronic obstructive pulmonary disease, unspecified - Fibromyalgia - Heart failure, unspecified - Hypertensive heart disease with heart failure - Hypomagnesemia - halfway (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 of inhaled steroids - halfway (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 of insulin - Old myocardial infarction - Other jail (current) drug therapy - Presence of coronary angioplasty implant and graft - Sleep apnea, unspecified - Type 2 diabetes mellitus without complications - Weakness 06/17/2024 08:00 [facility] Flaquita NELSON (Flaquita Sams) TYPE: Emergency DIAGNOSES: - Acute bronchitis, unspecified - Chronic obstructive pulmonary disease with (acute) lower respiratory infection - Fall on same level from slipping, tripping and stumbling without subsequent striking against object, initial encounter - Low back pain, unspecified - HBP, fall, back pain - Shortness of Breath 04/17/2024 16:36 [facility] Flaquita NELSON ([place]) TYPE: Emergency DIAGNOSES: - Concussion without loss of consciousness, initial encounter - Postconcussional syndrome - head pain - Headache (Adult - Re-evaluation) 04/01/2024 20:24 [facility] Flaquita NELSON ([place]) TYPE: Emergency DIAGNOSES: - Postconcussional syndrome - Headache (Adult - Re-evaluation) - Shortness of Breath - sob, dizzy 03/29/2024 15:30 [facility] [place] TYPE: Emergency COMPLAINT: - ARM PAIN DIAGNOSES: - Allergy status to other drugs, medicaments and biological substances - Allergy status to sulfonamides - Chronic obstructive pulmonary disease, unspecified - Heart failure, unspecified - Hypertensive heart disease with heart failure - Other jail (current) drug therapy - Pain in left shoulder - Type 2 diabetes mellitus without complications 03/22/2024 11:19 [facility] Flaquita Sams [place] ([place]) TYPE: Emergency DIAGNOSES: - Postconcussional syndrome - fall - Shoulder Pain 03/12/2024 15:21 [facility] Flaquita Sams [place] ([place]) TYPE: Emergency DIAGNOSES: - Dizziness and giddiness [...] Hypertensive heart disease without heart failure - continuous churn buttermaker (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 of inhaled steroids - continuous churn buttermaker (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 of insulin - halfway (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 of systemic steroids - Low back pain, unspecified - Other meterman (current) drug therapy - Sleep apnea, unspecified - Type 2 diabetes mellitus without complications Plus 3 More Visits INPATIENT VISIT TRACKING (12 MO.) 12/22/2024 20:06 DONNA José [place] TYPE: Medical Surgical COMPLAINT: - COPD EXACERBATION DIAGNOSES: - Acquired absence of other specified parts of digestive tract - Acquired absence of ovaries, unilateral - Acute and chronic respiratory failure with hypoxia - Acute bronchiolitis, unspecified - Alkalosis - Allergy status to narcotic agent - Allergy status to other drugs, medicaments and biological substances - Allergy status to sulfonamides - Anxiety disorder, unspecified - Arthrodesis status - Body mass index [BMI] 40.0-44.9, adult - Chronic obstructive pulmonary disease with (acute) exacerbation - Dorsalgia, unspecified - Fibromyalgia - Gastro-esophageal reflux disease without esophagitis - Heart failure, unspecified - Hyperlipidemia, unspecified - Hypertensive heart disease with heart failure - Interstitial pulmonary disease, unspecified - continuous churn buttermaker (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 of insulin - Noninfective gastroenteritis and colitis, unspecified - Obstructive sleep apnea (adult) (pediatric) - Other meterman (current) drug therapy - Other specified postprocedural states - Personal history of nicotine dependence - Presence of coronary angioplasty implant and graft - Rheumatoid arthritis, unspecified - Tubal ligation status - Type 2 diabetes mellitus with hyperglycemia - Unspecified mood [affective] disorder - Unspecified osteoarthritis, unspecified site - OBESITY, CLASS 3 08/31/2024 10:11 [facility] Nikki NELSON (Flaquita Sams) TYPE: Medical Surgical DIAGNOSES: - Acute respiratory failure with hypoxia - Chronic obstructive pulmonary disease with (acute) exacerbation - Chronic pain syndrome - Essential (primary) hypertension - Influenza due to identified novel influenza A virus with pneumonia - Influenza due to other identified influenza virus with other respiratory manifestations - halfway (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 of insulin - Pneumonia, unspecified organism - Spinal stenosis, lumbar region with neurogenic claudication - Type 2 diabetes mellitus without complications [email or web address]
[2024-12-31] MEDS ORDERED: DEXCOM G7 SENS1 EACH MC (20:51)
[2024-12-31] MEDS ORDERED: KETOROLAC TROMETHAMINE 15 MG/ML VIAL IV ONE (21:00)
[2024-12-31] MEDS ORDERED: ondansetron HCL 4 MG/2 ML VIAL IV PRN (21:00)
[2024-12-31 21:16] LABS: HEMATOCRIT 46.7 % (35.0-50.0); HEMOGLOBIN 16.1 g/dL (12.0-18.0); MCH 33.1 (27-36); MCHC 34.6 g/dl (30-36); MCV 95.7 fl (81-99); PLATELET COUNT 149 K/uL (140-440); RBC 4.88 M/ul (4.3-5.7); RDW 14.6 (10.5-15.0)
[2024-12-31 21:30] LABS: BANDS, MANUAL DIFF 1; BASOPHILS, MANUAL DIFF 1; EOSINOPHILS, MANUAL DIFF 2; LYMPHOCYTES, MANUAL DIFF 49; MONOCYTES, MANUAL DIFF 3; NEUTROPHILS, MANUAL DIFF 44
[2024-12-31 21:38] LABS: ALBUMIN 3.2 g/dL (3.4-5.0); ALBUMIN/GLOBULIN RATIO 0.84 (1.1-2.4); ANION GAP 8.4 (7-21); BILIRUBIN, TOTAL 0.4 mg/dL (0.2-1.0); BUN/CREATININE RATIO 26.22 (6.0-28.6); CALCIUM 8.8 mg/dL (8.5-10.1); CREATININE, SERUM 0.61 mg/dL (0.55-1.02); POTASSIUM 3.4 mmol/L (3.5-5.1)
[2024-12-31] MEDS ORDERED: SCOPOLAMINE 1 MG/3 DAYS PATCH 1 EACH TDSY TD ONE (23:00)
[2024-12-31] MEDS ORDERED: HYDROmorphone HCL 1 MG/ML SYR IV PRN (23:00)
[2024-12-31 23:02] LABS: BILIRUBIN, URINE NEGATIVE (negative); BLOOD/HGB, URINE NEGATIVE (Negative); KETONE, URINE NEGATIVE (Negative); LEUK ESTERASE, URINE TRACE (negative); NITRITE, URINE NEGATIVE (negative)
[2024-12-31 23:09] LABS: BACTERIA, URINE RARE /hpf (negative); CASTS, URINE NONE SEEN \\lpf; COLLECTION TYPE, URINE CLEAN CATCH; CRYSTALS, URINE NONE SEEN (0-1+); RED BLOOD CELLS, URINE 0-1 /hpf (0-5); REFLEX CULTURE, URINE No (No)
[2024-12-31] MEDS ORDERED: DEXTROSE 50% 50 ML SYR ONE (23:14)
[2024-12-31] MEDS ORDERED: DEXTROSE 50% 50 ML SYR IV ONE (23:15)
[2025-01-01] MEDS ORDERED: DEXTROSE 50% 50 ML SYR IV ONE (00:30)
[2025-01-01] MEDS ORDERED: HYDROmorphone HCL 2 MG HOME.PACK PO ONE (00:45)
[2025-01-01 01:18] VITALS: BP 119/55
== END 2025-01-01 01:21 | disposition home or self-care (01) ==
LOC: ED 19:09
PROVIDERS: Emergency Medicine
DX: R10.11 Right upper quadrant pain (principal); R42 Dizziness and giddiness; E11.9 Type 2 diabetes mellitus without complications; I11.0 Hypertensive heart disease with heart failure; I50.9 Heart failure, unspecified; J44.9 Chronic obstructive pulmonary disease, unspecified; G47.30 Sleep apnea, unspecified; Z79.51 Long term (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 of inhaled steroids; Z79.4 Long term (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 of insulin; Z79.899 Other long term (current) drug therapy; Z88.2 Allergy status to sulfonamides; Z88.5 Allergy status to narcotic agent; Z88.1 Allergy status to other antibiotic agents; Z88.8 Allergy status to other drugs, medicaments and biological substances
CPT/HCPCS: 36415; 70450; 74177; 80053; 81001; 83690; 85025; 96375; 99284-25; J1171; J1885; J2405; Q9967

== ENCOUNTER 2025-01-22 16:32 | Emergency (ER) | payer OTHER, MEDICARE ==
[~2025-01-22] VITALS: Ht 162.6 cm; Wt 105.0 kg
[~2025-01-22 16:32] MED LIST changes: +DEXCOM G7 SENS1 EACH MC
--- OUTSIDE RECORDS SUMMARY | 2025-01-22 16:39 | XMS ---
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 E.Eusebio VISIT COUNT (12 MO.) [facility] 9 [facility] 1 [facility] TOTAL 28 NOTE: Visits indicate total known visits. ED/UCC VISIT TRACKING (12 MO.) 01/22/2025 16:33 DONNA José [place] TYPE: Emergency COMPLAINT: - LT KNEE PAIN 01/21/2025 19:54 [facility] Nikki NELSON (Flaquita Sams) TYPE: Emergency DIAGNOSES: - Pain in right knee - Strain of unspecified muscle, fascia and tendon at shoulder and upper arm level, left arm, initial encounter - EMS - Post-op Problem 01/08/2025 21:46 [facility] Flaquita NELSON (Flaquita Sams) TYPE: Emergency DIAGNOSES: - Body mass index [BMI] 40.0-44.9, adult - Chronic obstructive pulmonary disease, unspecified - Chronic pain syndrome - Dependence on supplemental oxygen - Fibromyalgia - technician terminal and repeater (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 of insulin - long-term (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 of opiate analgesic - Morbid (severe) obesity due to excess calories - Repeated falls - Rheumatoid arthritis with rheumatoid factor of multiple sites without organ or systems involvement - Type 2 diabetes mellitus without complications - Unspecified fracture of left patella, initial encounter for closed fracture - Unspecified fracture of the lower end of right radius, initial encounter for closed fracture - Unsteadiness on feet - Knee Pain - Shoulder Pain 01/08/2025 13:51 [facility] [place] TYPE: Emergency DIAGNOSES: - Unspecified fracture of left patella, initial encounter for closed fracture - Unspecified fracture of the lower end of right radius, initial encounter for closed fracture - Unspecified injury of head, initial encounter - glf 01/06/2025 17:01 [facility] Flaquita NELSON (Flaquita Sams) TYPE: Emergency DIAGNOSES: - Chronic obstructive pulmonary disease with (acute) exacerbation - Migraine, unspecified, not intractable, without status migrainosus - Muscle spasm of back - Shortness of Breath - SOB 12/31/2024 19:[address] [facility] [place] TYPE: Emergency COMPLAINT: - FLANK/ABDOMINAL PAIN DIAGNOSES: - Allergy status to narcotic agent - Allergy status to other antibiotic agents - Allergy status to other drugs, medicaments and biological substances - Allergy status to sulfonamides - Chronic obstructive pulmonary disease, unspecified - Dizziness and giddiness - Heart failure, unspecified - Hypertensive heart disease with heart failure - technician terminal and repeater (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 of inhaled steroids - technician terminal and repeater (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 of insulin - Other tank terminal gauger (current) drug therapy - Right upper quadrant pain - Sleep apnea, unspecified - Type 2 diabetes mellitus without complications - Unspecified abdominal pain 12/28/2024 10:20 [facility] Flaquita NELSON (Flaquita Sams) TYPE: Emergency DIAGNOSES: - Chronic obstructive pulmonary disease with (acute) exacerbation - Dorsalgia, unspecified - allergic reaction 12/25/2024 17:14 [facility] Flaquita NELSON (Flaquita Sams) TYPE: Emergency [...] - Low back pain, unspecified - Other detention (current) drug therapy - Sleep apnea, unspecified - Type 2 diabetes mellitus without complications - Unspecified abdominal pain - Unspecified osteoarthritis, unspecified site 12/08/2024 10:[address] [facility] [address] Nicole NELSON (Flaquita Sams) TYPE: Emergency DIAGNOSES: - Dorsalgia, unspecified - Right upper quadrant pain - back pain 12/05/2024 07:52 DONNA José [place] TYPE: Emergency COMPLAINT: - URINARY PROBLEM DIAGNOSES: - Allergy status to other drugs, medicaments and biological substances - Allergy status to sulfonamides - Chronic obstructive pulmonary disease, unspecified - Heart failure, unspecified - Hypertensive heart disease with heart failure - long-term (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 of insulin - Other tank terminal gauger (current) drug therapy - Right upper quadrant [...] Hypertensive heart disease with heart failure - technician terminal and repeater (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 of insulin - Low back pain, unspecified - Other chronic pain - Other tank terminal gauger (current) drug therapy - Sleep apnea, unspecified - Type 2 diabetes mellitus without complications 08/31/2024 10:11 [facility] (Fla[facility]ita Sams[facility] TYPE: Emergency DIAGNOSES: - Acute respiratory failure with hypoxia - Chronic obstructive pulmonary disease with (acute) exacerbation - Influenza due to other identified influenza virus with other respiratory manifestations - Pneumonia, unspecified organism - cough, SOB, dizzy - Flu Like Symptoms 08/16/2024 09:12 [facility] Flaquita NELSON (Flaquita Sams) TYPE: Emergency DIAGNOSES: - Chronic obstructive pulmonary disease, unspecified - Dependence on supplemental oxygen - Gastro-esophageal reflux disease with esophagitis, without bleeding - Parkinson's disease without dyskinesia, without mention of fluctuations - Unspecified abdominal pain - abd pain, vomiting - Abdominal Pain 08/14/2024 07:11 [facility] Flaquita NELSON ([place]) TYPE: Emergency DIAGNOSES: - Epigastric pain - Nausea with vomiting, unspecified - Nausea with vomiting, unspecified - Pure hypercholesterolemia, unspecified - abd pain, N/V - Chest Pain - Emesis 07/29/2024 18:10 [facility] Flaquita NELSON (Flaquita Sams) TYPE: Emergency DIAGNOSES: - Cervicalgia - Chest pain, unspecified - Dizziness and giddiness - Other complicated headache syndrome - Chest Pain - Weakness 07/13/2024 19:[address] [facility] [address] [facility] TYPE: Emergency COMPLAINT: - WEAKNESS DIAGNOSES: - Allergy status to other anti-infective agents - Allergy status to other drugs, medicaments and biological substances - Allergy status to sulfonamides - Chronic obstructive pulmonary disease, unspecified - Fibromyalgia - Heart failure, unspecified - Hypertensive heart disease with heart failure - Hypomagnesemia - long-term (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 of inhaled steroids - technician terminal and repeater (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 of insulin - Old myocardial infarction - Other detention (current) drug therapy - Presence of coronary angioplasty implant and graft - Sleep apnea, unspecified - Type 2 diabetes mellitus without complications - Weakness 06/17/2024 08:00 [facility] Flaquita NELSON ([place]quita Sams) TYPE: Emergency DIAGNOSES: - Acute bronchitis, unspecified - Chronic obstructive pulmonary disease with (acute) lower respiratory infection - Fall on same level from slipping, tripping and stumbling without subsequent striking against object, initial encounter - Low back pain, unspecified - HBP, fall, back pain - Shortness of Breath 04/17/2024 16:36 [facility] Flaquita NELSON ([place]quita Sams) TYPE: Emergency DIAGNOSES: - Concussion without loss of consciousness, initial encounter - Postconcussional syndrome - head pain - Headache (Adult - Re-evaluation) Plus 8 More Visits INPATIENT VISIT TRACKING (12 MO.) 01/08/2025 21:46 [facility] Flaquita NELSON (Flaquita Sams) TYPE: Surgical Services DIAGNOSES: - Body mass index [BMI] 40.0-44.9, adult - Chronic obstructive pulmonary disease, unspecified - Chronic pain syndrome - Dependence on supplemental oxygen - Fibromyalgia - Idiopathic sleep related nonobstructive alveolar hypoventilation - long-term (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 of insulin - long-term (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 of opiate analgesic - Morbid (severe) obesity due to excess calories - Repeated falls - Rheumatoid arthritis with rheumatoid factor of multiple sites without organ or systems involvement - Type 2 diabetes mellitus without complications - Unspecified fracture of left patella, initial encounter for closed fracture - Unspecified fracture of the lower end of right radius, initial encounter for closed fracture - Unsteadiness on feet 12/22/2024 20:06 DONNA José [place] TYPE: Medical [...] failure - Interstitial pulmonary disease, unspecified - technician terminal and repeater (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 of insulin - Noninfective gastroenteritis and colitis, unspecified - Obstructive sleep apnea (adult) (pediatric) - Other detention (current) drug therapy - Other specified postprocedural states - Personal history of nicotine dependence - Presence of coronary angioplasty implant and graft - Rheumatoid arthritis, unspecified - Tubal ligation status - Type 2 diabetes mellitus with hyperglycemia - Unspecified mood [affective] disorder - Unspecified osteoarthritis, unspecified site - OBESITY, CLASS 3 08[facility]31/2024 10[facility] DIAGNOSES: - Acute respiratory failure with hypoxia - Chronic obstructive pulmonary disease with (acute) exacerbation - Chronic pain syndrome - Essential (primary) hypertension - Influenza due to identified novel influenza A virus with pneumonia - Influenza due to other identified influenza virus with other respiratory manifestations - long-term (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 of insulin - Pneumonia, unspecified organism - Spinal stenosis, lumbar region with neurogenic claudication - Type 2 diabetes mellitus without complications [email or web address]
[2025-01-22] MEDS ORDERED: HYDROmorphone HCL 2 MG TAB PO ONE (18:30)
[2025-01-22 19:07] VITALS: BP 155/67
== END 2025-01-22 19:08 | disposition home or self-care (01) ==
LOC: ED 16:32
DX: F11.23 Opioid dependence with withdrawal (principal); E11.9 Type 2 diabetes mellitus without complications; I11.0 Hypertensive heart disease with heart failure; I50.9 Heart failure, unspecified; G47.30 Sleep apnea, unspecified; Z79.51 Long term (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 of inhaled steroids; Z79.4 Long term (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 of insulin; Z79.899 Other long term (current) drug therapy; Z88.2 Allergy status to sulfonamides; Z88.5 Allergy status to narcotic agent; Z88.8 Allergy status to other drugs, medicaments and biological substances
CPT/HCPCS: 99284

== ENCOUNTER 2025-02-16 13:25 | Emergency (ER) | payer OTHER, MEDICARE ==
[~2025-02-16] VITALS: Ht 162.6 cm; Wt 119.4 kg
--- OUTSIDE RECORDS SUMMARY | 2025-02-16 13:32 | XMS ---
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 Fabi VISIT COUNT (12 MO.) 17 [facility] ([place]) 10 [facility] TOTAL [facility] NOTE: Visits indicate total known visits. ED/UCC VISIT TRACKING (12 MO.) 02/16/2025 13:25 [facility] [place] TYPE: Emergency COMPLAINT: - FALL 01/22/2025 16:33 [facility] [place] TYPE: Emergency COMPLAINT: - LT KNEE PAIN DIAGNOSES: - Allergy status to narcotic agent - Allergy status to other drugs, medicaments and biological substances - Allergy status to sulfonamides - Diarrhea, unspecified - Heart failure, unspecified - Hypertensive heart disease with heart failure - 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 driver (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 of inhaled steroids - group home (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 of insulin - Opioid dependence with withdrawal - Other intermediate school teacher (current) drug therapy - Sleep apnea, unspecified - Type 2 diabetes mellitus without complications 01/21/2025 19:54 [facility] Flaquita NELSON ([place]) TYPE: Emergency DIAGNOSES: - Pain in right knee - Strain of unspecified muscle, fascia and tendon at shoulder and upper arm level, left arm, initial encounter - EMS - Post-op Problem 01/08/2025 21:46 [facility] Flaquita NELSON ([place]) TYPE: Emergency DIAGNOSES: - Body mass index [BMI] 40.0-44.9, adult - Chronic obstructive pulmonary disease, unspecified - Chronic pain syndrome - Dependence on supplemental oxygen - Fibromyalgia - 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 driver (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 of 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 - 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 driver (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 of opiate analgesic - Morbid [...] Knee Pain - Shoulder Pain 01/08/2025 13:51 [facility] [place] TYPE: Emergency DIAGNOSES: - Unspecified fracture of left patella, initial encounter for closed fracture - Unspecified fracture of the lower end of right radius, initial encounter for closed fracture - Unspecified injury of head, initial encounter - glf 01/06/2025 17:01 [facility] Flaquita NELSON ([place] Sams) TYPE: Emergency DIAGNOSES: - Chronic obstructive pulmonary disease with (acute) exacerbation - Migraine, unspecified, not intractable, without status migrainosus - Muscle spasm of back - Shortness of Breath - SOB 12/31/2024 19:09 [facility] [place] TYPE: Emergency COMPLAINT: - FLANK/ABDOMINAL PAIN DIAGNOSES: - Allergy status to narcotic agent - Allergy status to other antibiotic agents - Allergy status to other drugs, medicaments and biological substances - Allergy status to sulfonamides - Chronic obstructive pulmonary disease, unspecified - Dizziness and giddiness - Heart failure, unspecified - Hypertensive heart disease with heart failure - 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 driver (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 of inhaled steroids - group home (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 of insulin - Other nursing home (current) drug therapy - Right upper quadrant pain - Sleep apnea, unspecified - Type 2 diabetes mellitus without complications - Unspecified abdominal pain 12/28/2024 10:20 [facility] Flaquita NELSON (Flaquita Sams) TYPE: Emergency DIAGNOSES: - Chronic obstructive pulmonary disease with (acute) exacerbation - Dorsalgia, unspecified - allergic reaction 12/25/2024 17:14 [facility] [place] ([place]quita Sams) TYPE: Emergency DIAGNOSES: - Adverse effect of insulin and oral hypoglycemic [antidiabetic] drugs, initial encounter - Allergy, unspecified, initial encounter - Allergy, unspecified, initial encounter - Drug-induced hypoglycemia without coma - Allergic Reaction - allergic reaction medication - poss allergic reaction medication 12/22/2024 17:05 DONAN Vincent TYPE: Emergency COMPLAINT: - DIFFICULTY BREATHING 12/12/2024 14:50 [facility] [place] TYPE: Emergency COMPLAINT: - FLANK PAIN DIAGNOSES: - Allergy status to other drugs, medicaments and biological substances - Allergy status to sulfonamides - Chronic obstructive pulmonary disease, unspecified - Heart failure, unspecified - Hypertensive heart disease with heart failure - Low back pain, unspecified - Other intermediate school teacher (current) drug therapy - Sleep apnea, unspecified - Type 2 diabetes mellitus without complications - Unspecified abdominal pain - Unspecified osteoarthritis, unspecified site 12[facility] DIAGNOSES: - Dorsalgia, unspecified - Right upper quadrant pain - back pain 12/05/2024 07:52 [facility] [place] TYPE: Emergency COMPLAINT: - URINARY PROBLEM DIAGNOSES: - Allergy status to other drugs, medicaments and biological substances - Allergy status to sulfonamides - Chronic obstructive pulmonary disease, unspecified - Heart failure, unspecified - Hypertensive heart disease with heart failure - group home (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 of insulin - Other intermediate school teacher (current) drug therapy - Right upper quadrant [...] Hypertensive heart disease with heart failure - 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 driver (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 of insulin - Low back pain, unspecified - Other chronic pain - Other intermediate school teacher (current) drug therapy - Sleep apnea, unspecified - Type 2 diabetes mellitus without complications 08/31/2024 10:11 [facility] Flaquita NELSON ([place]) TYPE: Emergency DIAGNOSES: - Acute respiratory failure with hypoxia - Chronic obstructive pulmonary disease with (acute) exacerbation - Influenza due to other identified influenza virus with other respiratory manifestations - Pneumonia, unspecified organism - cough, SOB, dizzy - Flu Like Symptoms 08/16/2024 09:12 [facility] Flaquita NELSON ([place]) TYPE: Emergency DIAGNOSES: - Chronic obstructive pulmonary disease, unspecified - Dependence on supplemental oxygen - Gastro-esophageal reflux disease with esophagitis, without bleeding - Parkinson's disease without dyskinesia, without mention of fluctuations - Unspecified abdominal pain - abd pain, vomiting - Abdominal Pain 08/14/2024 07:11 [facility] [place] ([place]) TYPE: Emergency DIAGNOSES: - Epigastric pain - Nausea with vomiting, unspecified - Nausea with vomiting, unspecified - Pure hypercholesterolemia, unspecified - abd pain, N/V - Chest Pain - Emesis 07/29/2024 18:10 [facility] ([place]) TYPE: Emergency DIAGNOSES: - Cervicalgia - Chest pain, unspecified - Dizziness and giddiness - Other complicated headache syndrome - Chest Pain - Weakness 07/13/2024 19:36 DONNA [place] TYPE: Emergency COMPLAINT: - WEAKNESS DIAGNOSES: - Allergy status to other anti-infective agents - Allergy status to other drugs, medicaments and biological substances - Allergy status to sulfonamides - Chronic obstructive pulmonary disease, unspecified - Fibromyalgia - Heart failure, unspecified - Hypertensive heart disease with heart failure - Hypomagnesemia - group home (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 of inhaled steroids - 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 driver (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 of insulin - Old myocardial infarction - Other intermediate school teacher (current) drug therapy - Presence of coronary angioplasty implant and graft - Sleep apnea, unspecified - Type 2 diabetes mellitus without complications - Weakness 06/17/2024 08:00 [facility] Flaquita NELSON (Flaquita Sams) TYPE: Emergency DIAGNOSES: - Acute bronchitis, unspecified - Chronic obstructive pulmonary disease with (acute) lower respiratory infection - Fall on same level from slipping, tripping and stumbling without subsequent striking against object, initial encounter - Low back pain, unspecified - HBP, fall, back pain - Shortness of Breath Plus 8 More Visits INPATIENT VISIT TRACKING (12 MO.) 01/08/2025 21:46 [facility] Flaquita NELSON (Flaquita Sams) TYPE: Surgical Services DIAGNOSES: - Body mass index [BMI] 40.0-44.9, adult - Chronic obstructive pulmonary disease, unspecified - Chronic pain syndrome - Dependence on supplemental oxygen - Fibromyalgia - Idiopathic sleep related nonobstructive alveolar hypoventilation - group home (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 of insulin - group home (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 of opiate analgesic - Morbid [...] failure - Interstitial pulmonary disease, unspecified - group home (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 of insulin - Noninfective gastroenteritis and colitis, unspecified - Obstructive sleep apnea (adult) (pediatric) - Other nursing home (current) drug therapy - Other specified postprocedural states - Personal history of nicotine dependence - Presence of coronary angioplasty implant and graft - Rheumatoid arthritis, unspecified - Tubal ligation status - Type 2 diabetes mellitus with hyperglycemia - Unspecified mood [affective] disorder - Unspecified osteoarthritis, unspecified site - OBESITY, CLASS 3 08/31/2024 10:11 [facility] Flaquita NELSON (Flaquita Sams) TYPE: Medical Surgical DIAGNOSES: - Acute respiratory failure with hypoxia - Chronic obstructive pulmonary disease with (acute) exacerbation - Chronic pain syndrome - Essential (primary) hypertension - Influenza due to identified novel influenza A virus with pneumonia - Influenza due to other identified influenza virus with other respiratory manifestations - 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
[2025-02-16 15:00] VITALS: BP 119/55
== END 2025-02-16 15:00 | disposition home or self-care (01) ==
LOC: ED 13:25
DX: S39.012A Strain of muscle, fascia and tendon of lower back, initial encounter (principal); S80.02XA Contusion of left knee, initial encounter; E11.9 Type 2 diabetes mellitus without complications; J44.9 Chronic obstructive pulmonary disease, unspecified; I11.0 Hypertensive heart disease with heart failure; I50.9 Heart failure, unspecified; G47.30 Sleep apnea, unspecified; Z98.890 Other specified postprocedural states; Z95.5 Presence of coronary angioplasty implant and graft; Z88.3 Allergy status to other anti-infective agents; Z88.2 Allergy status to sulfonamides; Z88.8 Allergy status to other drugs, medicaments and biological substances; Z88.5 Allergy status to narcotic agent; Z79.4 Long term (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 of insulin; Z79.51 Long term (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 of inhaled steroids; Z79.899 Other long term (current) drug therapy; W18.2XXA Fall in (into) shower or empty bathtub, initial encounter
CPT/HCPCS: 73560; 99283

== ENCOUNTER 2025-08-11 10:46 | Emergency (ER) | payer MEDICARE, OTHER ==
[~2025-08-11] VITALS: Ht 162.6 cm; Wt 128.5 kg
--- OUTSIDE RECORDS SUMMARY | 2025-08-11 10:52 | XMS ---
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 Fabi VISIT COUNT (12 MO.) 20 [facility] Nikki ([place]) 8 DONNA Wilson [facility] TOTAL 29 NOTE: Visits indicate total known visits. ED/UCC VISIT TRACKING (12 MO.) 08/11/2025 10:[address] [facility] [place] TYPE: Emergency COMPLAINT: - RT HIP PAIN [facility] DIAGNOSES: - Other chest pain - Pain in unspecified hip - Unspecified osteoarthritis, unspecified site - Chest Pain - Chest Pain;Hip Pain - Hip Pain 07/30/2025 20:32 [facility] [place] ([place] TYPE: Emergency DIAGNOSES: - Other low back pain - Shortness of breath - Type 1 diabetes mellitus with hyperglycemia - Abdominal Pain - Back Pain - Shortness of Breath - SOB , BS 400+ 07/29/2025 10:27 [facility] Flaquita NELSON ([place]) TYPE: Emergency DIAGNOSES: - group home (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 of insulin - Low back pain, unspecified - Pain in left leg - Pain in right leg - Type 2 diabetes mellitus with hyperglycemia - High Blood Sugar - High Blood Sugar (Symptomatic) - Nausea 07/17/2025 11:57 [facility] Flaquita NEL[place] ([place]) TYPE: Emergency DIAGNOSES: - Displaced transverse fracture of left patella, initial encounter for closed fracture - Displaced transverse fracture of left patella, initial encounter for closed fracture - knee pain 07/09/2025 09:00 [facility] DIAGNOSES: - Displaced longitudinal fracture of left patella, initial encounter for closed fracture - Unspecified fracture of left patella, initial encounter for closed fracture - Knee Pain - lt knee pain 06/21/2025 18:53 [facility] Flaquita NELSON ([place]) TYPE: Emergency DIAGNOSES: - Low back pain, unspecified - back pain,bilateral leg pain - Leg Pain (Non-traumatic) 06/18/2025 12:31 [facility] [place] ([place] TYPE: Emergency DIAGNOSES: - Chronic obstructive pulmonary disease with (acute) exacerbation - Other specified respiratory disorders - Dizziness - Dizzy, headache, leg pain, trouble walking - Shortness of Breath 05/18/2025 15:31 [facility] Flaquita NELSON (Flaquita Sams) TYPE: Emergency DIAGNOSES: - Dyspnea, unspecified - Hyperglycemia, unspecified - Shortness of Breath - sob, low o2 04/22/2025 11:57 [facility] Flaquita NELSON (Flaqu[place] Sams) TYPE: Emergency DIAGNOSES: - Chronic obstructive pulmonary disease with (acute) exacerbation - Chronic obstructive pulmonary disease, unspecified - Other specified symptoms and signs involving the circulatory and respiratory systems - Shortness of breath - Dizziness - Dizziness;Weakness - Weakness 04/11/2025 11:23 [facility] Flaquita NELSON ([place]) TYPE: Emergency DIAGNOSES: - Chronic obstructive pulmonary disease, unspecified - Shortness of breath - Unspecified sprain of right wrist, initial encounter - hand pain - Medical Problem (Minor) - Wrist Pain 03/31/2025 13:38 [facility] [place] ([place]) TYPE: Emergency DIAGNOSES: - Pneumonia, unspecified organism - Shortness of Breath - worsening pneumonia 02/16/2025 13:25 DONNA [place] TYPE: Emergency COMPLAINT: - FALL DIAGNOSES: - Allergy status to narcotic agent - Allergy status to other anti-infective agents - Allergy status to other drugs, medicaments and biological substances - Allergy status to sulfonamides - Chronic obstructive pulmonary disease, unspecified - Contusion of left knee, initial encounter - Fall in (into) shower or empty bathtub, initial encounter - Heart failure, unspecified - Hypertensive heart disease with heart failure - health care attorney (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 of inhaled steroids - health care attorney (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 of insulin - Other wagon person (current) drug therapy - Other specified postprocedural states - Pain in left knee - Presence of coronary angioplasty implant and graft - Sleep apnea, unspecified - Strain of muscle, fascia and tendon of lower back, initial encounter - Type 2 diabetes mellitus without complications 01/22/2025 16:33 [facility] [place] TYPE: Emergency COMPLAINT: - LT KNEE PAIN DIAGNOSES: - Allergy status to narcotic agent - Allergy status to other drugs, medicaments and biological substances - Allergy status to sulfonamides - Diarrhea, unspecified - Heart failure, unspecified - Hypertensive heart disease with heart failure - group home (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 of inhaled steroids - health care attorney (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 of insulin - Opioid dependence with withdrawal - Other wagon person (current) drug therapy - Sleep apnea, unspecified - Type 2 diabetes mellitus without complications 01/21/2025 19:54 [facility] Flaquita NELSON ([place]) TYPE: Emergency DIAGNOSES: - Pain in right knee - Strain of unspecified muscle, fascia and tendon at shoulder and upper arm level, left arm, initial encounter - EMS - Post-op Problem 01/08/2025 21:46 [facility] Flaquita NELSON ([place]) TYPE: Emergency DIAGNOSES: - Body mass index [BMI] 40.0-44.9, adult - Chronic obstructive pulmonary disease, unspecified - Chronic pain syndrome - Dependence on supplemental oxygen - Fibromyalgia - group home (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 of insulin - health care attorney (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 of opiate analgesic - Morbid [...] Knee Pain - Shoulder Pain 01/08/2025 13:51 [facility] [place] TYPE: Emergency DIAGNOSES: - Unspecified fracture of left patella, initial encounter for closed fracture - Unspecified fracture of the lower end of right radius, initial encounter for closed fracture - Unspecified injury of head, initial encounter - glf 01/06/2025 17:01 [facility] Flaquita NELSON (Flaquita Sams) TYPE: Emergency [...] failure - group home (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 of inhaled steroids - group home (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 of insulin - Other half-way (current) drug therapy - Right upper quadrant pain - Sleep apnea, unspecified - Type 2 diabetes mellitus without complications - Unspecified abdominal pain 12/28/2024 10:20 [facility] Flaquita NELSON (Flaquita Sams) TYPE: Emergency DIAGNOSES: - Chronic obstructive pulmonary disease with (acute) exacerbation - Dorsalgia, unspecified - allergic reaction Plus 9 More Visits INPATIENT VISIT TRACKING (12 MO.) 05/18/2025 15:31 [facility] Flaquita NELSON (Flaquita Sams) TYPE: Medical Surgical DIAGNOSES: - Acute and chronic respiratory failure with hypoxia - Acute on chronic diastolic (congestive) heart failure - Chronic obstructive pulmonary disease, unspecified - Dyspnea, unspecified - Hyperglycemia, unspecified - health care attorney (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 of insulin - Other disorders of lung - Type 2 diabetes mellitus without complications 01/08/2025 21:46 [facility] Flaquita Sams [place] (Flaquita Sams) TYPE: Surgical Services DIAGNOSES: - Body mass index [BMI] 40.0-44.9, adult - Chronic obstructive pulmonary disease, unspecified - Chronic pain syndrome - Dependence on supplemental oxygen - Fibromyalgia - Idiopathic sleep related nonobstructive alveolar hypoventilation - group home (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 of insulin - health care attorney (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 of opiate analgesic - Morbid [...] Obstructive sleep apnea (adult) (pediatric) - Other half-way (current) drug therapy - Other specified postprocedural states - Personal history of nicotine dependence - Presence of coronary angioplasty implant and graft - Rheumatoid arthritis, unspecified - Tubal ligation status - Type 2 diabetes mellitus with hyperglycemia - Unspecified mood [affective] disorder - Unspecified osteoarthritis, unspecified site - OBESITY, CLASS 3 08/31/2024 10:11 [facility] Flaquita NELSON (Flaquita Sams) TYPE: Medical Surgical DIAGNOSES: - Acute respiratory failure with hypoxia - Chronic obstructive pulmonary disease with (acute) exacerbation - Chronic pain syndrome - Essential (primary) hypertension - Influenza due to identified novel influenza A virus with pneumonia - Influenza due to other identified influenza virus with other respiratory manifestations - group home (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 of insulin - Pneumonia, unspecified organism - Spinal stenosis, lumbar region with neurogenic claudication - Type 2 diabetes mellitus without complications [email or web address]
[2025-08-11] MEDS ORDERED: ACETAMINOPHEN 500 MG TAB PO ONE (11:30)
[2025-08-11] MEDS ORDERED: KETOROLAC TROMETHAMINE 60 MG/2 ML VIAL IM ONE (11:30)
[2025-08-11] MEDS ORDERED: PREDNISONE20 MG PO (12:51)
[2025-08-11 13:12] VITALS: BP 119/63
== END 2025-08-11 13:12 | disposition home or self-care (01) ==
LOC: ED 10:46
DX: M25.551 Pain in right hip (principal); E11.9 Type 2 diabetes mellitus without complications; M19.90 Unspecified osteoarthritis, unspecified site; I11.0 Hypertensive heart disease with heart failure; I50.9 Heart failure, unspecified; Z88.2 Allergy status to sulfonamides; Z88.8 Allergy status to other drugs, medicaments and biological substances; Z79.899 Other long term (current) drug therapy; W01.0XXA Fall on same level from slipping, tripping and stumbling without subsequent striking against object, initial encounter
CPT/HCPCS: 73502; 96372; 99283; A9270; J1885